=== PATIENT | female | born 1945 | race Caucasian/White ===

== ENCOUNTER → 2022-04-08 10:31 | Outpatient (CLI) | payer OTHER, SELFPAY ==
--- NOTE | 2022-04-08 10:36 | DI.RAD.S_ITS ---
PROCEDURE: XR LUMBAR SPINE MIN 4V INDICATIONS: BACK PAIN TECHNIQUE: 5 views of the lumbar spine were acquired, including bilateral oblique views. COMPARISON: None. FINDINGS: Bones: 5 nonrib-bearing vertebrae are present. There is 6 mm anterolisthesis of L4 on L5 and L5 on S1. Degenerative endplate changes, loss of disc height and bilateral facet arthrosis throughout lumbar spine is seen most notably at L1-2 level.. No vertebral body compression fractures. No suspicious bony lesions. Soft tissues: Overlying bowel gas pattern is normal. No suspicious soft tissue calcifications. Oblique images: No pars defects. IMPRESSION: Degenerative disc disease throughout lumbar spine. No acute compression fracture. Grade 1 anterolisthesis at L4-5 and L5-S1 levels. No gross pars defects. Dictated by: Beto Jaimes M.D. on 04/08/2022 at 11:14 Approved by: Beto Jaimes M.D. on 04/08/2022 at 11:16
== END ==
PROVIDERS: PCP Physician Assistant Medical; Referring Provider Physical Medicine & Rehabilitation; Visit Provider Physical Medicine & Rehabilitation
DX: M51.16 Intervertebral disc disorders with radiculopathy, lumbar region (principal); M51.17 Intervertebral disc disorders with radiculopathy, lumbosacral region; M43.16 Spondylolisthesis, lumbar region; M43.17 Spondylolisthesis, lumbosacral region; M54.9 Dorsalgia, unspecified
CPT/HCPCS: 72110; 99214

== ENCOUNTER 2022-04-28 13:38 | Outpatient (CLI) | payer OTHER, SELFPAY ==
[2022-04-28] VITALS (8 sets, daily range): BP systolic 139–188; BP diastolic 62–87; PULSE 58–66; RESP 14–20; TEMP 36.3; O2SAT 96–99
--- NOTE | 2022-04-28 13:39 | DI.RAD.S_ITS ---
PROCEDURE: PAIN L/S TRANSFORAMINAL INJECT INDICATIONS: SPONDYLOSIS COMPARISON: [facility], CR, XR LUMBAR SPINE MIN 4V, 04/08/2022, 10:42. [facility], RG, MRI L-SPINE W/O CONTRAST, 11/10/2021, 14:56. FINDINGS: Fluoroscopic spot filming was performed to verify placement of a spinal needle at the L3-L4 level, as labeled on the films. Appropriate location of the needle tip was confirmed by injection of iodinated contrast. IMPRESSION: Intraprocedural examination within normal limits. Dictated by: Emil English M.D. on 04/28/2022 at 14:37 Approved by: Emil English M.D. on 04/28/2022 at 14:37
[2022-04-28] MEDS: MIDAZOLAM 2 MG/2 ML VIAL IV (15:04)
[2022-04-28] MEDS: BETAMETHASONE 30 MG/5 ML MDV 6 MG INJ (15:11)
[2022-04-28] MEDS: IOPAMIDOL 15 ML VIAL 3 ML INJ (15:11)
[2022-04-28] MEDS: DEXAMETHASONE 10 MG/ML VIAL 20 MG INJ (15:11)
[2022-04-28] MEDS: BUPIVACAINE 0.5% MDV 5 ML SUBCUT (15:13)
--- NOTE | 2022-04-28 15:25 | PM.PROC.IR.1 ---
Date/Time/Diagnoses Date of procedure: 04/28/22 Time of procedure: 15:25 Pre-procedure diagnosis: 1. FORAMINAL STENOSIS WITH LE SYMPTOMS Post-procedure diagnosis: same Procedure Notes Procedure: 1. FLUOROSCOPICALLY GUIDED CONTRAST CONTROLLED TRANSFORAMINAL EPIDURAL STEROID INJECTION - LEFT L3/4 TFESI Indications: Latasha is referred by RADHA Tan for treatment of Foraminal Stenosis with left LE Symptoms Physician: Fawad Tee Total Fluoroscopy time (seconds): 15 Total sedation minutes: 10 Complications: none Procedure in detail & Post-procedure care: FINDINGS Foraminal Nerve Root Compression secondary to disc disease and facet hypertrophy DESCRIPTION OF PROCEDURE Following review of allergy and review of potential side effects and complications, including, but not necessarily limited to, infection, allergic reaction, local tissue breakdown, stroke, temporary or permanent nerve injury, paralysis, and possible , the patient indicated that the patient understood and agreed to proceed. An informed consent document was signed by the patient, witnessed by a nurse, and placed in the patient's chart. Additionally, other treatment options including medications, modalities, and physical therapy were reviewed with the patient. After review of previous anaesthesic history and IV conscious sedation the patient was deemed safe to proceed with today?s procedure with IV conscious sedation as ASA class II designation. Safety time-out was performed to confirm patient ID, procedure to be performed and site of procedure. IV sedation was accomplished with a combination of 2mg of Versed was administered by the RN after DO order, titrated to patient comfort during the course of the procedure while the patient remained responsive to all verbal commands In the prone position following sterile prep and drape of the lumbar region, the left L3/4 posterior neuroforamen was identified fluoroscopically. The skin was anesthetized via a 25-gauge 1.5-inch needle with 1% lidocaine solution. At this point, a 25-gauge 3.5-inch spinal needle was atraumatically introduced and advanced under fluoroscopic guidance through the posterior left L3/4 neuroforamen to approximately the anterior aspect of the canal. Depth was confirmed on lateral view. Following negative aspiration, injection of approximately 1.5 cc of Isovue 200 under live fluoroscopy in the AP view confirmed excellent flow along the nerve root, into the epidural space without vascular or intrathecal uptake observed Radiological data, including multiple fluoroscopic views of the lumbosacral spine, reveal a spinal needle at the left L3/4 posterior neuroforamen. Subsequent views show flow of contrast material flowing superiorly and inferiorly along the nerve root confirming epidural flow. Subsequently, a test dose of 1.5cc of 1% lidocaine solution was administered and patient was observed for two minutes for signs or symptoms of complications, including abdominal pain, shortness of breath, bilateral upper or lower extremity weakness, nausea and vomiting, prior to steroid injection. At this point, a total of 3cc or 20mg of dexamethasone and 6mg betamethasone was injected without incident. The patient tolerated the procedure well without signs or symptoms of complications prior to transfer to the recovery area continued monitoring without incident. The patient was then transferred to the recovery area where they were observed for an appropriate time after the injection. The patient reported a VAS score of 7 prior to the procedure and a post-procedure VAS of 0. POST OP INSTRUCTIONS The patient was provided a Pain Log to continue to record their response to the target-specific procedure prior to follow-up visit with their referring physician. Additionally, specific post-injection care instructions and a contact number to our office were provided if concerns arise regarding possible complications associated with the procedure are suspected.
== END 2022-04-28 15:50 | disposition home or self-care (01) ==
LOC: RAD 13:38
PROVIDERS: PCP Physician Assistant Medical; Referring Provider Physical Medicine & Rehabilitation; Visit Provider Physical Medicine & Rehabilitation
DX: M48.061 Spinal stenosis, lumbar region without neurogenic claudication (principal); M51.16 Intervertebral disc disorders with radiculopathy, lumbar region
CPT/HCPCS: 64483; 99152; J0702; J1100; J2250; J3490

== ENCOUNTER 2022-08-27 10:04 | Outpatient (CLI) | payer OTHER, SELFPAY ==
[2022-08-27] VITALS (8 sets, daily range): BP systolic 123–183; BP diastolic 56–80; PULSE 52–58; RESP 10–24; TEMP 36.2; O2SAT 1–100
--- NOTE | 2022-08-27 10:06 | DI.RAD.S_ITS ---
PROCEDURE: PAIN L/S TRANSFORAM INJECT SIGRID COMPARISON: None. INDICATIONS: SPONDYLOSIS FINDINGS: Fluoroscopic spot filming was performed to verify placement of spinal needles at the bilateral L4-5 level(s), as labeled on the films. Appropriate location(s) of the needle tip(s) was confirmed by injection of iodinated contrast. IMPRESSION: Fluoroscopic guidance for bilateral L4-5 transforaminal injections. Please see procedural note for further details. Dictated by: Farhad Zepeda M.D. on 08/27/2022 at 13:06 Approved by: Farhad Zepeda M.D. on 08/27/2022 at 13:08
[2022-08-27] MEDS: BUPIVACAINE 0.25% (PF) VIAL 5 ML INJ (11:41)
[2022-08-27] MEDS: MIDAZOLAM 2 MG/2 ML VIAL IV (11:41)
[2022-08-27] MEDS: BETAMETHASONE 30 MG/5 ML MDV 12 MG INJ (11:42)
[2022-08-27] MEDS: IOPAMIDOL 15 ML VIAL 3 ML INJ (11:43)
[2022-08-27] MEDS: DEXAMETHASONE 10 MG/ML VIAL 20 MG INJ (11:44)
--- NOTE | 2022-08-27 11:54 | PM.PROC.IR.1 ---
Date/Time/Diagnoses Date of procedure: 08/27/22 Time of procedure: 11:54 Pre-procedure diagnosis: 1. FORAMINAL STENOSIS WITH LE SYMPTOMS Procedure Notes Procedure: 1. FLUOROSCOPICALLY GUIDED CONTRAST CONTROLLED TRANSFORAMINAL EPIDURAL STEROID INJECTION - BILATERAL L4/5 TFESI Indications: Latasha is referred by PAC Dominick for treatment of Foraminal Stenosis with bilateral LE Symptoms Physician: Fawad Tee Total Fluoroscopy time (seconds): 15 Total sedation minutes: 11 Complications: none Procedure in detail & Post-procedure care: FINDINGS Foraminal Nerve Root Compression secondary to disc disease and facet hypertrophy DESCRIPTION OF PROCEDURE Following review of allergy and review of potential side effects and complications, including, but not necessarily limited to, infection, allergic reaction, local tissue breakdown, stroke, temporary or permanent nerve injury, paralysis, and possible , the patient indicated that the patient understood and agreed to proceed. An informed consent document was signed by the patient, witnessed by a nurse, and placed in the patient's chart. Additionally, other treatment options including medications, modalities, and physical therapy were reviewed with the patient. After review of previous anaesthesic history and IV conscious sedation the patient was deemed safe to proceed with today?s procedure with IV conscious sedation as ASA class II designation. Safety time-out was performed to confirm patient ID, procedure to be performed and site of procedure. IV sedation was accomplished with a combination of 2mg of Versed was administered by the RN after DO order, titrated to patient comfort during the course of the procedure while the patient remained responsive to all verbal commands In the prone position following sterile prep and drape of the lumbar region, the right L4/5 posterior neuroforamen was identified fluoroscopically. The skin was anesthetized via a 25-gauge 1.5-inch needle with 1% lidocaine solution. At this point, a 25-gauge 3.5-inch spinal needle was atraumatically introduced and advanced under fluoroscopic guidance through the posterior right L4/5 neuroforamen to approximately the anterior aspect of the canal. Depth was confirmed on lateral view. Following negative aspiration, injection of approximately 1.5cc of Isovue 200 under live fluoroscopy in the AP view confirmed excellent flow along the nerve root, into the epidural space without vascular or intrathecal uptake observed Radiological data, including multiple fluoroscopic views of the lumbosacral spine, reveal a spinal needle at the right L4/5 posterior neuroforamen. Subsequent views show flow of contrast material flowing superiorly and inferiorly along the nerve root confirming epidural flow. Subsequently, a test dose of 1.5cc of 1% lidocaine solution was administered and patient was observed for two minutes for signs or symptoms of complications, including abdominal pain, shortness of breath, bilateral upper or lower extremity weakness, nausea and vomiting, prior to steroid injection. At this point, a total of 3cc or 20mg of dexamethasone and 6mg betamethasone was injected without incident. Attention was then refocused to the left L4/5 level where the identical procedure was replicated. The procedure tolerated the procedure well without signs or symptoms of complications prior to transfer to the recovery area continued monitoring without incident. The patient was then transferred to the recovery area where they were observed for an appropriate time after the injection. The patient reported a VAS score of 7 prior to the procedure and a post-procedure VAS of 0. POST OP INSTRUCTIONS The patient was provided a Pain Log to continue to record their response to the target-specific procedure prior to follow-up visit with their referring physician. Additionally, specific post-injection care instructions and a contact number to our office were provided if concerns arise regarding possible complications associated with the procedure are suspected.
== END 2022-08-27 12:11 | disposition home or self-care (01) ==
LOC: RAD 10:05
PROVIDERS: PCP Physician Assistant Medical; Referring Provider Physical Medicine & Rehabilitation; Visit Provider Physical Medicine & Rehabilitation
DX: M47.9 Spondylosis, unspecified (principal)
CPT/HCPCS: 64483; 99152; J0702; J1100; J2250; J3490

== ENCOUNTER 2022-11-03 13:16 | Outpatient (CLI) | payer OTHER, SELFPAY ==
--- NOTE | 2022-11-03 13:17 | DI.RAD.S_ITS ---
PROCEDURE: PAIN L/S TRANSFORAMINAL INJECT INDICATIONS: SPONDYLOSIS COMPARISON: [facility], , PAIN L/S TRANSFORAMINAL INJECT, 04/28/2022, 16:08. FINDINGS: Fluoroscopic spot filming was performed to verify placement of a spinal needle at the L5-S1 level, as labeled on the films. Appropriate location of the needle tip was confirmed by injection of iodinated contrast. IMPRESSION: No significant intraprocedural abnormality. Dictated by: Emil English M.D. on 11/03/2022 at 13:52 Approved by: Emil English M.D. on 11/03/2022 at 13:52
[2022-11-03 13:30] VITALS: BP 115/57; PULSE 55; RESP 18; TEMP 36.2; O2SAT 97
[2022-11-03 14:15] VITALS: BP 135/63; PULSE 52; RESP 16; O2SAT 100
[2022-11-03 14:20] VITALS: BP 124/59; PULSE 53; RESP 17; O2SAT 100
[2022-11-03] MEDS: IOPAMIDOL 15 ML VIAL 3 ML INJ (14:20)
[2022-11-03] MEDS: BETAMETHASONE 30 MG/5 ML MDV 6 MG INJ (14:20)
[2022-11-03] MEDS: DEXAMETHASONE 10 MG/ML VIAL 20 MG INJ (14:21)
[2022-11-03] MEDS: BUPIVACAINE 0.25% (PF) VIAL 2 ML INJ (14:22)
[2022-11-03 14:23] VITALS: BP 119/57; PULSE 52; RESP 16; O2SAT 100
[2022-11-03 14:30] VITALS: BP 120/56; PULSE 56; RESP 17; O2SAT 97
--- NOTE | 2022-11-03 14:32 | PM.PROC.IR.1 ---
Date/Time/Diagnoses Date of procedure: 11/03/22 Time of procedure: 14:32 Pre-procedure diagnosis: 1. FORAMINAL STENOSIS WITH LE SYMPTOMS Post-procedure diagnosis: same Procedure Notes Procedure: 1. FLUOROSCOPICALLY GUIDED CONTRAST CONTROLLED TRANSFORAMINAL EPIDURAL STEROID INJECTION - Left L5/S1 Indications: Latasha is referred by RADHA Tan for treatment of Foraminal Stenosis with Left LE Symptoms Physician: Fawad Tee Total Fluoroscopy time (seconds): 10 Total sedation minutes: 0 Complications: none Procedure in detail & Post-procedure care: FINDINGS Foraminal Nerve Root Compression secondary to disc disease and facet hypertrophy DESCRIPTION OF PROCEDURE Following review of allergy and review of potential side effects and complications, including, but not necessarily limited to, infection, allergic reaction, local tissue breakdown, stroke, temporary or permanent nerve injury, paralysis, and possible , the patient indicated that the patient understood and agreed to proceed. An informed consent document was signed by the patient, witnessed by a nurse, and placed in the patient's chart. Additionally, other treatment options including medications, modalities, and physical therapy were reviewed with the patient. After review of previous anaesthesic history and IV conscious sedation the patient was deemed safe to proceed with today?s procedure with IV conscious sedation as ASA class II designation. Safety time-out was performed to confirm patient ID, procedure to be performed and site of procedure. IV sedation was deemed unnecessary and thus not administered by the RN after DO order, titrated to patient comfort during the course of the procedure while the patient remained responsive to all verbal commands In the prone position following sterile prep and drape of the lumbar region, the Left L5/S1 posterior neuroforamen was identified fluoroscopically. The skin was anesthetized via a 25-gauge 1.5-inch needle with 1% lidocaine solution. At this point, a 25-gauge 3.5-inch spinal needle was atraumatically introduced and advanced under fluoroscopic guidance through the posterior Left L5/S1 neuroforamen to approximately the anterior aspect of the canal. Depth was confirmed on lateral view. Following negative aspiration, injection of approximately 1.5cc of Isovue 200 under live fluoroscopy in the AP view confirmed excellent flow along the nerve root, into the epidural space without vascular or intrathecal uptake observed Radiological data, including multiple fluoroscopic views of the lumbosacral spine, reveal a spinal needle at the Left L5/S1 posterior neuroforamen. Subsequent views show flow of contrast material flowing superiorly and inferiorly along the nerve root confirming epidural flow. Subsequently, a test dose of 1.5cc of 1% lidocaine solution was administered and patient was observed for two minutes for signs or symptoms of complications, including abdominal pain, shortness of breath, bilateral upper or lower extremity weakness, nausea and vomiting, prior to steroid injection. At this point, a total of 3cc or 20mg of dexamethasone and 6mg of betamethasone was injected without incident. The procedure tolerated the procedure well without signs or symptoms of complications prior to transfer to the recovery area continued monitoring without incident. The patient was then transferred to the recovery area where they were observed for an appropriate time after the injection. The patient reported a VAS score of 7 prior to the procedure and a post-procedure VAS of 0. POST OP INSTRUCTIONS The patient was provided a Pain Log to continue to record their response to the target-specific procedure prior to follow-up visit with their referring physician. Additionally, specific post-injection care instructions and a contact number to our office were provided if concerns arise regarding possible complications associated with the procedure are suspected.
== END 2022-11-03 14:38 | disposition home or self-care (01) ==
LOC: RAD 13:16
PROVIDERS: PCP Physician Assistant Medical; Referring Provider Physical Medicine & Rehabilitation; Visit Provider Physical Medicine & Rehabilitation
DX: M48.07 Spinal stenosis, lumbosacral region (principal); M51.17 Intervertebral disc disorders with radiculopathy, lumbosacral region; M47.27 Other spondylosis with radiculopathy, lumbosacral region
CPT/HCPCS: 64483; J0702; J1100; J2250; J3490

== ENCOUNTER 2023-02-18 10:08 | Outpatient (CLI) | payer OTHER, SELFPAY ==
[2023-02-18] VITALS (10 sets, daily range): BP systolic 112–147; BP diastolic 51–67; PULSE 49–58; RESP 14–18; TEMP 36.4; O2SAT 95–99
--- NOTE | 2023-02-18 | DI.RAD.S_ITS ---
PROCEDURE: PAIN L/S TRANSFORAM INJECT SIGRID COMPARISON: [facility], XA, PAIN L/S TRANSFORAM INJECT SIGRID, 08/27/2022, 11:41. INDICATIONS: Lumbar radiculopathy FINDINGS: Access needles at the bilateral L4-L5 neural foramen. Injection of small amount of contrast material demonstrates tips of the access needles are extra thecal. IMPRESSION: Access needles at the bilateral L4-L5 neural foramen for transforaminal epidural steroid injection. Dictated by: Janis Sheets MD, PhD on 02/18/2023 at 13:31 Approved by: Janis Sheets MD, PhD on 02/18/2023 at 13:32
[2023-02-18] MEDS: MIDAZOLAM 2 MG/2 ML VIAL IV (11:00)
[2023-02-18] MEDS: BUPIVACAINE 0.25% (PF) VIAL 2 ML INJ (11:06)
[2023-02-18] MEDS: DEXAMETHASONE 10 MG/ML VIAL INJ (11:06)
[2023-02-18] MEDS: iopamidoL 15 ML VIAL 3 ML INJ (11:06)
[2023-02-18] MEDS: BETAMETHASONE 30 MG/5 ML MDV 6 MG INJ (11:06)
--- NOTE | 2023-02-18 11:30 | PM.PROC.IR.1 ---
Date/Time/Diagnoses Date of procedure: 02/18/23 Time of procedure: 11:30 Pre-procedure diagnosis: 1. FORAMINAL STENOSIS WITH LE SYMPTOMS Procedure Notes Procedure: 1. FLUOROSCOPICALLY GUIDED CONTRAST CONTROLLED TRANSFORAMINAL EPIDURAL STEROID INJECTION - BILATERAL L4/5 TFESI Indications: Latasha is referred by OZ Tan for treatment of Foraminal Stenosis with bilateral LE Symptoms Physician: Fawad Tee Total Fluoroscopy time (seconds): 25 Total sedation minutes: 23 Complications: none Procedure in detail & Post-procedure care: FINDINGS Foraminal Nerve Root Compression secondary to disc disease and facet hypertrophy DESCRIPTION OF PROCEDURE Following review of allergy and review of potential side effects and complications, including, but not necessarily limited to, infection, allergic reaction, local tissue breakdown, stroke, temporary or permanent nerve injury, paralysis, and possible , the patient indicated that the patient understood and agreed to proceed. An informed consent document was signed by the patient, witnessed by a nurse, and placed in the patient's chart. Additionally, other treatment options including medications, modalities, and physical therapy were reviewed with the patient. After review of previous anaesthesic history and IV conscious sedation the patient was deemed safe to proceed with today?s procedure with IV conscious sedation as ASA class II designation. Safety time-out was performed to confirm patient ID, procedure to be performed and site of procedure. IV sedation was accomplished with a combination of 2mg of Versed was administered by the RN after DO order, titrated to patient comfort during the course of the procedure while the patient remained responsive to all verbal commands In the prone position following sterile prep and drape of the lumbar region, the right L4/5 posterior neuroforamen was identified fluoroscopically. The skin was anesthetized via a 25-gauge 1.5-inch needle with 1% lidocaine solution. At this point, a 25-gauge 3.5-inch spinal needle was atraumatically introduced and advanced under fluoroscopic guidance through the posterior right L4/5 neuroforamen to approximately the anterior aspect of the canal. Depth was confirmed on lateral view. Following negative aspiration, injection of approximately 1.5cc of Isovue 200 under live fluoroscopy in the AP view confirmed excellent flow along the nerve root, into the epidural space without vascular or intrathecal uptake observed Radiological data, including multiple fluoroscopic views of the lumbosacral spine, reveal a spinal needle at the right L4/5 posterior neuroforamen. Subsequent views show flow of contrast material flowing superiorly and inferiorly along the nerve root confirming epidural flow. Subsequently, a test dose of 1.5cc of 1% lidocaine solution was administered and patient was observed for two minutes for signs or symptoms of complications, including abdominal pain, shortness of breath, bilateral upper or lower extremity weakness, nausea and vomiting, prior to steroid injection. At this point, a total of 2cc or 10mg of dexamethasone and 6mg betamethasone was injected without incident. Attention was then refocused to the left L4/5 level where the identical procedure was replicated. The procedure tolerated the procedure well without signs or symptoms of complications prior to transfer to the recovery area continued monitoring without incident. The patient was then transferred to the recovery area where they were observed for an appropriate time after the injection. The patient reported a VAS score of 7 prior to the procedure and a post-procedure VAS of 0. POST OP INSTRUCTIONS The patient was provided a Pain Log to continue to record their response to the target-specific procedure prior to follow-up visit with their referring physician. Additionally, specific post-injection care instructions and a contact number to our office were provided if concerns arise regarding possible complications associated with the procedure are suspected.
== END 2023-02-18 11:45 | disposition home or self-care (01) ==
LOC: RAD 10:09
PROVIDERS: PCP Physician Assistant Medical; Referring Provider Physical Medicine & Rehabilitation; Visit Provider Physical Medicine & Rehabilitation
DX: M48.061 Spinal stenosis, lumbar region without neurogenic claudication (principal); M51.16 Intervertebral disc disorders with radiculopathy, lumbar region; M47.26 Other spondylosis with radiculopathy, lumbar region
CPT/HCPCS: 64483; 99152; 99153; J0702; J1100; J2250; J3490

== ENCOUNTER 2023-10-19 09:51 | Emergency (ER) | payer OTHER, SELFPAY ==
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
[2023-10-19 10:03] VITALS: BP 142/66; PULSE 50; RESP 16; TEMP 36.6; O2SAT 96; BMI 29.0
[2023-10-19 10:10] VITALS: BP 142/66; BP 153/61; PULSE 50; RESP 16; TEMP 36.6; O2SAT 96; O2SAT 97
[2023-10-19 10:55] LABS: INR 2.3 (0.9-1.3); Prothrombin Time 26.6 SECONDS (9.4-12.5)
[2023-10-19 11:02] VITALS: BP 165/71; PULSE 52; RESP 16; O2SAT 96
[2023-10-19 11:24] VITALS: TEMP 36.4
== END 2023-10-19 11:25 | disposition home or self-care (01) ==
PROVIDERS: Emergency Provider Emergency Medicine; PCP Physician Assistant Medical
DX: T14.90XA Injury, unspecified, initial encounter (principal); V89.2XXA Person injured in unspecified motor-vehicle accident, traffic, initial encounter; Z79.01 Long term (current) use of anticoagulants; Z79.899 Other long term (current) drug therapy
CPT/HCPCS: 36415; 85610; 99283

== ENCOUNTER 2023-10-19 11:25 | Outpatient (CLI) | payer OTHER, SELFPAY ==
[2023-10-19] VITALS (11 sets, daily range): BP systolic 152–181; BP diastolic 66–87; PULSE 45–50; RESP 7–19; TEMP 35.9; O2SAT 94–100
--- NOTE | 2023-10-19 09:45 | DI.RAD.S_ITS ---
PROCEDURE: PAIN L/S FACET INJ/BLK 1ST SIGRID INDICATIONS: Bilateral L3, L4 and L5 MBB LA COMPARISON: None. FINDINGS: Fluoroscopic spot filming was performed to verify placement of spinal needles at the bilateral L3, L4 and L5 level(s), as labeled on the films. Appropriate location(s) of the needle tip(s) was confirmed by injection of iodinated contrast. IMPRESSION: Intra procedural examination demonstrating appropriate positions of the needles. Dictated by: Salvador Orozco M.D. on 10/19/2023 at 14:17 Approved by: Salvador Orozco M.D. on 10/19/2023 at 14:18
[2023-10-19] MEDS: MIDAZOLAM 2 MG/2 ML VIAL 1 MG IV (11:55)
[2023-10-19] MEDS: LIDOCAINE 1% 20 ML 5 ML INJ (11:58)
[2023-10-19] MEDS: BUPIVACAINE 0.5% (PF) 10 ML VIAL 5 ML INJ (11:58)
[2023-10-19] MEDS: iopamidoL 15 ML VIAL 3 ML INJ (11:58)
--- NOTE | 2023-10-19 12:17 | PM.PROC.IR.1 ---
Date/Time/Diagnoses Date of procedure: 10/19/23 Time of procedure: 12:17 Pre-procedure diagnosis: FACET ARTHROPATHY Post-procedure diagnosis: same Procedure Notes Procedure: 1. BILATERAL L3, L4 AND L5 DIAGNOSTIC MB BLOCKS Indications: Latasha is referred by O[facility] aTn for treatment of Bilateral Axial LBP. Physician: Fawad Tee Total Fluoroscopy time (seconds): 8 Total sedation minutes: 13 Complications: none Procedure in detail & Post-procedure care: DESCRIPTION OF PROCEDURE Fluoroscopically guided, contrast-controlled bilateral L3, L4 AND L5 medial branch blocks with 0.5cc of 0.5% Marcaine. Following review of allergy and review of potential side effects and complications, including, but not necessarily limited to, infection, allergic reaction, local tissue breakdown, nerve injury, paralysis, stroke and possible , the patient indicated that the patient understood and agreed to proceed. An informed consent document was signed by the patient, witnessed by a nurse, and placed in the patient's chart. After review of previous anaesthesic history and IV conscious sedation the patient was deemed safe to proceed with today's procedure with IV conscious sedation as ASA class II designation. Safety time-out was performed to confirm patient ID, procedure to be performed and site of procedure. IV sedation was accomplished with a combination of 1mg of Versed was administered by the RN after DO order, titrated to patient comfort during the course of the procedure while the patient remained responsive to all verbal commands In the prone position, following sterile prep and drape of the lumbar region, the right L3, L4 AND L5 anatomical location of the medial branch of the dorsal ramus was identified fluoroscopically. Subsequently an anesthetic skin wheal using 1% lidocaine solution was initiated at each of the anatomical spots. Subsequently then a 22-gauge 3.5-inch spinal needle was atraumatically introduced and advanced under fluoroscopic guidance at each of the corresponding sites at the right L3, L4 and L5 MB. After negative aspiration, 0.2cc of Isovue 200 was injected, confirming placement without vascular or intrathecal uptake. Subsequently then 0.5cc of 0.5% Marcaine solution was injected at each of the corresponding sites at the right L3, L4 and L5 medial branch locations. The identical procedure was replicated on the left. The patient tolerated the procedure well without signs or symptoms of complications. The patient tolerated the procedure well without signs or symptoms of complications prior to transfer to the recovery area continued monitoring without incident. Post-procedure, the patient was monitored initiating provocative activities to measure the amount of relief from block of the facetogenic pain. The patient reported a VAS of 7 prior to the procedure and a post-procedure VAS of 1. It has been a pleasure to assist in the diagnostic and therapeutic care of your patient. POST OP INSTRUCTIONS The patient was provided with a Pain Log to complete over the next several hours and subsequent days prior to the patient's follow up with the ordering physician. 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 The patient is aware, was provided, once again, with a Pain Log and will follow up with the referring physician for review and clinical correlation
--- NOTE | 2023-10-19 16:38 | PC.NURSE ---
Late Entry Pre procedure -Dr Tee came back from ER to pre/post room states ?patient is doing fine and will d/c from the ER and we will proceed with her injection? [facility] transported patient via w/c with spouse the pre/post room. Patient wheeled down to registration to register. Patient A&O x3, drowsy with conversation. Patient SBA with ambulation into bathroom states ?I am slightly dizzy and feel uncoordinated with ambulation?. Patient states ?I took 2 tabs of Diazepam 5mg for a total of 10mg at 0815?. States ?I have taken it one time before and did not have this response but I took 2 this time instead of one?. Please see ER note. Patient rates her pain 4/10 to bilateral lower back, Denies any neck pain, chest pain, SOB, headache, and nausea.
== END 2023-10-19 12:54 | disposition home or self-care (01) ==
PROVIDERS: PCP Physician Assistant Medical; Referring Provider Physical Medicine & Rehabilitation; Visit Provider Physical Medicine & Rehabilitation
DX: M47.816 Spondylosis without myelopathy or radiculopathy, lumbar region (principal); M47.817 Spondylosis without myelopathy or radiculopathy, lumbosacral region
CPT/HCPCS: 64493; 64494; 99152; J2250

== ENCOUNTER 2024-01-20 12:46 | Outpatient (CLI) | payer OTHER, SELFPAY ==
[2024-01-20] VITALS (10 sets, daily range): BP systolic 140–222; BP diastolic 62–96; PULSE 52–60; RESP 13–20; TEMP 37.6; O2SAT 94–100
--- NOTE | 2024-01-20 13:45 | DI.RAD.S_ITS ---
PROCEDURE: PAIN L INTERLAMINAR/CAUDAL INJ INDICATIONS: SPONDYLOSIS COMPARISON: None. FINDINGS: Fluoroscopic spot filming was performed to verify placement of spinal needles at the left L3-4 level(s), as labeled on the films. Appropriate location(s) of the needle tip(s) was confirmed by injection of iodinated contrast. IMPRESSION: Fluoroscopy for L3-4 translaminar ROSALBA Dictated by: Radha Manjarrez M.D. on 01/20/2024 at 17:56 Approved by: Radha Manjarrez M.D. on 01/20/2024 at 17:56
[2024-01-20] MEDS: MIDAZOLAM 2 MG/2 ML VIAL IV (14:06)
[2024-01-20] MEDS: iopamidoL 15 ML VIAL 3 ML INJ (14:11)
[2024-01-20] MEDS: BUPIVACAINE 0.25% (PF) VIAL 2 ML INJ (14:12)
[2024-01-20] MEDS: BETAMETHASONE 30 MG/5 ML MDV 6 MG INJ (14:12)
[2024-01-20] MEDS: DEXAMETHASONE 10 MG/ML VIAL INJ (14:12)
--- NOTE | 2024-01-20 14:31 | P.PCN_ITS ---
Date/Time/Diagnoses Date of procedure: 01/20/24 Time of procedure: 14:31 Pre-procedure diagnosis: 1. HNP WITH RADICULAR FEATURES, 2. MULTILEVEL CENTRAL STENOSIS, Post-procedure diagnosis: same Procedure Notes Procedure: 1. FLUOROSCOPICALLY GUIDED CONTRAST CONTROLLED INTERLAMINAR EPIDURAL STEROID INJECTION - L3/4 Indications: Latasha is referred by PAC Dominick for treatment of Bilateral Foraminal Stenosis L>R LE symptoms. Physician: Fawad Tee Total Fluoroscopy time (seconds): 8 Total sedation minutes: 14 Complications: none Procedure in detail & Post-procedure care: FINDINGS Multilevel Central Spinal Stenosis with Nerve Root Compression DESCRIPTION OF PROCEDURE Fluoroscopically guided, contrast-controlled L3/4 translaminar epidural steroid injection. Following review of allergy and review of potential side effects and complications, including, but not necessarily limited to, infection, allergic reaction, local tissue breakdown, temporary as well as permanent nerve injury, paralysis, stroke and possible , the patient indicated that the patient understood and agreed to proceed. An informed consent document was signed by the patient, witnessed by a nurse, and placed in the patient's chart. Additionally, other treatment options including modalities, medications, and physical therapy were reviewed with the patient. After review of previous anaesthesic history and IV conscious sedation the patient was deemed safe to proceed with today?s procedure with IV conscious sedation as ASA class II designation. Safety time-out was performed to confirm patient ID, procedure to be performed and site of procedure. IV sedation was accomplished with a combination of 2mg of Versed was administered by the RN after DO order, titrated to patient comfort during the course of the procedure while the patient remained responsive to all verbal commands. In the prone position, following sterile prep and drape of the lumbar region, the L3/4 translaminar space was identified fluoroscopically. The skin was anesthetized via a 25-gauge, 1.5-inch needle with 1% lidocaine solution. At this point, a 22-gauge short bevel spinal needle was atraumatically introduced and advanced under fluoroscopic guidance into the region of the L3/4 translaminar space. Depth was confirmed on lateral view. Radiological data, including multiple fluoroscopic views of the lumbar spine, reveal a spinal needle at the L3/4 translaminar space. Lateral views then show placement of the needle in the epidural space. Subsequent views show contrast material flowing superiorly and inferiorly in the epidural space. No vascular or intrathecal uptake is observed. At this point, using loss of resistance technique with saline and air, the epidural space was entered. This was confirmed following negative aspiration with injection of approximately 1.5 cc of Isovue 200, showing excellent epidural flow without vascular or intrathecal uptake. At this point, 1cc of 1% lidocaine solution combined with 2cc or 10mg of dexamethasone and 6mg of betamethasone was injected without incident. The patient tolerated the procedure well without signs or symptoms of complications prior to transfer to the recovery area continued monitoring without incident. The patient was then transferred to the recovery area where they were observed for an appropriate period of time after the injection. The patient reported a VAS score of 6 prior to the procedure and a post- procedure VAS of 0. POST OP INSTRUCTIONS The patient was provided a Pain Log to continue to record their response to the target-specific procedure prior to follow-up visit with their referring physician. Additionally, specific post-injection care instructions and a contact number to our office were provided if concerns arise regarding possible complications associated with the procedure are suspected.
== END 2024-01-20 14:39 | disposition home or self-care (01) ==
PROVIDERS: PCP Physician Assistant Medical; Referring Provider Physical Medicine & Rehabilitation; Visit Provider Physical Medicine & Rehabilitation
DX: M51.16 Intervertebral disc disorders with radiculopathy, lumbar region (principal); M48.061 Spinal stenosis, lumbar region without neurogenic claudication
CPT/HCPCS: 62323; 99152; J0702; J1100; J2250; J3490

== ENCOUNTER → 2024-03-07 10:37 | Outpatient (CLI) | payer OTHER, SELFPAY ==
--- NOTE | 2024-03-07 10:38 | DI.MRI.S_ITS ---
PROCEDURE: MR LUMBAR SPINE WO CON INDICATIONS: progressive stenosis TECHNIQUE: Noncontrast sagittal T1 spin echo and T2 fast echo, sagittal STIR, and T2 fast spin echo through the lumbar spine. In cases with scoliosis, additional coronal T2 fast spin echo may be performed. COMPARISON: [facility], [facility]UC[facility], XR LUMBAR SPINE MIN 4V, 04/08/2022, 10:42. [facility], [place], MRI L-SPINE W/O CONTRAST, 11/10/2021, 14:56. FINDINGS: Image quality: Excellent. Alignment and Curvature: Trace anterolisthesis of L4 on L5. Bone Marrow: Marrow is of normal overall signal. No acute vertebral body compression fractures. Spinal Cord: Conus medullaris terminates at the L1-L2 level. Visualized cord demonstrates normal signal and size. Paraspinous Soft Tissues: No paravertebral masses. T12-L1: Unchanged. Minimal disc bulge. Facet hypertrophy. Epidural lipomatosis. No canal stenosis or foraminal stenosis. L1-L2: Unchanged. Severe disc height loss. Posterior disc post osteophyte. Facet hypertrophy. No significant canal stenosis or foraminal stenosis. L2-L3: Unchanged. Disc bulge. Facet hypertrophy. No canal stenosis or significant foraminal stenosis. L3-L4: Progressive findings. Previous diffuse disc bulge now has increased to a broad-based moderately large posterior disc protrusion. Exuberant facet and ligament hypertrophy. Severe canal stenosis. Reference sagittal image 8 of T2 series 2 and axial image 23 of series 6. No significant right foraminal narrowing. Mild to moderate left foraminal narrowing. L4-L5: Progressive findings. Increased diffuse disc bulge. Exuberant facet and ligament hypertrophy. Severe canal stenosis. Mild bilateral foraminal stenosis. L5-S1: Stable findings. Diffuse disc bulge. Facet and ligament hypertrophy. Epidural lipomatosis. [id number] canal stenosis. Mild right foraminal narrowing. Moderate left foraminal narrowing. IMPRESSION: 1. Underlying multilevel facet arthropathy. 2. Progressive findings at L3-L4 and L4-L5. At both of these levels there is progressive, severe canal stenosis. 3. There is stable [id number] canal stenosis at L5-S1. Dictated by: Anthony Ramirez M.D. on 03/07/2024 at 21:38 Approved by: Anthony Ramirez M.D. on 03/07/2024 at 21:45
== END ==
PROVIDERS: PCP Physician Assistant Medical; Referring Provider Physical Medicine & Rehabilitation; Visit Provider Physical Medicine & Rehabilitation
DX: M48.061 Spinal stenosis, lumbar region without neurogenic claudication (principal); M48.07 Spinal stenosis, lumbosacral region; M51.26 Other intervertebral disc displacement, lumbar region; M47.816 Spondylosis without myelopathy or radiculopathy, lumbar region; M47.817 Spondylosis without myelopathy or radiculopathy, lumbosacral region
CPT/HCPCS: 72148

== ENCOUNTER → 2024-06-07 13:29 | Outpatient (CLI) | payer OTHER, SELFPAY ==
--- NOTE | 2024-06-07 | OV.WND_ITS ---
PROGRESS NOTE DETAILS PATIENT NAME: SANDRITA TELLO PATIENT NUMBER: [id number] CLINICIAN: DEEPA HALL RN PATIENT DATE OF : 1945 PHYSICIAN / CONSTRUCTION HELPER: LIZY SARMIENTO PATIENT SUBJECTIVE CHIEF COMPLAINT THIS INFORMATION WAS OBTAINED FROM THE PATIENT. WOUND INNER LEFT THIGH, WAS SURG[facility]ALLY [facility]ID[facility] BY [facility]. GENERAL NOTES DRESSING ON AND INTACT. PATIENT BREATHING HEAVY WITH REMOVAL OF DRESSING ALLERGIES NO ALLERGIES HAVE BEEN DOCUMENTED FOR THE PATIENT GENERAL NOTES NO KNOW DRUG ALLERGIES HPI THIS INFORMATION WAS OBTAINED FROM THE PATIENT. THE FOLLOWING HPI ELEMENTS WERE DOCUMENTED FOR THE PATIENT'S WOUND: LOCATION: MEDIAL LEFT THIGH CONTEXT: CALCIPHYLAXIS THE PATIENT IS A 79-YEAR-OLD FEMALE WITH HYPERTENSION, CKD 3B, OBESITY, CHF, AND LONG-TERM PREDNISONE AND IMMUNE SUPPRESSION FOR PSORIATIC ARTHRITIS WHO WAS REFERRED FOR EVALUATION OF A PAINFUL NECROTIC ULCER MEDIAL LEFT THIGH. THE PATIENT HAD BEEN RECEIVING WOUND CARE AT [facility] AND WAS RECENTLY HOSPITALIZED AT [facility] BECAUSE THE ULCER WAS WORSENING. SHE UNDERWENT SURGICAL DEBRIDEMENT AND WAS RECENTLY DISCHARGED TO A SNF FACILITY. SHE REPORTEDLY HAS BEEN RECEIVING DRESSING CHANGES WITH HYDROFERA BLUE. THE PATIENT REPORTS THAT THE ULCER IS STILL VERY PAINFUL. SHE IS NOT CURRENTLY ON ANY ANTIBIOTIC THERAPY. THE PATIENT DENIES HAVING ANY FEVER OR CHILLS. SHE REPORTS A GOOD APPETITE AND IS TAKING NUTRITIONAL SUPPLEMENTS. RECORDS FROM RECENT HOSPITALIZATION WERE NOT AVAILABLE FOR REVIEW. REVIEW OF [facility] RECORDS DID NOT REVEAL ANY RECENT LABS, CULTURES, OR IMAGING STUDIES. THE PATIENT HAS A PAST HISTORY OF DVT AND PREVIOUSLY WAS ON WARFARIN BUT IS NOW ON ELIQUIS. SHE IS ABLE TO AMBULATE WITH THE USE OF A WALKER. PREVIOUS CULTURES HAVE GROWN PSEUDOMONAS AND MSSA. PREVIOUS BIOPSY FINDINGS REVEALED ISCHEMIC FAT NECROSIS WITH FOCAL EARLY CALCIFICATION. THE PATIENT IS TAKING OXYCODONE TO HELP CONTROL PAIN. FAMILY HISTORY THIS INFORMATION WAS OBTAINED FROM THE PATIENT. HEART DISEASE- FATHER MENTAL ILLNESS- MOTHER SOCIAL HISTORY THIS INFORMATION WAS OBTAINED FROM THE PATIENT. SANDRITA TELLO [id number] 1945 CHILDREN: YES LONG-TERM CARE FACILITY: [facility] WOULD LIKE TO MOVE HOME MARITAL STATUS GENERAL NOTES HAS A VERY SUPPORTIVE FAMILY MEDICAL HISTORY THIS INFORMATION WAS OBTAINED FROM THE PATIENT. 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 YES? COMPLETE ALL QUESTIONS.: NO SURGICAL HISTORY THIS INFORMATION WAS OBTAINED FROM THE PATIENT. PATIENT HAS A SURGICAL HISTORY OF: SURGICAL DEBRIDEMENT- 05/31/2024 REVIEW OF SYSTEMS (ROS) THIS INFORMATION WAS OBTAINED FROM THE PATIENT. COMPLAINTS AND SYMPTOMS PATIENT COM PLAINS OF: CARDIOVASCULAR (CENTRAL): CHEST PAIN CO-MORBID CONDITIONS: CONGESTIVE HEART FAILURE, HYPERTENSION, OBESITY HEMATOLOGIC/LYMPHATIC: SWELLING MUSCULOSKELETAL: MUSCLE WEAKNESS PRIOR WOUND HISTORY: MALODOR, PAIN PATIENT DENIES COM PLAINTS OR SY M PTOM S RELATED TO: CARDIOVASCULAR (CENTRAL): DYSPNEA ON EXERTION CONSTITUTIONAL SYMPTOMS (GENERAL HEALTH): CHILLS, FEVER, LOSS OF APPETITE PRIOR WOUND HISTORY: BLEEDING, DRAINAGE, ERYTHEMA RESPIRATORY: COUGH, SHORTNESS OF BREATH OBJECTIVE VITALS HEIGHT/LENGTH: 58 IN (147.32 CM), WEIGHT: 127.5 LBS (57.95 KGS), BMI: 26.6, TEMPERATURE: 97.4 ?F (36.33 ?C), PULSE: 64 BPM, RESPIRATORY RATE: 22 BREATHS/MIN, BLOOD PRESSURE: 156/73 MMHG, PULSE OXIMETRY: 95 %. PHYSICAL EXAM SANDRITA TELLO [id number] 1945 CONSTITUTIONAL: VITAL SIGNS REVIEWED AND NOTED. GENERALIZED WEAKNESS. IN NO APPARENT DISTRESS. RESPIRATORY: EVEN RESPIRATIONS WITHOUT USE OF ACCESSORY MUSCLES. NO INTERCOASTAL RETRACTIONS NOTED. EVEN AND NON LABORED RESPIRATION. INTEGUMENTARY (HAIR, SKIN): NO ERYTHEMA. PERIWOUND TENDERNESS, LOWER EXTREMITY EDEMA. SEE WOUND ASSESSMENT. SKIN WARM AND DRY. NO RASHES. NEUROLOGICAL: SENSATION: SYMMETRIC FUNCTION BY INFORMAL OBSERVATION. PSYCHIATRIC: ORIENTATION TO TIME, PLACE AND PERSON: NORMAL AFFECT WITH NORMAL THOUGHT PATTERN. ADDITIONAL INFORMATION THE PATIENT'S POTENTIAL TO HEAL IS: FAIR. LOWER EXTREMITY ASSESSMENT EDEMA ASSESSMENT: LEFT EXTREMITY: EDEMA IS PRESENT FOOT MEASUREMENT 8 CM FROM WITH LEFT MEASUREMENT OF 24 CM RIGHT EXTREMITY: EDEMA IS PRESENT FOOT MEASUREMENT 8 CM FROM WITH RIGHT MEASUREMENT OF 24 CM VASCULAR ASSESSMENT LEFT EXTREMITY PULSES: POSTERIOR: DOPPLER RIGHT EXTREMITY PULSES: POSTERIOR: DOPPLER WOUND ASSESSMENT(S) WOUND #1 LEFT, MEDIAL LEG - THIGH IS AN ACUTE FULL THICKNESS CALCIPHYLAXIS ACQUIRED ON 03/27/2024 AND HAS RECEIVED A STATUS OF NOT HEALED. INITIAL WOUND ENCOUNTER MEASUREMENTS ARE 8CM LENGTH X 7.5CM WIDTH X 0.6 CM DEPTH, WITH AN AREA OF 60 SQ CM AND A VOLUME OF 36 CUBIC CM. ADIPOSE IS EXPOSED. NO TUNNELING HAS BEEN NOTED. NO SINUS TRACT HAS BEEN NOTED. THERE IS A COPIOUS AMOUNT OF PURULENT DRAINAGE NOTED WHICH HAS A STRONG ODOR. THE PATIENT REPORTS A WOUND PAIN OF LEVEL 10/10. THE WOUND MARGIN IS ATTACHED WOUND BED HAS YES, PINK, SPONGY, GRANULATION, YES SLOUGH, YES ESCHAR, NO EPITHELIALIZATION. THE PERIWOUND SKIN TEXTURE IS NORMAL. THE PERIWOUND SKIN MOISTURE IS NORMAL. THE PERIWOUND SKIN COLOR IS NORMAL. 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 EXPOSED (ENCOUNTER DIAGNOSIS) E83.59 - OTHER DISORDERS OF CALCIUM METABOLISM GENERAL NOTES PAINFUL NECROTIC ULCER MEDIAL LEFT THIGH, VERY DRY, NO SIGN OF INFECTION THE FOLLOWING FACTORS HAVE BEEN IDENTIFIED THAT MAY AFFECT WOUND HEALING: DEVITALIZED TISSUE BIOFILM CHRONIC KIDNEY DISEASED SANDRITA TELLO [id number] 1945 EDEMA ADVANCED AGE ANTICOAGULATION IMMUNE SUPPRESSION GOALS: REMOVED DEVITALIZED TISSUE REMOVE AND PREVENT BIOFILM PREVENT INFECTION PREVENT WOUND DETERIORATION DECREASE PAIN PLAN: PARTIAL DEBRIDEMENT WAS PERFORMED, MORE THOROUGH DEBRIDEMENT COULD NOT BE COMPLETED BECAUSE OF PAIN. PLAN TO START DAILY WET TO WET DRESSING CHANGES WITH VASHE SOLUTION. START PROTEIN SUPPLEMENTATION. NEED TO OBTAIN RECORDS, PATHOLOGY REPORT, AND LABS FROM RECENT HOSPITALIZATION. FOLLOW UP IN 1 WEEK FOR A RECHECK. PROCEDURES WOUND #1 WOUND #1 (CALCIPHYLAXIS) IS LOCATED ON THE LEFT, MEDIAL LEG - THIGH. A SKIN/SUBCUTANEOUS TISSUE LEVEL SURGICAL DEBRIDEMENT WITH A TOTAL AREA DEBRIDED OF 3 SQ CM. WAS PERFORMED BY LIZY SARMIENTO MD. SUBCUTANEOUS WAS REMOVED ALONG WITH DEVITALIZED TISSUE: BIOFILM, EXUDATE, NECROTIC/ESCHAR AND SLOUGH. THE FOLLOWING INSTRUMENT(S) WERE USED: CURETTE. PAIN CONTROL WAS ACHIEVED USING EMLA LIDOCAINE/PRILOCAINE 2.5%/2.5%. A TIME OUT WAS CONDUCTED PRIOR TO THE START OF THE PROCEDURE. A MINIMAL AMOUNT OF BLEEDING WAS CONTROLLED WITH PRESSURE. THE PROCEDURE WAS NOT TOLERATED WELL WITH A PAIN LEVEL OF 10 THROUGHOUT AND A PAIN LEVEL OF 7 FOLLOWING THE PROCEDURE. RESPONSE TO TREATMENT COMMENTS: PROCEDURE STOPPED D/T PAIN. POST DEBRIDEMENT MEASUREMENTS: 8CM LENGTH X 7.5CM WIDTH X 0.6CM DEPTH; WITH AN AREA OF 60 SQ CM AND A VOLUME OF 36 CUBIC CM. GENERAL NOTES NO POST PHOTO. ADDITIONAL INFORMATION MUSCLE FASCIA OR BONE REMOVED AND SENT TO PATHOLOGY?: NO PLAN WOUND ORDERS: WOUND #1 LEFT, MEDIAL LEG - THIGH HAND HYGIENE HAND HYGIENE - WASH HANDS BEFORE AND AFTER WOUND CARE. CALL THE WOUND CENTER AT [phone] IF YOU HAVE SIGNS OR SYMPTOMS OF INFECTION, FEVER CHILLS OR SHAKES, INCREASED DRAINAGE, INCREASED ODOR OR UNUSUAL REDNESS. AFTER WOUND CENTER HOURS PLEASE NOTIFY YOUR PCP OR GO TO THE EMERGENCY ROOM. CLEANSER APPLY HYPOCHLOROUS ACID (VASHE OR SIMILAR) SOAKED 4X4 GAUZE TO WOUND BED FOR 5- 10 MINUTES AFTER PROVIDER HAS COMPLETED WOUND EXAM. REMOVE GAUZE AND DRESS WOUND ACCORDING TO DRESSING ORDERS. PROCEDURE / ANESTHETIC 5% TOPICAL LIDOCAINE TO WOUND BED PRIOR TO PROCEDURE, IN CLINIC ONLY. DRESSING ORDERS APPLY DRESSING(S) AND SECURE WITH: - SOAK 4X4 GUAZE WITH VASHE AND FILL THE WOUND THEN COVER THE VASHE SOAKED GAUZE WITH GAUZE THEN COVER WITH A BOARDER FOAM DRESSING. (WET TO WET DRESSING CHANGE). DRESSING CHANGE FREQUENCY SANDRITA TELLO [id number] 1945 CHANGE DRESSING DAILY. FOLLOW-UP APPOINTMENTS RETURN APPOINTMENT 1 WEEK ADDITIONAL ORDERS: PROVIDER REVIEW AND ATTESTATION: REVIEWED HOSPITAL RECORDS. DISCUSSED THE PLAN OF CARE @ BEDSIDE WITH - THE PATIENT, SON, AND GRANDSON I AGREE AND ATTEST TO THE ABOVE INFORMATION PROVIDED FROM OTHER LICENSED PROFESSIONALS. PLAN OF CARE: 01. ENSURE/ESTABLISH OPTIMAL BLOOD FLOW : - COMPLETE LOWER EXTREMITY ASSESSMENT STATUS: INITIATED DATE: 06/07/2024 - PERFORM NON-INVASIVE VASCULAR TESTING (I.E. SANDRA) AND DOCUMENT FINDINGS. CONSIDER REPEATING WHEN WOUND HEALING <40% AFTER 30 DAYS OF WOUND CARE. - TOO PAINFUL TO DO SANDRA, WILL SEE IF VASCULAR STUDIES WERE DONE AT [facility] STATUS: INITIATED DATE: 06/07/2024 02. ASSESS FOR/TREAT INFECTION : - EVALUATE FOR SIGNS AND SYMPTOMS OF INFECTION AND DOCUMENT FINDINGS. STATUS: INITIATED DATE: 06/07/2024 03. DEBRIDE WEEKLY OR MORE OFTEN PRN : - EVALUATE PATIENT IN CENTER WEEKLY TO ASSESS WOUND BED AND MARGINS FOR NEED FOR DEBRIDEMENT. STATUS: INITIATED DATE: 06/07/2024 - MECHANICAL DEBRIDEMENT: STIMULATE AND/OR MAINTAIN ACUTE PHASE OF WOUND HEALING BY REDUCING BACTERIAL BURDEN AND DEVITALIZED/NON-VIABLE TISSUE. STATUS: INITIATED DATE: 06/07/2024 04. OPTIMIZE GLUCOSE CONTROL AND NUTRITION : - ORDER/REVIEW PERTINENT LABS TO EVALUATE RENAL FUNCTION, GLUCOSE CONTROL, AND NUTRITIONAL STATUS. STATUS: INITIATED DATE: 06/07/2024 05. OFFLOADING PLAN : - REVIEWED, NOT APPLICABLE 06. OPTIMIZE HOST FACTORS: - ASSESS AND REVIEW PATIENT HISTORY FOR WOUND ETIOLOGY, CO-MORBID CONDITIONS, MEDICATION REGIME, AND SMOKING HISTORY. STATUS: INITIATED DATE: 06/07/2024 - ASSESS LIFESTYLE FACTORS SUCH SMOKING, ALCOHOL/DRUG ABUSE, EATING HABITS/MALNUTRITION AND ACTIVITY LEVEL. STATUS: INITIATED DATE: 06/07/2024 07. DRESSING SELECTION : - EVALUATE FOR DRESSING-RELATED FACTORS, SUCH AVAILABILITY, WEAR TIME, ADAPTABILITY AND USE TO BETTER OPTIMIZE WOUND HEALING AND PATIENT COMPLIANCE. STATUS: INITIATED DATE: 06/07/2024 - CHOOSE TOPICAL TREATMENTS AND/OR DRESSING BASED ON WOUND TYPE AND APPEARANCE, PERIWOUND SKIN CONDITION, WOUND SIZE AND DEPTH, ANATOMIC LOCATION, VOLUME OF EXUDATE, EDEMA IN THE LOWER EXTREMITIES, AND RISK OR PRESENCE OF INFECTION. STATUS: INITIATED DATE: 06/07/2024 - EDUCATE THE PATIENT/FAMILY/CAREGIVER TO MONITOR DRESSING DAILY. CHANGE DRESSING ONLY NEEDED BUT NEVER LESS FREQUENTLY THAN WEEKLY SO THAT WOUND BED CAN BE REASSESSED. STATUS: INITIATED DATE: 06/07/2024 08. ADVANCED MODALITIES : - SET TREATMENT GOALS ACCORDING TO PATIENT AND/OR CAREGIVER?S ABILITY/ COMPLIANCE. STATUS: INITIATED DATE: 06/07/2024 SANDRITA TELLO [id number] 1945 - RE-EVALUATE PLAN OF CARE IF NO EVIDENCE OF HEALING (40% IN 4 WEEKS). STATUS: INITIATED DATE: 06/07/2024 09. FALL PREVENTION : - COMPLETE FALL ASSESSMENT. STATUS: INITIATED DATE: 06/07/2024 10. PAIN MANAGEMENT : - COMPLETE PAIN ASSESSMENT STATUS: INITIATED DATE: 06/07/2024 - PREPARE PATIENT TO SET REASONABLE EXPECTATIONS PRIOR TO PROCEDURE. STATUS: INITIATED DATE: 06/07/2024 - INSTRUCT THE PATIENT TO CALL ?TIME-OUT? IF PAIN IS TOO INTENSE DURING PROCEDURE. STATUS: INITIATED DATE: 06/07/2024 11. MEASURABLE GOALS FOR WOUND HEALING AND/OR HYPERBARIC OXYGEN THERAPY : - LESS DRAINAGE STATUS: INITIATED DATE: 06/07/2024 - DECREASE INFLAMMATION STATUS: INITIATED DATE: 06/07/2024 - DECREASE PAIN STATUS: INITIATED DATE: 06/07/2024 - IMPROVE QUALITY OF LIFE STATUS: INITIATED DATE: 06/07/2024 - REDUCE RISK FOR INFECTION STATUS: INITIATED DATE: 06/07/2024 12. DURATION/FREQUENCY OF WOUND CARE VISITS : - 1X WEEKLY FOR 30 DAYS STATUS: INITIATED DATE: 06/07/2024 ELECTRONIC SIGNATURE(S) SIGNED BY: DATE: LIZY SARMIENTO MD 06/08/2024 08:26:56 (PT) ENTERED BY: LIZY SARMIENTO MD ON 06/08/2024 08:25:58 (PT) SANDRITA TELLO [id number] 1945
== END ==
PROVIDERS: PCP Physician Assistant Medical; Referring Provider Physician Assistant Medical; Visit Provider Surgery
DX: L97.122 Non-pressure chronic ulcer of left thigh with fat layer exposed (principal); E83.59 Other disorders of calcium metabolism; L40.52 Psoriatic arthritis mutilans; M79.605 Pain in left leg
CPT/HCPCS: 11042; 99203; 99213

== ENCOUNTER 2024-06-13 15:44 | Emergency (ER) | payer OTHER, SELFPAY ==
[2024-06-13] VITALS (17 sets, daily range): BP systolic 94–130; BP diastolic 49–62; PULSE 58–76; RESP 12–35; TEMP 36.6; O2SAT 91–100; BMI 27.9
--- NOTE | 2024-06-13 16:11 | DI.RAD.S_ITS ---
PROCEDURE: XR HAND LT MIN 3V INDICATIONS: trauma 24hrs ago TECHNIQUE: 3 views of the hand(s) acquired. COMPARISON: None. FINDINGS: Bones: No fractures or dislocations. 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 Osteoarthritic changes are noted throughout left hand and wrist joints. No suspicious bony lesions. Soft tissues: No suspicious soft tissue calcifications. 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 No acute fracture or dislocation. 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 Dictated by: Beto Jaimes M.D. on 06/13/2024 at 16:42 Approved by: Beto Jaimes M.D. on 06/13/2024 at 16:43
--- NOTE | 2024-06-13 16:12 | ED_ITS ---
HPI - General Adult <Helen Bartlett MD - Last Filed: 06/14/24 07:19> General Chief complaint: Fall Stated complaint: lt hand injury, AMS Time Seen by Provider: 06/13/24 15:55 History of Present Illness HPI narrative: 79-year-old woman with a history of hypertension, stage 3 kidney disease, congestive heart failure, arthritis, anticoagulated on warfarin, hypothyroidism, hyperlipidemia, history of DVT/PE, peripheral arterial disease, chronic low back pain, seronegative inflammatory arthritis and a non healing ulcer over the medial aspect of the left thigh that has been there for several years recently diagnosed as warfarin induced calciphylaxis. She was hospitalized at [facility] on May 26 with calciphylaxis and intractable pain with the acute metabolic encephalopathy and acute congestive heart failure with complicating anemia. There were specific wound care instructions with [id number] dressing changes, lidocaine at the wound edges prior to removing packing, Hydrofera blue foam to be used and changes every other day. Please see discharge summary from [facility]. Vascular surgery did evaluate this food and was not felt to be secondary to vascular malperfusion. It does appear that there were concerns for sundowning like behavior consistent with hospital delirium with concerns for underlying cognitive impairment. From that stay she was discharged to group home facility, [facility]. Apparently she fell yesterday hurt her left hand fall was unwitnessed. With x-ray attempted at the group home facility today, she became significantly agitated, ran out of the facility and needed to physically be helped back to the facility. She remained quite agitated and is brought into the ER for evaluation. When talking with family friends it sounds like there is a moderate degree of dementia, she lives with her in [place] who does not drive has similar cognitive deficits. Apparently there was an adult son who was trying to help with the social situation appears challenging. Patient is not able to help with review of systems questions Related Data Home Medications Medication Instructions Recorded Confirmed cholecalciferol (vitamin D3) 125 125 mcg PO DAILY 04/08/22 02/16/24 mcg (5,000 unit) capsule colchicine 0.6 mg tablet 0.6 mg PO DAILY 04/08/22 02/16/24 levothyroxine 88 mcg tablet 88 mcg PO DAILY 04/08/22 02/16/24 lovastatin 40 mg tablet 40 mg PO BEDTIME 04/08/22 02/16/24 multivitamin 1 tab PO DAILY 04/08/22 02/16/24 warfarin 3 mg tablet 3 mg PO DAILY 04/08/22 02/16/24 carvedilol 25 mg tablet 25 mg PO DAILY PRN 07/22/22 02/16/24 fluticasone propionate 50 g intranasal 07/22/22 02/16/24 mcg/actuation nasal spray,suspension lisinopril 20 mg tablet 20 mg PO BID 10/19/22 02/16/24 alendronate 70 mg tablet 70 mg PO QWEEK 01/13/23 02/16/24 prednisone 5 mg tablet 5 mg PO DAILY 01/13/23 02/16/24 azelastine 137 mcg (0.1 %) nasal 1 spray intranasal ONCE 06/14/23 02/16/24 spray leflunomide 20 mg tablet 20 mg PO DAILY 06/14/23 02/16/24 amlodipine 5 mg tablet 5 mg PO BID 02/16/24 02/16/24 Previous Rx's Medication Instructions Recorded gabapentin 300 mg capsule 300 mg PO .COMPLEX #90 caps 02/16/24 Allergies Allergy/AdvReac Type Severity Reaction Status Date / Time No Known Drug Allergies Allergy Verified 06/13/24 16:05 Review of Systems <Helen Bartlett MD - Last Filed: 06/14/24 07:19> Review of Systems ROS Unobtainable: Unobtainable due to mental condition Patient History <Helen Bartlett MD - Last Filed: 06/14/24 07:19> Medical History (Updated 06/13/24 @ 18:18 by Bethany Rivera DO) Chronic kidney disease Skin ulceration 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 arthropathy, lumbar Lumbar foraminal stenosis History of DVT (deep vein thrombosis) Herniated nucleus pulposus, L3-4 left Lumbar radiculopathy Surgical History Hx laparoscopic cholecystectomy H/O neck surgery History of ankle surgery Family History Father Hypertension Mother Hypertension Social History Smoking Status: Never smoker Smoking Status: Never smoker Exam <Helen Bartlett MD - Last Filed: 06/14/24 07:19> Initial Vital Signs Initial Vital Signs: Vital Signs Pulse Rate 75 06/13/24 16:03 Respiratory Rate 31 H 06/13/24 16:03 Blood Pressure 107/55 L 06/13/24 16:03 Pulse Oximetry 94 06/13/24 16:03 General: Disheveled, confused, appears to be in pain, minimally redirectable HEENT: Moist mucous membranes, normal sclera with reactive pupils, no obvious trauma or bruising to her head or her neck Respiratory: Lungs are clear to auscultation, no wheezing no rales no rhonchi. Full and symmetrical air movement Cardiac: Regular rate and rhythm no murmurs no bruits Abdomen: Soft, nontender, good bowel tones, no flank pain Skin: Large very painful wound deep into the musculature left thigh with wound care dressing in place. Surrounding erythema but does not appear to be acutely infected. Mild erythema right medial thigh due to rubbing on the opposed wound site Neurologic: She is moving all extremities and was able to physically run out of her care facility earlier today Extremities: Left hand is bruised and swollen throughout with no obvious bony abnormality. Left wrist and shoulder unremarkable Psych: Difficult to redirect, not oriented to person time and place, in obvious pain due to her left hand with a history of chronic pain and chronic narcotic use <Bethany Rivera DO - Last Filed: 06/14/24 02:07> Initial Vital Signs Initial Vital Signs: Vital Signs Pulse Rate 75 06/13/24 16:03 Respiratory Rate 31 H 06/13/24 16:03 Blood Pressure 107/55 L 06/13/24 16:03 Pulse Oximetry 94 06/13/24 16:03 Course <Helen Bartlett MD - Last Filed: 06/14/24 07:19> Orders Ordered: Discontinued Medications Hydromorphone HCl (Hydromorphone 1 Mg Inj) 1 mg IV NOW ONE Stop: 06/13/24 17:49 Last Admin: 06/13/24 17:51 Dose: 1 mg Documented By: Oxycodone/Acetaminophen (Oxycodone/Acetaminophen 5/325 Tablet) 2 tab PO NOW ONE Stop: 06/13/24 16:53 Last Admin: 06/13/24 16:56 Dose: 2 tab Documented By: Vital Signs Vital signs: Vital Signs - 8 hr 06/13/24 18:30 06/13/24 19:00 06/13/24 19:01 Pulse Rate 61 66 Respiratory Rate 35 H 18 Blood Pressure 125/56 L Pulse Oximetry 95 91 Oxygen Delivery Method Oxygen Flow Rate 06/13/24 19:01 06/13/24 19:30 06/13/24 19:31 Pulse Rate 64 61 Respiratory Rate 19 21 Blood Pressure 94/51 L Pulse Oximetry 92 100 Oxygen Delivery Method Nasal Cannula Oxygen Flow Rate 2 06/13/24 19:31 06/13/24 20:00 06/13/24 20:00 Pulse Rate 61 60 Respiratory Rate 17 13 Blood Pressure 103/51 L Pulse Oximetry 91 99 Oxygen Delivery Method Room Air Room Air Oxygen Flow Rate 06/13/24 20:30 06/13/24 20:30 06/13/24 21:00 Pulse Rate 60 58 L Respiratory Rate 12 15 Blood Pressure 100/49 L Pulse Oximetry 94 93 Oxygen Delivery Method Room Air Oxygen Flow Rate 06/13/24 21:01 06/13/24 21:01 06/13/24 21:30 Pulse Rate 72 59 L Respiratory Rate 23 16 Blood Pressure 94/53 L Pulse Oximetry 93 94 Oxygen Delivery Method Room Air Room Air Oxygen Flow Rate 06/13/24 21:30 Pulse Rate Respiratory Rate Blood Pressure 100/62 Pulse Oximetry Oxygen Delivery Method Oxygen Flow Rate <Bethany Rivera, - Last Filed: 06/14/24 02:07> Orders Ordered: Discontinued Medications Hydromorphone HCl (Hydromorphone 1 Mg Inj) 1 mg IV NOW ONE Stop: 06/13/24 17:49 Last Admin: 06/13/24 17:51 Dose: 1 mg Documented By: Oxycodone/Acetaminophen (Oxycodone/Acetaminophen 5/325 Tablet) 2 tab PO NOW ONE Stop: 06/13/24 16:53 Last Admin: 06/13/24 16:56 Dose: 2 tab Documented By: Vital Signs Vital signs: Vital Signs - 8 hr 06/13/24 18:30 06/13/24 19:00 06/13/24 19:01 Pulse Rate 61 66 Respiratory Rate 35 H 18 Blood Pressure 125/56 L Pulse Oximetry 95 91 Oxygen Delivery Method Oxygen Flow Rate 06/13/24 19:01 06/13/24 19:30 06/13/24 19:31 Pulse Rate 64 61 Respiratory Rate 19 21 Blood Pressure 94/51 L Pulse Oximetry 92 100 Oxygen Delivery Method Nasal Cannula Oxygen Flow Rate 2 06/13/24 19:31 06/13/24 20:00 06/13/24 20:00 Pulse Rate 61 60 Respiratory Rate 17 13 Blood Pressure 103/51 L Pulse Oximetry 91 99 Oxygen Delivery Method Room Air Room Air Oxygen Flow Rate 06/13/24 20:30 06/13/24 20:30 06/13/24 21:00 Pulse Rate 60 58 L Respiratory Rate 12 15 Blood Pressure 100/49 L Pulse Oximetry 94 93 Oxygen Delivery Method Room Air Oxygen Flow Rate 06/13/24 21:01 06/13/24 21:01 06/13/24 21:30 Pulse Rate 72 59 L Respiratory Rate 23 16 Blood Pressure 94/53 L Pulse Oximetry 93 94 Oxygen Delivery Method Room Air Room Air Oxygen Flow Rate 06/13/24 21:30 Pulse Rate Respiratory Rate Blood Pressure 100/62 Pulse Oximetry Oxygen Delivery Method Oxygen Flow Rate Medical Decision Making <Helen Bartlett MD - Last Filed: 06/14/24 07:19> Lab Data 06/13/24 17:40 06/13/24 17:40 Labs: Lab Results 06/13/24 06/13/24 Range/Units 17:40 17:45 WBC 8.2 (4.5-11.0) X10^3/uL RBC 3.30 L (4.0-5.2) X10^6/uL Hgb 9.9 L (12.0-16.0) g/dL Hct 30.3 L (36-46) % MCV 91.7 (80-100) fL MCH 29.9 (26-34) PG MCHC 32.6 (30-36) % RDW 15.7 H (11.6-14.8) % Plt Count 212 (150-400) X10^3/uL Neut % (Auto) 76.3 H (50-75) % Lymph % (Auto) 9.1 L (25-40) % [place] % (Auto) 12.2 (3-14) % Eos % (Auto) 1.5 L (2-4) % Baso % (Auto) 0.9 (0-2) % Neut # (Auto) 6200 (3486-7608) /uL Lymph # (Auto) 700 L (4993-0807) /uL Hamilton # (Auto) 1000 H (0-900) /uL Eos # (Auto) 100 (0-450) /uL Baso # (Auto) 100 (0-100) /uL Sodium 134 L (137-145) mmol/L Potassium 4.4 (3.4-5.1) mmol/L Chloride 98 (98-107) mmol/L Carbon Dioxide 28 (22-32) mmol/L BUN 37 H (7-17) mg/dL Creatinine 2.14 H (0.52-1.04) mg/dL Estimated GFR 23 L (>60) mL/min BUN/Creatinine Ratio 17.3 (6-22) Glucose 113 H (80-110) mg/dL Calcium 8.5 (8.4-10.2) mg/dL Total Bilirubin 1.1 (0.2-1.3) mg/dL AST 100 H (14-36) IU/L ALT 41 H (<35) IU/L Alkaline Phosphatase 100 (38-126) U/L Troponin I 0.014 (0.01-0.034) ng/mL Total Protein 5.5 L (6.3-8.2) g/dL Albumin 2.9 L (3.5-5.0) g/dL Globulin 2.6 (1.7-4.1) g/dL Albumin/Globulin Ratio 1.1 (1.0-2.8) Urine Color Yellow Urine Appearance Clear Urine pH 5.5 (4.5-8.0) Ur Specific [place] >=1.030 H (1.000-1.035) Urine Protein 1+ H (Negative) Urine Glucose (UA) Negative (Negative) g/dL Urine Ketones Trace H (NEGATIVE) Urine Occult Blood Negative (Negative) Urine Nitrate Negative (Negative) Urine Bilirubin 1+ H (NEGATIVE) Ur Bilirubin Confirm Negative (Negative) Urine Urobilinogen 0.2 (0.2) E.U./dL Ur Leukocyte Esterase Negative (NEGATIVE) Urine RBC None seen (0-5/HPF) Urine WBC 1-5/hpf (0-5/HPF) Ur Squamous Epith Cells 1-5 /hpf (0-5/HPF) Urine Bacteria Occasional (0-1) (None) Hyaline Casts 1-5/lpf (None) Ur Culture Indicated? Cult not indicated Vol Urine Centrifuged 10ml (spun) MDM Narrative Medical decision making narrative: CC: Left hand pain and agitation Complicating co-morbidities: Recent discharge from [facility] with recent heart failure exacerbation and acute metabolic encephalopathy with the admission to [facility] Data collected from: Medics, family as much as possible, limited chcf notes Social determinants of health that may influence the patients condition: Progressive cognitive issues for the patient and her Medical records reviewed: Copy of a palliative care note from [facility] summarized much of the events medically. Apparently patient wants to be a DNR however aggressive interventions up to that point Differential considered: Altered mental status secondary to acute pain, recurrent metabolic encephalopathy due to congestive heart failure, sepsis, acute mental health crisis, dementia exacerbated by pain Exam documented above, pertinent findings include: Disheveled, left hand is bruised and swollen throughout without obvious abrasion. No obvious bony step-off points. Remainder of exam does not suggest obvious areas of pain trauma. Heart and lungs are benign. Large medial thigh wound on the left wound care dressing in place, exquisitely tender, smaller wound on the right thigh from opposing the dressing on the left for an extended period of time Please see pictures documented by nursing staff Lab Test results independently reviewed as above. Pertinent findings: Imaging studies independently reviewed: X-ray of the left hand does not show any acute fracture Chest x-ray is benign CT scan of the head does not show any intracranial hemorrhage Consultations: Treatments: 2 Percocet for pain control prior to IV 1 mg of Dilaudid once IV established In and out cath for urine sample Lawrence wrap placed for support to the left hand. She is neurovascularly intact pre and post placement. Pain was better controlled with mild stability Re-evaluations: Patient has been reluctant to allow blood draw or IV Discussion: <Bethany Rivera, DO - Last Filed: 06/14/24 02:07> Lab Data Labs: Lab Results 06/13/24 06/13/24 Range/Units 17:40 17:45 WBC 8.2 (4.5-11.0) X10^3/uL RBC 3.30 L (4.0-5.2) X10^6/uL Hgb 9.9 L (12.0-16.0) g/dL Hct 30.3 L (36-46) % MCV 91.7 (80-100) fL MCH 29.9 (26-34) PG MCHC 32.6 (30-36) % RDW 15.7 H (11.6-14.8) % Plt Count 212 (150-400) X10^3/uL Neut % (Auto) 76.3 H (50-75) % Lymph % (Auto) 9.1 L (25-40) % Hamilton % (Auto) 12.2 (3-14) % Eos % (Auto) 1.5 L (2-4) % Baso % (Auto) 0.9 (0-2) % Neut # (Auto) 6200 (7540-8546) /uL Lymph # (Auto) 700 L (9790-8125) /uL Hamilton # (Auto) 1000 H (0-900) /uL Eos # (Auto) 100 (0-450) /uL Baso # (Auto) 100 (0-100) /uL Sodium 134 L (137-145) mmol/L Potassium 4.4 (3.4-5.1) mmol/L Chloride 98 (98-107) mmol/L Carbon Dioxide 28 (22-32) mmol/L BUN 37 H (7-17) mg/dL Creatinine 2.14 H (0.52-1.04) mg/dL Estimated GFR 23 L (>60) mL/min BUN/Creatinine Ratio 17.3 (6-22) Glucose 113 H (80-110) mg/dL Calcium 8.5 (8.4-10.2) mg/dL Total Bilirubin 1.1 (0.2-1.3) mg/dL AST 100 H (14-36) IU/L ALT 41 H (<35) IU/L Alkaline Phosphatase 100 (38-126) U/L Troponin I 0.014 (0.01-0.034) ng/mL Total Protein 5.5 L (6.3-8.2) g/dL Albumin 2.9 L (3.5-5.0) g/dL Globulin 2.6 (1.7-4.1) g/dL Albumin/Globulin Ratio 1.1 (1.0-2.8) Urine Color Yellow Urine Appearance Clear Urine pH 5.5 (4.5-8.0) Ur Specific [place] >=1.030 H (1.000-1.035) Urine Protein 1+ H (Negative) Urine Glucose (UA) Negative (Negative) g/dL Urine Ketones Trace H (NEGATIVE) Urine Occult Blood Negative (Negative) Urine Nitrate Negative (Negative) Urine Bilirubin 1+ H (NEGATIVE) Ur Bilirubin Confirm Negative (Negative) Urine Urobilinogen 0.2 (0.2) E.U./dL Ur Leukocyte Esterase Negative (NEGATIVE) Urine RBC None seen (0-5/HPF) Urine WBC 1-5/hpf (0-5/HPF) Ur Squamous Epith Cells 1-5 /hpf (0-5/HPF) Urine Bacteria Occasional (0-1) (None) Hyaline Casts 1-5/lpf (None) Ur Culture Indicated? Cult not indicated Vol Urine Centrifuged 10ml (spun) MDM Narrative Medical decision making narrative: CC: Left hand pain and agitation Complicating co-morbidities: Recent discharge from [facility] with recent heart failure exacerbation and acute metabolic encephalopathy with the admission to [facility] Data collected from: Medics, family as much as possible, limited chcf notes Social determinants of health that may influence the patients condition: Progressive cognitive issues for the patient and her Medical records reviewed: Copy of a palliative care note from [facility] summarized much of the events medically. Apparently patient wants to be a DNR however aggressive interventions up to that point Differential considered: Altered mental status secondary to acute pain, recurrent metabolic encephalopathy due to congestive heart failure, sepsis, acute mental health crisis, dementia exacerbated by pain Exam documented above, pertinent findings include: Disheveled, left hand is bruised and swollen throughout without obvious abrasion. No obvious bony step-off points. Remainder of exam does not suggest obvious areas of pain trauma. Heart and lungs are benign. Large medial thigh wound on the left wound care dressing in place, exquisitely tender, smaller wound on the right thigh from opposing the dressing on the left for an extended period of time Please see pictures documented by nursing staff Lab Test results independently reviewed as above. Pertinent findings: Imaging studies independently reviewed: X-ray of the left hand does not show any acute fracture Chest x-ray is benign CT scan of the head does not show any intracranial hemorrhage Consultations: Treatments: 2 Percocet for pain control prior to IV 1 mg of Dilaudid once IV established In and out cath for urine sample Lawrence wrap placed for support to the left hand. She is neurovascularly intact pre and post placement. Pain was better controlled with mild stability Re-evaluations: Patient has been reluctant to allow blood draw or IV Discussion: 06/13/2024 Dr. Rivera: Patient signed out to myself patient's records were reviewed patient was seen and evaluated by myself. She was recently seen pain medications her wound has been cleansed did evaluate it before dressing was replaced. Please see pictures documented by nursing staff but does not appear to be acutely infected at time. Imaging was reviewed patient has been sent because of a and swelling of her left hand no acute fracture she was neurovascularly intact chest x-ray was negative CT head shows no acute intracranial bleed. Patient's labs show white count 8.2 hemoglobin of 9.9 patient's note notes a chronic anemia at baseline. Platelets are 212. No priors for comparison. Warfarin is therapeutic at 2.3. Chemistries show sodium of 134, BUN 37 creatinine of 2.14, glucose of 113 AST ALT are 141 bilirubin is 1.1 with a alk- phos of 100. Urine shows specific gravity of 1.030 protein of 1+ ketones trace 1+ bilirubin 1-5 white cells 1-5 squamous occasional bacteria 1-5 hyaline cast. Patient's labs I do not have priors for comparison but discharge summary does note acute on chronic anemia, AKA with CKD, with acute encephalopathy sundowning like behaviors consistent with the hospital delirium patient's wound was felt to be warfarin induced calciphylaxis and it was reportedly now on apixaban. Patient's hospital stay she was seen by Rheumatology, Dermatology, vascular surgery and Nephrology patient had MR which showed large ulcerative lesion presumed necrotic wounds superficial and medial aspect of left thigh no associated deep seated infection or abscess no myositis. Patient's code status was changed to DNR/DNI palliative Care was consulted reportedly has possible fentanyl patch was prescribed but has not yet been started and oxycodone she was had quite a bit of delirium and altered mentation throughout her hospital stay. She did have debridement on 05/31 following with [facility] wound care and discharged to [facility]. Patient did have low O2 sat shortly after receiving narcotic pain medications through the IV. Patient was monitored and patient's O2 recovered she was off oxygen and felt appropriate for discharge back to her facility.? Dressings were changed here in the department. Discharge Plan Departure Patient Disposition: Home Clinical Impression: Injury of hand, left, Chronic wound, Chronic anemia Activity Restrictions/Additional Instructions: Continue with your current dressing changes your dressing was changed today we did not have the Hydrofera Blue foam available for your wound. Please follow up for recheck of your hand in the next 2-3 days. Labs did show anemia with a hemoglobin of 9.9. Creatinine today was 2.14. INR was 2.3 Continue with current medications. Please return for fevers, any signs of new drainage, redness or signs of infection at your wound, new chest pain or shortness of breath, vomiting or other new or concerning changes. Prescriptions: No Action lisinopril 20 mg tablet 20 mg PO BID azelastine 137 mcg (0.1 %) aerosol,spray 1 spray intranasal ONCE leflunomide 20 mg tablet 20 mg PO DAILY gabapentin 300 mg capsule 300 mg PO .COMPLEX Qty: 90 2RF Rx Instructions: 1-2 PO Tid to begin at HS and titrate to pain relief levothyroxine 88 mcg tablet 88 mcg PO DAILY colchicine 0.6 mg tablet 0.6 mg PO DAILY lovastatin 40 mg tablet 40 mg PO BEDTIME warfarin 3 mg tablet 3 mg PO DAILY cholecalciferol (vitamin D3) 125 mcg (5,000 unit) capsule 125 mcg PO DAILY multivitamin Tablet 1 tab PO DAILY carvedilol 25 mg tablet 25 mg PO DAILY PRN fluticasone propionate 50 mcg/actuation spray,suspension intranasal prednisone 5 mg tablet 5 mg PO DAILY alendronate 70 mg tablet 70 mg PO QWEEK amlodipine 5 mg tablet 5 mg PO BID Referrals: Elin Tan PA-C [Primary Care Provider] - Stand Alone Forms: Patient Portal/API/Survey ED Sign-out <Helen Bartlett MD - Last Filed: 06/14/24 07:19> Cosign ED Attending Cosignature Attestation: I was immediately available in the department for consultation throughout this patient's visit. Helen Bartlett MD
--- NOTE | 2024-06-13 16:20 | DI.CT.S_ITS ---
PROCEDURE: CT HEAD/BRAIN WO CON INDICATIONS: altered mental status TECHNIQUE: Noncontrast 4.5 mm thick angled axial sections acquired from the foramen magnum to the vertex, with coronal and sagittal reformats. For radiation dose reduction, the following was used: automated exposure control, adjustment of mA and/or kV according to patient size. COMPARISON: None. FINDINGS: Image quality: Diagnostic. CSF spaces: Basal cisterns are patent. No extra-axial fluid collections. The ventricles are symmetric in size and shape. Brain: No intracranial bleeds or masses. There is cerebral volume loss for age, with resultant ventricular and sulcal prominence. There are periventricular and deep white matter chronic small vessel ischemic changes. There is intracranial internal carotid artery atherosclerosis. Skull and face: Calvarium and visualized facial bones appear intact, without suspicious lesions. Sinuses: Visualized sinuses and mastoids are clear. IMPRESSION: 1. No acute intracranial pathology. 2. Moderate volume loss and [id number] white matter small vessel chronic ischemic changes. Dictated by: Beto Jaimes M.D. on 06/13/2024 at 16:43 Approved by: Beto Jaimes M.D. on 06/13/2024 at 16:44
--- NOTE | 2024-06-13 16:21 | DI.RAD.S_ITS ---
PROCEDURE: XR CHEST 1V INDICATIONS: altered mental status TECHNIQUE: One view of the chest was acquired. COMPARISON: None. FINDINGS: Surgical changes and devices: Postfusion changes in visualized cervical spine are seen. Lungs and pleura: Lungs are clear. No pleural effusions or pneumothorax. Mediastinum: Mediastinal contours appear normal. Heart size is mildly enlarged. Bones and chest wall: No suspicious bony lesions. Overlying soft tissues appear unremarkable. IMPRESSION: No acute cardiopulmonary pathology. Dictated by: Beto Jaimes M.D. on 06/13/2024 at 16:43 Approved by: Beto Jaimes M.D. on 06/13/2024 at 16:43
--- NOTE | 2024-06-13 16:50 | PC.NURSE ---
Pt arrives to room by WC. Pt calm and cooperative with transfer to [facility]. Pt c/o pain to legs, abdomen, and hand. Attempted to start IV. Pt screaming loudly. notified of pt pain level. New orders received.
[2024-06-13] MEDS: OXYCODONE/ACETAMINOPHEN 5/325 TABLET 2 TAB PO (16:56)
[2024-06-13] MEDS: HYDROMORPHONE 1 MG INJ IV (17:51)
--- NOTE | 2024-06-13 17:57 | PC.NURSE ---
records from [facility] have been requested twice. Once from [facility] and once from [employer], both employees at [facility]. Fax number was given each time. No records have been received.
[2024-06-13 18:03] LABS: Add Manual Diff / Slide Review NO; Basophils Absolute Auto 100 /uL (0-100); Basophils Percent Auto 0.9 % (0-2); Eosinophils Absolute Auto 100 /uL (0-450); Eosinophils Percent Auto 1.5 % (2-4); Hematocrit 30.3 % (36-46); Hemoglobin 9.9 g/dL (12.0-16.0); Lymphocytes Absolute Auto 700 /uL (1100-4500); Lymphocytes Percent Auto 9.1 % (25-40); Mean Corpuscular HGB Conc 32.6 % (30-36); Mean Corpuscular Hemoglobin 29.9 PG (26-34); Mean Corpuscular Volume 91.7 fL (80-100); Monocytes Absolute Auto 1000 /uL (0-900); Monocytes Percent Auto 12.2 % (3-14); Neutrophils Absolute Auto 6200 /uL (1500-7000); Neutrophils Percent Auto 76.3 % (50-75); Platelet Count 212 X10^3/uL (150-400); Red Cell Distribution Width 15.7 % (11.6-14.8); White Blood Cell Count 8.2 X10^3/uL (4.5-11.0)
--- NOTE | 2024-06-13 18:10 | PC.WOUNDPHOT ---
Left medial thigh wound
[2024-06-13 18:14] LABS: Appearance Urine UA CLEAR; Bilirubin Urine UA 1+ (NEGATIVE); Color Urine UA YELLOW; Glucose Urine UA NEGATIVE (Negative); Ketones Urine UA TRACE (NEGATIVE); Leukocyte Esterase Urine UA NEGATIVE (NEGATIVE); Nitrite Urine UA NEGATIVE (Negative); Occult Blood Urine UA NEGATIVE (Negative); Protein Urine UA 1+ (Negative); Specific Gravity Urine UA >=1.030 (1.000-1.035); Urobilinogen Urine UA 0.2 E.U./dL (0.2)
--- NOTE | 2024-06-13 18:14 | PC.NURSE ---
In/out cath used to collect urine sample. Pt tolerated fair. Dressing to left inner thigh had significant amount of drainage. Removed dressing and pt very painful when attempting to remove gauze from wound bed. MD in room. Pt screaming loudly during dressing removal. Verbal order received for IV dilaudid 1 mg. Medicated with pain medication and dressing removed completely.
[2024-06-13 18:17] LABS: Alanine Aminotransferase 41 IU/L (<35); Albumin 2.9 g/dL (3.5-5.0); Albumin Globulin Ratio 1.1 (1.0-2.8); Alkaline Phosphatase 100 U/L (38-126); Aspartate Aminotransferase 100 IU/L (14-36); BUN Creatinine Ratio 17.3 (6-22); Bilirubin Total 1.1 mg/dL (0.2-1.3); Blood Urea Nitrogen 37 mg/dL (7-17); Calcium 8.5 mg/dL (8.4-10.2); Carbon Dioxide 28 mmol/L (22-32); Chloride 98 mmol/L (98-107); Estimated Glomerular Filt Rate 23 mL/min (>60); Globulin 2.6 g/dL (1.7-4.1); Glucose 113 mg/dL (80-110); HEMOLYSIS < 15 (0-50); Potassium 4.4 mmol/L (3.4-5.1); Sodium 134 mmol/L (137-145); Total Protein 5.5 g/dL (6.3-8.2)
[2024-06-13 18:27] LABS: Bacteria Urine Occasional (0-1); RBC Urine None Seen (0-5/HPF); Squamous Epithelial Cell Urine 1-5 /HPF (0-5/HPF); Urine Volume 10mL (spun); WBC Urine 1-5/HPF (0-5/HPF); pH Urine UA 5.5 (4.5-8.0)
[2024-06-13 18:28] LABS: Troponin I 0.014 ng/mL (0.01-0.034)
[2024-06-13 18:29] LABS: Culture Indicated Urine Cult Not Indicated; Hyaline Casts Urine 1-5/LPF; Ictotest Urine Negative (Negative)
--- NOTE | 2024-06-13 19:09 | PC.NURSE ---
Dressing applied to left mid thigh. Pt tolerated fair. Desating to 85%, pt placed on 2L per NC. Dr Rivera aware.
--- NOTE | 2024-06-13 21:40 | PC.NURSE ---
report given to [facility] ambulance. Report called to [facility] rehab by Moses GARCIA.
== END 2024-06-13 21:56 | disposition home or self-care (01) ==
PROVIDERS: Emergency Medicine; Emergency Provider Emergency Medicine; PCP Physician Assistant Medical
DX: S69.92XA Unspecified injury of left wrist, hand and finger(s), initial encounter (principal); L89.899 Pressure ulcer of other site, unspecified stage; D64.9 Anemia, unspecified; R41.82 Altered mental status, unspecified; I11.0 Hypertensive heart disease with heart failure; W19.XXXA Unspecified fall, initial encounter; I50.9 Heart failure, unspecified; N18.30 Chronic kidney disease, stage 3 unspecified; Z79.01 Long term (current) use of anticoagulants; E03.9 Hypothyroidism, unspecified; E78.5 Hyperlipidemia, unspecified; F03.90 Unspecified dementia, unspecified severity, without behavioral disturbance, psychotic disturbance, mood disturbance, and anxiety
CPT/HCPCS: 36415; 70450; 71045; 73130; 80053; 81001; 84484; 85025; 96374; 99285; J1171

== ENCOUNTER → 2024-06-14 15:14 | Outpatient (CLI) | payer OTHER, SELFPAY | PROVIDERS: PCP Physician Assistant Medical; Referring Provider Physician Assistant Medical; Visit Provider Surgery | DX: L97.122 Non-pressure chronic ulcer of left thigh with fat layer exposed (principal); E83.59 Other disorders of calcium metabolism; L53.9 Erythematous condition, unspecified; R60.0 Localized edema; M79.652 Pain in left thigh; I13.0 Hypertensive heart and chronic kidney disease with heart failure and stage 1 through stage 4 chronic kidney disease, or unspecified chronic kidney disease; N18.32 Chronic kidney disease, stage 3b; I50.9 Heart failure, unspecified; Z79.01 Long term (current) use of anticoagulants | CPT/HCPCS: 99213 ==

== ENCOUNTER 2024-06-20 11:21 | Inpatient (IN) | payer OTHER, SELFPAY ==
[2024-06-20] VITALS (11 sets, daily range): BP systolic 151–200; BP diastolic 70–74; PULSE 56–70; RESP 20; TEMP 36.6; O2SAT 94–99; BMI 27.8
--- NOTE | 2024-06-20 12:14 | DI.CT.S_ITS ---
PROCEDURE: CT LE LT W CON INDICATIONS: Pain redness swelling TECHNIQUE: After the administration of intravenous contrast, 3 mm axial sections acquired of the left thigh, with coronal and sagittal reformats. COMPARISON: None. FINDINGS: Image quality: Excellent. Bones: Alignment of left femur is anatomic. No fracture or dislocation. Moderate left hip joint osteoarthritic changes are seen. [id number] tricompartmental osteoarthritis in left knee is also seen. No evidence of avascular necrosis of femoral head. No suspicious intraosseous lesion. No bony erosion or abnormal periosteal reaction. Soft tissues: There is no pelvic free fluid or free air. Normal bladder wall thickness is seen. Small left inguinal hernia containing fat only. Open wound in posterior medial aspect of left upper thigh is seen with extensive subcutaneous fat stranding. No discrete drainable peripherally enhancing fluid collection. Open wound is also noted along medial aspect of mid to distal left thigh without discrete drainable abscess collection. No underlying muscle involvement is seen. No intramuscular fluid collection. IMPRESSION: 1. Open wound in posterior medial aspect of left upper thigh and along medial aspect of mid to distal left thigh with underlying cellulitis. No discrete drainable abscess collection is seen. No abnormal soft tissue calcifications. 2. No evidence of myositis or intramuscular abscess collection. 3. No left femoral fracture or dislocation. Left hip and left knee joint osteoarthritis. No evidence of avascular necrosis. No CT evidence of osteomyelitis. Dictated by: Beto Jaimes M.D. on 06/20/2024 at 13:54 Approved by: Beto Jaimes M.D. on 06/20/2024 at 13:56
--- NOTE | 2024-06-20 12:17 | ED_ITS ---
HPI - Wound/Laceration General Chief Complaint: Wound/Laceration Stated Complaint: sent paper work over from nursing Facility to ER Time Seen by Provider: 06/20/24 11:54 History of Present Illness HPI narrative: Patient is sent here from wound care center. and son at bedside and good friend at bedside. Patient sent here from [facility], patient gets weekly wound care on the left upper medial thigh. 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 This is not new. Today they wound care nurse states the wound looks worse and foul odor and deeper looking. Dressing removed for evaluation. It does have foul odor with greenish discharge at the edges. No bony exposure seen. No crepitus. No pain out of portion to exam. Related Data Home Medications Medication Instructions Recorded Confirmed levothyroxine 88 mcg tablet 88 mcg PO DAILY 04/08/22 06/20/24 lovastatin 40 mg tablet 40 mg PO BEDTIME 04/08/22 06/20/24 carvedilol 25 mg tablet 25 mg PO BID 07/22/22 06/20/24 lisinopril 20 mg tablet 20 mg PO QAM 10/19/22 06/20/24 alendronate 70 mg tablet 70 mg PO QWEEK 01/13/23 06/20/24 azelastine 137 mcg (0.1 %) nasal 1 spray intranasal ONCE 06/14/23 06/20/24 spray leflunomide 20 mg tablet 20 mg PO DAILY 06/14/23 06/20/24 acetaminophen 325 mg tablet 650 mg PO Q6H PRN Pain, Mild 06/20/24 06/20/24 apixaban 5 mg tablet (Eliquis) 5 mg PO BID 06/20/24 06/20/24 fentanyl 12 mcg/hr transdermal 1 patch topical Q3D 06/20/24 06/20/24 patch hydroxyzine HCl 10 mg tablet 20 mg PO Q8HR PRN Anxiety 06/20/24 06/20/24 lidocaine-prilocaine 2.5 %-2.5 % 2 g topical DAILY PRN Pain, Mild 06/20/24 06/20/24 topical cream melatonin 3 mg tablet 3 mg PO QPM PRN Insomnia 06/20/24 06/20/24 naloxone 4 mg/actuation nasal spray 4 mg intranasal NOW PRN overdose 06/20/24 06/20/24 nystatin 100,000 unit/gram topical 1 applic topical BID PRN Rash 06/20/24 06/20/24 powder ([facility]) ondansetron 4 mg disintegrating 4 mg PO Q8H PRN Nausea And Vomiting 06/20/24 06/20/24 tablet oxycodone 10 mg tablet 10 mg PO DAILY 06/20/24 06/20/24 oxycodone 5 mg tablet 2.5 mg PO Q2H PRN Pain (Scale 06/20/24 06/20/24 Score 1-3) oxycodone 5 mg tablet 5 mg PO Q2H PRN Pain (Scale Score 06/20/24 06/20/24 4-6) polyethylene glycol 3350 17 gram 17 g PO QAM PRN Constipation 06/20/24 06/20/24 oral powder packet sodium bicarbonate 650 mg tablet 650 mg PO BID PRN Heartburn 06/20/24 06/20/24 Allergies Allergy/AdvReac Type Severity Reaction Status Date / Time latex Allergy Verified 06/20/24 11:29 Review of Systems Review of Systems Narrative: GENERAL: Negative chills, fatigue, malaise, fever, sweats. HEENT: Negative sinus pain, ear pain, sore throat RESPIRATORY: Negative dyspnea, cough CARDIOVASCULAR: Negative chest pain, palpitations GASTROINTESTINAL: Negative vomiting, nausea, abdominal pain : Negative dysuria, frequency, hematuria MUSCULOSKELETAL: Positive muscle or bony pain SKIN: Negative rash, skin lesions NEUROLOGIC: Negative weakness, numbness ROS Unobtainable: All systems reviewed & are unremarkable except as noted in HPI and below Patient History Medical History Chronic kidney disease Skin ulceration 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 arthropathy, lumbar Lumbar foraminal stenosis History of DVT (deep vein thrombosis) Herniated nucleus pulposus, L3-4 left Lumbar radiculopathy Surgical History Hx laparoscopic cholecystectomy H/O neck surgery History of ankle surgery Family History Father Hypertension Mother Hypertension Social History Smoking Status: Never smoker alcohol intake: never Smoking Status: Never smoker Exam Narrative Exam Narrative: GENERAL: in no distress, not toxic not dyspneic HEAD: Normocephalic. EYES: Pupils equal round ENT: Mucous membranes moist. NECK: Trachea midline. CARDIOVASCULAR: Regular rate and rhythm RESPIRATORY: Clear to auscultation. Breath sounds equal bilaterally. No wheezes, rales, or rhonchi. EXTREMITIES: Examination left lower extremity left medial thigh large 15 cm skin defect wound with greenish edges and foul odor. No bony injury or muscle injury seen. Fat tissue is noted. BACK: No flank tenderness. NEURO: AOx3. Clear speech SKIN: Warm and dry PSYCH: Not anxious, is cooperative Initial Vital Signs Initial Vital Signs: Vital Signs Temperature 97.8 F 06/20/24 11:29 Pulse Rate 60 06/20/24 11:29 Respiratory Rate 20 06/20/24 11:29 Blood Pressure 200/70 H 06/20/24 11:29 Pulse Oximetry 98 06/20/24 11:29 Oxygen Delivery Method Room Air 06/20/24 11:29 Course Orders Ordered: Atorvastatin Calcium (Atorvastatin 20 Mg Tablet) 10 mg PO BEDTIME [facility] Last Admin: 06/20/24 21:00 Dose: 10 mg Documented By: Carvedilol (Carvedilol 12.5 Mg Tablet) 25 mg PO BID [facility] Last Admin: 06/20/24 21:00 Dose: 25 mg Documented By: Fentanyl (Fentanyl 12 Mcg/Patch) 1 mcg TOP Q3D [facility] Last Admin: 06/20/24 17:24 Dose: Not Given Documented By: JOSY Hydromorphone HCl (Hydromorphone 0.5 Mg Inj) 0.5 mg IV Q2H PRN PRN Reason: Pain, Severe (7-10) Hydromorphone HCl (Hydromorphone 1 Mg Inj) 1 mg IV Q3H PRN PRN Reason: Pain, Moderate (4-6) Last Admin: 06/20/24 18:21 Dose: 1 mg Documented By: (2) Sodium Chloride (Normal Saline 0.45%) 1,000 mls @ 100 mls/hr IV CONT [facility] Last Admin: 06/20/24 17:14 Dose: 100 mls/hr Documented By: JOSY Vancomycin HCl 1,000 mg/ (Sodium Chloride) 250 mls @ 250 mls/hr IV Q24H [facility] Levothyroxine Sodium (Levothyroxine 88 Mcg Tablet) 88 mcg PO DAILY@0600 [facility] Last Admin: 06/21/24 05:39 Dose: 88 mcg Documented By: Lisinopril (Lisinopril 20 Mg Tablet) 20 mg PO DAILY [facility] Melatonin (Melatonin 3 Mg Tablet) 3 mg PO BEDTIME [facility] Last Admin: 06/20/24 21:00 Dose: 3 mg Documented By: Naloxone HCl (Naloxone 0.4 Mg/Ml Vial) 0.2 mg IV Q2MIN PRN PRN Reason: Opiate Reversal Ondansetron HCl (Ondansetron 4 Mg/2 Ml Inj) 4 mg IV Q8HR PRN PRN Reason: Nausea And Vomiting Oxycodone HCl (Oxycodone Ir 10 Mg Tablet) 10 mg PO Q3H PRN PRN Reason: Pain, Severe (7-10) Oxycodone HCl (Oxycodone Ir 5 Mg Tablet) 5 mg PO Q4HR PRN PRN Reason: Pain, Moderate (4-6) Last Admin: 06/20/24 17:14 Dose: 5 mg Documented By: JOSY Promethazine HCl (Promethazine 12.5 Mg Supp) 12.5 mg UT Q6HR PRN PRN Reason: Nausea And Vomiting Vancomycin HCl (Vancomycin Trough) 1 request MISC NOW ONE Stop: 06/23/24 12:31 Discontinued Medications Hydromorphone HCl (Hydromorphone 1 Mg Inj) 1 mg IV NOW ONE Stop: 06/20/24 12:15 Last Admin: 06/20/24 12:49 Dose: 1 mg Documented By: PRATEEK Vancomycin HCl 1,000 mg/ (Sodium Chloride) 250 mls @ 250 mls/hr IV NOW ONE Stop: 06/20/24 13:29 Last Infusion: 06/20/24 14:39 Dose: Infused Documented By: Admin: 06/20/24 13:30 Dose: 250 mls/hr Documented By: PRATEEK Ceftriaxone Sodium 2,000 mg/ (Sodium Chloride) 100 mls @ 200 mls/hr IV NOW ONE Stop: 06/20/24 14:17 Last Admin: 06/20/24 17:15 Dose: 200 mls/hr Documented By: JOSY Ondansetron HCl (Ondansetron 4 Mg/2 Ml Inj) 4 mg IV NOW ONE Stop: 06/20/24 12:15 Last Admin: 06/20/24 12:48 Dose: 4 mg Documented By: PRATEEK Oxycodone HCl (Oxycodone Ir 5 Mg Tablet) 10 mg PO Q4HR PRN PRN Reason: Pain, Severe (7-10) Vancomycin HCl (Vancomycin Per Pharmacy) 1 request MISC NOW PRN PRN Reason: Wound Healing Vancomycin HCl (Vancomycin Per Pharmacy) 1 request MISC PRN PRN PRN Reason: Wound Healing Vital Signs Vital signs: Vital Signs - 8 hr 06/20/24 11:29 06/20/24 11:48 06/20/24 11:49 Temperature 97.8 F Pulse Rate 60 56 L 58 L Respiratory Rate 20 Blood Pressure 200/70 H Pulse Oximetry 98 98 97 Oxygen Delivery Method Room Air 06/20/24 11:49 06/20/24 12:00 06/20/24 12:01 Temperature Pulse Rate 67 61 Respiratory Rate Blood Pressure 183/74 H Pulse Oximetry 99 99 Oxygen Delivery Method 06/20/24 12:01 06/20/24 12:30 06/20/24 12:31 Temperature Pulse Rate 59 L 59 L Respiratory Rate Blood Pressure 165/74 H Pulse Oximetry 98 98 Oxygen Delivery Method 06/20/24 12:31 06/20/24 13:00 06/20/24 13:01 Temperature Pulse Rate 63 59 L Respiratory Rate Blood Pressure 173/72 H Pulse Oximetry 99 99 Oxygen Delivery Method Room Air 06/20/24 13:01 06/20/24 13:30 Temperature Pulse Rate 57 L Respiratory Rate Blood Pressure 171/72 H Pulse Oximetry 94 Oxygen Delivery Method MDM - Wound/Laceration Lab Data 06/21/24 05:20 06/20/24 12:17 Labs: Lab Results 06/20/24 Range/Units 12:17 WBC 6.7 (4.5-11.0) X10^3/uL RBC 3.36 L (4.0-5.2) X10^6/uL Hgb 10.1 L (12.0-16.0) g/dL Hct 30.6 L (36-46) % MCV 91.2 (80-100) fL MCH 30.2 (26-34) PG MCHC 33.1 (30-36) % RDW 16.4 H (11.6-14.8) % Plt Count 232 (150-400) X10^3/uL Neut % (Auto) 71.2 (50-75) % Lymph % (Auto) 10.7 L (25-40) % [place] % (Auto) 12.9 (3-14) % Eos % (Auto) 3.4 (2-4) % Baso % (Auto) 1.8 (0-2) % Neut # (Auto) 4800 (1884-3721) /uL Lymph # (Auto) 700 L (0465-9251) /uL [place] # (Auto) 900 (0-900) /uL Eos # (Auto) 200 (0-450) /uL Baso # (Auto) 100 (0-100) /uL Sodium 137 (137-145) mmol/L Potassium 4.0 (3.4-5.1) mmol/L Chloride 103 (98-107) mmol/L Carbon Dioxide 28 (22-32) mmol/L BUN 23 H (7-17) mg/dL Creatinine 1.06 H (0.52-1.04) mg/dL Estimated GFR 54 L (>60) mL/min BUN/Creatinine Ratio 21.7 (6-22) Glucose 82 (80-110) mg/dL Lactate 1.5 (0.7-2.1) mmol/L Calcium 8.2 L (8.4-10.2) mg/dL Total Bilirubin 1.0 (0.2-1.3) mg/dL AST 41 H (14-36) IU/L ALT 27 (<35) IU/L Alkaline Phosphatase 118 (38-126) U/L Total Protein 5.3 L (6.3-8.2) g/dL Albumin 2.7 L (3.5-5.0) g/dL Globulin 2.6 (1.7-4.1) g/dL Albumin/Globulin Ratio 1.0 (1.0-2.8) Procalcitonin 1.30 H (<0.5) ng/mL Imaging Data CT left lower extremity: Radiologist's Impression: [address] [address] [address] Scan Report Signed Patient: Latasha Braun MR#: [id number] : 1945 Acct:[id number] Age/Sex: 79 / F Date of Service: 06/20/24 Loc: ED Accession Number: [id number] Procedure: CT LE LT wo con Ordering Provider: Oskar Johnson MD PROCEDURE: CT LE LT W CON INDICATIONS: Pain redness swelling TECHNIQUE: After the administration of intravenous contrast, 3 mm axial sections acquired of the left thigh, with coronal and sagittal reformats. COMPARISON: None. FINDINGS: Image quality: Excellent. Bones: Alignment of left femur is anatomic. No fracture or dislocation. Moderate left hip joint osteoarthritic changes are seen. [id number] tricompartmental osteoarthritis in left knee is also seen. No evidence of avascular necrosis of femoral head. No suspicious intraosseous lesion. No bony erosion or abnormal periosteal reaction. Soft tissues: There is no pelvic free fluid or free air. Normal bladder wall thickness is seen. Small left inguinal hernia containing fat only. Open wound in posterior medial aspect of left upper thigh is seen with extensive subcutaneous fat stranding. No discrete drainable peripherally enhancing fluid collection. Open wound is also noted along medial aspect of mid to distal left thigh without discrete drainable abscess collection. No underlying muscle involvement is seen. No intramuscular fluid collection. IMPRESSION: 1. Open wound in posterior medial aspect of left upper thigh and along medial aspect of mid to distal left thigh with underlying cellulitis. No discrete drainable abscess collection is seen. No abnormal soft tissue calcifications. 2. No evidence of myositis or intramuscular abscess collection. 3. No left femoral fracture or dislocation. Left hip and left knee joint osteoarthritis. No evidence of avascular necrosis. No CT evidence of osteomyelitis. Dictated by: Beto Jaimes M.D. on 06/20/2024 at 13:54 Approved by: Beto Jaimes M.D. on 06/20/2024 at 13:56 [facility] Narrative Medical decision making narrative: Patient is sent here from wound care center. and son at bedside and good friend at bedside. Patient sent here from [facility], patient gets weekly wound care on the left upper medial thigh. 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 This is not new. Today they wound care nurse states the wound looks worse and foul odor and deeper looking. Dressing removed for evaluation. It does have foul odor with greenish discharge at the edges. No bony exposure seen. No crepitus. No pain out of portion to exam. After history and exam, CBC CMP procalcitonin lactic acid blood culture Dilaudid Zofran CT left leg admit vancomycin [facility] Medical records reviewed: Recent visit here for wound evaluation 7 days ago. Differential considered: Includes but not limited to thigh abscess cellulitis infected wound necrotizing fasciitis Lab Test results independently reviewed as above. Pertinent findings: WBC 6.7 hemoglobin 10.1 BUN 23 creatinine 1.06 GFR 54 lactate 1.5 procalcitonin 1.3 Imaging studies independently reviewed: CT left lower extremity shows cellulitis without fluid collection Consultations: 2:14 p.m.. Spoke with General surgery Dr. Cooley, he will follow in consult. Spoke with hospitalist Dr. Peña, will admit Treatments: Dilaudid Zofran Zosyn vancomycin Re-evaluations: 2:20 p.m.. Updated patient and family results and they do agree and understand need for admission Discussion: Appropriate for admission. Patient will require surgical evaluation and IV antibiotics. Pain is controlled. Diagnosis: Chronic wound/cellulitis Discharge Plan Departure Patient Disposition: Admitted As Inpatient Clinical Impression: Chronic wound Admit Date/Time: 06/20/24 14:19 Admit Provider: Caio Peña
[2024-06-20 12:43] LABS: Add Manual Diff / Slide Review NO; Basophils Absolute Auto 100 /uL (0-100); Basophils Percent Auto 1.8 % (0-2); Eosinophils Absolute Auto 200 /uL (0-450); Eosinophils Percent Auto 3.4 % (2-4); Hematocrit 30.6 % (36-46); Hemoglobin 10.1 g/dL (12.0-16.0); Lymphocytes Absolute Auto 700 /uL (1100-4500); Lymphocytes Percent Auto 10.7 % (25-40); Mean Corpuscular HGB Conc 33.1 % (30-36); Mean Corpuscular Hemoglobin 30.2 PG (26-34); Mean Corpuscular Volume 91.2 fL (80-100); Monocytes Absolute Auto 900 /uL (0-900); Monocytes Percent Auto 12.9 % (3-14); Neutrophils Absolute Auto 4800 /uL (1500-7000); Neutrophils Percent Auto 71.2 % (50-75); Platelet Count 232 X10^3/uL (150-400); Red Blood Cell Count 3.36 X10^6/uL (4.0-5.2); Red Cell Distribution Width 16.4 % (11.6-14.8); White Blood Cell Count 6.7 X10^3/uL (4.5-11.0)
[2024-06-20 12:48] LABS: Lactate (Lactic Acid) 1.5 mmol/L (0.7-2.1)
[2024-06-20] MEDS: ONDANSETRON 4 MG/2 ML INJ IV (12:48)
[2024-06-20 12:49] LABS: Alanine Aminotransferase 27 IU/L (<35); Albumin 2.7 g/dL (3.5-5.0); Alkaline Phosphatase 118 U/L (38-126); Aspartate Aminotransferase 41 IU/L (14-36); BUN Creatinine Ratio 21.7 (6-22); Blood Urea Nitrogen 23 mg/dL (7-17); Calcium 8.2 mg/dL (8.4-10.2); Carbon Dioxide 28 mmol/L (22-32); Chloride 103 mmol/L (98-107); Estimated Glomerular Filt Rate 54 mL/min (>60); Globulin 2.6 g/dL (1.7-4.1); Glucose 82 mg/dL (80-110); HEMOLYSIS < 15 (0-50); Sodium 137 mmol/L (137-145); Total Protein 5.3 g/dL (6.3-8.2)
[2024-06-20] MEDS: HYDROMORPHONE 1 MG INJ IV ×2 (12:49→18:21)
[2024-06-20] MEDS: VANCOMYCIN 1,000 MG in SODIUM CHLORIDE 0.9% 250 ML 250 MG IV (13:30)
--- NOTE | 2024-06-20 13:56 | PC.NURSE ---
Placed the patient on 2L to maintain sats above 92%, patient was given dilaudid see MAR
--- NOTE | 2024-06-20 14:39 | PM.CN.IH.1 ---
History of Present Illness Consult details Date Patient Seen: 06/20/24 Time Patient Seen: 14:39 Chief complaint: sent paper work over from nursing Facility to ER Reason for consult: worsening thigh wounds Requesting provider: Oskar Johnson Narrative: 79-year-old white female with progressive wounds on her medial thighs over the past month. There was shows suspicion of calciphylaxis with pathology showing calcification, however there was also concern for worsening infection with previous staph and Pseudomonas colonization. She has significant pain is not able to tolerate dressing changes without significant discomfort. Meds Home Medications and Allergies Home Medications Medication Instructions Recorded Confirmed Type cholecalciferol (vitamin D3) 125 125 mcg PO DAILY 04/08/22 02/16/24 History mcg (5,000 unit) capsule colchicine 0.6 mg tablet 0.6 mg PO DAILY 04/08/22 02/16/24 History levothyroxine 88 mcg tablet 88 mcg PO DAILY 04/08/22 02/16/24 History lovastatin 40 mg tablet 40 mg PO BEDTIME 04/08/22 02/16/24 History multivitamin 1 tab PO DAILY 04/08/22 02/16/24 History warfarin 3 mg tablet 3 mg PO DAILY 04/08/22 02/16/24 History carvedilol 25 mg tablet 25 mg PO DAILY PRN 07/22/22 02/16/24 History fluticasone propionate 50 g intranasal 07/22/22 02/16/24 History mcg/actuation nasal spray,suspension lisinopril 20 mg tablet 20 mg PO BID 10/19/22 02/16/24 History alendronate 70 mg tablet 70 mg PO QWEEK 01/13/23 02/16/24 History prednisone 5 mg tablet 5 mg PO DAILY 01/13/23 02/16/24 History azelastine 137 mcg (0.1 %) nasal 1 spray intranasal ONCE 06/14/23 02/16/24 History spray leflunomide 20 mg tablet 20 mg PO DAILY 06/14/23 02/16/24 History amlodipine 5 mg tablet 5 mg PO BID 02/16/24 02/16/24 History gabapentin 300 mg capsule 300 mg PO .COMPLEX #90 caps 02/16/24 02/16/24 Rx Allergies Allergy/AdvReac Type Severity Reaction Status Date / Time latex Allergy Verified 06/20/24 11:29 Review of Systems Review of Systems Narrative: Patient is hard of hearing and forgetful, family is at bedside but patient has been in the nursing care facility and family is not able to provide all the details ROS: Yes All systems reviewed with the patient and are negative except as otherwise documented Exam Vital Signs (past 8 hours): - 06/20/24 11:29 06/20/24 11:48 06/20/24 11:49 Temperature 97.8 F Pulse Rate 60 56 L 58 L Respiratory Rate 20 Blood Pressure 200/70 H Pulse Oximetry 98 98 97 Oxygen Delivery Method Room Air 06/20/24 11:49 06/20/24 12:00 06/20/24 12:01 Temperature Pulse Rate 67 61 Respiratory Rate Blood Pressure 183/74 H Pulse Oximetry 99 99 Oxygen Delivery Method 06/20/24 12:01 06/20/24 12:30 06/20/24 12:31 Temperature Pulse Rate 59 L 59 L Respiratory Rate Blood Pressure 165/74 H Pulse Oximetry 98 98 Oxygen Delivery Method 06/20/24 12:31 06/20/24 13:00 06/20/24 13:01 Temperature Pulse Rate 63 59 L Respiratory Rate Blood Pressure 173/72 H Pulse Oximetry 99 99 Oxygen Delivery Method Room Air 06/20/24 13:01 06/20/24 13:30 Temperature Pulse Rate 57 L Respiratory Rate Blood Pressure 171/72 H Pulse Oximetry 94 Oxygen Delivery Method Oxygen Delivery Method Room Air Narrative Exam Narrative: Gen: NAD, sitting comfortably in bed, appears chronically ill HEENT: Sclera are anicteric, head is normocephalic and atraumatic, trachea is midline. CV: RRR, no JVD Resp: clear to auscultation bilaterally, equal chest wall movement bilaterally Abd: soft, nontender, normoactive bowel sounds Ext: no edema, full range of motion Neuro: Cranial nerves II-XII grossly intact, no focal deficits Skin: No erythema or ecchymosis. Bilateral thigh wounds consistent with calciphylaxis, left wound dressed with necrotic base. Right wound is open to air Objective Labs 06/20/24 12:17 06/20/24 12:17 Labs: Laboratory Results - last 24 hr 06/20/24 12:17 WBC 6.7 RBC 3.36 L Hgb 10.1 L Hct 30.6 L MCV 91.2 MCH 30.2 MCHC 33.1 RDW 16.4 H Plt Count 232 Neut % (Auto) 71.2 Lymph % (Auto) 10.7 L [place] % (Auto) 12.9 Eos % (Auto) 3.4 Baso % (Auto) 1.8 Neut # (Auto) 4800 Lymph # (Auto) 700 L [place] # (Auto) 900 Eos # (Auto) 200 Baso # (Auto) 100 Sodium 137 Potassium 4.0 Chloride 103 Carbon Dioxide 28 BUN 23 H Creatinine 1.06 H Estimated GFR 54 L BUN/Creatinine Ratio 21.7 Glucose 82 Lactate 1.5 Calcium 8.2 L Total Bilirubin 1.0 AST 41 H ALT 27 Alkaline Phosphatase 118 Total Protein 5.3 L Albumin 2.7 L Globulin 2.6 Albumin/Globulin Ratio 1.0 Procalcitonin 1.30 H PFSH Medical History Chronic kidney disease Skin ulceration 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 arthropathy, lumbar Lumbar foraminal stenosis History of DVT (deep vein thrombosis) Herniated nucleus pulposus, L3-4 left Lumbar radiculopathy Surgical History Hx laparoscopic cholecystectomy H/O neck surgery History of ankle surgery Family History Father Hypertension Mother Hypertension Tobacco & Substance Use Smoking Status: Never smoker Assessment & Plan Assessment and plan (1) Chronic wound: Status: Acute Assessment & Plan narrative: Family is understanding of the calciphylaxis is a chronic condition without much hope for adequate wound healing. Our goals will be pain control and prevention of infection. Patient likely had her Eliquis today, so we would hold Eliquis and likely not be able to do anything until tomorrow or . She does not have a leukocytosis or fever, no urgent need for debridement. Time-Based Coding :: [TOTAL MINUTES] spent with patient and on the chart (including review of chart, obtaining history, exam, reviewing outside data, placing orders, documenting exam and treatment plan, and counseling patient) on [DATE]. PROFEE Charge Codes Inpatient or Observation consultation: [id number]
--- NOTE | 2024-06-20 14:43 | PC.NURSE ---
1300-This RN medicated the patient with dilaudid, see LAURA and removed the old dressing. Wound is 12cm in length with eschar covering wound bed. This RN per Dr Johnson placed a non adherent wet to dry dressing on patient.
[2024-06-20 15:24] LABS: INR 1.7 (0.9-1.3); Prothrombin Time 18.9 SECONDS (9.4-12.5)
--- NOTE | 2024-06-20 16:14 | PM.HP.1 ---
History of Present Illness History of Present Illness Date Patient Seen: 06/20/24 Chief complaint: sent paper work over from nursing Facility to ER Narrative: Chief complaint: Increasing pain and wound of area of debridement and warfarin calciphylaxis History of present illness: 79-year-old female with progressive lose on medial 5s over the past month status post multiple debridements in the past. She has had diagnosis of warfarin calciphylaxis with pathology showing calcification and concern for worsening infection with previous staph and Pseudomonas colonization. She has had significantly escalating pain and has not been able to tolerate dressing changes. Normally she is on fentanyl patch and oxycodone p.o. for pain control. She previously was taking warfarin for pulmonary embolus and has been switched to Eliquis has had a dose of Eliquis on the morning of admission. 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, lumbar Lumbar foraminal stenosis History of DVT (deep vein thrombosis) Herniated nucleus pulposus, L3-4 left Lumbar radiculopathy Surgical History Hx laparoscopic cholecystectomy H/O neck surgery History of ankle surgery Family History Father Hypertension Mother Hypertension Social History Smoking Status: Never smoker alcohol intake: never Meds Home Medications and Allergies Home Medications Medication Instructions Recorded Confirmed Type levothyroxine 88 mcg tablet 88 mcg PO DAILY 04/08/22 06/20/24 History lovastatin 40 mg tablet 40 mg PO BEDTIME 04/08/22 06/20/24 History carvedilol 25 mg tablet 25 mg PO BID 07/22/22 06/20/24 History lisinopril 20 mg tablet 20 mg PO QAM 10/19/22 06/20/24 History alendronate 70 mg tablet 70 mg PO QWEEK 01/13/23 06/20/24 History azelastine 137 mcg (0.1 %) nasal 1 spray intranasal ONCE 06/14/23 06/20/24 History spray leflunomide 20 mg tablet 20 mg PO DAILY 06/14/23 06/20/24 History acetaminophen 325 mg tablet 650 mg PO Q6H PRN Pain, Mild 06/20/24 06/20/24 History apixaban 5 mg tablet (Eliquis) 5 mg PO BID 06/20/24 06/20/24 History fentanyl 12 mcg/hr transdermal 1 patch topical Q3D 06/20/24 06/20/24 History patch hydroxyzine HCl 10 mg tablet 20 mg PO Q8HR PRN Anxiety 06/20/24 06/20/24 History lidocaine-prilocaine 2.5 %-2.5 % 2 g topical DAILY PRN Pain, Mild 06/20/24 06/20/24 History topical cream melatonin 3 mg tablet 3 mg PO QPM PRN Insomnia 06/20/24 06/20/24 History naloxone 4 mg/actuation nasal spray 4 mg intranasal NOW PRN overdose 06/20/24 06/20/24 History nystatin 100,000 unit/gram topical 1 applic topical BID PRN Rash 06/20/24 06/20/24 History powder ([facility]) ondansetron 4 mg disintegrating 4 mg PO Q8H PRN Nausea And Vomiting 06/20/24 06/20/24 History tablet oxycodone 10 mg tablet 10 mg PO DAILY 06/20/24 06/20/24 History oxycodone 5 mg tablet 2.5 mg PO Q2H PRN Pain (Scale 06/20/24 06/20/24 History Score 1-3) oxycodone 5 mg tablet 5 mg PO Q2H PRN Pain (Scale Score 06/20/24 06/20/24 History 4-6) polyethylene glycol 3350 17 gram 17 g PO QAM PRN Constipation 06/20/24 06/20/24 History oral powder packet sodium bicarbonate 650 mg tablet 650 mg PO BID PRN Heartburn 06/20/24 06/20/24 History Allergies Allergy/AdvReac Type Severity Reaction Status Date / Time latex Allergy Verified 06/20/24 11:29 Exam Vital Signs (past 8 hours): - 06/20/24 11:29 06/20/24 11:48 06/20/24 11:49 Temperature 97.8 F Pulse Rate 60 56 L 58 L Respiratory Rate 20 Blood Pressure 200/70 H Pulse Oximetry 98 98 97 Oxygen Delivery Method Room Air 06/20/24 11:49 06/20/24 12:00 06/20/24 12:01 Temperature Pulse Rate 67 61 Respiratory Rate Blood Pressure 183/74 H Pulse Oximetry 99 99 Oxygen Delivery Method 06/20/24 12:01 06/20/24 12:30 06/20/24 12:31 Temperature Pulse Rate 59 L 59 L Respiratory Rate Blood Pressure 165/74 H Pulse Oximetry 98 98 Oxygen Delivery Method 06/20/24 12:31 06/20/24 13:00 06/20/24 13:01 Temperature Pulse Rate 63 59 L Respiratory Rate Blood Pressure 173/72 H Pulse Oximetry 99 99 Oxygen Delivery Method Room Air 06/20/24 13:01 06/20/24 13:30 Temperature Pulse Rate 57 L Respiratory Rate Blood Pressure 171/72 H Pulse Oximetry 94 Oxygen Delivery Method Oxygen Delivery Method Room Air Objective Labs 06/20/24 12:17 06/20/24 12:17 Labs: Laboratory Results - last 24 hr 06/20/24 06/20/24 12:17 15:10 WBC 6.7 RBC 3.36 L Hgb 10.1 L Hct 30.6 L MCV 91.2 MCH 30.2 MCHC 33.1 RDW 16.4 H Plt Count 232 Neut % (Auto) 71.2 Lymph % (Auto) 10.7 L [place] % (Auto) 12.9 Eos % (Auto) 3.4 Baso % (Auto) 1.8 Neut # (Auto) 4800 Lymph # (Auto) 700 L [place] # (Auto) 900 Eos # (Auto) 200 Baso # (Auto) 100 PT 18.9 H INR 1.7 H Sodium 137 Potassium 4.0 Chloride 103 Carbon Dioxide 28 BUN 23 H Creatinine 1.06 H Estimated GFR 54 L BUN/Creatinine Ratio 21.7 Glucose 82 Lactate 1.5 Calcium 8.2 L Total Bilirubin 1.0 AST 41 H ALT 27 Alkaline Phosphatase 118 Total Protein 5.3 L Albumin 2.7 L Globulin 2.6 Albumin/Globulin Ratio 1.0 Procalcitonin 1.30 H Assessment & Plan Assessment & Plan narrative: Calciphylaxis: -case discussed with family and treatment team and consensus is to attempted debridement tomorrow afternoon due to a dose of Eliquis this morning -this is to help reduce the pain associated with this and it is unclear if there is infection. Patient received a dose of vancomycin and ceftriaxone in the ED -decision whether to continue antibiotics will be made after findings of surgery tomorrow History of pulmonary embolus on Eliquis: -we will hold Eliquis for now DVT prophylaxis: -patient is anticoagulated at this time -due to calciphylaxis of both lower extremities mechanical DVT is contraindicated Code status: -DNR Time based coding: I spent 55 minutes with the patient and on the chart including review of chart obtaining history exam reviewing outside data placing orders documenting exam and treatment plan and counseling the patient and family on 06/20/2024 Time-Based Coding :: [TOTAL MINUTES] spent with patient and on the chart (including review of chart, obtaining history, exam, reviewing outside data, placing orders, documenting exam and treatment plan, and counseling patient) on [DATE].
[2024-06-20] MEDS: SODIUM CHLORIDE 0.45% 1,000 ML 100 ML IV (17:14)
[2024-06-20] MEDS: OXYCODONE IR 5 MG TABLET PO (17:14)
[2024-06-20] MEDS: cefTRIAXone 2,000 MG in SODIUM CHLORIDE 0.9% 100 ML 200 MG IV (17:15)
[2024-06-20] MEDS: carvediloL 12.5 MG TABLET 25 MG PO (21:00)
[2024-06-20] MEDS: MELATONIN 3 MG TABLET PO (21:00)
[2024-06-20] MEDS: ATORVASTATIN 20 MG TABLET 10 MG PO (21:00)
[2024-06-21] VITALS (28 sets, daily range): BP systolic 124–202; BP diastolic 40–77; PULSE 49–107; RESP 10–24; TEMP 35.5–36.7; O2SAT 90–100; BMI 27.8
--- NOTE | 2024-06-21 | PATH_ITS ---
[facility] Accession Number: [id number] No. of containers..01 Tissue . 01 Material submitted: . thigh - LEFT THIGH TISSUE . 01 Diagnosis: SOFT TISSUE, LEFT THIGH, WOUND DEBRIDEMENT: Inflamed granulation tissue and necrosis including large areas of fat necrosis. [facility] 06/26/2024 1335 Local . 01 Electronically signed: . Yvette Santos MD, Pathologist NPI- [id number] . 01 Gross description: . Received in formalin with two patient identifiers and left thigh tissue, are two fragments of kim to yellow, partially necrotic tissue aggregating to 11.2 x 8.6 x 3.0 cm. No normal skin is grossly identified. Sectioning reveals kim to yellow cut surface with no lesions identified. Mobile Application Developer sections are submitted in A1-A2. ([id number]) /MRV 06/22/2024 1243 Local . 01 Pathologist provided ICD-10: S71.109A . 01 CPT . 701734 Specimen Comment: A courtesy copy of this report has been sent to [facility] Pathology Performed at: [address] [address], [place], [place] [id number] MD Shayne Nettles MD Phone: [phone]
--- NOTE | 2024-06-21 01:54 | PC.NURSE ---
Addendum entered by Brenda Snell R.N. 06/21/24 06:11: RN spoke with Pt after research technologist fabio labs, and Pt still refused Dressing change. Pt was disorientated when woken up by Lab, RN was able to re-orient to time/place/situation. Pt was able to ambulate to bathroom and urinate. When Patient was assisted back to bed RN attempted to educate and stress importance of dressing change. Pt stated, Let me think about it, when i wake up maybe. Original Note: shift commander, Patient educated on importance of dressing change in A.M. since dressing was changed at change of shift. Patient refuses to have dressing changed in morning due to pain from last dressing change at 1855. RN explained importance of dressing change and educated patient on pre-medicating for pain prior to dressing change. But patient still refused saying i have surgery in the morning to take care of it any-ways, so no thank you it hurts too much to change it again right before surgery. research technologist aware. MD Aware. Will attempt again in morning.
[2024-06-21] MEDS: LEVOTHYROXINE 88 MCG TABLET PO (05:39)
[2024-06-21 06:40] LABS: Add Manual Diff / Slide Review NO; Basophils Absolute Auto 100 /uL (0-100); Eosinophils Absolute Auto 200 /uL (0-450); Eosinophils Percent Auto 3.6 % (2-4); Hematocrit 30.5 % (36-46); Hemoglobin 9.8 g/dL (12.0-16.0); Lymphocytes Absolute Auto 1100 /uL (1100-4500); Lymphocytes Percent Auto 17.1 % (25-40); Mean Corpuscular HGB Conc 32.1 % (30-36); Mean Corpuscular Hemoglobin 29.6 PG (26-34); Monocytes Absolute Auto 700 /uL (0-900); Monocytes Percent Auto 10.6 % (3-14); Neutrophils Absolute Auto 4300 /uL (1500-7000); Neutrophils Percent Auto 67.7 % (50-75); Platelet Count 211 X10^3/uL (150-400); Red Blood Cell Count 3.31 X10^6/uL (4.0-5.2); Red Cell Distribution Width 16.7 % (11.6-14.8); White Blood Cell Count 6.3 X10^3/uL (4.5-11.0)
[2024-06-21] MEDS: carvediloL 12.5 MG TABLET 25 MG PO (08:27)
[2024-06-21] MEDS: SODIUM CHLORIDE 0.45% 1,000 ML 100 ML IV (08:28)
[2024-06-21] MEDS: lisinopriL 20 MG TABLET PO (08:28)
[2024-06-21] MEDS: OXYCODONE IR 5 MG TABLET PO ×2 (08:42→13:12)
[2024-06-21] MEDS: HYDROMORPHONE 0.5 MG INJ IV ×2 (10:23→16:25)
--- NOTE | 2024-06-21 10:59 | CM.DANOTE ---
Initial DCP Assessment Note Pt is a 79 yo male, admits from [facility], typically lives at home w/sp in [place]. Patient presents from wound care for worsening of her chronic thigh wound, PMH includes warfarin induced calciphylaxis. PCP: OZ Jernigan Payer: [facility] Reviewed chart, pt discussed in multidisciplinary rounds this morning. Patient will be taken to the OR by Dr Cooley for I+D and wound culture. Further decisions on treatment plan will depend on culture results. According to Melia at , patient is not a LTC resident. Patient is meant to return home w/sp and family, likely with Palliative Care services. Placed call to patient's son/DPOA Silvio P [phone]. Silvio plans for patient to return to upon discharge and eventually return home w/sp. Spouse can assist with most ADLs, has some functional limitation. Family is looking into outpatient resources ie Palliative Care and in-home care giving. CM team will plan to follow clinical course closely. Plan: Discharge likely back to [facility] via van. Patient may need ongoing IV abx. SNF auth from [facility] needed. CM team will plan to follow closely for coordination efforts. MERT Kenyon Discharge Planning/Care Management CM Discharge Assessment Start: 06/21/24 10:49 Freq: Status: Active Protocol: Document 06/21/24 10:49 IVAN (Rec: 06/21/24 10:59 IVAN [id number]) Discharge Planning Assessment Assigned Band Leader MERT Marrero DPCHRISTI/Assigned Designee Name Roderick Braun (spouse), Silvio Braun (son) Contact Information [phone] Silvio: [phone] Advance Directives? Yes: POLST Advance Directives on File Yes: POLST on file History Provided By Family Member,Medical Record Prior Living Arrangements Skilled Nurse Facility Household Members other Type of transportation used prior to Relies on Others admit Facility Name Admitted From: [facility] Willing to Return to Facility? Yes Independent with ADL's No Is patient alert and oriented? No Needs Assistance With Bathing,Grooming,Meal Prep, Toileting,Managing Medications ,Home Chores / Shopping Patient/Family Preference Shelter Facility Barriers to Discharge No Discharge Plan Shelter Facility Transportation Arrangement Referrals Initiated Shelter Additional Comment LTC resident at [facility]
[2024-06-21] MEDS: VANCOMYCIN 1,000 MG in SODIUM CHLORIDE 0.9% 250 ML 250 MG IV (12:17)
--- NOTE | 2024-06-21 12:26 | PC.NURSE ---
Late entry nurse note for 06/20/24, Charge nurse called to pt room by bedside nurse Simin who was in patient's contact isolation room doing a dressing change, pt c/o 10/10 pain during procedure, primary RN requesting 1mg dilaudid for pain during procedure.
--- NOTE | 2024-06-21 14:04 | PM.PN.1 ---
Subjective Subjective Date Patient Seen: 06/21/24 Time Patient Seen: 14:04 Interval history: Chief complaint: Increasing pain and wound of area of debridement and warfarin calciphylaxis History of present illness: 79-year-old female with progressive necrosis of the tissue of the inner thighs left greater than right over the past month status post multiple debridements in the past. She has had diagnosis of warfarin calciphylaxis with pathology showing calcification and concern for worsening infection with previous staph and Pseudomonas colonization. She has had significantly escalating pain and has not been able to tolerate dressing changes. Normally she is on fentanyl patch and oxycodone p.o. for pain control. She previously was taking warfarin for pulmonary embolus and has been switched to Eliquis has had a dose of Eliquis on the morning of admission. Hospital course: 06/21: Patient having significant pain especially with touching manipulating the area of calciphylaxis No fever or chills overnight no Proceeding with debridement and wound culture of surgical specimen Review of systems: No fever or chills No chest pains No shortness of breath No nausea vomiting neurologic no neurological symptoms Physical exam: Elderly female very hard of hearing and forgetful HEENT unremarkable new line neck no JVD Heart rate and rhythm regular Lungs clear Abdomen benign Extremities small eschar on right medial thigh Left medial thigh is dressed and was evaluated by General surgery Exam Vital Signs (past 8 hours): - 06/21/24 08:27 06/21/24 08:45 06/21/24 10:13 Temperature 97.1 F L Pulse Rate 70 64 57 L Respiratory Rate 16 Blood Pressure 158/56 H 175/64 H 138/50 L Pulse Oximetry 97 Oxygen Flow Rate 0 Oxygen Delivery Method Room Air Oxygen Flow Rate 0 Objective Labs 06/21/24 05:20 06/20/24 12:17 Labs: Laboratory Results - last 24 hr 06/20/24 06/21/24 15:10 05:20 WBC 6.3 RBC 3.31 L Hgb 9.8 L Hct 30.5 L MCV 92.0 MCH 29.6 MCHC 32.1 RDW 16.7 H Plt Count 211 Neut % (Auto) 67.7 Lymph % (Auto) 17.1 L [place] % (Auto) 10.6 Eos % (Auto) 3.6 Baso % (Auto) 1.0 Neut # (Auto) 4300 Lymph # (Auto) 1100 [place] # (Auto) 700 Eos # (Auto) 200 Baso # (Auto) 100 PT 18.9 H INR 1.7 H PFSH Medical History Chronic kidney disease Skin ulceration 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 arthropathy, lumbar Lumbar foraminal stenosis History of DVT (deep vein thrombosis) Herniated nucleus pulposus, L3-4 left Lumbar radiculopathy Surgical History Hx laparoscopic cholecystectomy H/O neck surgery History of ankle surgery Family History Father Hypertension Mother Hypertension Social History household members: other Smoking Status: Never smoker alcohol intake: never Assessment & Plan Assessment & Plan narrative: Calciphylaxis: -case discussed with family and treatment team and consensus is to attempted debridement tomorrow afternoon due to a dose of Eliquis this morning -this is to help reduce the pain associated with this and it is unclear if there is infection. Patient received a dose of vancomycin and ceftriaxone in the ED -decision whether to continue antibiotics will be made after findings of surgery today. History of pulmonary embolus on Eliquis: -we will hold Eliquis for now DVT prophylaxis: -patient is anticoagulated at this time -due to calciphylaxis of both lower extremities mechanical DVT is contraindicated Code status: -DNR Time based coding: I spent 55 minutes with the patient and on the chart including review of chart obtaining history exam reviewing outside data placing orders documenting exam and treatment plan and counseling the patient and family Time-Based Coding :: I spent 55 minutes with the patient and on the chart including review of chart obtaining history exam reviewing outside data placing orders documenting exam and treatment plan and counseling the patient and family
--- NOTE | 2024-06-21 15:50 | CM.DPNOTE ---
DCP Cont According to Melia at [facility]; patient is welcome to return to if family can sit with her during the day (as they have been doing). If patient needs IV abx, it is likely that [facility] will auth and can provide rehab. If no abx are needed, patient would be more palliative care/hospice as she has been refusing therapies at SNF. CM team following closely. IVAN
[2024-06-21] MEDS: LACTATED RINGERS 1,000 ML 42 ML IV (16:55)
--- NOTE | 2024-06-21 16:56 | PM.PREOP ---
Pre-operative Note Interval Note History & Physical reviewed/Exam performed by Physician: Yes Changes to H&P: No H&P completed within 30 days and has changed as indicated here:: Patient agrees to left leg debridement and wound vac placement
--- NOTE | 2024-06-21 17:14 | SUR.OPER ---
Supine on padded OR bed, head on pillow, arms secured on padded arm boards at <90 degrees abduction, legs uncrossed, safety belt at thigh, tape over blanket over lower legs.
--- NOTE | 2024-06-21 17:56 | PM.OP.1 ---
Operative Date/Time/Diagnoses Date of procedure: 06/21/24 Time of procedure: 17:56 Pre-op diagnosis: Necrotic wound of the left thigh Post-op diagnosis: same Procedure & Clinicians Procedure: Sharp excisional debridement of necrotic wound of the left thigh including skin subcutaneous fat and fascia measuring 11 cm x 10 cm x 2-1/2 cm wound vac placement Same procedure as scheduled: Yes Indications: necrotic wound with suspected infection Surgeon: Gabriel Cooley Click Yes if Unassisted: Yes Anesthesia Type: General (LMA) Operative Notes Findings: necrotic skin, fat, fascia Closure Type: not applicable (wound vac) Specimen(s): other (1. left thigh wound tissue for culture. 2. left thigh would (permanent)) Prosthetic devices, grafts, tissues, transplants, or devices: vac Estimated Blood Loss (mL): 25 Procedure in detail: Patient was brought to the operating room suite. LMA anesthesia was induced. The left thigh was prepped and draped in the usual fashion. Sharp dissection with a combination of forceps, scissors and Bovie electrocautery was used to excise necrotic skin, subcutaneous fat and fascia overlying the muscle of the left thigh measuring greater than 11 cm long by 10 cm wide by 2-1/2 cm deep. Bovie electrocautery was used for hemostasis. The fascia overlying the muscle was approximated with 3-0 Vicryl. A wound VAC was applied and a good seal was obtained. Patient was transported to PACU in stable condition for continued hospital stay. Complications: none Post-operative Condition: stable Disposition: PACU Plan for aftercare: Wound VAC change 3 times per week
[2024-06-21] MEDS: fentaNYL 100 MCG/2 ML INJ IV (18:16)
[2024-06-21] MEDS: hydrOXYzine 50 MG/ML INJ 25 MG IM (18:18)
[2024-06-21] MEDS: ATORVASTATIN 20 MG TABLET 10 MG PO (22:06)
[2024-06-21] MEDS: MELATONIN 3 MG TABLET PO (22:07)
[2024-06-21] MEDS: cefTRIAXone 1,000 MG in SODIUM CHLORIDE 0.9% 100 ML 200 MG IV (22:07)
[2024-06-21] MEDS: HYDROMORPHONE 1 MG INJ IV (22:08)
[2024-06-22] MEDS: SODIUM CHLORIDE 0.45% 1,000 ML 100 ML IV (01:51)
[2024-06-22 03:00] VITALS: BP 118/40; PULSE 50; RESP 18; TEMP 35.7; O2SAT 100
[2024-06-22] MEDS: LEVOTHYROXINE 88 MCG TABLET PO (04:54)
[2024-06-22] MEDS: OXYCODONE IR 10 MG TABLET PO ×4 (04:54→18:15)
--- NOTE | 2024-06-22 06:21 | PC.NURSE ---
Late entry 06/21-Pt back from PACU at 20:00.
[2024-06-22 08:00] VITALS: BP 128/45; PULSE 62; RESP 18; TEMP 36.2; O2SAT 96
[2024-06-22 08:35] VITALS: BP 128/45; PULSE 62
[2024-06-22] MEDS: ACETAMINOPHEN 325 MG TABLET 650 MG PO (08:35)
[2024-06-22] MEDS: carvediloL 12.5 MG TABLET 25 MG PO ×2 (08:35→20:20)
--- NOTE | 2024-06-22 10:14 | PM.PN.IH.1 ---
Subjective Subjective Date Patient Seen: 06/22/24 Time Patient Seen: 10:14 Interval history: Patient was comfortable. Eating her breakfast. No wound VAC alarms overnight according to nursing staff. Exam Vital Signs (past 8 hours): - 06/22/24 03:00 06/22/24 08:00 06/22/24 08:35 Temperature 96.3 F L 97.1 F L Pulse Rate 50 L 62 62 Respiratory Rate 18 18 Blood Pressure 118/40 L 128/45 L 128/45 L Pulse Oximetry 100 96 Oxygen Flow Rate 0 0 Oxygen Delivery Method Nasal Cannula Oxygen Flow Rate 0 Narrative Exam Narrative: Wound VAC on the left thigh with minimal output. Good seal. 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 Plan for wound VAC changes Wednesday. Time-Based Coding :: [TOTAL MINUTES] spent with patient and on the chart (including review of chart, obtaining history, exam, reviewing outside data, placing orders, documenting exam and treatment plan, and counseling patient) on [DATE]. PROFEE Nurse Practitioner Physician Assistant Document charge(s): Yes Charge Codes Subsequent inpatient/observation care: [id number]
--- NOTE | 2024-06-22 11:11 | PC.NURSE ---
Day shift: Notified MD Peña that patient's BLE edema is more today (3+) and lungs sound wet this AM. This RN stopped patient's IV fluids and requested MD to d/c order. MD Peña agreed. Patient has adequate PO fluid intake as well. Will continue to monitor.
[2024-06-22] MEDS: fentaNYL 12 MCG/PATCH TOP (13:00)
[2024-06-22] MEDS: VANCOMYCIN 1,000 MG in SODIUM CHLORIDE 0.9% 250 ML 250 MG IV (13:01)
[2024-06-22 14:00] VITALS: BP 126/40; PULSE 61; RESP 16; TEMP 36.3; O2SAT 92
--- NOTE | 2024-06-22 15:38 | CM.DPNOTE ---
DCP Cont Patient now has a wound vac which is ordered to be changed M/W/Wed. Updated Melia at . Clinical emailed. Jaime Wood at [facility] reached out re inpatient wound vac. Emaile clinical to Jaime- Op note and prog note from Dr Cooley. Jaime Wood Patient [facility] - [facility], , [facility] Vac Home Vac [facility] [address] [place] [address], [address] [place] [id number] M: [phone] F: [phone] E: [email or web address] Plan: Discharge to [facility] H+R anticipated. Still needed: -Discussion with family about 's request for one to one bedside monitoring while at [facility] -Wound vac at [facility] -[facility] team following closely for coodination. IVAN
--- NOTE | 2024-06-22 16:36 | PM.PN.1 ---
Subjective Subjective Date Patient Seen: 06/22/24 Time Patient Seen: 16:36 Interval history: Chief complaint: Increasing pain and wound of area of debridement and warfarin calciphylaxis History of present illness: 79-year-old female with progressive necrosis of the tissue of the inner thighs left greater than right over the past month status post multiple debridements in the past. She has had diagnosis of warfarin calciphylaxis with pathology showing calcification and concern for worsening infection with previous staph and Pseudomonas colonization. She has had significantly escalating pain and has not been able to tolerate dressing changes. Normally she is on fentanyl patch and oxycodone p.o. for pain control. She previously was taking warfarin for pulmonary embolus and has been switched to Eliquis has had a dose of Eliquis on the morning of admission. Hospital course: 06/21: Patient having significant pain especially with touching manipulating the area of calciphylaxis No fever or chills overnight no Proceeding with debridement and wound culture of surgical specimen 06/22: Patient had some confusion delirium following surgical procedure yesterday. She slept well last night and is somewhat confused this morning but certainly not in agitation Wound VAC is in place and patient has good pain control now Wound cultures were performed and are awaiting culture and sensitivity to direct antibiotics for now we will continue vancomycin and ceftriaxone Review of systems: No fever or chills No chest pains No shortness of breath No nausea vomiting neurologic no neurological symptoms Physical exam: Elderly female very hard of hearing and forgetful HEENT unremarkable new line neck no JVD Heart rate and rhythm regular Lungs clear Abdomen benign Assessment and plan: Calciphylaxis: -patient underwent debris with with a minimum of postoperative complications -wound VAC in place and await cultures -resume Eliquis this morning -for now continue vancomycin and ceftriaxone in the ED . History of pulmonary embolus on Eliquis: -resumed Eliquis DVT prophylaxis: -patient is anticoagulated at this time -due to calciphylaxis of both lower extremities mechanical DVT is contraindicated Code status: -DNR Time based coding: I spent 55 minutes with the patient and on the chart including review of chart obtaining history exam reviewing outside data placing orders documenting exam and treatment plan and counseling the patient and family Exam Vital Signs (past 8 hours): Oxygen Delivery Method Nasal Cannula Oxygen Flow Rate 0 Objective Labs 06/21/24 05:20 06/20/24 12:17 PFSH Medical History Chronic kidney disease Skin ulceration 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 arthropathy, lumbar Lumbar foraminal stenosis History of DVT (deep vein thrombosis) Herniated nucleus pulposus, L3-4 left Lumbar radiculopathy Surgical History Hx laparoscopic cholecystectomy H/O neck surgery History of ankle surgery Family History Father Hypertension Mother Hypertension Social History household members: other Smoking Status: Never smoker alcohol intake: never Assessment & Plan Time-Based Coding :: [TOTAL MINUTES] spent with patient and on the chart (including review of chart, obtaining history, exam, reviewing outside data, placing orders, documenting exam and treatment plan, and counseling patient) on [DATE].
[2024-06-22 20:20] VITALS: BP 139/85; PULSE 59
[2024-06-22] MEDS: cefTRIAXone 1,000 MG in SODIUM CHLORIDE 0.9% 100 ML 200 MG IV (20:20)
[2024-06-22] MEDS: ATORVASTATIN 20 MG TABLET 10 MG PO (20:20)
[2024-06-22] MEDS: MELATONIN 3 MG TABLET PO (20:21)
[2024-06-22] MEDS: APIXABAN 5 MG TABLET PO (20:21)
[2024-06-22 20:51] VITALS: BP 139/85; PULSE 62; RESP 19; TEMP 36.2; O2SAT 97
[2024-06-23] VITALS (7 sets, daily range): BP systolic 130–160; BP diastolic 40–72; PULSE 64–74; RESP 18–20; TEMP 35.9–36.7; O2SAT 94–96
[2024-06-23] MEDS: OXYCODONE IR 5 MG TABLET PO ×3 (03:33→15:02)
[2024-06-23] MEDS: LEVOTHYROXINE 88 MCG TABLET PO (05:22)
--- NOTE | 2024-06-23 08:47 | PM.PN.1 ---
Subjective Subjective Date Patient Seen: 06/23/24 Time Patient Seen: 08:47 Interval history: Chief complaint: Increasing pain and wound of area of debridement and warfarin calciphylaxis History of present illness: 79-year-old female with progressive necrosis of the tissue of the inner thighs left greater than right over the past month status post multiple debridements in the past. She has had diagnosis of warfarin calciphylaxis with pathology showing calcification and concern for worsening infection with previous staph and Pseudomonas colonization. She has had significantly escalating pain and has not been able to tolerate dressing changes. Normally she is on fentanyl patch and oxycodone p.o. for pain control. She previously was taking warfarin for pulmonary embolus and has been switched to Eliquis has had a dose of Eliquis on the morning of admission. Hospital course: 06/21: Patient having significant pain especially with touching manipulating the area of calciphylaxis No fever or chills overnight no Proceeding with debridement and wound culture of surgical specimen 06/22: Patient had some confusion delirium following surgical procedure yesterday. She slept well last night and is somewhat confused this morning but certainly not in agitation Wound VAC is in place and patient has good pain control now Wound cultures were performed and are awaiting culture and sensitivity to direct antibiotics for now we will continue vancomycin and ceftriaxone 06/23: Patient is confused but not seem acutely delirious happily eating her breakfast Wound culture came back Pseudomonas sensitivity is pending Review of systems: No fever or chills No chest pains No shortness of breath No nausea vomiting neurologic no neurological symptoms Physical exam: Elderly female very hard of hearing and forgetful HEENT unremarkable new line neck no JVD Heart rate and rhythm regular Lungs clear Abdomen benign Wound culture: Procedure/Result Gram Stain - Final Aerobic Culture - Final ???Pseudomonas aeruginosa Anaerobic Culture - Pending Assessment and plan: Calciphylaxis: -patient underwent debris with with a minimum of postoperative complications -wound VAC in place and await cultures preliminary Pseudomonas we will discontinue MRSA coverage -resume Eliquis this morning -we will change to cefepime . History of pulmonary embolus on Eliquis: -resumed Eliquis DVT prophylaxis: -patient is anticoagulated at this time -due to calciphylaxis of both lower extremities mechanical DVT is contraindicated Code status: -DNR Time based coding: I spent 35 minutes with the patient and on the chart including review of chart obtaining history exam reviewing outside data placing orders documenting exam and treatment plan and counseling the patient and family Procedure/Result Gram Stain - Final Aerobic Culture - Final ???Pseudomonas aeruginosa Anaerobic Culture - Pending Exam Vital Signs (past 8 hours): - 06/23/24 02:51 06/23/24 08:00 Temperature 96.7 F L 97.1 F L Pulse Rate 64 72 Respiratory Rate 18 20 Blood Pressure 148/46 H 139/55 L Pulse Oximetry 95 94 Oxygen Flow Rate 0 0 Oxygen Delivery Method Room Air Oxygen Flow Rate 0 Objective Labs 06/21/24 05:20 06/20/24 12:17 PFS Medical History Chronic kidney disease Skin ulceration 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 arthropathy, lumbar Lumbar foraminal stenosis History of DVT (deep vein thrombosis) Herniated nucleus pulposus, L3-4 left Lumbar radiculopathy Surgical History Hx laparoscopic cholecystectomy H/O neck surgery History of ankle surgery Family History Father Hypertension Mother Hypertension Social History household members: other Smoking Status: Never smoker alcohol intake: never Assessment & Plan Time-Based Coding :: [TOTAL MINUTES] spent with patient and on the chart (including review of chart, obtaining history, exam, reviewing outside data, placing orders, documenting exam and treatment plan, and counseling patient) on [DATE].
[2024-06-23] MEDS: APIXABAN 5 MG TABLET PO ×2 (09:39→21:02)
--- NOTE | 2024-06-23 11:07 | PC.NURSE ---
Addendum entered by Jeane Linares R.N. 06/23/24 16:48: Wound care is in room changing wound vac dressing now. Pt was medicated prior to procedure. Addendum entered by Jeane Linares R.N. 06/23/24 15:24: new IV successfully placed in left wrist, IV cefepime completed per order, pt tolerated well. Dr Mackenzie Johns placed new order for Wound care consult. RN called over to wound care and left a message to verify that they received order today. Original Note: the pt's IV infiltrated, RN was not able to give IV Cefepine, other RN attempted IV start was not success, now RN will give second attempt. Blood pressure meds were held until RN could speak with provider about low diastolic bp.
[2024-06-23] MEDS: carvediloL 12.5 MG TABLET 25 MG PO ×2 (11:21→21:02)
[2024-06-23] MEDS: CEFEPIME 1 GM in SODIUM CHLORIDE 0.9% 100 ML IV ×2 (11:21→21:07)
[2024-06-23] MEDS: lisinopriL 20 MG TABLET PO (11:26)
--- NOTE | 2024-06-23 14:07 | P.PN_ITS ---
Subjective Subjective Date Patient Seen: 06/23/24 Time Patient Seen: 14:07 Interval history: Postop day 1 from excision of wound and wound VAC placement for calciphylaxis. Patient doing well, pain improved. Exam Vital Signs (past 8 hours): - 06/23/24 08:00 06/23/24 11:21 06/23/24 11:26 Temperature 97.1 F L Pulse Rate 72 65 65 Respiratory Rate 20 Blood Pressure 139/55 L 160/45 H 160/45 H Pulse Oximetry 94 Oxygen Flow Rate 0 Oxygen Delivery Method Room Air Oxygen Flow Rate 0 Narrative Exam Narrative: Alert and oriented, hard of hearing no acute distress patient overall well, wound VAC functioning the medial left thigh. Normal character of the fluid. 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 arthropathy, lumbar Lumbar foraminal stenosis History of DVT (deep vein thrombosis) Herniated nucleus pulposus, L3-4 left Lumbar radiculopathy Surgical History Hx laparoscopic cholecystectomy H/O neck surgery History of ankle surgery Family History Father Hypertension Mother Hypertension Social History household members: other Smoking Status: Never smoker alcohol intake: never Assessment & Plan Assessment & Plan narrative: Wound VAC placed for wound care after calciphylaxis - consult placed for wound care nurse, we will transition care to wound care team - initial wound VAC change might be painful, would not recommend operative environment for this as it should be tolerated at the bedside - we will follow along Time-Based Coding :: [TOTAL MINUTES] spent with patient and on the chart (including review of chart, obtaining history, exam, reviewing outside data, placing orders, documenting exam and treatment plan, and counseling patient) on [DATE]. 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
[2024-06-23] MEDS: HYDROMORPHONE 0.5 MG INJ IV (16:25)
--- NOTE | 2024-06-23 17:12 | PM.CN.IH.1 ---
History of Present Illness Consult details Date Patient Seen: 06/23/24 Time Patient Seen: 16:30 Chief complaint: wound Reason for consult: wound vacc change Requesting provider: Caio Peña Narrative: Chief complaint: wound vacc change for calciphylaxis History of present illness: The patient is a 79-year-old female with hypertension, CKD 3B, obesity, CHF, and long-term prednisone and immune suppression for psoriatic arthritis currently hospitalized for deep chronic wound from calciphylaxis possibly warfarin induced. She was treated last at the wound clinic on 06/21/24 when she was sent to the ER due to worsening wound. Now hospitalized, she was treated with surgical debridement and wound vac placement on 06/21/24 with plan for dressing changes three times weekly. The patient has had great difficulty with dressing changes due to pain as she can hardly tolerate even light adhesive removal. On today visit she appears to be disoriented and in mild pain. She has a past history of DVT. She is normally able to ambulate with the use of a walker. Previous cultures have grown Pseudomonas and MSSA and she is currently being treated with IV antibiotics. Previous biopsy findings revealed ischemic fat necrosis with focal early calcification. The patient is taking oxycodone to help control pain. Meds Home Medications and Allergies Home Medications Medication Instructions Recorded Confirmed Type levothyroxine 88 mcg tablet 88 mcg PO DAILY 04/08/22 06/20/24 History lovastatin 40 mg tablet 40 mg PO BEDTIME 04/08/22 06/20/24 History carvedilol 25 mg tablet 25 mg PO BID 07/22/22 06/20/24 History lisinopril 20 mg tablet 20 mg PO QAM 10/19/22 06/20/24 History alendronate 70 mg tablet 70 mg PO QWEEK 01/13/23 06/20/24 History azelastine 137 mcg (0.1 %) nasal 1 spray intranasal ONCE 06/14/23 06/20/24 History spray leflunomide 20 mg tablet 20 mg PO DAILY 06/14/23 06/20/24 History acetaminophen 325 mg tablet 650 mg PO Q6H PRN Pain, Mild 06/20/24 06/20/24 History apixaban 5 mg tablet (Eliquis) 5 mg PO BID 06/20/24 06/20/24 History fentanyl 12 mcg/hr transdermal 1 patch topical Q3D 06/20/24 06/20/24 History patch hydroxyzine HCl 10 mg tablet 20 mg PO Q8HR PRN Anxiety 06/20/24 06/20/24 History lidocaine-prilocaine 2.5 %-2.5 % 2 g topical DAILY PRN Pain, Mild 06/20/24 06/20/24 History topical cream melatonin 3 mg tablet 3 mg PO QPM PRN Insomnia 06/20/24 06/20/24 History naloxone 4 mg/actuation nasal spray 4 mg intranasal NOW PRN overdose 06/20/24 06/20/24 History nystatin 100,000 unit/gram topical 1 applic topical BID PRN Rash 06/20/24 06/20/24 History powder ([facility]) ondansetron 4 mg disintegrating 4 mg PO Q8H PRN Nausea And Vomiting 06/20/24 06/20/24 History tablet oxycodone 10 mg tablet 10 mg PO DAILY 06/20/24 06/20/24 History oxycodone 5 mg tablet 2.5 mg PO Q2H PRN Pain (Scale 06/20/24 06/20/24 History Score 1-3) oxycodone 5 mg tablet 5 mg PO Q2H PRN Pain (Scale Score 06/20/24 06/20/24 History 4-6) polyethylene glycol 3350 17 gram 17 g PO QAM PRN Constipation 06/20/24 06/20/24 History oral powder packet sodium bicarbonate 650 mg tablet 650 mg PO BID PRN Heartburn 06/20/24 06/20/24 History Allergies Allergy/AdvReac Type Severity Reaction Status Date / Time latex Allergy Verified 06/20/24 11:29 Exam Vital Signs (past 8 hours): - 06/23/24 11:21 06/23/24 11:26 06/23/24 14:00 Temperature 97.1 F L Pulse Rate 65 65 65 Respiratory Rate 18 Blood Pressure 160/45 H 160/45 H 138/41 L Pulse Oximetry 96 Oxygen Flow Rate 0 Oxygen Delivery Method Room Air Oxygen Flow Rate 0 Narrative Exam Narrative: GENERAL: frail elderly in no acute distress, not toxic not dyspneic HEAD: Normocephalic. EYES: Pupils equal round ENT: Mucous membranes moist. NECK: Trachea midline. RESPIRATORY:Normal respiratory effort EXTREMITIES: Examination left lower extremity left medial thigh large @15 cm skin defect wound with greenish edges and foul odor. No bony injury or muscle injury seen. Fat tissue is noted. 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 arthropathy, lumbar Lumbar foraminal stenosis History of DVT (deep vein thrombosis) Herniated nucleus pulposus, L3-4 left Lumbar radiculopathy Surgical History Hx laparoscopic cholecystectomy H/O neck surgery History of ankle surgery Family History Father Hypertension Mother Hypertension Social History household members: other Tobacco & Substance Use Smoking Status: Never smoker alcohol intake: never Assessment & Plan Assessment and plan (1) Chronic wound: Status: Acute Plan Patient was give IV dilaudid to help wtih wound vacc change Dressing removed with adhesive remover and liquid lidocaine was applied to wound bed Wound was lightly debrided with #3 scalpel, scant amt of slough and subq tissue was removed Wound vacc was removed and patient did have some pain associated with especially the removal of adhesive, but was ultimately able to tolerate procedure Rinsed with saline and new wound vac applied Continue plan for three x weekly wound vac change Monitor skin for irritation/infection Continue IV antibiotics F/u wound center on discharge for continued wound vacc changes Time-Based Coding :: [45 MINUTES] spent with patient and on the chart (including review of chart, obtaining history, exam, reviewing outside data, wound dressing change, documenting exam and treatment plan, and counseling patient/family ) on [06/23/24]. PROFEE Charge Codes Inpatient or Observation consultation: 09629
[2024-06-23] MEDS: MELATONIN 3 MG TABLET PO (21:02)
[2024-06-23] MEDS: ATORVASTATIN 20 MG TABLET 10 MG PO (21:06)
[2024-06-23] MEDS: SODIUM CHLORIDE 0.9% FLUSH 10 ML IV (21:54)
[2024-06-24] VITALS (7 sets, daily range): BP systolic 154–161; BP diastolic 47–59; PULSE 62–71; RESP 16–20; TEMP 36.3–37.1; O2SAT 96–97
[2024-06-24] MEDS: OXYCODONE IR 5 MG TABLET PO (03:08)
[2024-06-24] MEDS: LEVOTHYROXINE 88 MCG TABLET PO (06:27)
--- NOTE | 2024-06-24 08:00 | PC.NURSE ---
Pt alert though confused. Follows commands well though needs reassurance. Pt is conversant and expressive of not knowing what's going on. Asking lots of questions about surgeries etc. Wound vac intact and functional. Dressing CDI.
[2024-06-24] MEDS: CEFEPIME 1 GM in SODIUM CHLORIDE 0.9% 100 ML IV ×2 (09:44→20:04)
[2024-06-24] MEDS: APIXABAN 5 MG TABLET PO ×2 (09:44→20:05)
[2024-06-24] MEDS: SODIUM CHLORIDE 0.9% FLUSH 10 ML IV ×2 (09:44→20:10)
[2024-06-24] MEDS: carvediloL 12.5 MG TABLET 25 MG PO ×2 (09:46→20:08)
[2024-06-24] MEDS: lisinopriL 20 MG TABLET PO (09:47)
--- NOTE | 2024-06-24 11:21 | P.PN_ITS ---
Subjective Subjective Date Patient Seen: 06/24/24 Time Patient Seen: 08:45 Interval history: Chief complaint: Increasing pain and wound of area of debridement and warfarin calciphylaxis History of present illness: 79-year-old female with progressive necrosis of the tissue of the inner thighs left greater than right over the past month status post multiple debridements in the past. She has had diagnosis of warfarin calciphylaxis with pathology showing calcification and concern for worsening infection with previous staph and Pseudomonas colonization. She has had significantly escalating pain and has not been able to tolerate dressing changes. Normally she is on fentanyl patch and oxycodone p.o. for pain control. She previously was taking warfarin for pulmonary embolus and has been switched to Eliquis has had a dose of Eliquis on the morning of admission. Hospital course: 06/21: Patient having significant pain especially with touching manipulating the area of calciphylaxis No fever or chills overnight no Proceeding with debridement and wound culture of surgical specimen 06/22: Patient had some confusion delirium following surgical procedure yesterday. She slept well last night and is somewhat confused this morning but certainly not in agitation Wound VAC is in place and patient has good pain control now Wound cultures were performed and are awaiting culture and sensitivity to direct antibiotics for now we will continue vancomycin and ceftriaxone 06/23: Patient is confused but not seem acutely delirious happily eating her breakfast Wound culture came back Pseudomonas sensitivity is pending 06/24: Wound culture show Pseudomonas sensitive to Cefepime, levofloxacin, cipro, with intermediate resistance to imipenam She has no complaints, awaiting placement at SNF pending insurance authorization Exam Vital Signs (past 8 hours): - 06/24/24 08:00 06/24/24 09:00 06/24/24 09:46 Temperature 97.3 F L 98.3 F Pulse Rate 62 62 Respiratory Rate 20 Blood Pressure 154/59 H 154/59 H Pulse Oximetry 96 Oxygen Flow Rate 0 06/24/24 09:47 Temperature Pulse Rate 62 Respiratory Rate Blood Pressure 154/59 H Pulse Oximetry Oxygen Flow Rate Oxygen Delivery Method Room Air Oxygen Flow Rate 0 Narrative Exam Narrative: Elderly female very hard of hearing and forgetful HEENT unremarkable new line neck no JVD Heart rate and rhythm regular Lungs clear Abdomen benign Extremities with left medial thigh woundvac in place over 15cm cavitary wound, mild induration and erythema along borders; right medial thigh healing eschar Objective Imaging Left lower extremity CT:: Radiologist's impression: 1. Open wound in posterior medial aspect of left upper thigh and along medial aspect of mid to distal left thigh with underlying cellulitis. No discrete drainable abscess collection is seen. No abnormal soft tissue calcifications. 2. No evidence of myositis or intramuscular abscess collection. 3. No left femoral fracture or dislocation. Left hip and left knee joint osteoarthritis. No evidence of avascular necrosis. No CT evidence of osteomyelitis. Labs 06/21/24 05:20 06/20/24 12:17 PFSH Medical History Chronic kidney disease Facet arthropathy, lumbar Hearing loss associated with syndrome of both ears Herniated nucleus pulposus, L3-4 left History of DVT (deep vein thrombosis) Lumbar foraminal stenosis Lumbar radiculopathy Skin ulceration Surgical History H/O neck surgery History of ankle surgery Hx laparoscopic cholecystectomy Family History Father Hypertension Mother Hypertension Social History household members: other Smoking Status: Never smoker alcohol intake: never Assessment & Plan Assessment & Plan narrative: 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
--- NOTE | 2024-06-24 14:04 | CM.DPC ---
I called Stephanie at [facility] today to discuss discharge plan for this patient. [facility] said they are unable to get a wound vac until Monday 06/26 at the soonest. I started a [facility] authorization. I faxed chart notes etc to [facility] and spoke to Cosme by phone. Cosme reviewed the notes and she said she needs to see detailed wound care notes/ instructions. I left a message for Dr Childress at ext [phone] asking for a wound consultation IZZY, this was already ordered by Dr Peña. Cosme also said that PT notes would help this patient qualify for SNF. I asked the patient if she would be willing to try PT. I wrote all of my questions for the patient because she cannot hear. Patient said she is open to PT if it will help make her plan of care safer/ more effective. Dr Baird agreed with this plan. I placed a PT order and notified Dawna in PT that order is placed. I also called [facility] who was listed in a previous DCP note to check and see if there is a way to expedite getting the wound vac to [facility]. Once wound care consult and PT notes are in we can submit them to [facility].
--- NOTE | 2024-06-24 15:35 | PT.IIE ---
Current Diagnoses Other injury of unspecified body region, initial encounter (06/20/24) Surgery Performed Operation Date: 06/21/24 15:15 Actual Procedures p Left thigh Incision and Drainage Wound, wound vac placement(Left) - Gabriel Cooley MD Surgical History (Last Reviewed 06/24/24 @ 11:25 by Sesar Baird MD) H/O neck surgery History of ankle surgery Hx laparoscopic cholecystectomy Medical History (Last Reviewed 06/24/24 @ 11:25 by Sesar Baird MD) Chronic kidney disease Facet arthropathy, lumbar Hearing loss associated with syndrome of both ears Herniated nucleus pulposus, L3-4 left History of DVT (deep vein thrombosis) Lumbar foraminal stenosis Lumbar radiculopathy Skin ulceration Physical Therapy Inpatient Evaluation/Re-Eval M1 PT/OT-IP Prior Functional Status Start: 06/24/24 17:13 Freq: NEEDED Status: Active Protocol: Document 06/24/24 15:35 DLM (Rec: 06/24/24 17:32 DLM [id number]) Medical Review Prior Functional Status Medical History Reviewed Yes Diet/Fluid Consistency Regular Communication very hard of hearing even with aides Mobility and Gait she reports walking with 4WW Prior Functional Level (Other details) pt is not able to give details about baseline function or home situation, attempted writing questions since she is very hard of hearing but she still could not give information Social History Household Members other Living Arrangements Skilled Nurse Facility Home Equipment Four Wheel Walker Additional Social History Comment she was admitted from SNF rehab at [facility]. Chart notes indicate she was home before SNF rehab and she has family involved in her care. Pt is not able to give home information. No family is present today. Pt states she has supportive friends/neighbors. M2 PT-IP Current Condition Start: 06/24/24 17:13 Freq: NEEDED Status: Active Protocol: Document 06/24/24 15:35 DLM (Rec: 06/24/24 17:32 DLM [id number]) Physical Therapy Current Condition Current Condition Evaluation Date 06/24/24 Treatment Diagnosis wound left thigh with wound vac, impaired mobility/gait Onset Date 06/20/24 M3 PT-IP Subjective Start: 06/24/24 17:13 Freq: NEEDED Status: Active Protocol: Document 06/24/24 15:35 DLM (Rec: 06/24/24 17:32 DLM [id number]) Subjective Physical Therapy Visit Type Type Initial Evaluation Visit Start Time 15:10 Visit Stop Time 15:35 Notes 25 minutes Number of CONSUMER MARKETING SPECIALIST Visits 0 Physical Therapy Visit Comments Patient Comments she indicates she is feeling better, she did not complain of pain during this visit Patient Goals unable to state M4 PT-IP Mobility and Gait Start: 06/24/24 17:13 Freq: NEEDED Status: Active Protocol: Document 06/24/24 15:35 DLM (Rec: 06/24/24 17:32 DL [id number]) PT-Transfer Assessment Sit to and From Stand Sit to and from Stand Contact Guard Assistance,Use of Upper Extremities Equipment Transfer Assistive Device Gait Belt,Front Wheeled Walker Transfers Transfer Destination Chair Transfer Technique Stand Step Pivot Transfer Ability Level of Assist Contact Guard Assistance, Minimal Assistance,Use of Upper Extremities Comments Mobility Comments Pt got up to recliner with nursing earlier today and she want to stay up. She agreed to ambulate with the FWW then she want back to the recliner. She needs extra assistance during all mobility and gait to manage the wound vac. The wound vac is very heavey and if it is on the FWW she needs assistance to manage the FWW. Pt has a purple wheelchair in her hospital room which appears to be from her SNF rehab (pt does not believe it is from her home). Gait Assessment Gait Gait Assistance Required: Contact Guard Assist Distance (Feet) 40 Able to Maintain Weight Bearing Status Yes During Gait Assistive Devices Assistive Device Gait Belt,Front Wheeled Walker Gait Deviations General Gait Pattern Decreased Stride Length Factors Limiting Gait Function Factors Limiting Gait Function Decreased Activity Tolerance, Decreased Strength Comments Gait Comments she was able to indicate when she was ready to go sit back down during gait, unclear what limits her distance of gait ( pain vs weakness vs fatigue), she did have some physical signs of fatigue when she took a seated rest after gait PT-Balance Assessment Sitting Balance and Reactions Static Sitting Balance Ability Good Dynamic Sitting Balance Ability Good Standing Balance and Reactions Static Standing Balance Ability Good Dynamic Standing Balance Ability Fair Device Used FWW M5 PT-IP Objective Assessments Start: 06/24/24 17:13 Freq: NEEDED Status: Active Protocol: Document 06/24/24 15:35 DLM (Rec: 06/24/24 17:32 [facility] [id number]) Orientation Orientation/Cognition Level of Alertness Alert Orientation Name Language Function Ability Hard of Hearing Safety Awareness Decreased Safety Awareness Comments challenging communication with pt very hard of hearing, attempted written communication which helped with some items but still limited. She intermittently gives answers to questions that are not related to the question asked. She is cooperative and pleasant with therapy. Gross Range of Motion Upper Extremity ROM Assessment Within Functional Limits Lower Extremity ROM Assessment Within Functional Limits Impairments left thigh wound with wound vac so maximal knee flexion not assessed, it is functional for sitting Strength Upper Extremity Strength Assessment Bilaterally Impaired Lower Extremity Strength Assessment Bilaterally Impaired Comments Strength Comments mild generalized weakness 4/5, left thigh pain did not limit her activity at this time Coordination Assessment Gross Coordination Gross Coordination WNL Sensation Assessment Comments Sensation Comments unable to assess due to limited communication Muscle Tone Muscle Tone WNL Yes M6 PT-IP Treatment Start: 06/24/24 17:13 Freq: NEEDED Status: Active Protocol: Document 06/24/24 15:35 DLM (Rec: 06/24/24 17:32 DLM [id number]) Physical Therapy Treatment Exercises Exercises Ankle Pumps Education Education Provided Safety M7 PT-IP Assessment and Plan Start: 06/24/24 17:13 Freq: NEEDED Status: Active Protocol: Document 06/24/24 15:35 DLM (Rec: 06/24/24 17:32 DLM [id number]) PT Summary Assessment and Plan Potential Rehabilitation Potential Good Status of Condition at Evaluation Evolving Summary Impairments Pain,Strength,Balance,Bed Mobility,Transfers,Gait, Activity Tolerance Assessment Summary Latasha is alert and sitting up in chair at bedside. She has a wound left thigh. She underwent an I&D during this admission and now has a wound vac in place. She is very hard of hearing and communication is very limited. Attempted written communication but is was only partially helpful. She was able to ambulate a short distance with the FWW and one person assist. She needs extra help during all mobility and gait to manage her wound vac and the associated line. Recommend she return to SNF rehab at discharge. Goals Bed Mobility Goal Independent Transfer Goal Standby Assistance,Front Wheeled Walker Gait Goal Standby Assistance,Front Wheel Walker Gait Distance 150 feet Days to Meet Goals 7 Frequency of Treatment Frequency Of Treatment Once a Day Treatment Plan Physical Therapy Treatment Plan Bed Mobility Training,Transfer Training,Gait Training, Therapeutic Exercise,Balance Retraining,Discharge Planning, Neuromuscular Re-ed Precautions Other Precautions very Hard of hearing, confusion Recommendations To Nursing Amount of Assist Needed 1 Person Assist Discharge Recommendations PT Discharge Recommendations SNF Rehab Other Discharge Recommendations return to SNF rehab for wound care and Physical Therapy Transportation Needs at Discharge Private Vehicle,Wheelchair/ Cabulance - PT assist 1P
[2024-06-24] MEDS: MELATONIN 3 MG TABLET PO (20:04)
[2024-06-24] MEDS: ATORVASTATIN 20 MG TABLET 10 MG PO (20:05)
[2024-06-25 03:00] VITALS: BP 177/59; PULSE 68; RESP 20; TEMP 36.8; O2SAT 97
--- NOTE | 2024-06-25 07:27 | P.PN_ITS ---
Subjective Subjective Date Patient Seen: 06/25/24 Interval history: Chief complaint: Increasing pain and wound of area of debridement and warfarin calciphylaxis History of present illness: 79-year-old female with progressive necrosis of the tissue of the inner thighs left greater than right over the past month status post multiple debridements in the past. She has had diagnosis of warfarin calciphylaxis with pathology showing calcification and concern for worsening infection with previous staph and Pseudomonas colonization. She has had significantly escalating pain and has not been able to tolerate dressing changes. Normally she is on fentanyl patch and oxycodone p.o. for pain control. She previously was taking warfarin for pulmonary embolus and has been switched to Eliquis has had a dose of Eliquis on the morning of admission. Hospital course: 06/21: Patient having significant pain especially with touching manipulating the area of calciphylaxis No fever or chills overnight no Proceeding with debridement and wound culture of surgical specimen 06/22: Patient had some confusion delirium following surgical procedure yesterday. She slept well last night and is somewhat confused this morning but certainly not in agitation Wound VAC is in place and patient has good pain control now Wound cultures were performed and are awaiting culture and sensitivity to direct antibiotics for now we will continue vancomycin and ceftriaxone 06/23: Patient is confused but not seem acutely delirious happily eating her breakfast Wound culture came back Pseudomonas sensitivity is pending 06/24: Wound culture show Pseudomonas sensitive to Cefepime, levofloxacin, cipro, with intermediate resistance to imipenam She has no complaints, awaiting placement at SNF pending insurance authorization 06/25: Exam Vital Signs (past 8 hours): - 06/25/24 03:00 Temperature 98.3 F Pulse Rate 68 Respiratory Rate 20 Blood Pressure 177/59 H Pulse Oximetry 97 Oxygen Flow Rate 0 Oxygen Delivery Method Room Air Oxygen Flow Rate 0 Narrative Exam Narrative: Elderly female very hard of hearing and forgetful HEENT unremarkable new line neck no JVD Heart rate and rhythm regular Lungs clear Abdomen benign Extremities with left medial thigh woundvac in place over 15cm cavitary wound, mild induration and erythema along borders; right medial thigh healing eschar Objective Labs 06/21/24 05:20 06/20/24 12:17 [facility] Medical History Chronic kidney disease Facet arthropathy, lumbar Hearing loss associated with syndrome of both ears Herniated nucleus pulposus, L3-4 left History of DVT (deep vein thrombosis) Lumbar foraminal stenosis Lumbar radiculopathy Skin ulceration Surgical History H/O neck surgery History of ankle surgery Hx laparoscopic cholecystectomy Family History Father Hypertension Mother Hypertension Social History household members: other Smoking Status: Never smoker alcohol intake: never Assessment & Plan Assessment & Plan narrative: 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
[2024-06-25] MEDS: LEVOTHYROXINE 88 MCG TABLET PO (07:47)
[2024-06-25 08:00] VITALS: BP 150/54; PULSE 65; RESP 16; TEMP 36.4; O2SAT 96
[2024-06-25 08:26] VITALS: BP 150/54; PULSE 65
[2024-06-25] MEDS: carvediloL 12.5 MG TABLET 25 MG PO ×2 (08:26→20:31)
[2024-06-25] MEDS: CEFEPIME 1 GM in SODIUM CHLORIDE 0.9% 100 ML IV ×2 (08:26→20:34)
[2024-06-25] MEDS: APIXABAN 5 MG TABLET PO ×2 (08:26→20:31)
[2024-06-25] MEDS: lisinopriL 20 MG TABLET PO (08:26)
[2024-06-25] MEDS: SODIUM CHLORIDE 0.9% FLUSH 10 ML IV ×2 (08:27→20:35)
[2024-06-25 08:34] LABS: Add Manual Diff / Slide Review NO; Basophils Absolute Auto 200 /uL (0-100); Basophils Percent Auto 4.1 % (0-2); Eosinophils Absolute Auto 400 /uL (0-450); Eosinophils Percent Auto 6.8 % (2-4); Hematocrit 27.4 % (36-46); Lymphocytes Absolute Auto 600 /uL (1100-4500); Lymphocytes Percent Auto 9.3 % (25-40); Mean Corpuscular HGB Conc 32.9 % (30-36); Mean Corpuscular Hemoglobin 29.9 PG (26-34); Mean Corpuscular Volume 90.8 fL (80-100); Monocytes Absolute Auto 600 /uL (0-900); Monocytes Percent Auto 9.3 % (3-14); Neutrophils Absolute Auto 4200 /uL (1500-7000); Neutrophils Percent Auto 70.5 % (50-75); Platelet Count 184 X10^3/uL (150-400); Red Blood Cell Count 3.02 X10^6/uL (4.0-5.2); Red Cell Distribution Width 16.8 % (11.6-14.8)
[2024-06-25 08:52] LABS: Alanine Aminotransferase 22 IU/L (<35); Albumin 2.1 g/dL (3.5-5.0); Albumin Globulin Ratio 0.9 (1.0-2.8); Alkaline Phosphatase 97 U/L (38-126); Aspartate Aminotransferase 41 IU/L (14-36); BUN Creatinine Ratio 12.6 (6-22); Bilirubin Total 0.7 mg/dL (0.2-1.3); Blood Urea Nitrogen 11 mg/dL (7-17); Calcium 8.2 mg/dL (8.4-10.2); Carbon Dioxide 26 mmol/L (22-32); Chloride 110 mmol/L (98-107); Estimated Glomerular Filt Rate > 60 mL/min (>60); Globulin 2.4 g/dL (1.7-4.1); Glucose 89 mg/dL (80-110); HEMOLYSIS 17 (0-50); Sodium 137 mmol/L (137-145); Total Protein 4.5 g/dL (6.3-8.2)
[2024-06-25 09:22] LABS: Thyroid Stimulating Hormone 2.22 uIU/mL (0.47-4.68)
--- NOTE | 2024-06-25 09:57 | PC.NURSE ---
both hearing aides found in bed with pt. Given to family per family request to take for repairs.
--- NOTE | 2024-06-25 10:50 | PT-IP ANOTE ---
Attempted to see pt at 10:50 AM, pt sleeping upon arrival and upon waking refuses PT due to increased fatigued. Offered that she is even too tired to visit with her .
--- NOTE | 2024-06-25 12:10 | CM.DPC ---
Addendum entered by MERT Obregon 06/25/24 14:48: ADD: Return call from Cosme at [facility] stating review when to Physician and SNF auth was approved auth #[id number] BF Original Note: DCP SNF Planning Cont: JEMAL faxed PT eval note from yesterday Sat later afternoon to [facility] to review for SNF auth to [facility] and called w/c main number and msg was paged to their CM team to determine which [facility] CM reviewing this weekend. Per MD, pt stable for discharge to SNF and will d/c on PO abx and Surgeon agreeable with wet to dry dressing changes if needed at SNF until they get wound vac delivered. SW spoke to admissions at [facility] and they have not been able to get a date from [facility] yet on when wound vac will be delivered. JEMAL called [facility] SNF Specialist, Roxana Ayoub ([phone]) and no answer and no option to leave . JEMAL called main [facility] number [phone] and they confirm that [facility] account is pending and under review and will need their Spinning Bath Person to resolve this account before wound vac can be sent out for delivery and they are not available until tomorrow Wednesday. They urgently paged their Collections team with the information that pt ready for d/c to prioritize review. Pt unable to d/c to SNF today as unclear how long it will take for I/[facility] to resolve the [facility] pending account problem. [facility] admissions confirms that they could do wet to dry but would need more specific wound care on frequency of dressing changes and how many days are ok before wound vac needed. [facility] states potential for purchasing a wound vac if [facility] will take too long to resolve but would need to be approved by their DNS. JEMAL spoke to Cosme at [facility] and updated her on pt status and d/c needs and she will do final review to determine SNF auth. MERT Obregon
--- NOTE | 2024-06-25 12:23 | PM.DS.IH.1 ---
History of Present Illness History of Present Illness Date Patient Seen: 06/25/24 Time Patient Seen: 11:15 Chief complaint: wound Narrative: 79-year-old female with progressive lose on medial 5s over the past month status post multiple debridements in the past. She has had diagnosis of warfarin calciphylaxis with pathology showing calcification and concern for worsening infection with previous staph and Pseudomonas colonization. She has had significantly escalating pain and has not been able to tolerate dressing changes. Normally she is on fentanyl patch and oxycodone p.o. for pain control. She previously was taking warfarin for pulmonary embolus and has been switched to Eliquis has had a dose of Eliquis on the morning of admission. Discharge Providers Provider Date of admission: 06/20/24 14:19 Discharge Date: 06/25/24 Primary care physician: Elin Tan PA-C Consults: 06/21/24 11:44 Consult to General Surgery Routine Comment: Consulting Provider: Gabriel Cooley Reason for consultation: leg wound Has provider been notified: Yes 06/23/24 13:45 Consult to Inpatient Wound Care Nurse Routine Comment: Reason for consultation: wound vac Has provider been notified: Yes 06/23/24 17:09 Consult to Dietitian, Adult Routine Comment: Reason For Exam: reflex order from wound care consult order Consult to Wound Care Routine Comment: Consulting Provider: [facility] 06/24/24 13:49 Consult to Physical Therapy Evaluate & Treat Comment: Physician Instructions: Evaluate and Treat Discharge provider: Sesar Baird MD Summary Hospital Course Discharge Diagnosis: 1. 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 History of pulmonary embolus on Eliquis 3. Hypertension 4. Hyperlipidemia 5. Hypothyroidism 6. Chronic pain syndrome on chronic opioid therapy Hospital Course: The patient was admitted and underwent surgical debridement on 06/21/2024 followed by woundvac placement and ongoing wound care, treated for a complicated pseudomonas infection with IV cefepime, and improving clinically over subsequent days. Arrangements were made for SNF placement with ongoing woundvac, wound care and antibiotic therapy along with PT and OT services given profound weakness. No other issues arose. Status at Discharge Cognitive/behavioral status at discharge: oriented Functional status at discharge: uses cane/walker Overall status at discharge: patient is progressing back to baseline Time Spent with Patient Time spent: Greater than 30 minutes Exam Vital Signs (past 8 hours): - 06/25/24 07:00 06/25/24 08:00 06/25/24 08:26 Temperature 97.6 F Pulse Rate 65 65 Respiratory Rate 16 Blood Pressure 150/54 H 150/54 H Pulse Oximetry 96 Oxygen Delivery Method Room Air Oxygen Flow Rate 0 06/25/24 08:26 Temperature Pulse Rate 65 Respiratory Rate Blood Pressure 150/54 H Pulse Oximetry Oxygen Delivery Method Oxygen Flow Rate Oxygen Delivery Method Room Air Oxygen Flow Rate 0 Narrative Exam Narrative: Elderly female very hard of hearing and forgetful HEENT unremarkable new line neck no JVD Heart rate and rhythm regular Lungs clear Abdomen benign Extremities with left medial thigh woundvac in place over 15cm cavitary wound, mild induration and erythema along borders; right medial thigh healing eschar Objective Imaging Left lower extremity CT:: Radiologist's impression: 1. Open wound in posterior medial aspect of left upper thigh and along medial aspect of mid to distal left thigh with underlying cellulitis. No discrete drainable abscess collection is seen. No abnormal soft tissue calcifications. 2. No evidence of myositis or intramuscular abscess collection. 3. No left femoral fracture or dislocation. Left hip and left knee joint osteoarthritis. No evidence of avascular necrosis. No CT evidence of osteomyelitis. 06/20/2024 Labs 06/25/24 08:20 06/25/24 08:20 Labs: Laboratory Results - last 24 hr 06/25/24 08:20 WBC 6.0 RBC 3.02 L Hgb 9.0 L Hct 27.4 L MCV 90.8 MCH 29.9 MCHC 32.9 RDW 16.8 H Plt Count 184 Neut % (Auto) 70.5 Lymph % (Auto) 9.3 L Harris % (Auto) 9.3 Eos % (Auto) 6.8 H Baso % (Auto) 4.1 H Neut # (Auto) 4200 Lymph # (Auto) 600 L Harris # (Auto) 600 Eos # (Auto) 400 Baso # (Auto) 200 H Sodium 137 Potassium 4.0 Chloride 110 H Carbon Dioxide 26 BUN 11 Creatinine 0.87 Estimated GFR > 60 BUN/Creatinine Ratio 12.6 Glucose 89 Calcium 8.2 L Total Bilirubin 0.7 AST 41 H ALT 22 Alkaline Phosphatase 97 Total Protein 4.5 L Albumin 2.1 L Globulin 2.4 Albumin/Globulin Ratio 0.9 L TSH 2.22 ON LICENSE OF [facility] Medical History Chronic kidney disease Facet arthropathy, lumbar Hearing loss associated with syndrome of both ears Herniated nucleus pulposus, L3-4 left History of DVT (deep vein thrombosis) Lumbar foraminal stenosis Lumbar radiculopathy Skin ulceration Surgical History H/O neck surgery History of ankle surgery Hx laparoscopic cholecystectomy Family History Father Hypertension Mother Hypertension Social History household members: other Smoking Status: Never smoker alcohol intake: never Discharge Plan Discharge Plan Patient Disposition: SNF Transfer to: [facility] Consult as needed: Dental, Hearing, Mental health, Podiatry and Vision Discharge orders & Medications Prescriptions: New acetaminophen 325 mg Tablet 650 mg PO Q6H PRN (Reason: Pain, Mild (1-3)) Qty: 30 0RF levofloxacin 500 mg tablet 500 mg PO DAILY Qty: 9 0RF Continued polyethylene glycol 3350 17 gram Powder In Packet 17 g PO QAM PRN (Reason: Constipation) melatonin 3 mg Tablet 3 mg PO QPM PRN (Reason: Insomnia) lidocaine-prilocaine 2.5-2.5 % cream 2 g topical DAILY PRN (Reason: Pain, Mild) Rx Instructions: Apply to Kaity wound topically as needed for pain. sodium bicarbonate 650 mg tablet 650 mg PO BID PRN (Reason: Heartburn) nystatin [Nyamyc] 100,000 unit/gram powder 1 applic topical BID PRN (Reason: Rash) hydroxyzine HCl 10 mg tablet 20 mg PO Q8HR PRN (Reason: Anxiety) ondansetron 4 mg tablet,disintegrating 4 mg PO Q8H PRN (Reason: Nausea And Vomiting) oxycodone 5 mg tablet 5 mg PO Q2H PRN (Reason: Pain (Scale Score 4-6)) Eliquis 5 mg tablet 5 mg PO BID naloxone 4 mg/actuation Odum,Non-Aerosol 4 mg INTRANASAL NOW PRN (Reason: overdose) acetaminophen 325 mg Tablet 650 mg PO Q6H PRN (Reason: Pain, Mild) Qty: 30 0RF lisinopril 20 mg tablet 20 mg PO QAM azelastine 137 mcg (0.1 %) aerosol,spray 1 spray intranasal ONCE leflunomide 20 mg tablet 20 mg PO DAILY levothyroxine 88 mcg tablet 88 mcg PO DAILY lovastatin 40 mg tablet 40 mg PO BEDTIME carvedilol 25 mg tablet 25 mg PO BID alendronate 70 mg tablet 70 mg PO QWEEK Rx Instructions: give one tablet by mouth every Wednesday. Changed fentanyl 12 mcg/hr patch 72 hour 1 patch transdermal Q72H Qty: 15 0RF Discontinued oxycodone 5 mg tablet 2.5 mg PO Q2H PRN (Reason: Pain (Scale Score 1-3)) oxycodone 10 mg tablet 10 mg PO DAILY Rx Instructions: Give One tablet my mouth daily 45 minutes prior to dressing changes. Follow up/Referrals: Elin Tan PA-C [Primary Care Provider] - Visit Report/Discharge Packet Stand Alone Forms: Patient Portal/API, Stroke Signs & Symptoms Discharge Data Primary Care Provider: Elin Tan Quality MIPS - Admit I confirm the patient?s Advance Care Plan is present, Code status is documented, Surrogate decision maker is in patient?s record [If Yes, STOP here]: Yes MIPS - Meds 'Current medications' to include all prescriptions, [id number] products, herbals, cannabis/cannabidiol products, and vitamin/mineral/dietary (nutritional) supplements. I have utilized all available resources to obtain, update, or review the patient?s current medications. [If Yes, STOP here]: Yes MIPS - DC The patient has a history of heart transplant or Left Ventricular Assist Device (LVAD). If yes, STOP here.: No The patient has current or prior documentation of left ventricular ejection fraction (LVEF) less than or equal to 40%, or moderate or severely depressed left ventricular systolic function.: No A. The patient was prescribed or already taking an Angiotensin-Converting Enzyme (JOSEPH) Inhibitor, or Angiotensin Receptor Alan (ARB).: Yes B. The patient was prescribed or already taking a beta-alan. [If Yes to Both A & B, STOP here]: Yes Patient not prescribed/taking JOSEPH or ARB, no reason given.: No Patient not prescribed/taking beta-alan, no reason given.: No PROFEE Charge Codes Discharge inpatient/observation: [id number]
[2024-06-25 13:00] VITALS: BP 137/59; PULSE 62; RESP 18; TEMP 36.3; O2SAT 99
[2024-06-25] MEDS: fentaNYL 12 MCG/PATCH TOP (13:12)
--- NOTE | 2024-06-25 13:13 | PT.IPTN ---
Current Diagnoses Other injury of unspecified body region, initial encounter (06/20/24) Surgery Performed Operation Date: 06/21/24 15:15 Actual Procedures p Left thigh Incision and Drainage Wound, wound vac placement(Left) - Gabriel Cooley MD Physical Therapy Treatment Note M2 PT-IP Current Condition Start: 06/24/24 17:13 Freq: NEEDED Status: Active Protocol: Document 06/24/24 15:35 DLM (Rec: 06/24/24 17:32 DLM [id number]) Physical Therapy Current Condition Current Condition Evaluation Date 06/24/24 Treatment Diagnosis wound left thigh with wound vac, impaired mobility/gait Onset Date 06/20/24 M3 PT-IP Subjective Start: 06/24/24 17:13 Freq: NEEDED Status: Active Protocol: Document 06/25/24 12:50 AMB (Rec: 06/25/24 13:13 AMB [id number]) Subjective Physical Therapy Visit Type Type Treatment Note Visit Start Time 12:25 Visit Stop Time 12:50 Physical Therapy Visit Comments Patient Comments Pt is very [place] but is willing to get up, when asked if she has pain she points to her wound but does not provide any more information M4 PT-IP Mobility and Gait Start: 06/24/24 17:13 Freq: NEEDED Status: Active Protocol: Document 06/25/24 12:50 AMB (Rec: 06/25/24 13:13 AMB [id number]) PT-Bed Mobility Assessment Sit to Supine Sit to Supine Minimal Assistance,1 Person Assistance,Head of Bed Elevated,Bedrails PT-Transfer Assessment Sit to and From Stand Sit to and from Stand Contact Guard Assistance,Use of Upper Extremities Transfers Transfer Destination Chair Transfer Technique Stand Step Pivot Transfer Ability Level of Assist Contact Guard Assistance,Use of Upper Extremities Comments Mobility Comments Pt was sitting in recliner, willing to stand up and walk briefly and then assisted back to bed with Gem for getting LEs into bed. CGA with sit to stand and gait. Gait Assessment Gait Gait Assistance Required: Contact Guard Assist Distance (Feet) 40 Able to Maintain Weight Bearing Status Yes During Gait Assistive Devices Assistive Device Gait Belt,Front Wheeled Walker Gait Deviations General Gait Pattern Decreased Stride Length Comments Gait Comments Pt states she is fatigued after walk stating she thinks that's the farthest she's walked in 8 weeks (despite walking similar distance per notes yesterday). PT did assist with managing wound vac and tubing as it is quite heavy. M5 PT-IP Objective Assessments Start: 06/24/24 17:13 Freq: NEEDED Status: Active Protocol: Document 06/24/24 15:35 DLM (Rec: 06/24/24 17:32 DLM [id number]) Orientation Orientation/Cognition Level of Alertness Alert Orientation Name Language Function Ability Hard of Hearing Safety Awareness Decreased Safety Awareness Comments challenging communication with pt very hard of hearing, attempted written communication which helped with some items but still limited. She intermittently gives answers to questions that are not related to the question asked. She is cooperative and pleasant with therapy. Gross Range of Motion Upper Extremity ROM Assessment Within Functional Limits Lower Extremity ROM Assessment Within Functional Limits Impairments left thigh wound with wound vac so maximal knee flexion not assessed, it is functional for sitting Strength Upper Extremity Strength Assessment Bilaterally Impaired Lower Extremity Strength Assessment Bilaterally Impaired Comments Strength Comments mild generalized weakness 4/5, left thigh pain did not limit her activity at this time Coordination Assessment Gross Coordination Gross Coordination WNL Sensation Assessment Comments Sensation Comments unable to assess due to limited communication Muscle Tone Muscle Tone WNL Yes M6 PT-IP Treatment Start: 06/24/24 17:13 Freq: NEEDED Status: Active Protocol: Document 06/24/24 15:35 DLM (Rec: 06/24/24 17:32 DL [id number]) Physical Therapy Treatment Exercises Exercises Ankle Pumps Education Education Provided Safety M7 PT-IP Assessment and Plan Start: 06/24/24 17:13 Freq: NEEDED Status: Active Protocol: Document 06/25/24 12:50 AMB (Rec: 06/25/24 13:13 AMB [id number]) PT Summary Assessment and Plan Summary Assessment Summary Latasha was pleasant, but her hearing does make communication difficult. Generally needed CGA for safety with transfers but did require Gem to get legs into bed with sit to supine transfer. Able to walk 40 feet with CGA and FWW before fatiguing and getting back into bed with PT assisting with wound vac transport, would recommend SNF when medically appropriate for d/c. Goals Bed Mobility Goal Independent Transfer Goal Standby Assistance,Front Wheeled Walker Gait Goal Standby Assistance,Front Wheel Walker Gait Distance 150 feet Days to Meet Goals 7 Frequency of Treatment Frequency Of Treatment Once a Day Treatment Plan Physical Therapy Treatment Plan Bed Mobility Training,Transfer Training,Gait Training, Therapeutic Exercise,Balance Retraining,Discharge Planning, Neuromuscular Re-ed Recommendations To Nursing Amount of Assist Needed 1 Person Assist Discharge Recommendations PT Discharge Recommendations SNF Rehab Other Discharge Recommendations return to SNF rehab for wound care and Physical Therapy Transportation Needs at Discharge Private Vehicle,Wheelchair/ Cabulance - PT assist 1P
[2024-06-25 20:31] VITALS: BP 174/46; PULSE 67
[2024-06-25] MEDS: MELATONIN 3 MG TABLET PO (20:31)
[2024-06-25] MEDS: ATORVASTATIN 20 MG TABLET 10 MG PO (20:31)
[2024-06-25 20:35] VITALS: BP 174/46; PULSE 67; RESP 16; TEMP 37.1; O2SAT 95
[2024-06-26] MEDS: OXYCODONE IR 5 MG TABLET PO (02:16)
[2024-06-26 02:20] VITALS: BP 156/53; PULSE 67; RESP 18; TEMP 36.9; O2SAT 100
[2024-06-26] MEDS: LEVOTHYROXINE 88 MCG TABLET PO (06:48)
[2024-06-26] MEDS: lisinopriL 20 MG TABLET PO (10:08)
[2024-06-26] MEDS: CEFEPIME 1 GM in SODIUM CHLORIDE 0.9% 100 ML IV ×2 (10:08→20:44)
[2024-06-26] MEDS: APIXABAN 5 MG TABLET PO ×2 (10:08→21:03)
[2024-06-26] MEDS: carvediloL 12.5 MG TABLET 25 MG PO ×2 (10:08→20:36)
[2024-06-26] MEDS: SODIUM CHLORIDE 0.9% FLUSH 10 ML IV ×2 (10:09→20:44)
[2024-06-26 12:00] VITALS: BP 130/46; PULSE 60; RESP 15; TEMP 36.6; O2SAT 99
--- NOTE | 2024-06-26 13:52 | PM.PN.1 ---
Subjective Subjective Interval history: Summary: 79-year-old female with progressive lose on medial 5s over the past month status post multiple debridements in the past. She has had diagnosis of warfarin calciphylaxis with pathology showing calcification and concern for worsening infection with previous staph and Pseudomonas colonization. She has had significantly escalating pain and has not been able to tolerate dressing changes. Normally she is on fentanyl patch and oxycodone p.o. for pain control. She previously was taking warfarin for pulmonary embolus and has been switched to Eliquis has had a dose of Eliquis on the morning of admission. S: She is doing well, very hard of hearing. She denies pain. She was also breathing without difficulty. Exam Vital Signs (past 8 hours): - 06/26/24 12:00 Temperature 97.8 F Pulse Rate 60 Respiratory Rate 15 Blood Pressure 130/46 L Pulse Oximetry 99 Oxygen Flow Rate 0 Oxygen Delivery Method Room Air Oxygen Flow Rate 0 Narrative Exam Narrative: NAD, alert and oriented. Fluent speech. Lungs are clear, normal rate and effort. Heart is regular, no murmur gallop or rub. Abdomen is soft, non distended. Extremities are free of edema. Wound VAC to wound in medial left thigh. There is a small wound in the right medial thigh which is clean and dry. 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 History of pulmonary embolus on Eliquis 3. Hypertension 4. Hyperlipidemia 5. Hypothyroidism 6. Chronic pain syndrome on chronic opioid therapy PLAN: -continue wound VAC. -anticipate discharge to fdc on June 27 when wound VAC is available. -continue antibiotics with levofloxacin 500 daily for an additional 9 days. SUBHASH: 06/27, [facility]. Time-Based Coding :: [TOTAL MINUTES] spent with patient and on the chart (including review of chart, obtaining history, exam, reviewing outside data, placing orders, documenting exam and treatment plan, and counseling patient) on [DATE].
--- NOTE | 2024-06-26 15:15 | DIET.CONS ---
Dietary Consultation Note Admission Date: 06/20/2024 14:19 Assessment: 79 y F admitted for wound care. Dietitian consulted for wounds. PMH of CKD. Per diet order, pt supposed to be getting Ensure TID. Met with pt and family at bedside. Reports not getting Ensure at meals, only Ensure max at dinner. Preference is vanilla Ensure. Pt reports only able to eat small portions of meals before becoming full. Per EMR, weight is stable. Ht: 147.32 cm Wt: 60.328 kg BMI: 27.8 UBW: 58.513 kg on 06/13/24, 59.874 kg on 02/16/24 Last BM: 06/26/24 (06/26/24 10:00) MNA: 11 Calvin Score: 17 Diet: 06/22/24 Breakfast Regular [General (Regular) Diet] Diet Modifications: protein supplements with each meal, patient prefer Food Texture: Level 7 - Regular Liquid Consistency: Level 0 - Thin Nutrition Percent Meal Consumed 25% 06/26/24 14:00 Percent Meal Consumed 25% 06/26/24 10:00 Percent Meal Consumed 0% 06/25/24 18:00 Labs: RBC 3.02 X10^6/uL (4.0-5.2) L 06/25/24 08:20 Hgb 9.0 g/dL (12.0-16.0) L 06/25/24 08:20 Hct 27.4 % (36-46) L 06/25/24 08:20 Creatinine 0.87 mg/dL (0.52-1.04) 06/25/24 08:20 Lactate 1.5 mmol/L (0.7-2.1) 06/20/24 12:17 Nutrition Diagnosis: Inadequate energy intake r/t increased energy-protein needs and early satiety aeb recorded PO intakes <50%, chronic wounds Interventions: ONS TID EER: 4044-4032 kcals (23-25 kcals/kg per BMI) 60 g protein (1g/kg per CKD and wounds) Monitoring/Evaluations: Will monitor PO intakes and labs and adjust ONS option as needed Electronically Signed by: Adeline Dean 06/26/24 15:15 Clinical Dietitian [address] [id number]
--- NOTE | 2024-06-26 16:21 | PT.IPTN ---
Current Diagnoses Other injury of unspecified body region, initial encounter (06/20/24) Surgery Performed Operation Date: 06/21/24 15:15 Actual Procedures p Left thigh Incision and Drainage Wound, wound vac placement(Left) - Gabriel Cooley MD Physical Therapy Treatment Note M2 PT-IP Current Condition Start: 06/24/24 17:13 Freq: NEEDED Status: Active Protocol: Document 06/24/24 15:35 DLM (Rec: 06/24/24 17:32 DLM [id number]) Physical Therapy Current Condition Current Condition Evaluation Date 06/24/24 Treatment Diagnosis wound left thigh with wound vac, impaired mobility/gait Onset Date 06/20/24 M3 PT-IP Subjective Start: 06/24/24 17:13 Freq: NEEDED Status: Active Protocol: Document 06/26/24 15:51 MB (Rec: 06/26/24 16:21 MB [id number]) Subjective Physical Therapy Visit Type Type Treatment Note Visit Start Time 15:51 Visit Stop Time 16:02 Number of MDM SR Visits 0 Physical Therapy Visit Comments Patient Comments Pt is [place] and has trouble answering questions. M4 PT-IP Mobility and Gait Start: 06/24/24 17:13 Freq: NEEDED Status: Active Protocol: Document 06/26/24 15:51 MB (Rec: 06/26/24 16:21 MB [id number]) PT-Bed Mobility Assessment Rolling Type of Rolling Roll to Left Level of Assist Standby Assistance Supine to Sit Supine to Sit Standby Assistance,Head of Bed Elevated,Bedrails Sit to Supine Sit to Supine Standby Assistance,Bedrails Scooting Scooting to Edge of Bed Standby Assistance PT-Transfer Assessment Sit to and From Stand Sit to and from Stand Contact Guard Assistance,Use of Upper Extremities Equipment Transfer Assistive Device Gait Belt,Front Wheeled Walker Transfers Transfer Destination Bed,Toilet Transfer Technique Ambulation Transfer Ability Level of Assist Contact Guard Assistance,Use of Upper Extremities Comments Mobility Comments Pt asks to get up to the BR and PT manages wound vac and attempts to cue pt for hand placement and pt is very [place]. Gait Assessment Gait Gait Assistance Required: Contact Guard Assist Distance (Feet) 20 Able to Maintain Weight Bearing Status Yes During Gait Assistive Devices Assistive Device Gait Belt,Front Wheeled Walker Gait Deviations General Gait Pattern Decreased Stride Length Factors Limiting Gait Function Factors Limiting Gait Function Difficulty Following Directions,Limited Range of Motion,Poor Balance,Poor Safety Awareness Comments Gait Comments 20'2 and pt declines further activity and gait PT-Balance Assessment Sitting Balance and Reactions Static Sitting Balance Ability Good Dynamic Sitting Balance Ability Good Standing Balance and Reactions Static Standing Balance Ability Good Dynamic Standing Balance Ability Fair Device Used FWW M5 PT-IP Objective Assessments Start: 06/24/24 17:13 Freq: NEEDED Status: Active Protocol: Document 06/24/24 15:35 DLM (Rec: 06/24/24 17:32 DLM [id number]) Orientation Orientation/Cognition Level of Alertness Alert Orientation Name Language Function Ability Hard of Hearing Safety Awareness Decreased Safety Awareness Comments challenging communication with pt very hard of hearing, attempted written communication which helped with some items but still limited. She intermittently gives answers to questions that are not related to the question asked. She is cooperative and pleasant with therapy. Gross Range of Motion Upper Extremity ROM Assessment Within Functional Limits Lower Extremity ROM Assessment Within Functional Limits Impairments left thigh wound with wound vac so maximal knee flexion not assessed, it is functional for sitting Strength Upper Extremity Strength Assessment Bilaterally Impaired Lower Extremity Strength Assessment Bilaterally Impaired Comments Strength Comments mild generalized weakness 4/5, left thigh pain did not limit her activity at this time Coordination Assessment Gross Coordination Gross Coordination WNL Sensation Assessment Comments Sensation Comments unable to assess due to limited communication Muscle Tone Muscle Tone WNL Yes M6 PT-IP Treatment Start: 06/24/24 17:13 Freq: NEEDED Status: Active Protocol: Document 06/24/24 15:35 DLM (Rec: 06/24/24 17:32 DL [id number]) Physical Therapy Treatment Exercises Exercises Ankle Pumps Education Education Provided Safety M7 PT-IP Assessment and Plan Start: 06/24/24 17:13 Freq: NEEDED Status: Active Protocol: Document 06/26/24 15:51 MB (Rec: 06/26/24 16:21 MB [id number]) PT Summary Assessment and Plan Potential Rehabilitation Potential Good Status of Condition at Evaluation Evolving Summary Impairments Pain,Strength,Balance,Bed Mobility,Transfers,Gait, Activity Tolerance Progress Towards Goals Progressing Toward Goals,Slow Progress due to Activity Tolerance Assessment Summary Pt requires less assistance for bed mobility and limits PT this afternoon, wishing to return to bed after toileting. She requires superv assistance fo hygiene with urination in BR. Goals Bed Mobility Goal Independent Transfer Goal Standby Assistance,Front Wheeled Walker Gait Goal Standby Assistance,Front Wheel Walker Gait Distance 150 feet Days to Meet Goals 7 Frequency of Treatment Frequency Of Treatment Once a Day Treatment Plan Physical Therapy Treatment Plan Bed Mobility Training,Transfer Training,Gait Training, Therapeutic Exercise,Balance Retraining,Discharge Planning, Neuromuscular Re-ed Precautions Other Precautions [place] Recommendations To Nursing Amount of Assist Needed 1 Person Assist Discharge Recommendations PT Discharge Recommendations SNF Rehab Other Discharge Recommendations return to SNF rehab for wound care and Physical Therapy Transportation Needs at Discharge Private Vehicle,Wheelchair/ Cabulance - PT assist x1
--- NOTE | 2024-06-26 16:54 | CM.DPNOTE ---
DCP Note SPECIAL EDUCATION ASSOCIATE reviewed EMR Per chart/provider in rounds, stable to dc once wound vac at . Per Melia at , Gregor sent them script, should be delivered around 12pm. SPECIAL EDUCATION ASSOCIATE spoke with son Silvio. updated him on plan. remains in agreement/preference to dc to [facility] , family to sit with pt at . Per Wound care center, already saw pt and put in note. Per Cosme at [place], auth good until tomorrow for pt to dc to [facility]. P: dc to [facility] pending wound vac delivery Wednesday, time pending. no PASRR needed? CM team will continue to follow closely for DCP coordination. MERT Guidry
[2024-06-26 18:00] VITALS: BP 131/45; PULSE 77; RESP 17; TEMP 36.1; O2SAT 95
[2024-06-26 20:00] VITALS: BP 158/51; PULSE 71; RESP 16; TEMP 36.3; O2SAT 95
[2024-06-26 20:36] VITALS: BP 158/51; PULSE 71
[2024-06-26] MEDS: ATORVASTATIN 20 MG TABLET 10 MG PO (20:36)
[2024-06-26] MEDS: MELATONIN 3 MG TABLET PO (20:36)
[2024-06-27 02:00] VITALS: BP 164/47; PULSE 70; RESP 12; TEMP 36.2; O2SAT 96
[2024-06-27 05:13] LABS: Hematocrit 26.8 % (36-46); Hemoglobin 8.7 g/dL (12.0-16.0); Mean Corpuscular HGB Conc 32.5 % (30-36); Mean Corpuscular Hemoglobin 29.4 PG (26-34); Mean Corpuscular Volume 90.6 fL (80-100); Platelet Count 186 X10^3/uL (150-400); Red Blood Cell Count 2.96 X10^6/uL (4.0-5.2); Red Cell Distribution Width 17.1 % (11.6-14.8); White Blood Cell Count 4.7 X10^3/uL (4.5-11.0)
[2024-06-27] MEDS: OXYCODONE IR 5 MG TABLET PO (06:30)
[2024-06-27] MEDS: LEVOTHYROXINE 88 MCG TABLET PO (06:31)
[2024-06-27 09:19] VITALS: BP 185/57
[2024-06-27] MEDS: lisinopriL 20 MG TABLET PO (09:19)
[2024-06-27] MEDS: APIXABAN 5 MG TABLET PO (09:19)
[2024-06-27 09:21] VITALS: BP 185/57
[2024-06-27] MEDS: carvediloL 12.5 MG TABLET 25 MG PO (09:21)
[2024-06-27] MEDS: ONDANSETRON 4 MG/2 ML INJ IV (09:22)
[2024-06-27] MEDS: CEFEPIME 1 GM in SODIUM CHLORIDE 0.9% 100 ML IV (09:31)
[2024-06-27] MEDS: SODIUM CHLORIDE 0.9% FLUSH 10 ML IV (09:32)
--- NOTE | 2024-06-27 10:16 | PM.DS.1 ---
History of Present Illness History of Present Illness Chief complaint: wound Narrative: From H&P: 79-year-old female with progressive lose on medial 5s over the past month status post multiple debridements in the past. She has had diagnosis of warfarin calciphylaxis with pathology showing calcification and concern for worsening infection with previous staph and Pseudomonas colonization. She has had significantly escalating pain and has not been able to tolerate dressing changes. Normally she is on fentanyl patch and oxycodone p.o. for pain control. She previously was taking warfarin for pulmonary embolus and has been switched to Eliquis has had a dose of Eliquis on the morning of admission. Discharge Providers Provider Date of admission: 06/20/24 14:19 Discharge Date: 06/27/24 Primary care physician: Elin Tan PA-C Consults: 06/21/24 11:44 Consult to General Surgery Routine Comment: Consulting Provider: Gabriel Cooley Reason for consultation: leg wound Has provider been notified: Yes 06/23/24 13:45 Consult to Inpatient Wound Care Nurse Routine Comment: Reason for consultation: wound vac Has provider been notified: Yes 06/23/24 17:09 Consult to Dietitian, Adult Routine Comment: Reason For Exam: reflex order from wound care consult order Consult to Wound Care Routine Comment: Consulting Provider: [facility] 06/24/24 13:49 Consult to Physical Therapy Evaluate & Treat Comment: Physician Instructions: Evaluate and Treat Discharge provider: Cristi Bundy MD Summary Hospital Course Discharge Diagnosis: 1. 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 History of pulmonary embolus on Eliquis 3. Hypertension 4. Hyperlipidemia 5. Hypothyroidism 6. Chronic pain syndrome on chronic opioid therapy Hospital Course: he patient was admitted and underwent surgical debridement on 06/21/2024 followed by woundvac placement and ongoing wound care, treated for a complicated pseudomonas infection with IV cefepime, and improving clinically over subsequent days. Arrangements were made for SNF placement with ongoing woundvac, wound care and antibiotic therapy along with PT and OT services given profound weakness. No other issues aros Exam Vital Signs (past 8 hours): - 06/27/24 09:19 06/27/24 09:21 Blood Pressure 185/57 H 185/57 H Oxygen Delivery Method Room Air Oxygen Flow Rate 0 Objective Labs 06/27/24 04:48 06/25/24 08:20 Labs: Laboratory Results - last 24 hr 06/27/24 04:48 WBC 4.7 RBC 2.96 L Hgb 8.7 L Hct 26.8 L MCV 90.6 MCH 29.4 MCHC 32.5 RDW 17.1 H Plt Count 186 PFSH Medical History Chronic kidney disease Skin ulceration 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 arthropathy, lumbar Lumbar foraminal stenosis History of DVT (deep vein thrombosis) Herniated nucleus pulposus, L3-4 left Lumbar radiculopathy Surgical History Hx laparoscopic cholecystectomy H/O neck surgery History of ankle surgery Family History Father Hypertension Mother Hypertension Social History household members: other Smoking Status: Never smoker alcohol intake: never Discharge Assessment & Plan Assessment and Plan Assessment: 1. 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 History of pulmonary embolus on Eliquis 3. Hypertension 4. Hyperlipidemia 5. Hypothyroidism 6. Chronic pain syndrome on chronic opioid therapy Plan of Treatment: Discharge to [facility] with ongoing wound care and wound vac. Discharge Plan Discharge Plan Patient Disposition: SNF Transfer to: [facility] Under care of provider: SNF [facility] Consult as needed: Dental, Hearing, Mental health, Podiatry and Vision Provider Discharge Comment: In stable for discharge to [facility] facility with ongoing wound care, and wound VAC. Discharge orders & Medications Prescriptions: New levofloxacin 500 mg tablet 500 mg PO DAILY Qty: 9 0RF oxycodone 5 mg Tablet 5 mg PO Q4HR PRN (Reason: Pain, Moderate (4-6)) Qty: 15 0RF Continued polyethylene glycol 3350 17 gram Powder In Packet 17 g PO QAM PRN (Reason: Constipation) melatonin 3 mg Tablet 3 mg PO QPM PRN (Reason: Insomnia) lidocaine-prilocaine 2.5-2.5 % cream 2 g topical DAILY PRN (Reason: Pain, Mild) Rx Instructions: Apply to [place] wound topically as needed for pain. sodium bicarbonate 650 mg tablet 650 mg PO BID PRN (Reason: Heartburn) nystatin [Nyamyc] 100,000 unit/gram powder 1 applic topical BID PRN (Reason: Rash) hydroxyzine HCl 10 mg tablet 20 mg PO Q8HR PRN (Reason: Anxiety) ondansetron 4 mg tablet,disintegrating 4 mg PO Q8H PRN (Reason: Nausea And Vomiting) oxycodone 5 mg tablet 5 mg PO Q2H PRN (Reason: Pain (Scale Score 4-6)) Eliquis 5 mg tablet 5 mg PO BID naloxone 4 mg/actuation [place],Non-Aerosol 4 mg INTRANASAL NOW PRN (Reason: overdose) acetaminophen 325 mg Tablet 650 mg PO Q6H PRN (Reason: Pain, Mild) Qty: 30 0RF lisinopril 20 mg tablet 20 mg PO QAM azelastine 137 mcg (0.1 %) aerosol,spray 1 spray intranasal ONCE leflunomide 20 mg tablet 20 mg PO DAILY levothyroxine 88 mcg tablet 88 mcg PO DAILY lovastatin 40 mg tablet 40 mg PO BEDTIME carvedilol 25 mg tablet 25 mg PO BID alendronate 70 mg tablet 70 mg PO QWEEK Rx Instructions: give one tablet by mouth every Wednesday. Changed fentanyl 12 mcg/hr patch 72 hour 1 patch transdermal Q72H Qty: 15 0RF Discontinued oxycodone 5 mg tablet 2.5 mg PO Q2H PRN (Reason: Pain (Scale Score 1-3)) oxycodone 10 mg tablet 10 mg PO DAILY Rx Instructions: Give One tablet my mouth daily 45 minutes prior to dressing changes. Follow up/Referrals: Elin Tan PA-C [Primary Care Provider] - Diet/Activity/Treatments Diet: Regular and Low-protein/Renal Activity: As tolerated. Skin/Wound/Dressing Care Report to your healthcare provider any signs of infection, such as:: chills, fever, increased pain, unusual drainage and unusual redness Visit Report/Discharge Packet Instructions: DI for Incision and Drainage Stand Alone Forms: Patient Portal/API Discharge Data Primary Care Provider: Elin Tan
--- NOTE | 2024-06-27 11:04 | CM.DPNOTE ---
DCP note SKI TOPPER reviewed EMR Per Melia at , got wound vac. transport at 1130 today. confirmed no new PASRR needed. plan is for us to leave our wound vac here and they will put the new one on there. CC Janette emailed orders/dc sum/med list to Melia at . gave RN report number, updated [employer]. SKI TOPPER lvm with son/DPOA Silvio to update on plan. P [phone]. SKI TOPPER met with pt in room, updated on plan. pt [facility], in agreement with plan. P: dc back to today at 1130. CM team will continue to follow as needed MERT Guidry
== END 2024-06-27 11:33 | DRG 623 ==
LOC: ED 13:29 → AC 14:20
PROVIDERS: Hospitalist; Internal Medicine; Surgery; Admitting Provider Internal Medicine; Emergency Provider Emergency Medicine; PCP Physician Assistant Medical; Referring Provider Emergency Medicine; Visit Provider Internal Medicine
PROC: 0JBM0ZZ Excision of Left Upper Leg Subcutaneous Tissue and Fascia, Open Approach (ICD-10-PCS; principal; 2024-06-21 15:15)
DX: E83.59 Other disorders of calcium metabolism (principal); D84.9 Immunodeficiency, unspecified; I96 Gangrene, not elsewhere classified; I13.0 Hypertensive heart and chronic kidney disease with heart failure and stage 1 through stage 4 chronic kidney disease, or unspecified chronic kidney disease; F05 Delirium due to known physiological condition; L40.50 Arthropathic psoriasis, unspecified; G89.29 Other chronic pain; E03.9 Hypothyroidism, unspecified; E78.5 Hyperlipidemia, unspecified; B96.5 Pseudomonas (aeruginosa) (mallei) (pseudomallei) as the cause of diseases classified elsewhere; N18.32 Chronic kidney disease, stage 3b; I50.9 Heart failure, unspecified; Z79.52 Long term (current) use of systemic steroids; Z86.711 Personal history of pulmonary embolism; Z66 Do not resuscitate; Z79.890 Hormone replacement therapy; Z79.01 Long term (current) use of anticoagulants; Z79.891 Long term (current) use of opiate analgesic
CPT/HCPCS: 36415; 73700; 80053; 83605; 84145; 84443; 85025; 85027; 85610; 87040; 87070; 87075; 87077; 87176; 87186; 87205; 94760; 96365; 96375; 97116; 97162; 97530; 99284; J0692; J0696; J1171; J2405; J2704; J3010; J3410; J7050

== ENCOUNTER → 2024-06-29 09:08 | Outpatient (CLI) | payer OTHER, SELFPAY ==
[2024-06-20 15:20] VITALS: BMI 27.8
--- NOTE | 2024-06-29 | OV.WND_ITS ---
PROGRESS NOTE DETAILS PATIENT NAME: SANDRITA TELLO PATIENT NUMBER: [id number] CLINICIAN: TALA PRATER RN PATIENT DATE OF : 1945 PHYSICIAN / NAVAL INSPECTOR: LIZY SARMIENTO PATIENT SUBJECTIVE CHIEF COMPLAINT THIS INFORMATION WAS OBTAINED FROM THE PATIENT. IT STARTED THROBBING 3 NIGHTS AGO. GENERAL NOTES LEFT LEG THIGH CALCPHYLAXIS ALLERGIES NO ALLERGIES HAVE BEEN DOCUMENTED FOR THE PATIENT GENERAL NOTES NO KNOW DRUG ALLERGIES HPI THIS INFORMATION WAS OBTAINED FROM THE PATIENT. THE FOLLOWING HPI ELEMENTS WERE DOCUMENTED FOR THE PATIENT'S WOUND: LOCATION: MEDIAL LEFT THIGH CONTEXT: CALCIPHYLAXIS THE PATIENT IS A 79-YEAR-OLD FEMALE WITH HYPERTENSION, CKD 3B, OBESITY, CHF, AND LONG-TERM PREDNISONE AND IMMUNE SUPPRESSION FOR PSORIATIC ARTHRITIS WHO RETURNS TODAY FOR FOLLOW UP OF A PAINFUL NECROTIC ULCER MEDIAL LEFT THIGH SECONDARY TO CALCIPHYLAXIS. THE PATIENT HAD PREVIOUSLY BEEN RECEIVING WOUND CARE AT [facility]. SHE WAS HOSPITALIZED AT [facility] AND UNDERWENT SURGICAL DEBRIDEMENT ON MAY 31, 2024. THE PATIENT WAS ADMITTED TO [facility] JUNE 20, 2024 WITH WORSENING PAIN AND UNDERWENT SURGICAL DEBRIDEMENT ON June WITH PLACEMENT OF A WOUND VAC. SHE RECEIVED IV CEFAPIMEFOR TREATMENT OF PSEUDOMONAS INFECTION AND WAS DISCHARGED ON LEVAQUIN. THE PATIENT WAS DISCHARGED TO [facility] ON JUNE 27, [address] IN PL[address]. THE PATIENT REPORTS THAT THE ULCER IS STILL VERY PAINFUL. SHE APPEARS MORE COMFORTABLE AND MORE ALERT THAN ON HER PREVIOUS VISITS. SHE HAS A DECREASED APPETITE. THE PATIENT HAS A PAST HISTORY OF DVT AND PREVIOUSLY WAS ON WARFARIN BUT IS NOW ON ELIQUIS. SHE IS ABLE TO AMBULATE WITH THE USE OF A WALKER. PREVIOUS BIOPSY FINDINGS REVEALED ISCHEMIC FAT NECROSIS WITH FOCAL EARLY CALCIFICATION. THE PATIENT IS TAKING OXYCODONE TO HELP CONTROL PAIN. ON EXAM TODAY THE WOUND IS LARGER AND HAS LESS NECROTIC TISSUE AND MORE GRANULATION TISSUE. LABS: 06/27/24: WBC 4.7, HEMOGLOBIN 8.7, HCT 26.8 06/25/24: WBC 6.0, HEMOGLOBIN 9.0, HCT 27.4, ELECTROLYTES UNREMARKABLE, GFR GREATER THAN 60, TOTAL PROTEIN 4.5, ALBUMIN 2.1, CALCIUM 8.2 06/21/24: CULTURE GREW PSEUDOMONAS AERUGINOSA AND BACTEROIDES OVATUS 06/20/24: CT SCAN: OPEN WOUND IN POSTERIOR MEDIAL ASPECT OF LEFT UPPER THIGH AND ALONG MEDIAL ASPECT OF MID TO DISTAL LEFT THIGH WITH UNDERLYING CELLULITIS. NO DISCRETE DRAINABLE ABSCESS COLLECTION IS SEEN. NO ABNORMAL SOFT TISSUE CALCIFICATIONS. NO EVIDENCE OF MYOSITIS OR INTRAMUSCULAR ABSCESS COLLECTION. SANDRITA TELLO [id number] 1945 06/13/24: WBC 8.2, HEMOGLOBIN 9.9, HCT 30.3, SODIUM 134, BUN 37, CREATININE 2.14, GFR 23, A ST 100, ALT 41, TOTAL PROTEIN 5.5, ALBUMIN 2.9 05/05/24: CT SCAN LEFT LEG: LARGE MEDIAL THIGH ULCER WITH ONLY MINIMAL CELLULITIS CHANGE AND NO EVIDENCE OF NECROTIZING FASCIITIS, MYOSITIS, OR OSTEOMYELITIS MEDICAL HISTORY THIS INFORMATION WAS OBTAINED FROM THE PATIENT. 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 YES? COMPLETE ALL QUESTIONS.: NO SURGICAL HISTORY THIS INFORMATION WAS OBTAINED FROM THE PATIENT. PATIENT HAS A SURGICAL HISTORY OF: SURGICAL DEBRIDEMENT- 05/31/2024 OBJECTIVE VITALS HEIGHT/LENGTH: 58 IN (147.32 CM), WEIGHT: 127.5 LBS (57.95 KGS), BMI: 26.6, TEMPERATURE: 97.9 ?F (36.61 ?C), PULSE: 72 BPM, RESPIRATORY RATE: 18 BREATHS/MIN, BLOOD PRESSURE: 159/87 MMHG, PULSE OXIMETRY: 100 %. PHYSICAL EXAM CONSTITUTIONAL: VITAL SIGNS REVIEWED AND NOTED. GENERALIZED WEAKNESS. IN NO APPARENT DISTRESS. RESPIRATORY: EVEN RESPIRATIONS WITHOUT USE OF ACCESSORY MUSCLES. NO INTERCOASTAL RETRACTIONS NOTED. EVEN AND NON LABORED RESPIRATION. INTEGUMENTARY (HAIR, SKIN): MILD PERIWOUND INFLAMMATION. PERIWOUND TENDERNESS, NO SWELLING. SEE WOUND ASSESSMENT. SKIN WARM AND DRY. NO RASHES. NEUROLOGICAL: SENSATION: SYMMETRIC FUNCTION BY INFORMAL OBSERVATION. PSYCHIATRIC: ORIENTATION TO TIME, PLACE AND PERSON: NORMAL AFFECT WITH NORMAL THOUGHT PATTERN. ADDITIONAL INFORMATION THE PATIENT'S POTENTIAL TO HEAL IS: POOR. WOUND ASSESSMENT(S) WOUND #1 LEFT, MEDIAL LEG - THIGH IS AN ACUTE FULL THICKNESS CALCIPHYLAXIS ACQUIRED ON 03/27/2024 AND HAS RECEIVED A STATUS OF NOT HEALED. INITIAL WOUND ENCOUNTER MEASUREMENTS ARE 10.6CM LENGTH X 7.7CM WIDTH X 2 CM DEPTH, WITH AN AREA OF 81.62 SQ CM AND A VOLUME OF 163.24 CUBIC CM.INITIAL WOUND ENCOUNTER PREVIOUS MEASUREMENTS FROM 06/14/2024 ARE 10.7CM LENGTH X 8CM WIDTH X 0.7CM DEPTH, WITH AN AREA OF 85.6 SQ CM AND A VOLUME OF 59.92 CUBIC CM. ADIPOSE IS EXPOSED. NO TUNNELING HAS BEEN NOTED. NO SINUS TRACT HAS BEEN NOTED. NO UNDERMINING HAS BEEN NOTED. THERE IS A COPIOUS AMOUNT OF ELISHA SANDRITA F [id number] 1945 SEROSANGUINEOUS DRAINAGE NOTED WHICH HAS A MILD ODOR. THE PATIENT REPORTS A WOUND PAIN OF LEVEL 10/10. THE WOUND MARGIN IS ATTACHED WOUND BED HAS YES, PINK, SPONGY, GRANULATION, YES SLOUGH, YES ESCHAR, NO EPITHELIALIZATION. THE PERIWOUND SKIN EXHIBITED EDEMA AND ERYTHEMA. THE PERIWOUND SKIN DID NOT EXHIBIT BRAWNY INDURATION, EXCORIATION, INDURATION, CALLUS, CREPITUS, FLUCTUANCE, RASH, MACERATION, ATROPHIE SENIA, CYANOSIS, ECCHYMOSIS, HEMOSIDEROSIS, PALLOR AND RUBOR. THE PERIWOUND SKIN WAS NOT FRIABLE, DRY/SCALY AND MOIST. THE TEMPERATURE OF THE PERIWOUND SKIN IS WARM. PERIWOUND SKIN DOES NOT EXHIBIT SIGNS OR SYMPTOMS OF INFECTION. LOCAL PULSE IS DOPPLER. 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 START PROTEIN SUPPLEMENTATION TWICE A DAY. CONTINUE LEVAQUIN. FOLLOW UP IN 1 WEEK FOR A RECHECK. PROCEDURES WOUND #1 WOUND #1 (CALCIPHYLAXIS) IS LOCATED ON THE LEFT, MEDIAL LEG - THIGH. A SKIN/SUBCUTANEOUS TISSUE LEVEL SURGICAL DEBRIDEMENT WITH A TOTAL AREA DEBRIDED OF 81.62 SQ CM. WAS PERFORMED BY LIZY SARMIENTO MD. SUBCUTANEOUS WAS REMOVED ALONG WITH DEVITALIZED TISSUE: BIOFILM, EXUDATE AND SLOUGH. THE FOLLOWING INSTRUMENT(S) WERE USED: CURETTE. PAIN CONTROL WAS ACHIEVED USING EMLA LIDOCAINE/PRILOCAINE 2.5%/2.5%. A TIME OUT WAS CONDUCTED PRIOR TO THE START OF THE PROCEDURE. A MINIMAL AMOUNT OF BLEEDING WAS CONTROLLED WITH PRESSURE. THE PROCEDURE WAS TOLERATED WELL WITH A PAIN LEVEL OF 0 THROUGHOUT AND A PAIN LEVEL OF 0 FOLLOWING THE PROCEDURE. POST DEBRIDEMENT MEASUREMENTS: 10.6CM LENGTH X 7.7CM WIDTH X 2.1CM DEPTH; WITH AN AREA OF 81.62 SQ CM AND A VOLUME OF 171.402 CUBIC CM. SANDRITA TELLO [id number] 1945 ADDITIONAL INFORMATION MUSCLE FASCIA OR BONE REMOVED AND SENT TO PATHOLOGY?: NO NEGATIVE PRESSURE WOUND THERAPY APPLICATION PERFORMED FOR: WOUND #1 LEFT, MEDIAL LEG - THIGH TYPE: [facility] ? ACTIV.A.C. PERFORMED BY: SHAHIDA WILSON RN COVERAGE SIZE (SQ CM): 81.62 PRESSURE TYPE: CONSTANT PRESSURE SETTIN MMHG SPONGE TYPE: BLACK SPONGE SIZE: MEDIUM TOTAL NUMBER OF SPONGES REMOVED PRIOR TO THE APPLICATION: 1 TOTAL NUMBER OF SPONGES USED FOR THIS APPLICATION: 1 DATE INITIATED: 06/27/2024 DAILY HOURS OF THERAPY: 24 PLAN WOUND ORDERS: WOUND #1 LEFT, MEDIAL LEG - THIGH HAND HYGIENE HAND HYGIENE - WASH HANDS BEFORE AND AFTER WOUND CARE. CALL THE WOUND CENTER AT [phone] IF YOU HAVE SIGNS OR SYMPTOMS OF INFECTION, FEVER CHILLS OR SHAKES, INCREASED DRAINAGE, INCREASED ODOR OR UNUSUAL REDNESS. AFTER WOUND CENTER HOURS PLEASE NOTIFY YOUR PCP OR GO TO THE EMERGENCY ROOM. CLEANSER APPLY HYPOCHLOROUS ACID (VASHE OR SIMILAR) SOAKED 4X4 GAUZE TO WOUND BED FOR 5- 10 MINUTES AFTER PROVIDER HAS COMPLETED WOUND EXAM. REMOVE GAUZE AND DRESS WOUND ACCORDING TO DRESSING ORDERS. PROCEDURE / ANESTHETIC 5% TOPICAL LIDOCAINE TO WOUND BED PRIOR TO PROCEDURE, IN CLINIC ONLY. DRESSING CHANGE FREQUENCY CHANGE DRESSING 3 TIMES PER WEEK. FOLLOW-UP APPOINTMENTS RETURN APPOINTMENT 1 WEEK ADDITIONAL ORDERS: OTHER WOUND DRESSING ORDERS NPWT MAINTENANCE. - BLACK FOAM TO WOUND BASE. [facility] WOUND VAC AT 125MM HG. PLEASE CLEAN WOUND WITH VASHE AT EACH DRESSING CHANGE. COMPRESSION/EDEMA CONTROL OTHER ORDER: - PT MAY WEAR COMPRESSION SOCKS, BUT NOT JOSEPH WRAPS. DO NOT PLACE COMPRESSION OVER WOUNDS. DIETARY TAKE VITAMIN C 1000MG BY MOUTH DAILY. TAKE ZINC 25MG BY MOUTH DAILY. INCREASE THE PROTEIN IN YOUR DIET. HOME HEALTH OTHER ORDER: - SOUND VIEW. PLEASE CHANGE [facility] WOUND VAC AT 125MMHG ON WEDNESDAY AND WEDNESDAY INSTRUCTED ABOVE. SCRIBING ATTESTATION I ATTEST, THE NURSE, THAT I SCRIBED THESE ORDERS FOR THE WOUND CARE PROVIDER. PROVIDER REVIEW AND ATTESTATION: REVIEWED AND EVALUATED LABS. REVIEWED HOSPITAL RECORDS. DISCUSSED THE PLAN OF CARE @ BEDSIDE WITH - THE PATIENT SANDRITA TELLO [id number] 1945 I AGREE AND ATTEST TO THE ABOVE INFORMATION PROVIDED FROM OTHER LICENSED PROFESSIONALS. PLAN OF CARE: 01. ENSURE/ESTABLISH OPTIMAL BLOOD FLOW : - COMPLETE LOWER EXTREMITY ASSESSMENT STATUS: CONTINUED DATE: 06/14/2024 - PERFORM NON-INVASIVE VASCULAR TESTING (I.E. SANDRA) AND DOCUMENT FINDINGS. CONSIDER REPEATING WHEN WOUND HEALING <40% AFTER 30 DAYS OF WOUND CARE. - TOO PAINFUL TO DO SANDRA, WILL SEE IF VASCULAR STUDIES WERE DONE AT [facility] STATUS: CONTINUED DATE: 06/14/2024 02. ASSESS FOR/TREAT INFECTION : - EVALUATE FOR SIGNS AND SYMPTOMS OF INFECTION AND DOCUMENT FINDINGS. STATUS: CONTINUED DATE: 06/14/2024 03. DEBRIDE WEEKLY OR MORE OFTEN PRN : - EVALUATE PATIENT IN CENTER WEEKLY TO ASSESS WOUND BED AND MARGINS FOR NEED FOR DEBRIDEMENT. STATUS: CONTINUED DATE: 06/14/2024 - MECHANICAL DEBRIDEMENT: STIMULATE AND/OR MAINTAIN ACUTE PHASE OF WOUND HEALING BY REDUCING BACTERIAL BURDEN AND DEVITALIZED/NON-VIABLE TISSUE. STATUS: CONTINUED DATE: 06/14/2024 04. OPTIMIZE GLUCOSE CONTROL AND NUTRITION : - ORDER/REVIEW PERTINENT LABS TO EVALUATE RENAL FUNCTION, GLUCOSE CONTROL, AND NUTRITIONAL STATUS. STATUS: CONTINUED DATE: 06/14/2024 05. OFFLOADING PLAN : - REVIEWED, NOT APPLICABLE 06. OPTIMIZE HOST FACTORS: - ASSESS AND REVIEW PATIENT HISTORY FOR WOUND ETIOLOGY, CO-MORBID CONDITIONS, MEDICATION REGIME, AND SMOKING HISTORY. STATUS: CONTINUED DATE: 06/14/2024 - ASSESS LIFESTYLE FACTORS SUCH SMOKING, ALCOHOL/DRUG ABUSE, EATING HABITS/MALNUTRITION AND ACTIVITY LEVEL. STATUS: CONTINUED DATE: 06/14/2024 07. DRESSING SELECTION : - EVALUATE FOR DRESSING-RELATED FACTORS, SUCH AVAILABILITY, WEAR TIME, ADAPTABILITY AND USE TO BETTER OPTIMIZE WOUND HEALING AND PATIENT COMPLIANCE. STATUS: CONTINUED DATE: 06/14/2024 - CHOOSE TOPICAL TREATMENTS AND/OR DRESSING BASED ON WOUND TYPE AND APPEARANCE, PERIWOUND SKIN CONDITION, WOUND SIZE AND DEPTH, ANATOMIC LOCATION, VOLUME OF EXUDATE, EDEMA IN THE LOWER EXTREMITIES, AND RISK OR PRESENCE OF INFECTION. STATUS: CONTINUED DATE: 06/14/2024 - EDUCATE THE PATIENT/FAMILY/CAREGIVER TO MONITOR DRESSING DAILY. CHANGE DRESSING ONLY NEEDED BUT NEVER LESS FREQUENTLY THAN WEEKLY SO THAT WOUND BED CAN BE REASSESSED. STATUS: CONTINUED DATE: 06/14/2024 08. ADVANCED MODALITIES : - SET TREATMENT GOALS ACCORDING TO PATIENT AND/OR CAREGIVER?S ABILITY/ COMPLIANCE. STATUS: CONTINUED DATE: 06/14/2024 - RE-EVALUATE PLAN OF CARE IF NO EVIDENCE OF HEALING (40% IN 4 WEEKS). STATUS: CONTINUED DATE: 06/14/2024 09. FALL PREVENTION : - COMPLETE FALL ASSESSMENT. STATUS: CONTINUED DATE: 06/14/2024 10. PAIN MANAGEMENT : SANDRITA TELLO [id number] 1945 - COMPLETE PAIN ASSESSMENT STATUS: CONTINUED DATE: 06/14/2024 - PREPARE PATIENT TO SET REASONABLE EXPECTATIONS PRIOR TO PROCEDURE. STATUS: CONTINUED DATE: 06/14/2024 - INSTRUCT THE PATIENT TO CALL ?TIME-OUT? IF PAIN IS TOO INTENSE DURING PROCEDURE. STATUS: CONTINUED DATE: 06/14/2024 11. MEASURABLE GOALS FOR WOUND HEALING AND/OR HYPERBARIC OXYGEN THERAPY : - LESS DRAINAGE STATUS: CONTINUED DATE: 06/14/2024 - DECREASE INFLAMMATION STATUS: CONTINUED DATE: 06/14/2024 - DECREASE PAIN STATUS: CONTINUED DATE: 06/14/2024 - IMPROVE QUALITY OF LIFE STATUS: CONTINUED DATE: 06/14/2024 - REDUCE RISK FOR INFECTION STATUS: CONTINUED DATE: 06/14/2024 12. DURATION/FREQUENCY OF WOUND CARE VISITS : - 1X WEEKLY FOR 30 DAYS STATUS: CONTINUED DATE: 06/14/2024 ELECTRONIC SIGNATURE(S) SIGNED BY: DATE: LIZY SARMIENTO MD 06/29/2024 12:55:37 (PT) ENTERED BY: LIZY SARMIENTO MD ON 06/29/2024 12:35:27 (PT) SANDRITA TELLO [id number] 1945
== END ==
PROVIDERS: PCP Physician Assistant Medical; Referring Provider Physician Assistant Medical; Visit Provider Surgery
DX: L97.122 Non-pressure chronic ulcer of left thigh with fat layer exposed (principal); E83.59 Other disorders of calcium metabolism; L53.8 Other specified erythematous conditions; R60.0 Localized edema
CPT/HCPCS: 11042; 11045; 97606

== ENCOUNTER → 2024-07-06 08:45 | Outpatient (CLI) | payer OTHER, SELFPAY ==
[2024-06-20 15:20] VITALS: BMI 27.8
== END ==
PROVIDERS: PCP Physician Assistant Medical; Referring Provider Physician Assistant Medical; Visit Provider Surgery
DX: E83.59 Other disorders of calcium metabolism (principal); L97.122 Non-pressure chronic ulcer of left thigh with fat layer exposed; L97.112 Non-pressure chronic ulcer of right thigh with fat layer exposed; L53.8 Other specified erythematous conditions; R60.0 Localized edema; R23.4 Changes in skin texture; Z79.01 Long term (current) use of anticoagulants
CPT/HCPCS: 97606; 99213

== ENCOUNTER → 2024-07-20 11:14 | Outpatient (CLI) | payer OTHER, SELFPAY ==
[2024-06-20 15:20] VITALS: BMI 27.8
== END ==
PROVIDERS: PCP Physician Assistant Medical; Referring Provider Physician Assistant Medical; Visit Provider Surgery
DX: L97.122 Non-pressure chronic ulcer of left thigh with fat layer exposed (principal); L97.112 Non-pressure chronic ulcer of right thigh with fat layer exposed; E83.59 Other disorders of calcium metabolism; R60.0 Localized edema
CPT/HCPCS: 97606; 99213

== ENCOUNTER 2024-07-23 10:33 | Inpatient (IN) | payer OTHER, SELFPAY ==
[2024-06-20 15:20] VITALS: BMI 27.8
[2024-07-23] VITALS (31 sets, daily range): BP systolic 108–198; BP diastolic 53–80; PULSE 63–87; RESP 10–31; TEMP 36.9–38.1; O2SAT 92–100; BMI 24.6
--- NOTE | 2024-07-23 10:48 | DI.RAD.S_ITS ---
PROCEDURE: XR CHEST 1V INDICATIONS: suspected sepsis TECHNIQUE: One view of the chest was acquired. COMPARISON: [facility], CR, XR CHEST 1V, 06/13/2024, 16:16. FINDINGS: Surgical changes and devices: None. Lungs and pleura: Lungs are clear. No pleural effusions or pneumothorax. Mediastinum: Mediastinal contours appear normal. Heart size is normal. Bones and chest wall: No suspicious bony lesions. Overlying soft tissues appear unremarkable. Cervical fixation hardware is present. IMPRESSION: No acute cardiopulmonary abnormality is seen. Dictated by: Oskar Reed M.D. on 07/23/2024 at 10:31 Approved by: Oskar Reed M.D. on 07/23/2024 at 10:32
--- NOTE | 2024-07-23 10:48 | EKG_ITS ---
[place] [id number] [place] [id number] Test Date: 2024-07-23 Pat Name: Latasha Braun Department: [facility] Room: Gender: Female Advertising Executive: : 1945 Requested By: Order Number: [id number] Reading MD: Jhony Alvarez MD Measurements Intervals Davidson Rate: 65 P: 31 CA: 128 QRS: -36 QRSD: 80 T: 13 QT: 434 QTc: 451 Interpretive Statements Normal sinus rhythm Left axis deviation Nonspecific ST abnormality Electronically Signed On 07-23-2024 13:31:34 PDT by Jhony Alvarez MD
--- NOTE | 2024-07-23 10:52 | ED_ITS ---
HPI - Altered Mental Status General Chief Complaint: Altered Mental Status Stated Complaint: AMS Time Seen by Provider: 07/23/24 10:48 Source: EMS, RN notes reviewed and old records reviewed Mode of arrival: EMS Limitations: altered mental status History of Present Illness HPI narrative: 79-year-old female history of hypertension, CKD stage 3, congestive heart failure, arthritis, hypothyroidism, dyslipidemia, history of DVT and PE, peripheral arterial disease anticoagulated on Eliquis, seronegative inflammatory arthritis and nonhealing ulcer over the medial aspect of the left thigh as well as an 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 Patient has been seen here twice was hospitalized at [facility] in May with calciphylaxis intractable pain was seen by vascular who stated this was not secondary to vascular malperfusion and patient was started with wound care, there was reports of sundowning like behavior and hospital delirium and underlying cognitive impairment during her stay. Is currently staying at the alf facility [facility] was sent today because she woke up very aggressive biting the staff and trying to hit. Per EMS this is not her normal baseline. When she was last here in the department I saw her briefly and she would yell and scream but was not physically aggressive. Patient received midazolam from EMS she was sedate upon arrival and not conversant. No other reports of fevers or other changes were shared. Related Data Home Medications Medication Instructions Recorded Confirmed levothyroxine 88 mcg tablet 88 mcg PO DAILY 04/08/22 06/20/24 lovastatin 40 mg tablet 40 mg PO BEDTIME 04/08/22 06/20/24 carvedilol 25 mg tablet 25 mg PO BID 07/22/22 06/20/24 lisinopril 20 mg tablet 20 mg PO QAM 10/19/22 06/20/24 alendronate 70 mg tablet 70 mg PO QWEEK 01/13/23 06/20/24 azelastine 137 mcg (0.1 %) nasal 1 spray intranasal ONCE 06/14/23 06/20/24 spray leflunomide 20 mg tablet 20 mg PO DAILY 06/14/23 06/20/24 apixaban 5 mg tablet (Eliquis) 5 mg PO BID 06/20/24 06/20/24 hydroxyzine HCl 10 mg tablet 20 mg PO Q8HR PRN Anxiety 06/20/24 06/20/24 lidocaine-prilocaine 2.5 %-2.5 % 2 g topical DAILY PRN Pain, Mild 06/20/24 06/20/24 topical cream melatonin 3 mg tablet 3 mg PO QPM PRN Insomnia 06/20/24 06/20/24 naloxone 4 mg/actuation nasal spray 4 mg intranasal NOW PRN overdose 06/20/24 06/20/24 nystatin 100,000 unit/gram topical 1 applic topical BID PRN Rash 06/20/24 06/20/24 powder ([facility]) ondansetron 4 mg disintegrating 4 mg PO Q8H PRN Nausea And Vomiting 06/20/24 06/20/24 tablet oxycodone 5 mg tablet 5 mg PO Q2H PRN Pain (Scale Score 06/20/24 06/20/24 4-6) polyethylene glycol 3350 17 gram 17 g PO QAM PRN Constipation 06/20/24 06/20/24 oral powder packet sodium bicarbonate 650 mg tablet 650 mg PO BID PRN Heartburn 06/20/24 06/20/24 Previous Rx's Medication Instructions Recorded acetaminophen 325 mg tablet 650 mg (2 x 325 mg) PO Q6H PRN 06/25/24 Pain, Mild #30 tabs fentanyl 12 mcg/hr transdermal 1 patch transdermal Q72H #15 ea 06/25/24 patch levofloxacin 500 mg tablet 500 mg PO DAILY #9 tabs 06/25/24 oxycodone 5 mg tablet 5 mg PO Q4HR PRN Pain, Moderate 06/27/24 (4-6) #15 tabs Allergies Allergy/AdvReac Type Severity Reaction Status Date / Time latex Allergy Verified 06/20/24 11:29 Review of Systems Review of Systems ROS Unobtainable: All systems reviewed & are unremarkable except as noted in HPI and below Patient History Medical History Chronic kidney disease Facet arthropathy, lumbar Hearing loss associated with syndrome of both ears Herniated nucleus pulposus, L3-4 left History of DVT (deep vein thrombosis) Lumbar foraminal stenosis Lumbar radiculopathy Skin ulceration Surgical History H/O neck surgery History of ankle surgery Hx laparoscopic cholecystectomy Family History Father Hypertension Mother Hypertension Social History household members: spouse alcohol intake: never Exam Narrative Exam Narrative: GEN: Thin, chronically ill female, sedate, patient appears to be in mild distress. HEENT: Atraumatic, pupils are equal round reactive to light, extraocular movements are intact, nares are clear, TMs are clear with no fluid, there is no conjunctival pallor. Throat is clear without any exudates, erythema, tonsillar enlargement or uvular deviation HEART: Regular rate and rhythm without murmur, clicks, rubs. Cap refill less than 2 seconds in all 4 extremities. 2+ radial pulses bilaterally. LUNGS:Lungs clear to auscultation, no wheezes, rales, crackles, chest moves symmetrically, no tachypnea or accessory muscle use ABD:bowel sounds normal, soft, non-tender, no guarding, rebound, rigidity, no masses noted, no hepatosplenomegaly :No CVA tenderness MSCL: Non-tender, no edema. Patient has a wound VAC on the left medial thigh there is a little bit of scabbing along the edge but no erythema no foul odors nontender to touch. Does have drainage into the tube. Right medial thigh has a smaller about 3 by 2 your regular area that appears to be scabbed over with no subcutaneous tissue exposed and no erythema warmth or tenderness to that area. Initial Vital Signs Initial Vital Signs: Vital Signs Pulse Rate 70 07/23/24 10:36 Blood Pressure 132/63 07/23/24 10:36 Pulse Oximetry 92 07/23/24 10:36 Course Orders Ordered: ED Orders 07/23/24 10:40 Blood Culture Stat Complete Blood Count AUTO DIFF Stat Comprehensive Metabolic Panel Stat Lactate (Lactic Acid) Stat Lipase Stat PTT Partial Thromboplastin [place] Stat Procalcitonin Stat Prothrombin Time INR Stat 07/23/24 10:48 XR chest 1V Stat EKG-12 Lead Stat RT Consult Eval and Treat NOW 07/23/24 11:04 Ictotest Urine Stat UA Complete [Urinalysis and Microscopic] Stat 07/23/24 12:45 CT kidney ureter bladder (KUB) Stat 07/23/24 15:46 Consult to [facility] [place] [facility]use [facility] Manager Stat Acetaminophen (Acetaminophen 325 Mg Tablet) 650 mg PO Q6H PRN PRN Reason: Fever/Mild Pain (1-3) Apixaban (Apixaban 5 Mg Tablet) 5 mg PO BID [facility] Atorvastatin Calcium (Atorvastatin 20 Mg Tablet) 10 mg PO BEDTIME GENEVIEVE Carvedilol (Carvedilol 12.5 Mg Tablet) 25 mg PO BID [facility] Enoxaparin Sodium (Enoxaparin 40 Mg/0.4 Ml Syringe) 40 mg SUBCUT DAILY [facility] Fentanyl (Fentanyl 12 Mcg/Patch) 12 mcg TOP Q72H GENEVIEVE Dextrose/Sodium Chloride (Dextrose 5%-0.45% Ns) 1,000 mls @ 100 mls/hr IV CONT GENEVIEVE Cefepime HCl 1 gm/ Sodium (Chloride) 100 mls @ 200 mls/hr IV Q12H GENEVIEVE Levothyroxine Sodium (Levothyroxine 88 Mcg Tablet) 88 mcg PO DAILY GENEVIEVE Lisinopril (Lisinopril 20 Mg Tablet) 20 mg PO DAILY GENEVIEVE Melatonin (Melatonin 3 Mg Tablet) 3 mg PO QPM PRN PRN Reason: Insomnia Naloxone HCl (Naloxone 0.4 Mg/Ml Vial) 0.2 mg IV Q2MIN PRN PRN Reason: Opiate Reversal Non-Formulary Medication (Hydroxyzine Hcl) 20 mg PO Q8HR PRN PRN Reason: Anxiety Ondansetron HCl (Ondansetron 4 Mg/2 Ml Inj) 4 mg IV Q8HR PRN PRN Reason: Nausea And Vomiting Oxycodone HCl (Oxycodone Ir 5 Mg Tablet) 5 mg PO Q2H PRN PRN Reason: Pain (Scale Score 4-6) Polyethylene Glycol (Polyethylene Glycol 3350 17 Gm Powd.Pack) 17 gm PO DAILY PRN PRN Reason: Constipation Discontinued Medications Haloperidol (Haloperidol 5 Mg/Ml Vial) 5 mg IV NOW ONE Stop: 07/23/24 12:47 Sodium Chloride (Normal Saline 0.9%) 1,000 mls @ 1,000 mls/hr IV BOLUS ONE Stop: 07/23/24 11:46 Last Infusion: 07/23/24 12:09 Dose: Infused Documented By: Admin: 07/23/24 11:00 Dose: 1,000 mls/hr Documented By: MORRIS Sodium Chloride (Normal Saline 0.9%) 1,000 mls @ 1,000 mls/hr IV BOLUS ONE Stop: 07/23/24 12:25 Last Infusion: 07/23/24 13:05 Dose: Infused Documented By: Admin: 07/23/24 12:10 Dose: 1,000 mls/hr Documented By: AMNA Cefepime HCl 2 gm/ Sodium (Chloride) 100 mls @ 200 mls/hr IV NOW ONE Stop: 07/23/24 12:01 Last Infusion: 07/23/24 13:07 Dose: Infused Documented By: Admin: 07/23/24 12:10 Dose: 200 mls/hr Documented By: AMNA Lactated Ringer's (Lactated Ringers) 1,000 mls @ 1,000 mls/hr IV BOLUS ONE Stop: 07/23/24 15:16 Last Admin: 07/23/24 14:43 Dose: 1,000 mls/hr Documented By: LAURE Ondansetron HCl (Ondansetron 4 Mg/2 Ml Inj) 4 mg IV NOW PRN PRN Reason: Nausea And Vomiting Ondansetron HCl (Ondansetron 4 Mg Odt) 4 mg SL NOW PRN PRN Reason: Nausea And Vomiting Vital Signs Vital signs: Vital Signs - 8 hr 07/23/24 10:36 07/23/24 10:36 07/23/24 10:43 Temperature Pulse Rate 70 66 Respiratory Rate 10 L Blood Pressure 132/63 Pulse Oximetry 92 96 Oxygen Delivery Method Oxygen Flow Rate 07/23/24 10:43 07/23/24 10:45 07/23/24 10:45 Temperature Pulse Rate 66 Respiratory Rate 11 L Blood Pressure 118/59 L 109/55 L Pulse Oximetry 99 Oxygen Delivery Method Oxygen Flow Rate 07/23/24 10:48 07/23/24 11:00 07/23/24 11:00 Temperature 98.4 F 98.4 F Pulse Rate 64 65 Respiratory Rate 20 15 Blood Pressure 109/55 L 133/60 Pulse Oximetry 100 99 Oxygen Delivery Method Room Air Oxygen Flow Rate 07/23/24 11:20 07/23/24 11:20 07/23/24 11:30 Temperature 100.2 F H 100.0 F H Pulse Rate 63 73 Respiratory Rate 19 21 Blood Pressure 112/53 L Pulse Oximetry 100 100 Oxygen Delivery Method Nasal Cannula Oxygen Flow Rate 2 07/23/24 11:30 07/23/24 11:45 07/23/24 11:45 Temperature 99.5 F Pulse Rate 75 Respiratory Rate 23 Blood Pressure 145/66 H 141/53 H Pulse Oximetry 100 Oxygen Delivery Method Oxygen Flow Rate 07/23/24 12:00 07/23/24 12:00 07/23/24 12:15 Temperature 99.3 F Pulse Rate 75 Respiratory Rate 18 Blood Pressure 152/63 H 118/56 L Pulse Oximetry 99 Oxygen Delivery Method Oxygen Flow Rate 07/23/24 12:15 07/23/24 12:30 07/23/24 12:30 Temperature 99.3 F 99.1 F Pulse Rate 71 87 Respiratory Rate 16 Blood Pressure 118/56 L Pulse Oximetry 99 95 Oxygen Delivery Method Room Air Oxygen Flow Rate 07/23/24 12:46 07/23/24 12:46 07/23/24 13:06 Temperature 99.1 F 99.5 F Pulse Rate 85 80 Respiratory Rate 24 22 Blood Pressure 155/67 H Pulse Oximetry 95 97 Oxygen Delivery Method Oxygen Flow Rate 07/23/24 13:24 07/23/24 13:24 07/23/24 13:30 Temperature 99.9 F H 100.0 F H Pulse Rate 75 77 Respiratory Rate 31 H 29 H Blood Pressure 198/77 H Pulse Oximetry 96 98 Oxygen Delivery Method Oxygen Flow Rate 07/23/24 13:30 07/23/24 14:00 07/23/24 14:30 Temperature 100.4 F H 100.6 F H Pulse Rate 77 70 Respiratory Rate 25 H 17 Blood Pressure 187/78 H Pulse Oximetry 97 100 Oxygen Delivery Method Oxygen Flow Rate 07/23/24 14:31 07/23/24 14:31 07/23/24 15:00 Temperature 100.6 F H 99.5 F Pulse Rate 69 71 Respiratory Rate 15 20 Blood Pressure 156/66 H Pulse Oximetry 98 95 Oxygen Delivery Method Oxygen Flow Rate 07/23/24 15:01 07/23/24 15:01 07/23/24 15:30 Temperature 99.5 F 99.5 F Pulse Rate 76 75 Respiratory Rate 15 11 L Blood Pressure 123/59 L Pulse Oximetry 100 100 Oxygen Delivery Method Oxygen Flow Rate 07/23/24 15:30 07/23/24 16:00 07/23/24 16:00 Temperature 99.3 F Pulse Rate 69 Respiratory Rate 14 Blood Pressure 111/53 L 108/53 L Pulse Oximetry Oxygen Delivery Method Oxygen Flow Rate 07/23/24 16:30 07/23/24 16:30 Temperature 99.3 F Pulse Rate 76 Respiratory Rate 20 Blood Pressure 118/68 Pulse Oximetry 98 Oxygen Delivery Method Nasal Cannula Oxygen Flow Rate 2 MDM - Altered Mental Status Lab Data 07/23/24 10:40 07/23/24 10:40 Labs: Lab Results 07/23/24 07/23/24 07/23/24 Range/Units 10:40 11:04 11:10 WBC 7.2 (4.5-11.0) X10^3/uL RBC 3.36 L (4.0-5.2) X10^6/uL Hgb 9.9 L (12.0-16.0) g/dL Hct 29.4 L (36-46) % MCV 87.5 (80-100) fL MCH 29.4 (26-34) PG MCHC 33.6 (30-36) % RDW 17.3 H (11.6-14.8) % Plt Count 184 (150-400) X10^3/uL Neut % (Auto) 69.8 (50-75) % Lymph % (Auto) 7.1 L (25-40) % [place] % (Auto) 9.6 (3-14) % Eos % (Auto) 9.2 H (2-4) % Baso % (Auto) 4.3 H (0-2) % Neut # (Auto) 5000 (1377-0037) /uL Lymph # (Auto) 500 L (7746-1357) /uL [place] # (Auto) 700 (0-900) /uL Eos # (Auto) 700 H (0-450) /uL Baso # (Auto) 300 H (0-100) /uL PT 22.0 H (9.4-12.5) SECONDS INR 2.0 H (0.9-1.3) APTT 34 (25.1-36.5) SECONDS Sodium 137 (137-145) mmol/L Potassium 3.5 (3.4-5.1) mmol/L Chloride 102 (98-107) mmol/L Carbon Dioxide 30 (22-32) mmol/L BUN 26 H (7-17) mg/dL Creatinine 1.70 H (0.52-1.04) mg/dL Estimated GFR 31 L (>60) mL/min BUN/Creatinine Ratio 15.3 (6-22) Glucose 94 (80-110) mg/dL Lactate 2.5 H (0.7-2.1) mmol/L Calcium 7.6 L (8.4-10.2) mg/dL Total Bilirubin 1.0 (0.2-1.3) mg/dL AST 36 (14-36) IU/L ALT 18 (<35) IU/L Alkaline Phosphatase 102 (38-126) U/L Total Protein 5.3 L (6.3-8.2) g/dL Albumin 2.6 L (3.5-5.0) g/dL Globulin 2.7 (1.7-4.1) g/dL Albumin/Globulin Ratio 1.0 (1.0-2.8) Lipase 114 (23-300) U/L Procalcitonin 2.15 H (<0.5) ng/mL Urine Color Yellow Cancelled Urine Appearance Clear Cancelled Urine pH 5.0 Cancelled (4.5-8.0) Ur Specific [place] 1.025 Cancelled (1.000-1.035) Urine Protein Negative Cancelled (Negative) Urine Glucose (UA) Negative Cancelled (Negative) g/dL Urine Ketones Negative Cancelled (NEGATIVE) Urine Occult Blood Negative Cancelled (Negative) Urine Nitrate Negative Cancelled (Negative) Urine Bilirubin 1+ H Cancelled (NEGATIVE) Ur Bilirubin Confirm Negative (Negative) Urine Urobilinogen 0.2 Cancelled (0.2) E.U./dL Ur Leukocyte Esterase Negative Cancelled (NEGATIVE) Urine RBC 0-1/hpf Cancelled (0-5/HPF) Urine WBC 1-5/hpf Cancelled (0-5/HPF) Ur Squamous Epith Cells 1-5 /hpf Cancelled (0-5/HPF) Ur Transition Epith Cell Cancelled Ur Renal Epithelial Cell Cancelled Calcium Oxalate Crystal Cancelled Uric Acid Crystals Cancelled Triple Phos Crystals Cancelled Other Crystals Cancelled Amorphous Sediment Cancelled Urine Bacteria None seen Cancelled (None) Hyaline Casts 0-1/lpf Cancelled (None) Granular Casts Cancelled RBC Casts Cancelled WBC Casts Cancelled Other Casts Cancelled Urine Mucus Cancelled Urine Trichomonas Cancelled Urine Yeast Cancelled Urine Sperm Cancelled Ur Culture Indicated? Cult not indicated Cancelled Micro UA Comment Cancelled Vol Urine Centrifuged 10ml (spun) Cancelled 07/23/24 Range/Units 12:55 WBC (4.5-11.0) X10^3/uL RBC (4.0-5.2) X10^6/uL Hgb (12.0-16.0) g/dL Hct (36-46) % MCV (80-100) fL MCH (26-34) PG MCHC (30-36) % RDW (11.6-14.8) % Plt Count (150-400) X10^3/uL Neut % (Auto) (50-75) % Lymph % (Auto) (25-40) % [place] % (Auto) (3-14) % Eos % (Auto) (2-4) % Baso % (Auto) (0-2) % Neut # (Auto) (7605-6245) /uL Lymph # (Auto) (0857-0070) /uL [place] # (Auto) (0-900) /uL Eos # (Auto) (0-450) /uL Baso # (Auto) (0-100) /uL PT (9.4-12.5) SECONDS INR (0.9-1.3) APTT (25.1-36.5) SECONDS Sodium (137-145) mmol/L Potassium (3.4-5.1) mmol/L Chloride (98-107) mmol/L Carbon Dioxide (22-32) mmol/L BUN (7-17) mg/dL Creatinine (0.52-1.04) mg/dL Estimated GFR (>60) mL/min BUN/Creatinine Ratio (6-22) Glucose (80-110) mg/dL Lactate 1.3 (0.7-2.1) mmol/L Calcium (8.4-10.2) mg/dL Total Bilirubin (0.2-1.3) mg/dL AST (14-36) IU/L ALT (<35) IU/L Alkaline Phosphatase (38-126) U/L Total Protein (6.3-8.2) g/dL Albumin (3.5-5.0) g/dL Globulin (1.7-4.1) g/dL Albumin/Globulin Ratio (1.0-2.8) Lipase (23-300) U/L Procalcitonin (<0.5) ng/mL Urine Color Urine Appearance Urine pH (4.5-8.0) Ur Specific [place] (1.000-1.035) Urine Protein (Negative) Urine Glucose (UA) (Negative) g/dL Urine Ketones (NEGATIVE) Urine Occult Blood (Negative) Urine Nitrate (Negative) Urine Bilirubin (NEGATIVE) Ur Bilirubin Confirm (Negative) Urine Urobilinogen (0.2) E.U./dL Ur Leukocyte Esterase (NEGATIVE) Urine RBC (0-5/HPF) Urine WBC (0-5/HPF) Ur Squamous Epith Cells (0-5/HPF) Ur Transition Epith Cell Ur Renal Epithelial Cell Calcium Oxalate Crystal Uric Acid Crystals Triple Phos Crystals Other Crystals Amorphous Sediment Urine Bacteria (None) Hyaline Casts (None) Granular Casts RBC Casts WBC Casts Other Casts Urine Mucus Urine Trichomonas Urine Yeast Urine Sperm Ur Culture Indicated? Micro UA Comment Vol Urine Centrifuged ECG Data Attestation: I personally reviewed and interpreted this ECG as follows: Prior ECG tracings: not available for review Interpretation: Sinus rhythm rate of 65 NM 128 QRS 80 QTC of 451. No acute ST elevation or depression noted. No priors available. [facility] Narrative Medical decision making narrative: Labs show white count of 7.2 hemoglobin is 9.9 consistent with priors throughout June, platelets are 184. Predominance of basophils and eosinophils. INR is 2, chemistries show normal electrolytes BUN 26 creatinine is 1.70 patient was as high as 2.14 at the beginning of June as low as 0.87 in the interim. Glucose is 94 lactate 2.5 calcium is low at 7.6 LFTs are otherwise appropriate. Procalcitonin is 2.15. Repeat lactate is 1.3 Chest x-ray shows no acute change Blood cultures are pending Urinalysis shows 1 RBC 1-5 WBCs 1-5 squamous 1 cast. 1+ bilirubin CT KUB shows no obstructing stones or hydro small left greater than right pleural effusions with small adjacent consolidations favor compressive atelectasis with a infection excluded. Patient received fluids. Patient had 50 mL out with the initial is receiving her initial L fluid bolus but with the elevation in creatinine we will also obtain CT imaging with a KUB. Patient had fluids, cefepime based on old wound culture. haldol was ordered but patient has not required so far. Spoke with the patient's family, her who states he and her son help her make decisions they are planning to be here about 2:30 p.m. 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 She was DNR/DNI we discussed it sounds like there has been discussion of palliative care in the past but has been states he was okay with the additional testing and even sedation if necessary. He notes she was has a lot of agitation intermittently in the past but he was not familiar if she was had any physical aggression with individuals. Discussed findings thus far we will obtain CT. Patient has somewhat agitated was put in mitts. Workup does not show any clear signs of sepsis but patient's procalcitonin is elevated you feed lactate was initially elevated but patient had also been fighting with EMS. Creatinine is 1.7 which is up from prior unclear if she has been taking much in the way of fluids. Urine output has been low with only 50mL on placement of catheter initially. Imaging does show potential for pneumonia. Patient's wounds actually look quite good. No other clear signs of infection currently but was treated with antibiotics. Patient has continued to be intermittently agitated but not physically aggressive. She has not had much urine output more than 25 mL/hour. She was had 2 L of fluid and is receiving a 3rd. 1445: Spoke with patient's family her , son and additional family at bedside. She was DNR/DNI sounds like there has been discussion of hospice they have been referred but family does not seem to confirm that they are wanting to move towards palliative/comfort measures. Had a elena discussion patient from family's report sounds like she has not really had much improvement. Son notes that patient's insurance is likely going to run out and she will be sent home with home health care versus hospice in the next month. They state that Dr. Childress with wound care has also discussed patient being referred to hospice. Discussed goals of care currently they would like to potentially continue with treatment and are not seeking comfort measures at this time. They are agreeable to potential observation. INCOME TAX PREPARER met with the patient's family. Spoke with Dr. Baird hospitalist accepts for observation for agitation, acute kidney injury with dehydration, decreased urine output. Possible pneumonia on CT imaging with elevated lactate, procalcitonin and fever. Discharge Plan Departure Patient Disposition: Admitted as Observation Clinical Impression: Agitation, NEELIMA (acute kidney injury), Dehydration, Pneumonia, Calciphylaxis Admit Date/Time: 07/23/24 16:36 Admit Provider: Seasr Baird V
[2024-07-23] MEDS: SODIUM CHLORIDE 0.9% 1,000 ML 1000 ML IV ×2 (11:00→12:10)
[2024-07-23 11:01] LABS: Add Manual Diff / Slide Review NO; Basophils Absolute Auto 300 /uL (0-100); Basophils Percent Auto 4.3 % (0-2); Eosinophils Absolute Auto 700 /uL (0-450); Eosinophils Percent Auto 9.2 % (2-4); Hematocrit 29.4 % (36-46); Hemoglobin 9.9 g/dL (12.0-16.0); Lymphocytes Absolute Auto 500 /uL (1100-4500); Lymphocytes Percent Auto 7.1 % (25-40); Mean Corpuscular HGB Conc 33.6 % (30-36); Mean Corpuscular Hemoglobin 29.4 PG (26-34); Mean Corpuscular Volume 87.5 fL (80-100); Monocytes Absolute Auto 700 /uL (0-900); Monocytes Percent Auto 9.6 % (3-14); Neutrophils Absolute Auto 5000 /uL (1500-7000); Neutrophils Percent Auto 69.8 % (50-75); Platelet Count 184 X10^3/uL (150-400); Red Blood Cell Count 3.36 X10^6/uL (4.0-5.2); Red Cell Distribution Width 17.3 % (11.6-14.8); White Blood Cell Count 7.2 X10^3/uL (4.5-11.0)
[2024-07-23 11:05] LABS: Lactate (Lactic Acid) 2.5 mmol/L (0.7-2.1); PTT Partial Thromboplastin Tim 34 SECONDS (25.1-36.5)
[2024-07-23 11:06] LABS: Alanine Aminotransferase 18 IU/L (<35); Albumin 2.6 g/dL (3.5-5.0); Alkaline Phosphatase 102 U/L (38-126); Aspartate Aminotransferase 36 IU/L (14-36); BUN Creatinine Ratio 15.3 (6-22); Blood Urea Nitrogen 26 mg/dL (7-17); Calcium 7.6 mg/dL (8.4-10.2); Carbon Dioxide 30 mmol/L (22-32); Chloride 102 mmol/L (98-107); Estimated Glomerular Filt Rate 31 mL/min (>60); Globulin 2.7 g/dL (1.7-4.1); Glucose 94 mg/dL (80-110); Lipase 114 U/L (23-300); Potassium 3.5 mmol/L (3.4-5.1); Sodium 137 mmol/L (137-145); Total Protein 5.3 g/dL (6.3-8.2)
[2024-07-23 11:12] LABS: HEMOLYSIS 94 (0-50)
[2024-07-23 11:12] LABS: Appearance Urine UA CLEAR; Bilirubin Urine UA 1+ (NEGATIVE); Color Urine UA YELLOW; Glucose Urine UA NEGATIVE (Negative); Ketones Urine UA NEGATIVE (NEGATIVE); Leukocyte Esterase Urine UA NEGATIVE (NEGATIVE); Nitrite Urine UA NEGATIVE (Negative); Occult Blood Urine UA NEGATIVE (Negative); Protein Urine UA NEGATIVE (Negative); Specific Gravity Urine UA 1.025 (1.000-1.035); Urobilinogen Urine UA 0.2 E.U./dL (0.2)
[2024-07-23 11:17] LABS: Ictotest Urine Negative (Negative); Urine Volume 10mL (spun)
[2024-07-23 11:20] LABS: Bacteria Urine None Seen; Culture Indicated Urine Cult Not Indicated; Hyaline Casts Urine 0-1/LPF; RBC Urine 0-1/HPF (0-5/HPF); Squamous Epithelial Cell Urine 1-5 /HPF (0-5/HPF); WBC Urine 1-5/HPF (0-5/HPF)
[2024-07-23 11:23] LABS: Procalcitonin 2.15 ng/mL (<0.5)
[2024-07-23] MEDS: CEFEPIME 2 GM in SODIUM CHLORIDE 0.9% 100 ML IV (12:10)
[2024-07-23 12:27] LABS: Reflexed Lactate in 2 Hours Y
--- NOTE | 2024-07-23 12:45 | DI.CT.S_ITS ---
PROCEDURE: CT KIDNEY URETER BLADDER (KUB) INDICATIONS: bump in creatinine, decreased urine output, increased confus TECHNIQUE: Axial sections were acquired from the lung bases to the pubic symphysis. Coronal and sagittal reformats were performed. For radiation dose reduction, the following was used: automated exposure control, adjustment of mA and/or kV according to patient size. COMPARISON: None. FINDINGS: Image quality: Mild motion artifact with streak artifact from arms down technique.. Lower Chest: Left greater than right small pleural effusions with basilar compressive atelectasis. URINARY: Right Kidney: No stones or hydronephrosis. Subtle wall calcifications of a small interpolar cyst Right Ureter: No hydroureter. Left Kidney: No stones or hydronephrosis. Left Ureter: No hydroureter. Bladder: Decompressed with De La Garza catheter. ABDOMEN: Liver: No contour-deforming solid mass. Gallbladder: The gallbladder surgically absent. Biliary ducts: No biliary dilation. Pancreas: No ductal dilation. Spleen: Size is within normal limits. Adrenal Glands: No adrenal nodules. Stomach and Bowel: Normal colonic caliber, without significant wall thickening. A few colonic diverticula. Peritoneum: No abnormal intraperitoneal fluid. No free air. Ventral Wall: No hernia. Abdominal Nodes: No enlarged retroperitoneal or mesenteric lymph nodes. Vessels: Aorta and inferior vena cava are normal in size. PELVIS: Pelvic Organs: Unremarkable. Pelvic Nodes: Unremarkable. Miscellaneous: No inguinal hernias are seen. Bones: Unremarkable. IMPRESSION: No obstructing stones or hydronephrosis. Small left greater right pleural effusions with small adjacent consolidations favored to represent compressive atelectasis with infection not excluded. Dictated by: Oskar Reed M.D. on 07/23/2024 at 12:32 Approved by: Oskar Reed M.D. on 07/23/2024 at 12:39
[2024-07-23 13:12] LABS: Lactate 2HR (Lactic Acid Rflx) 1.3 mmol/L (0.7-2.1)
--- NOTE | 2024-07-23 14:19 | PC.NURSE ---
Patient has become more responsive over past three hours. Initially very sedated, which occurred after versed by medics. Pt now awakens to verbal stimuli by is not following commands or speaking beyond calling out words not associated with current situations. Pt pulling at cords and attempting to remove IV. Soft mits applied and she tolerated well. CSM intact post application and assessing perfusion with hourly rounding or more often when in room. Pt repositioned with pillows to help alleviate pressure off of back and pillow placed between legs. wound vac dressing is sealed. Pt has signs of pressure wounds on upper right thigh and on right gillis, in addtion to site of wound vac. Pt has fentanly patch with date of 07/22 on left chest. Pt withdrawals from pain and calls out in pain with repositioninng. Vital signs remain stable. Pt has very low urinary output. Provider notified of trends. Pt remains NPO and family now at bedside and updates provided.
[2024-07-23] MEDS: LACTATED RINGERS 1,000 ML 1000 ML IV (14:43)
--- NOTE | 2024-07-23 16:16 | CM.DANOTE ---
ED MANAGER LIBRARY DCP Assessment Note: Pt is a 79yo female, resident of [place] (currently admitted at [facility]), is here for NEELIMA, dehydration and agitation. Pt has a house in [place] with her spouse. Pt's Primary Care Provider is Elin Tan PA-C and insurance is [employer]. Patient sees Dr. Kvng Childress for Wound care. Reviewed chart and discussed with multidisciplinary team pt's medical status and initial discharge needs. ED MANAGER LIBRARY met w/patient at bedside; introduced self and role. Patient was found in bed, sound asleep due to sedative medications. Family at bedside (spouse - Roderick, son - Silvio, friend - Brigida). Pt son reports pt has been admitted at [facility] since 05/26/24 and they have appealed her discharge twice and have won in their favor both times. Pt and family have preference to start home plan with both hospice and home health (possibly add private caregiver if necessary); requesting all of this is in place before patient dc home. Last , pt and family had a meeting with Dr. Childress and hospice services were discussed. Later, [facility] also discussed this and it is reported that initial referrals to [facility] and [facility] were sent. Per family, pt has not been eating much in the last week nor has she been ambulating at all. ED MANAGER LIBRARY calls [facility], [facility] health and [facility] to follow up with initial referrals sent by [facility] (family report). Plan: Anticipating home with home health and hospice services vs. return to SNF. ED staff will follow closely for coordination of discharge plans. PAMELA Victor Discharge Planning/Care Management CM Discharge Assessment Start: 07/23/24 16:11 Freq: Status: Active Protocol: Document 07/23/24 16:12 MW (Rec: 07/23/24 16:16 MW [id number]) Discharge Planning Assessment Assigned Residential Sales MERT Fernandez DPOA/Assigned Designee Name Roderick, Spouse Silvio, Son Contact Information [phone] Advance Directives? Yes: POLST Advance Directives on File Yes: POLST on file History Provided By Family Member,Friend,Medical Record Has Patient been admitted in last 30 Yes days? Comment 06/20/24-06/27/24 Prior Living Arrangements Skilled Nurse Facility Comment -[facility] -Home in [place] with spouse Household Members spouse Type of transporation used prior to Relies on Others admit Independent with ADL's No Is patient alert and oriented? Yes Caregiver for Another No DME Already Rented / Owned FWW / Walker,Other Comment [facility] Comment SNF vs. Home with Hospice and Home health Barriers to Discharge No Discharge Plan Nursing Home Facility Referrals Initiated Nursing Home Review Status In Process Please Provide Date Initial DC 07/23/24 Assessment Was Performed Next Review Type Continued Stay Review
--- NOTE | 2024-07-23 17:26 | PM.HP.IH.1 ---
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 Family are present though they are unaware details of her care recently. She was given IV midazolam by EMS and was sedate upon arrival, remained sedated in the emergency department on interview, and not conversant. In the emergency department there was no clear source of infection, and patient was administered IV hydration without significant improvement in urine output with elevated serum creatinine of 1.7 mg/dL. She is admitted for observation, IV hydration and further monitoring. COUNT INCLUDES THE [facility] Medical History Chronic kidney disease Facet arthropathy, lumbar Hearing loss associated with syndrome of both ears Herniated nucleus pulposus, L3-4 left History of DVT (deep vein thrombosis) Lumbar foraminal stenosis Lumbar radiculopathy Skin ulceration Surgical History H/O neck surgery History of ankle surgery Hx laparoscopic cholecystectomy Family History Father Hypertension Mother Hypertension Social History household members: spouse alcohol intake: never Meds Home Medications and Allergies Home Medications Medication Instructions Recorded Confirmed Type levothyroxine 88 mcg tablet 88 mcg PO DAILY 04/08/22 06/20/24 History lovastatin 40 mg tablet 40 mg PO BEDTIME 04/08/22 06/20/24 History carvedilol 25 mg tablet 25 mg PO BID 07/22/22 06/20/24 History lisinopril 20 mg tablet 20 mg PO QAM 10/19/22 06/20/24 History alendronate 70 mg tablet 70 mg PO QWEEK 01/13/23 06/20/24 History azelastine 137 mcg (0.1 %) nasal 1 spray intranasal ONCE 06/14/23 06/20/24 History spray leflunomide 20 mg tablet 20 mg PO DAILY 06/14/23 06/20/24 History apixaban 5 mg tablet (Eliquis) 5 mg PO BID 06/20/24 06/20/24 History hydroxyzine HCl 10 mg tablet 20 mg PO Q8HR PRN Anxiety 06/20/24 06/20/24 History lidocaine-prilocaine 2.5 %-2.5 % 2 g topical DAILY PRN Pain, Mild 06/20/24 06/20/24 History topical cream melatonin 3 mg tablet 3 mg PO QPM PRN Insomnia 06/20/24 06/20/24 History naloxone 4 mg/actuation nasal spray 4 mg intranasal NOW PRN overdose 06/20/24 06/20/24 History nystatin 100,000 unit/gram topical 1 applic topical BID PRN Rash 06/20/24 06/20/24 History powder ([facility]) ondansetron 4 mg disintegrating 4 mg PO Q8H PRN Nausea And Vomiting 06/20/24 06/20/24 History tablet oxycodone 5 mg tablet 5 mg PO Q2H PRN Pain (Scale Score 06/20/24 06/20/24 History 4-6) polyethylene glycol 3350 17 gram 17 g PO QAM PRN Constipation 06/20/24 06/20/24 History oral powder packet sodium bicarbonate 650 mg tablet 650 mg PO BID PRN Heartburn 06/20/24 06/20/24 History acetaminophen 325 mg tablet 650 mg (2 x 325 mg) PO Q6H PRN 06/25/24 06/20/24 Rx Pain, Mild #30 tabs fentanyl 12 mcg/hr transdermal 1 patch transdermal Q72H #15 ea 06/25/24 06/20/24 Rx patch levofloxacin 500 mg tablet 500 mg PO DAILY #9 tabs 06/25/24 Rx oxycodone 5 mg tablet 5 mg PO Q4HR PRN Pain, Moderate 06/27/24 Rx (4-6) #15 tabs Allergies Allergy/AdvReac Type Severity Reaction Status Date / Time latex Allergy Verified 06/20/24 11:29 Review of Systems Review of Systems ROS: Yes All systems reviewed with the patient and are negative except as otherwise documented Exam Vital Signs (past 8 hours): - 07/23/24 10:36 07/23/24 10:36 07/23/24 10:43 Temperature Pulse Rate 70 66 Respiratory Rate 10 L Blood Pressure 132/63 Pulse Oximetry 92 96 Oxygen Delivery Method Oxygen Flow Rate 07/23/24 10:43 07/23/24 10:45 07/23/24 10:45 Temperature Pulse Rate 66 Respiratory Rate 11 L Blood Pressure 118/59 L 109/55 L Pulse Oximetry 99 Oxygen Delivery Method Oxygen Flow Rate 07/23/24 10:48 07/23/24 11:00 07/23/24 11:00 Temperature 98.4 F 98.4 F Pulse Rate 64 65 Respiratory Rate 20 15 Blood Pressure 109/55 L 133/60 Pulse Oximetry 100 99 Oxygen Delivery Method Room Air Oxygen Flow Rate 07/23/24 11:20 07/23/24 11:20 07/23/24 11:30 Temperature 100.2 F H 100.0 F H Pulse Rate 63 73 Respiratory Rate 19 21 Blood Pressure 112/53 L Pulse Oximetry 100 100 Oxygen Delivery Method Nasal Cannula Oxygen Flow Rate 2 07/23/24 11:30 07/23/24 11:45 07/23/24 11:45 Temperature 99.5 F Pulse Rate 75 Respiratory Rate 23 Blood Pressure 145/66 H 141/53 H Pulse Oximetry 100 Oxygen Delivery Method Oxygen Flow Rate 07/23/24 12:00 07/23/24 12:00 07/23/24 12:15 Temperature 99.3 F Pulse Rate 75 Respiratory Rate 18 Blood Pressure 152/63 H 118/56 L Pulse Oximetry 99 Oxygen Delivery Method Oxygen Flow Rate 07/23/24 12:15 07/23/24 12:30 07/23/24 12:30 Temperature 99.3 F 99.1 F Pulse Rate 71 87 Respiratory Rate 16 Blood Pressure 118/56 L Pulse Oximetry 99 95 Oxygen Delivery Method Room Air Oxygen Flow Rate 07/23/24 12:46 07/23/24 12:46 07/23/24 13:06 Temperature 99.1 F 99.5 F Pulse Rate 85 80 Respiratory Rate 24 22 Blood Pressure 155/67 H Pulse Oximetry 95 97 Oxygen Delivery Method Oxygen Flow Rate 07/23/24 13:24 07/23/24 13:24 07/23/24 13:30 Temperature 99.9 F H 100.0 F H Pulse Rate 75 77 Respiratory Rate 31 H 29 H Blood Pressure 198/77 H Pulse Oximetry 96 98 Oxygen Delivery Method Oxygen Flow Rate 07/23/24 13:30 07/23/24 14:00 07/23/24 14:30 Temperature 100.4 F H 100.6 F H Pulse Rate 77 70 Respiratory Rate 25 H 17 Blood Pressure 187/78 H Pulse Oximetry 97 100 Oxygen Delivery Method Oxygen Flow Rate 07/23/24 14:31 07/23/24 14:31 07/23/24 15:00 Temperature 100.6 F H 99.5 F Pulse Rate 69 71 Respiratory Rate 15 20 Blood Pressure 156/66 H Pulse Oximetry 98 95 Oxygen Delivery Method Oxygen Flow Rate 07/23/24 15:01 07/23/24 15:01 07/23/24 15:30 Temperature 99.5 F 99.5 F Pulse Rate 76 75 Respiratory Rate 15 11 L Blood Pressure 123/59 L Pulse Oximetry 100 100 Oxygen Delivery Method Oxygen Flow Rate 07/23/24 15:30 07/23/24 16:00 07/23/24 16:00 Temperature 99.3 F Pulse Rate 69 Respiratory Rate 14 Blood Pressure 111/53 L 108/53 L Pulse Oximetry Oxygen Delivery Method Oxygen Flow Rate 07/23/24 16:30 07/23/24 16:30 07/23/24 17:00 Temperature 99.3 F 100.0 F H Pulse Rate 76 67 Respiratory Rate 20 16 Blood Pressure 118/68 Pulse Oximetry 98 100 Oxygen Delivery Method Nasal Cannula Oxygen Flow Rate 2 07/23/24 17:01 07/23/24 17:01 Temperature 100.0 F H Pulse Rate 68 Respiratory Rate 21 Blood Pressure 183/71 H Pulse Oximetry 99 Oxygen Delivery Method Oxygen Flow Rate Oxygen Delivery Method Nasal Cannula Oxygen Flow Rate 2 Narrative Exam Narrative: GENERAL: This is a pale, unresponsive female, with unlabored breathing, appearing to squeeze her eyelids to voice but not opening eyes. HEAD: Atraumatic. Normocephalic. No temporal or scalp tenderness. EYES: Pupils equal round and reactive. Extraocular motions intact. No scleral icterus. No injection or drainage. ENT: Mucous membranes pink and moist. NECK: Trachea midline. No JVD, bruits or lymphadenopathy. Supple, nontender, no meningeal signs. CARDIOVASCULAR: Regular rate and rhythm without murmurs, gallops, or rubs. RESPIRATORY: Clear to auscultation. GASTROINTESTINAL: Abdomen soft, non-tender, nondistended. EXTREMITIES: No clubbing, cyanosis, or edema. BACK: Nontender without deformity or crepitance. No flank tenderness. NEUROLOGIC: Weakly responsive to voice, no focal neurologic deficits evident. DERMATOLOGIC: No rashes or skin lesions. Objective ECG Impression: Normal sinus rhythm at 65 beats per minute Left axis deviation Nonspecific ST abnormality Imaging CT KUB 07/23/2024:: Radiologist's impression: No obstructing stones or hydronephrosis. Small left greater right pleural effusions with small adjacent consolidations favored to represent compressive atelectasis with infection not excluded. Chest x-ray 07/23/2024: : Radiologist's impression: No acute cardiopulmonary abnormality is seen. Labs 07/23/24 10:40 07/23/24 10:40 Labs: Laboratory Results - last 24 hr 07/23/24 07/23/24 07/23/24 10:40 11:04 11:10 WBC 7.2 RBC 3.36 L Hgb 9.9 L Hct 29.4 L MCV 87.5 MCH 29.4 MCHC 33.6 RDW 17.3 H Plt Count 184 Neut % (Auto) 69.8 Lymph % (Auto) 7.1 L [place] % (Auto) 9.6 Eos % (Auto) 9.2 H Baso % (Auto) 4.3 H Neut # (Auto) 5000 Lymph # (Auto) 500 L [place] # (Auto) 700 Eos # (Auto) 700 H Baso # (Auto) 300 H PT 22.0 H INR 2.0 H APTT 34 Sodium 137 Potassium 3.5 Chloride 102 Carbon Dioxide 30 BUN 26 H Creatinine 1.70 H Estimated GFR 31 L BUN/Creatinine Ratio 15.3 Glucose 94 Lactate 2.5 H Calcium 7.6 L Total Bilirubin 1.0 AST 36 ALT 18 Alkaline Phosphatase 102 Total Protein 5.3 L Albumin 2.6 L Globulin 2.7 Albumin/Globulin Ratio 1.0 Lipase 114 Procalcitonin 2.15 H Urine Color Yellow Cancelled Urine Appearance Clear Cancelled Urine pH 5.0 Cancelled Ur Specific [place] 1.025 Cancelled Urine Protein Negative Cancelled Urine Glucose (UA) Negative Cancelled Urine Ketones Negative Cancelled Urine Occult Blood Negative Cancelled Urine Nitrate Negative Cancelled Urine Bilirubin 1+ H Cancelled Ur Bilirubin Confirm Negative Urine Urobilinogen 0.2 Cancelled Ur Leukocyte Esterase Negative Cancelled Urine RBC 0-1/hpf Cancelled Urine WBC 1-5/hpf Cancelled Ur Squamous Epith Cells 1-5 /hpf Cancelled Ur Transition Epith Cell Cancelled Ur Renal Epithelial Cell Cancelled Calcium Oxalate Crystal Cancelled Uric Acid Crystals Cancelled Triple Phos Crystals Cancelled Other Crystals Cancelled Amorphous Sediment Cancelled Urine Bacteria None seen Cancelled Hyaline Casts 0-1/lpf Cancelled Granular Casts Cancelled RBC Casts Cancelled WBC Casts Cancelled Other Casts Cancelled Urine Mucus Cancelled Urine Trichomonas Cancelled Urine Yeast Cancelled Urine Sperm Cancelled Ur Culture Indicated? Cult not indicated Cancelled Micro UA Comment Cancelled Vol Urine Centrifuged 10ml (spun) Cancelled 07/23/24 12:55 WBC RBC Hgb Hct MCV MCH MCHC RDW Plt Count Neut % (Auto) Lymph % (Auto) [place] % (Auto) Eos % (Auto) Baso % (Auto) Neut # (Auto) Lymph # (Auto) [place] # (Auto) Eos # (Auto) Baso # (Auto) PT INR APTT Sodium Potassium Chloride Carbon Dioxide BUN Creatinine Estimated GFR BUN/Creatinine Ratio Glucose Lactate 1.3 Calcium Total Bilirubin AST ALT Alkaline Phosphatase Total Protein Albumin Globulin Albumin/Globulin Ratio Lipase Procalcitonin Urine Color Urine Appearance Urine pH Ur Specific [place] Urine Protein Urine Glucose (UA) Urine Ketones Urine Occult Blood Urine Nitrate Urine Bilirubin Ur Bilirubin Confirm Urine Urobilinogen Ur Leukocyte Esterase Urine RBC Urine WBC Ur Squamous Epith Cells Ur Transition Epith Cell Ur Renal Epithelial Cell Calcium Oxalate Crystal Uric Acid Crystals Triple Phos Crystals Other Crystals Amorphous Sediment Urine Bacteria Hyaline Casts Granular Casts RBC Casts WBC Casts Other Casts Urine Mucus Urine Trichomonas Urine Yeast Urine Sperm Ur Culture Indicated? Micro UA Comment Vol Urine Centrifuged Assessment & Plan Assessment & Plan narrative: 1. Acute kidney injury due to volume depletion. Rule out sepsis. 2. Altered mental status with metabolic encephalopathy, possibly due to infection versus volume depletion. 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 History of pulmonary embolus on Eliquis 3. Hypertension 4. Hyperlipidemia 5. Hypothyroidism 6. Chronic pain syndrome on chronic opioid therapy DVT prophylaxis: Eliquis Code status: Do not resuscitate. Her son Silvio is her surrogate decision maker. PLAN: -IV hydration -serial exams -monitor renal function -empiric IV cefepime, continue to monitor cultures -Continue wound VAC. -anticipate discharge to long-term when stable Quality MIPS - Admit I confirm the patient?s Advance Care Plan is present, Code status is documented, Surrogate decision maker is in patient?s record [If Yes, STOP here]: Yes MIPS - Meds 'Current medications' to include all prescriptions, [id number] products, herbals, cannabis/cannabidiol products, and vitamin/mineral/dietary (nutritional) supplements. I have utilized all available resources to obtain, update, or review the patient?s current medications. [If Yes, STOP here]: Yes PROFEE Warehouse Consultant Document charge(s): No Charge Codes Initial inpatient/observation care: [id number]
[2024-07-23] MEDS: DEXTROSE 5%-0.45% NS 1,000 ML 100 ML IV (18:41)
[2024-07-23] MEDS: fentaNYL 12 MCG/PATCH TOP (18:56)
[2024-07-23] MEDS: lisinopriL 20 MG TABLET PO (18:57)
--- NOTE | 2024-07-23 22:02 | PC.WOUNDPHOT ---
For Scale: L lateral calf buttox R Heel, blanchable R inner calf R inner thigh L outer thigh
--- NOTE | 2024-07-23 22:08 | PC.WOUNDPHOT ---
FOR SCALE L outer calf Buttox R heel, blanchable R inner calf R inner thigh L inner thigh L elbow, blanchable
--- NOTE | 2024-07-23 22:13 | PC.WOUNDPHOT ---
^ L thigh ^ R thigh ^ coccyx, non-blanchable ^ underneath R leg ^ side of L leg ^ L elbow
[2024-07-23] MEDS: CEFEPIME 1 GM in SODIUM CHLORIDE 0.9% 100 ML IV (23:55)
[2024-07-24] VITALS (8 sets, daily range): BP systolic 113–161; BP diastolic 42–90; PULSE 69–87; RESP 18–26; TEMP 36.3–37.2; O2SAT 96–98
[2024-07-24] MEDS: LORazepam 2 MG/ML INJ 0.5 MG IV ×3 (01:59→15:24)
[2024-07-24] MEDS: MORPHINE 2 MG/ML INJ IV ×2 (02:09→15:31)
[2024-07-24] MEDS: DEXTROSE 5%-0.45% NS 1,000 ML 100 ML IV ×2 (02:31→13:41)
[2024-07-24 06:05] LABS: Add Manual Diff / Slide Review NO; Basophils Absolute Auto 100 /uL (0-100); Basophils Percent Auto 1.7 % (0-2); Eosinophils Absolute Auto 500 /uL (0-450); Eosinophils Percent Auto 11.6 % (2-4); Hematocrit 30.6 % (36-46); Hemoglobin 10.1 g/dL (12.0-16.0); Lymphocytes Absolute Auto 500 /uL (1100-4500); Lymphocytes Percent Auto 11.7 % (25-40); Mean Corpuscular HGB Conc 33.1 % (30-36); Mean Corpuscular Hemoglobin 29.2 PG (26-34); Mean Corpuscular Volume 88.2 fL (80-100); Monocytes Absolute Auto 700 /uL (0-900); Monocytes Percent Auto 15.4 % (3-14); Neutrophils Absolute Auto 2800 /uL (1500-7000); Neutrophils Percent Auto 59.6 % (50-75); Platelet Count 111 X10^3/uL (150-400); Red Blood Cell Count 3.47 X10^6/uL (4.0-5.2); Red Cell Distribution Width 17.6 % (11.6-14.8); White Blood Cell Count 4.7 X10^3/uL (4.5-11.0)
[2024-07-24 06:17] LABS: BUN Creatinine Ratio 19.1 (6-22); Blood Urea Nitrogen 22 mg/dL (7-17); Calcium 7.1 mg/dL (8.4-10.2); Carbon Dioxide 27 mmol/L (22-32); Chloride 108 mmol/L (98-107); Estimated Glomerular Filt Rate 49 mL/min (>60); Glucose 122 mg/dL (80-110); HEMOLYSIS 47 (0-50); Potassium 3.5 mmol/L (3.4-5.1); Sodium 137 mmol/L (137-145)
--- NOTE | 2024-07-24 10:07 | PC.NURSE ---
pt rambling word salad- pushing and kicking nursing staff when trying to do q2 turns. Unable to follow directions or safely take medication at this time. Provider aware that am meds are being held. Bed alarm on and door open for visibility.
--- NOTE | 2024-07-24 11:37 | DI.CT.S_ITS ---
PROCEDURE: CT HEAD/BRAIN WO CON INDICATIONS: acute confusion TECHNIQUE: Noncontrast 4.5 mm thick angled axial sections acquired from the foramen magnum to the vertex, with coronal and sagittal reformats. For radiation dose reduction, the following was used: automated exposure control, adjustment of mA and/or kV according to patient size. COMPARISON: [facility], CT, CT HEAD/BRAIN WO CON, 06/13/2024, 16:26. FINDINGS: Image quality: There is artifact associated with the metallic hardware. Artifact from the metallic hardware is reduced by metal reconstruction algorithm. CSF spaces: Basal cisterns are patent. No extra-axial fluid collections. The ventricles are symmetric in size and shape. Brain: No intracranial bleeds or mass effect. There is cerebral volume loss, with resultant ventricular and sulcal prominence. There are periventricular and deep white matter chronic small vessel ischemic changes. There is intracranial internal carotid artery atherosclerosis. Symmetric calcification can be seen involving the basal ganglia, which is considered to be normal for age. Skull and face: Calvarium and visualized facial bones appear intact, without suspicious lesions. Sinuses: Visualized sinuses and mastoids are clear. IMPRESSION: No imaging explanation is found for this patient's presenting symptoms. This study similar to the recent prior. Dictated by: Emil English M.D. on 07/24/2024 at 11:36 Approved by: Emil English M.D. on 07/24/2024 at 11:37
--- NOTE | 2024-07-24 13:28 | PM.PN.1 ---
Subjective Subjective Interval history: 79 F who was admitted yesterday with acute confusion and agitated from care home facility with concerns for possible sepsis. Continued to have agitation overnight required doses of benzos and haldol. Exam Vital Signs (past 8 hours): Fraction of Inspired Oxygen 28 SaO2/FiO2 Ratio 357 Oxygen Delivery Method Nasal Cannula Oxygen Flow Rate 0.5 Narrative Exam Narrative: Gen: elderly female, sedated but breathing and appears comfortable after agitation. CV: RRR ABD: S ND Ext: No edema Objective Labs 07/24/24 05:30 07/24/24 05:30 Labs: Laboratory Results - last 24 hr 07/24/24 05:30 WBC 4.7 RBC 3.47 L Hgb 10.1 L Hct 30.6 L MCV 88.2 MCH 29.2 MCHC 33.1 RDW 17.6 H Plt Count 111 L Neut % (Auto) 59.6 Lymph % (Auto) 11.7 L [place] % (Auto) 15.4 H Eos % (Auto) 11.6 H Baso % (Auto) 1.7 Neut # (Auto) 2800 Lymph # (Auto) 500 L [place] # (Auto) 700 Eos # (Auto) 500 H Baso # (Auto) 100 Sodium 137 Potassium 3.5 Chloride 108 H Carbon Dioxide 27 BUN 22 H Creatinine 1.15 H Estimated GFR 49 L BUN/Creatinine Ratio 19.1 Glucose 122 H Calcium 7.1 L PFSH Medical History Chronic kidney disease Facet arthropathy, lumbar Hearing loss associated with syndrome of both ears Herniated nucleus pulposus, L3-4 left History of DVT (deep vein thrombosis) Lumbar foraminal stenosis Lumbar radiculopathy Skin ulceration Surgical History H/O neck surgery History of ankle surgery Hx laparoscopic cholecystectomy Family History Father Hypertension Mother Hypertension Social History household members: spouse alcohol intake: never Assessment & Plan Assessment & Plan narrative: 1. Acute kidney injury due to volume depletion. Rule out sepsis. 2. Acute metabolic encephalopathy, possibly due to infection versus volume depletion. 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 History of pulmonary embolus on Eliquis 3. Hypertension 4. Hyperlipidemia 5. Hypothyroidism 6. Chronic pain syndrome on chronic opioid therapy DVT prophylaxis: Eliquis Code status: Do not resuscitate. Her son Silvio is her surrogate decision maker. PLAN: -Continue IV fluids, renal function is improving today but Cr still elevated. -started on cefepime on admission, UA is negative. CT w/ bilateral pleural effusion unclear if parapneumonic in nature. SOFA score would be >2 if infectious source identified. -no CT head performed on admission, CT non-contrast unremarkable today. Consider MRI if no improvement with antibiotics and fluids. Another possibility is either toxic encephalopathy or ? withdrawal. -empiric IV cefepime, continue to monitor cultures -Continue wound VAC. -anticipate discharge to care home when able, timing unclear -start nightly seroquel at bedtime Time-Based Coding :: [TOTAL MINUTES] spent with patient and on the chart (including review of chart, obtaining history, exam, reviewing outside data, placing orders, documenting exam and treatment plan, and counseling patient) on [DATE].
[2024-07-24] MEDS: CEFEPIME 1 GM in SODIUM CHLORIDE 0.9% 100 ML IV (13:39)
[2024-07-24] MEDS: ALBUTEROL/IPRATROPIUM 3 ML AMPUL INH (21:29)
[2024-07-24] MEDS: QUETIAPINE 25 MG TABLET PO (22:44)
[2024-07-24] MEDS: carvediloL 12.5 MG TABLET 25 MG PO (22:44)
[2024-07-24] MEDS: APIXABAN 5 MG TABLET PO (22:44)
[2024-07-25] VITALS: BP 119/44; PULSE 70; RESP 20; TEMP 36.3; O2SAT 96
[2024-07-25] MEDS: CEFEPIME 1 GM in SODIUM CHLORIDE 0.9% 100 ML IV ×2 (01:30→13:25)
[2024-07-25] MEDS: MORPHINE 2 MG/ML INJ IV (01:31)
[2024-07-25 04:00] VITALS: BP 143/70; PULSE 75; RESP 24; TEMP 36.4; O2SAT 97
--- NOTE | 2024-07-25 04:07 | PC.NURSE ---
shift superintendent: Patient is alert to voice, extremely hard of hearing, using headphones & microphone to communicate. Patient is disoriented, will yell out at times, speech is mostly word-salad. At times patient will ask for water or respond to yes/no questions. Patient was SOB at start of shift; expiratory wheezes heard bilaterally. SpO2 stable in high 90's on 1LNC. Patient's bilateral feet edematous 3+ pitting. Notified MD & called RT for consult; IVF stopped & breathing tx given per RT. Patient's WOB has improved, lungs sound clearer. VSS. Wound vac to L thigh in place, suctioning small amounts of serous fluid. Fall precautions in place, Q2 turning, plan of care ongoing.
[2024-07-25] MEDS: LEVOTHYROXINE 88 MCG TABLET PO (05:18)
[2024-07-25] MEDS: OXYCODONE IR 5 MG TABLET PO (05:19)
[2024-07-25 06:41] LABS: BUN Creatinine Ratio 20.7 (6-22); Blood Urea Nitrogen 19 mg/dL (7-17); Calcium 7.4 mg/dL (8.4-10.2); Carbon Dioxide 26 mmol/L (22-32); Chloride 107 mmol/L (98-107); Estimated Glomerular Filt Rate > 60 mL/min (>60); Glucose 93 mg/dL (80-110); HEMOLYSIS < 15 (0-50); Potassium 3.1 mmol/L (3.4-5.1); Sodium 137 mmol/L (137-145)
[2024-07-25 06:43] LABS: Add Manual Diff / Slide Review NO; Basophils Absolute Auto 0 /uL (0-100); Eosinophils Absolute Auto 100 /uL (0-450); Eosinophils Percent Auto 3.6 % (2-4); Hematocrit 31.6 % (36-46); Hemoglobin 10.2 g/dL (12.0-16.0); Lymphocytes Absolute Auto 700 /uL (1100-4500); Lymphocytes Percent Auto 20.5 % (25-40); Mean Corpuscular HGB Conc 32.3 % (30-36); Mean Corpuscular Hemoglobin 28.5 PG (26-34); Mean Corpuscular Volume 88.4 fL (80-100); Monocytes Absolute Auto 500 /uL (0-900); Monocytes Percent Auto 15.1 % (3-14); Neutrophils Absolute Auto 2100 /uL (1500-7000); Neutrophils Percent Auto 59.8 % (50-75); Platelet Count 133 X10^3/uL (150-400); Red Blood Cell Count 3.58 X10^6/uL (4.0-5.2); Red Cell Distribution Width 17.4 % (11.6-14.8); White Blood Cell Count 3.6 X10^3/uL (4.5-11.0)
[2024-07-25 08:00] VITALS: BP 111/58; PULSE 74; RESP 15; TEMP 36.2; O2SAT 96
--- NOTE | 2024-07-25 10:32 | PC.NURSE ---
Pt alert, decidedly [place]. uses a device that is only minimally helpful. Pt presently up in chair. Restful, eyes closed, RR even and unlaboured. Wound vac patent and intact.
[2024-07-25 12:00] VITALS: BP 130/68; PULSE 72; RESP 15; TEMP 35.9; O2SAT 100
--- NOTE | 2024-07-25 13:20 | CM.DPC ---
DCP Cont. Reviewed EMR and team rounds for status updates. Called and spoke with pt's re: clarification as to what the family is wanting to do in terms of POC, next steps, home with hospice vs. [facility]. They are not sure, and will plan to speak with this MATERIAL PREPARATION WORKER tomorrow after seeing how pt has progressed. After speaking with pt's nurse, Katelyn Esparzae shared that pt is not wanting to be moved, is only taking in a pea size amount of food, and very infrequently. She is also sleeping most of the time. Plan will likely be home with hospice, as she really is not able to work with therapies in such a way to benefit from rehab. Will speak with the family more about this on Wed.
[2024-07-25 16:00] VITALS: BP 154/82; PULSE 83; RESP 15; TEMP 36.9; O2SAT 95
--- NOTE | 2024-07-25 16:09 | PM.PN.1 ---
Subjective Subjective Interval history: 79 F who was admitted yesterday with acute confusion and agitated from nursing home facility with concerns for possible sepsis. Agitation is much improved today, she is hard of hearing so difficult to ascertain adequate exam but is better today. Exam Vital Signs (past 8 hours): - 07/25/24 12:00 Temperature 96.6 F L Pulse Rate 72 Respiratory Rate 15 Blood Pressure 130/68 Pulse Oximetry 100 Oxygen Flow Rate 3 Fraction of Inspired Oxygen 24 SaO2/FiO2 Ratio 395 Oxygen Delivery Method Nasal Cannula Oxygen Flow Rate 3 Narrative Exam Narrative: NAD, alert, hard of hearing, responsive and trying to answer questions. Lungs are clear, normal rate and effort. Heart is regular, no murmur gallop or rub. Abdomen is soft, non distended. Extremities with 1+ pedal edema bilaterally. Wound VAC to wound in medial left thigh. Objective Labs 07/25/24 06:00 07/25/24 06:00 Labs: Laboratory Results - last 24 hr 07/25/24 06:00 WBC 3.6 L RBC 3.58 L Hgb 10.2 L Hct 31.6 L MCV 88.4 MCH 28.5 MCHC 32.3 RDW 17.4 H Plt Count 133 L Neut % (Auto) 59.8 Lymph % (Auto) 20.5 L [place] % (Auto) 15.1 H Eos % (Auto) 3.6 Baso % (Auto) 1.0 Neut # (Auto) 2100 Lymph # (Auto) 700 L [place] # (Auto) 500 Eos # (Auto) 100 Baso # (Auto) 0 Sodium 137 Potassium 3.1 L Chloride 107 Carbon Dioxide 26 BUN 19 H Creatinine 0.92 Estimated GFR > 60 BUN/Creatinine Ratio 20.7 Glucose 93 Calcium 7.4 L [facility] Medical History Chronic kidney disease Facet arthropathy, lumbar Hearing loss associated with syndrome of both ears Herniated nucleus pulposus, L3-4 left History of DVT (deep vein thrombosis) Lumbar foraminal stenosis Lumbar radiculopathy Skin ulceration Surgical History H/O neck surgery History of ankle surgery Hx laparoscopic cholecystectomy Family History Father Hypertension Mother Hypertension Social History household members: spouse alcohol intake: never Assessment & Plan Assessment & Plan narrative: 1. Acute kidney injury due to volume depletion. Rule out sepsis. 2. Acute metabolic encephalopathy, possibly due to infection versus volume depletion. 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 History of pulmonary embolus on Eliquis 3. Hypertension 4. Hyperlipidemia 5. Hypothyroidism 6. Chronic pain syndrome on chronic opioid therapy DVT prophylaxis: Eliquis Code status: Do not resuscitate. Her son Silvio is her surrogate decision maker. PLAN: -Can stop IV fluids with improving encephalopathy and given renal function continues to improve. -started on cefepime on admission, UA is negative. CT w/ bilateral pleural effusion unclear if parapneumonic in nature. SOFA score would be >2 if infectious source identified. -no CT head performed on admission, CT non-contrast unremarkable 07/24. Consider MRI if no additional improvement with antibiotics and fluids. Another possibility is either toxic encephalopathy or ? withdrawal. -empiric IV cefepime, continue to monitor cultures currently with negative blood cultures at 48 hours. -Continue wound VAC. -anticipate discharge to nursing home when able, timing unclear -started nightly seroquel at bedtime on 07/24. Time-Based Coding :: [TOTAL MINUTES] spent with patient and on the chart (including review of chart, obtaining history, exam, reviewing outside data, placing orders, documenting exam and treatment plan, and counseling patient) on [DATE].
[2024-07-25 20:00] VITALS: BP 152/92; PULSE 85; RESP 24; TEMP 36.5; O2SAT 94
[2024-07-25] MEDS: ATORVASTATIN 20 MG TABLET 10 MG PO (20:45)
[2024-07-25] MEDS: APIXABAN 5 MG TABLET PO (20:45)
[2024-07-25] MEDS: carvediloL 12.5 MG TABLET 25 MG PO (20:46)
[2024-07-25] MEDS: QUETIAPINE 25 MG TABLET PO (20:46)
[2024-07-25] MEDS: SODIUM CHLORIDE 0.9% FLUSH 10 ML IV (20:46)
[2024-07-26] VITALS: BP 115/62; PULSE 77; RESP 24; TEMP 36.1; O2SAT 93
[2024-07-26] MEDS: CEFEPIME 1 GM in SODIUM CHLORIDE 0.9% 100 ML IV ×2 (02:32→15:24)
[2024-07-26] MEDS: ACETAMINOPHEN 325 MG TABLET 650 MG PO (03:58)
[2024-07-26 04:00] VITALS: BP 130/72; PULSE 71; RESP 16; TEMP 36.3; O2SAT 93
[2024-07-26 05:17] LABS: Add Manual Diff / Slide Review NO; Basophils Absolute Auto 100 /uL (0-100); Basophils Percent Auto 2.9 % (0-2); Eosinophils Absolute Auto 100 /uL (0-450); Eosinophils Percent Auto 1.9 % (2-4); Hematocrit 30.1 % (36-46); Hemoglobin 10.1 g/dL (12.0-16.0); Lymphocytes Absolute Auto 600 /uL (1100-4500); Lymphocytes Percent Auto 19.7 % (25-40); Mean Corpuscular HGB Conc 33.5 % (30-36); Mean Corpuscular Hemoglobin 28.9 PG (26-34); Mean Corpuscular Volume 86.1 fL (80-100); Monocytes Absolute Auto 400 /uL (0-900); Monocytes Percent Auto 12.6 % (3-14); Neutrophils Absolute Auto 1800 /uL (1500-7000); Neutrophils Percent Auto 62.9 % (50-75); Platelet Count 135 X10^3/uL (150-400); Red Blood Cell Count 3.49 X10^6/uL (4.0-5.2); Red Cell Distribution Width 17.5 % (11.6-14.8); White Blood Cell Count 2.9 X10^3/uL (4.5-11.0)
[2024-07-26 05:25] LABS: BUN Creatinine Ratio 24.5 (6-22); Blood Urea Nitrogen 24 mg/dL (7-17); Calcium 7.8 mg/dL (8.4-10.2); Carbon Dioxide 22 mmol/L (22-32); Chloride 108 mmol/L (98-107); Estimated Glomerular Filt Rate 59 mL/min (>60); Glucose 82 mg/dL (70-99); HEMOLYSIS < 15 (0-50); Potassium 3.2 mmol/L (3.4-5.1); Sodium 136 mmol/L (137-145)
[2024-07-26 08:00] VITALS: BP 120/47; PULSE 68; RESP 16; TEMP 36.1; O2SAT 96
[2024-07-26] MEDS: APIXABAN 5 MG TABLET PO ×2 (08:09→21:25)
--- NOTE | 2024-07-26 08:09 | PM.PN.1 ---
Subjective Subjective Interval history: Summary: 79 F who was admitted yesterday with acute confusion and agitated from long term facility with concerns for possible sepsis. S: She was confused, but in no acute distress. Exam Vital Signs (past 8 hours): - 07/26/24 04:00 Temperature 97.3 F L Pulse Rate 71 Respiratory Rate 16 Blood Pressure 130/72 Pulse Oximetry 93 Fraction of Inspired Oxygen 24 SaO2/FiO2 Ratio 395 Oxygen Delivery Method Room Air Oxygen Flow Rate 0 Narrative Exam Narrative: NAD, alert and oriented to self. Fluent speech. She is clearly cognitively impaired and confused. Lungs are clear, normal rate and effort. Heart is regular, no murmur gallop or rub. Abdomen is soft, non distended. Extremities are free of edema. Objective Imaging CT scan - head: Radiologist's impression: No imaging explanation is found for this patient's presenting symptoms. Labs 07/26/24 05:03 07/26/24 05:03 Labs: Laboratory Results - last 24 hr 07/26/24 05:03 WBC 2.9 L RBC 3.49 L Hgb 10.1 L Hct 30.1 L MCV 86.1 MCH 28.9 MCHC 33.5 RDW 17.5 H Plt Count 135 L Neut % (Auto) 62.9 Lymph % (Auto) 19.7 L [place] % (Auto) 12.6 Eos % (Auto) 1.9 L Baso % (Auto) 2.9 H Neut # (Auto) 1800 Lymph # (Auto) 600 L [place] # (Auto) 400 Eos # (Auto) 100 Baso # (Auto) 100 Sodium 136 L Potassium 3.2 L Chloride 108 H Carbon Dioxide 22 BUN 24 H Creatinine 0.98 Estimated GFR 59 L BUN/Creatinine Ratio 24.5 H Glucose 82 Calcium 7.8 L [facility] Medical History Chronic kidney disease Skin ulceration 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 arthropathy, lumbar Lumbar foraminal stenosis History of DVT (deep vein thrombosis) Herniated nucleus pulposus, L3-4 left Lumbar radiculopathy Surgical History Hx laparoscopic cholecystectomy H/O neck surgery History of ankle surgery Family History Father Hypertension Mother Hypertension Social History household members: spouse alcohol intake: never Assessment & Plan Assessment & Plan narrative: 1. Acute kidney injury due to volume depletion. Present on admission and improved. 2. Acute metabolic encephalopathy, possibly due to infection versus volume depletion. 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 History of pulmonary embolus on Eliquis 3. Hypertension 4. Hyperlipidemia 5. Hypothyroidism 6. Chronic pain syndrome on chronic opioid therapy 7. Presumed chronic cognitive impairment. PLAN: -continue antibiotics and follow mental status. -anticipate return to long term facility when stable. Likely another 1-2 midnights. DVT prophylaxis: Eliquis Code status: Do not resuscitate. Her son Silvio is her surrogate decision maker. Time-Based Coding :: [TOTAL MINUTES] spent with patient and on the chart (including review of chart, obtaining history, exam, reviewing outside data, placing orders, documenting exam and treatment plan, and counseling patient) on [DATE].
[2024-07-26 08:10] VITALS: BP 120/47; PULSE 60
[2024-07-26] MEDS: LEVOTHYROXINE 88 MCG TABLET PO (08:10)
[2024-07-26] MEDS: carvediloL 12.5 MG TABLET 25 MG PO ×2 (08:10→21:24)
[2024-07-26] MEDS: lisinopriL 20 MG TABLET PO (08:10)
[2024-07-26] MEDS: POTASSIUM CHLORIDE IN WATER 10 MEQ/100 ML PIGGYBACK 100 MEQ IV ×4 (08:11→11:28)
[2024-07-26] MEDS: SODIUM CHLORIDE 0.9% FLUSH 10 ML IV (09:18)
[2024-07-26] MEDS: fentaNYL 12 MCG/PATCH TOP (17:58)
[2024-07-26] MEDS: OXYCODONE IR 5 MG TABLET PO (18:00)
[2024-07-26] MEDS: SODIUM CHLORIDE 0.9% 1,000 ML 75 ML IV (18:48)
[2024-07-26 20:00] VITALS: BP 125/58; PULSE 68; RESP 20; TEMP 36.4; O2SAT 94
[2024-07-26 21:24] VITALS: BP 125/58; PULSE 68
[2024-07-26] MEDS: ATORVASTATIN 20 MG TABLET 10 MG PO (21:24)
[2024-07-26] MEDS: MELATONIN 3 MG TABLET PO (21:25)
[2024-07-26] MEDS: QUETIAPINE 25 MG TABLET PO (21:25)
[2024-07-27] MEDS: CEFEPIME 1 GM in SODIUM CHLORIDE 0.9% 100 ML IV ×2 (01:38→16:34)
[2024-07-27 05:20] LABS: Add Manual Diff / Slide Review NO; Basophils Absolute Auto 0 /uL (0-100); Basophils Percent Auto 1.2 % (0-2); Eosinophils Absolute Auto 200 /uL (0-450); Hematocrit 29.6 % (36-46); Hemoglobin 9.9 g/dL (12.0-16.0); Lymphocytes Absolute Auto 900 /uL (1100-4500); Lymphocytes Percent Auto 22.7 % (25-40); Mean Corpuscular HGB Conc 33.5 % (30-36); Mean Corpuscular Hemoglobin 28.8 PG (26-34); Mean Corpuscular Volume 86.2 fL (80-100); Monocytes Absolute Auto 400 /uL (0-900); Monocytes Percent Auto 10.5 % (3-14); Neutrophils Absolute Auto 2300 /uL (1500-7000); Neutrophils Percent Auto 59.6 % (50-75); Platelet Count 129 X10^3/uL (150-400); Red Blood Cell Count 3.43 X10^6/uL (4.0-5.2); Red Cell Distribution Width 17.9 % (11.6-14.8); White Blood Cell Count 3.8 X10^3/uL (4.5-11.0)
[2024-07-27 05:27] LABS: BUN Creatinine Ratio 27.4 (6-22); Blood Urea Nitrogen 26 mg/dL (7-17); Calcium 8.4 mg/dL (8.4-10.2); Carbon Dioxide 22 mmol/L (22-32); Chloride 108 mmol/L (98-107); Estimated Glomerular Filt Rate > 60 mL/min (>60); Glucose 77 mg/dL (70-99); HEMOLYSIS < 15 (0-50); Potassium 3.8 mmol/L (3.4-5.1); Sodium 135 mmol/L (137-145)
[2024-07-27] MEDS: OXYCODONE IR 5 MG TABLET PO (05:30)
[2024-07-27] MEDS: hydrOXYzine HCL 25 MG TABLET PO (05:31)
[2024-07-27] MEDS: LEVOTHYROXINE 88 MCG TABLET PO (05:31)
--- NOTE | 2024-07-27 07:35 | PM.PN.1 ---
Subjective Subjective Interval history: S: She was doing a little bit better today. She does think she was in [place]. Otherwise she was following conversation and appropriate. Exam Vital Signs (past 8 hours): Fraction of Inspired Oxygen 24 SaO2/FiO2 Ratio 395 Oxygen Delivery Method Room Air Oxygen Flow Rate 0 Narrative Exam Narrative: NAD, alert and oriented. Fluent speech. Lungs are clear, normal rate and effort. Heart is regular, no murmur gallop or rub. Abdomen is soft, non distended. Extremities are free of edema. Wound VAC is on her leg wound. Objective Labs 07/27/24 04:37 07/27/24 04:37 Labs: Laboratory Results - last 24 hr 07/27/24 04:37 WBC 3.8 L RBC 3.43 L Hgb 9.9 L Hct 29.6 L MCV 86.2 MCH 28.8 MCHC 33.5 RDW 17.9 H Plt Count 129 L Neut % (Auto) 59.6 Lymph % (Auto) 22.7 L [place] % (Auto) 10.5 Eos % (Auto) 6.0 H Baso % (Auto) 1.2 Neut # (Auto) 2300 Lymph # (Auto) 900 L [place] # (Auto) 400 Eos # (Auto) 200 Baso # (Auto) 0 Sodium 135 L Potassium 3.8 Chloride 108 H Carbon Dioxide 22 BUN 26 H Creatinine 0.95 Estimated GFR > 60 BUN/Creatinine Ratio 27.4 H Glucose 77 Calcium 8.4 PFSH Medical History Chronic kidney disease Skin ulceration 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 arthropathy, lumbar Lumbar foraminal stenosis History of DVT (deep vein thrombosis) Herniated nucleus pulposus, L3-4 left Lumbar radiculopathy Surgical History Hx laparoscopic cholecystectomy H/O neck surgery History of ankle surgery Family History Father Hypertension Mother Hypertension Social History household members: spouse alcohol intake: never Assessment & Plan Assessment & Plan narrative: 1. Acute kidney injury due to volume depletion. Present on admission and improved. 2. Acute septic encephalopathy, possibly due to infection. Present on admission and improving. 3. 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 2. History of pulmonary embolus on Eliquis, present on admission and stable. 3. Hypertension, present on admission and stable. 4. Hyperlipidemia, present on admission and stable. 5. Hypothyroidism, present on admission and stable. 6. Chronic pain syndrome on chronic opioid therapy, present on admission and stable. 7. Presumed chronic cognitive impairment, present on admission and stable. PLAN: -continue antibiotics and follow mental status. -wound care for a wound VAC change today and inspect the wound. -anticipate return to senior care facility when stable. Likely another 1-2 midnights. Time-Based Coding :: [TOTAL MINUTES] spent with patient and on the chart (including review of chart, obtaining history, exam, reviewing outside data, placing orders, documenting exam and treatment plan, and counseling patient) on [DATE].
[2024-07-27 08:00] VITALS: BP 114/73; PULSE 68; RESP 16; TEMP 36.6; O2SAT 98
[2024-07-27 09:02] VITALS: BP 114/73; PULSE 68
[2024-07-27] MEDS: carvediloL 12.5 MG TABLET 25 MG PO ×2 (09:02→21:17)
[2024-07-27 09:03] VITALS: BP 114/73; PULSE 68
[2024-07-27] MEDS: lisinopriL 20 MG TABLET PO (09:03)
[2024-07-27] MEDS: APIXABAN 5 MG TABLET PO ×2 (09:04→21:18)
--- NOTE | 2024-07-27 09:18 | PT.IIE ---
Current Diagnoses Acute kidney failure, unspecified (07/25/24) Surgical History (Last Reviewed 07/26/24 @ 08:10 by Cristi Bundy MD) H/O neck surgery History of ankle surgery Hx laparoscopic cholecystectomy Medical History (Last Reviewed 07/26/24 @ 08:10 by Cristi Bundy MD) Chronic kidney disease Facet arthropathy, lumbar Hearing loss associated with syndrome of both ears Herniated nucleus pulposus, L3-4 left History of DVT (deep vein thrombosis) Lumbar foraminal stenosis Lumbar radiculopathy Skin ulceration Physical Therapy Inpatient Evaluation/Re-Eval M1 PT/OT-IP Prior Functional Status Start: 07/27/24 09:24 Freq: NEEDED Status: Active Protocol: Document 07/27/24 09:18 DLM (Rec: 07/27/24 09:42 DLM Desktop) Medical Review Prior Functional Status Medical History Reviewed Yes Diet/Fluid Consistency Regular Communication very hard of hearing bilaterally impaired cognition Mobility and Gait ambulates with fWW Activities of Daily Living and IADL's has been assisted with wound vac and staying at SNF Social History Household Members spouse Living Arrangements Skilled Nurse Facility Home Equipment Front Wheel Walker Additional Social History Comment she was admitted from SNF rehab where she has been since at least June M2 PT-IP Current Condition Start: 07/27/24 09:24 Freq: NEEDED Status: Active Protocol: Document 07/27/24 09:18 DLM (Rec: 07/27/24 09:42 DLM Desktop) Physical Therapy Current Condition Current Condition Evaluation Date 07/27/24 Treatment Diagnosis AMS, NEELIMA, impaired gait Onset Date 07/25/24 M3 PT-IP Subjective Start: 07/27/24 09:24 Freq: NEEDED Status: Active Protocol: Document 07/27/24 09:18 DLM (Rec: 07/27/24 09:42 DLM Desktop) Subjective Physical Therapy Visit Type Type Initial Evaluation Visit Start Time 08:47 Visit Stop Time 09:18 Notes 31 min Number of NET MANAGER Visits 0 Physical Therapy Visit Comments Patient Comments She reports her left calf is sore today. She is concerned about having a jay catheter. She wants use her Pocket talker to help with her hearing (device from [employer] rehab present in her room). Patient Goals She is not able to state Therapy Pain Assessment Pain When Pain Assessed During Mobility Pain Present Pain Present Pain Reported M4 PT-IP Mobility and Gait Start: 07/27/24 09:24 Freq: NEEDED Status: Active Protocol: Document 07/27/24 09:18 DLM (Rec: 07/27/24 09:42 DLM Desktop) PT-Bed Mobility Assessment Rolling Level of Assist Minimal Assistance Supine to Sit Supine to Sit Moderate Assistance Scooting Scooting to Edge of Bed Minimal Assistance PT-Transfer Assessment Sit to and From Stand Sit to and from Stand Contact Guard Assistance, Minimal Assistance,Use of Upper Extremities Equipment Transfer Assistive Device Gait Belt,Front Wheeled Walker Transfers Transfer Destination Chair Transfer Technique Stand Step Pivot Transfer Ability Level of Assist Minimal Assistance,Use of Upper Extremities Comments Mobility Comments The bed is tall for her, she has difficulty scooting forward with reports of soreness on back of legs from the edge of the bed. She has difficulty getting left foot flat on floor with initial standing with pt weight bearing on toes. She gradually progressed to left foot flat as she took small steps during the transfer to the chair. Pt requested her feet up when in chair. Pt set up for breakfast. Chair alarm in use. She is pleasant and cooperative with care this visit. Pt making her needs known. She is able to participate better in conversation with use of the pocket talker. Gait Assessment Comments Gait Comments pt did not progress beyond transfer to the chair this visit PT-Balance Assessment Sitting Balance and Reactions Static Sitting Balance Ability Good Dynamic Sitting Balance Ability Good Standing Balance and Reactions Static Standing Balance Ability Fair Dynamic Standing Balance Ability Fair Device Used FWW M5 PT-IP Objective Assessments Start: 07/27/24 09:24 Freq: NEEDED Status: Active Protocol: Document 07/27/24 09:18 DLM (Rec: 07/27/24 09:42 DLM Desktop) Orientation Orientation/Cognition Level of Alertness Alert Orientation Name,Birthday Language Function Ability Hard of Hearing Safety Awareness Decreased Safety Awareness Memory Description Short Term Impaired,Operations Officer Afloat Impaired Comments she did not attempt unsafe activity this visit, able to follow verbal instructions. Gross Range of Motion Upper Extremity ROM Assessment Bilaterally Impaired Lower Extremity ROM Assessment Bilaterally Impaired Strength Upper Extremity Strength Assessment Bilaterally Impaired Lower Extremity Strength Assessment Bilaterally Impaired Comments Strength Comments wound vac left thigh area pt reports hx of shoulder impairments, has difficulty pushing with UE's on the bed to assist mobility, has difficulty lifting shoulders to reach items on breakfast tray Coordination Assessment Gross Coordination Gross Coordination WNL Muscle Tone Muscle Tone WNL Yes M6 PT-IP Treatment Start: 07/27/24 09:24 Freq: NEEDED Status: Active Protocol: Document 07/27/24 09:18 DLM (Rec: 07/27/24 09:42 DLM Desktop) Physical Therapy Treatment Education Education Provided Safety M7 PT-IP Assessment and Plan Start: 07/27/24 09:24 Freq: NEEDED Status: Active Protocol: Document 07/27/24 09:18 DLM (Rec: 07/27/24 09:42 DLM Desktop) PT Summary Assessment and Plan Potential Rehabilitation Potential Good Status of Condition at Evaluation Evolving Summary Impairments Pain,ROM,Strength,Balance, Cognition,Bed Mobility, Transfers,Gait,Activity Tolerance Assessment Summary Latasha is alert and pleasant this morning. She is using a pocket talker to assist with her impaired hearing. She reports having LE pain but can not rate it. She requested her morning pain medication. She was able to stand with the FWW and progress to transfer to the recliner for breakfast. She has generalized stiffness in LE's with difficulty getting left foot flat on floor with initial standing. She is cooperative and shows good participation in activity . She has generalized weakness throughout. She was admitted from SNF rehab at [facility]. Recommend she return to SNF rehab at discharge. Pt needs assist to manage her left LE wound vac during all mobility. Goals Bed Mobility Goal Standby Assistance Transfer Goal Standby Assistance,Front Wheeled Walker Gait Goal Independent,Front Wheel Walker Gait Distance 50 feet Days to Meet Goals 5 Frequency of Treatment Frequency Of Treatment Once a Day Treatment Plan Physical Therapy Treatment Plan Bed Mobility Training,Transfer Training,Gait Training, Therapeutic Exercise,Balance Retraining,Discharge Planning, Neuromuscular Re-ed Precautions Other Precautions wound vac, jay catheter Recommendations To Nursing Amount of Assist Needed 1 Person Assist Discharge Recommendations PT Discharge Recommendations SNF Rehab Other Discharge Recommendations back to SNF rehab Transportation Needs at Discharge Wheelchair/Cabulance - PT assist 1
--- NOTE | 2024-07-27 11:13 | OT.IP.EVAL ---
Current Diagnoses Acute kidney failure, unspecified (07/25/24) Past Medical History (Last Reviewed 07/26/24 @ 08:10 by Cristi Bunyd MD) Chronic kidney disease Facet arthropathy, lumbar Hearing loss associated with syndrome of both ears Herniated nucleus pulposus, L3-4 left History of DVT (deep vein thrombosis) Lumbar foraminal stenosis Lumbar radiculopathy Skin ulceration Surgical History (Last Reviewed 07/26/24 @ 08:10 by Cristi Bundy MD) H/O neck surgery History of ankle surgery Hx laparoscopic cholecystectomy Occupational Therapy Inpatient Evaluation/Re-Eval M1 PT/OT-IP Prior Functional Status Start: 07/27/24 09:24 Freq: NEEDED Status: Active Protocol: Document 07/27/24 11:13 CCC (Rec: 07/27/24 11:26 [facility]3] Desktop) Medical Review Prior Functional Status Medical History Reviewed Yes Diet/Fluid Consistency Regular Communication very hard of hearing bilaterally impaired cognition Mobility and Gait ambulates with fWW Activities of Daily Living and IADL's has been assisted with wound vac and staying at SNF. Pt states needing assist for ADL' s as is very stiff and has difficulty to bend over per pt . Social History Household Members spouse Living Arrangements Skilled Nurse Facility Home Equipment Front Wheel Walker Additional Social History Comment she was admitted from SNF rehab where she has been since at least June M2 OT-IP Current Condition Start: 07/27/24 11:13 Freq: Status: Active Protocol: Document 07/27/24 11:13 CCC (Rec: 07/27/24 11:26 [facility]3] Desktop) Occupational Therapy Current Condition Current Condition Evaluation Date 07/27/24 Treatment Diagnosis AMS with metabolic encephalopathy, acute kidney injury M3 OT- IP Subjective and Pain Start: 07/27/24 11:13 Freq: Status: Active Protocol: Document 07/27/24 11:13 CCC (Rec: 07/27/24 11:26 [facility]3] Desktop) OT- Subjective Occupational Therapy Visit Type Type Initial Evaluation Notes Pt has wound wac left inner thigh, which machine states had a leakidentified and nursing notified. Occupational Therapy Visit Comments Patient Comments Pt very hard of hearing and using pocket talker- wanting to get up to use the bathroom. Patient/Caregiver Goals TO get better. OT Pain Assessment Pain When Pain Assessed During Mobility Pain Present Pain Present Pain Reported M4 OT- IP ADL's Start: 07/27/24 11:13 Freq: Status: Active Protocol: Document 07/27/24 11:13 [facility]3] (Rec: 07/27/24 11:26 [facility]3] Desktop) OT [id number] Comments OT Self-Feeding Comments Not at meal time. Pt will need assist for set-up. OT ADL-Grooming General Evaluation Grooming Ability Standby Assistance Areas Needing Assistance Retrieving/Set-up of Grooming Items Comments OT Grooming Comments Assist for set-up of items, able to do while seated. OT ADL-Oral Care General Eval Oral Care Ability Independent Comments Oral Care Comments While seated. OT ADL-Dressing General Eval Lower Body Dressing Ability Maximum Assistance Areas Needing Assistance Socks OT ADL-Toileting General Evaluation Toileting Ability Maximum Assistance Comments OT Toileting Comments MODA x1 to help stand to the FWW and assist from nursing aid for hygiene needs. OT ADL-Bathing Comments OT Bathing Comments Sponge bath more appropriate at this time. M5 OT- IP IADL's Start: 07/27/24 11:13 Freq: Status: Active Protocol: Document 07/27/24 11:13 [facility]3] (Rec: 07/27/24 11:26 [facility]3] Desktop) OT-Instrumental Activities of Daily Living Medication Management Medication Management Caregiver Administers Money Management Money Management Caregiver Provides Assistance Meal Preparation Meal Preparation Caregiver Provides Assist Gas Meter Prover Gas Meter Prover Caregiver Provides Assist M6 OT- IP Functional Cognition Start: 07/27/24 11:13 Freq: Status: Active Protocol: Document 07/27/24 11:13 [facility]3] (Rec: 07/27/24 11:26 [facility]3] Desktop) Cognitive Factors Limiting Selfcare Function Cognitive Ability Level of Alertness Alert Patient Orientation Name,Situation Attention Span Ability Capable of Focused Attention, Capable of Sustained Attention Ability to Follow Commands Able to Follow One Step Commands Memory Description Short Term Impaired Cognitive Comments Cognitive Assessment Comments Pt very hard of hearing but able to follow commands for ADL and mobility needs. Pt having word finding difficulties. OT- Vision and Hearing OT- Vision Assessment Vision Assessment Comments Pt use of pocket talker. Pt able to read the clock but states time of 1173 versus 1138. M7 OT- IP Mobility and Balance Start: 07/27/24 11:13 Freq: Status: Active Protocol: Document 07/27/24 11:13 [facility]3] (Rec: 07/27/24 11:26 [facility]3] Desktop) OT-Transfer Assessment Sit to and From Stand Sit to and from Stand Moderate Assistance Transfers Transfer Ability Moderate Assistance,1 Person Assistance,2 Person Assistance Technique Transfer Destination Bedside Commode,Chair Transfer Technique Stand Step Pivot Devices Transfer Assistive Devices Gait Belt,Front Wheeled Walker Comments Mobility Comments Pt needing MODA to stand from the recliner and MODA to transfer to the [facility] with FWW. Assist for balance and to guide the FWW. On the way back to the recliner, pt needing 2 person assist as tiring very quickly. OT- Balance Assessment Sitting Balance and Reactions Static Sitting Balance Ability Good Dynamic Sitting Balance Ability Fair Standing Balance and Reactions Static Standing Balance Ability Poor Dynamic Standing Balance Ability Poor M8 OT- IP Objective Assessments Start: 07/27/24 11:13 Freq: Status: Active Protocol: Document 07/27/24 11:13 [facility]3] (Rec: 07/27/24 11:26 [facility]3] Desktop) OT Gross Range of Motion Upper Extremity Range of Motion Assessment Bilaterally Impaired OT Strength Upper Extremity Strength Assessment Bilaterally Impaired OT- Coordination Assessment Comments Coordination Comments Arthritic changes in her hands . OT Sensation Assessment Comments Summary Comments Intact for light touch. M9 OT- IP Assessment and Plan Start: 07/27/24 11:13 Freq: Status: Active Protocol: Document 07/27/24 11:13 [facility]3] (Rec: 07/27/24 11:26 [facility]3] Desktop) OT Summary Assessment and Plan Potential Rehabilitation Potential Good Analytic Complexity at Evaluation Moderate Summary OT Impairments Pain,Range of Motion,Strength, Balance,Functional Cognition, Functional Mobility,Self- Feeding,Grooming,Dressing, Toileting,Bathing,Toilet Transfers,Shower Transfers, Activity Tolerance Progress Towards Goals Slow Progress due to Pain,Slow Progress due to Medical Issues,Slow Progress due to Activity Tolerance,Slow Progress due to Cognition Assessment Summary Pt MOD complexity and main barriers are pain, decreased activity tolerance, strength , and now needing 1-2 person assist for ADL and mobility needs. Pt will benefit to return back to SNF for rehab. Goals Self-Feeding Goal Standby Assistance Grooming Goal Standby Assistance Dressing Goal Minimal Assistance Toileting Goal Minimal Assistance Bathing Goal Moderate Assistance Toilet Transfer Goal Standby Assistance Shower Transfer Goal Contact Guard Assistance Days to Meet Goals 15 Frequency of Treatment Other frequency 5x/week Treatment Plan OT Treatment Plan ADL Training,Functional Cognition Training,Functional Mobility,Patient/Family Education,Discharge Planning Other Treatment Recommendations and Next Transfer to [facility] with MODA x1 Treatment Focus with FWW. Discharge Recommendations OT Discharge Recommendations SNF Rehab Transportation Needs at Discharge Wheelchair/Cabulance
--- NOTE | 2024-07-27 11:27 | CM.DPC ---
Addendum entered and electronically signed by MERT Ruiz 07/27/24 13:34: [facility] can accept pt in the am tomorrow, 07/27/24. [facility] Auth#[id number] Original Note: DCP Cont. Reviewed EMR and team rounds for status updates. Sent clinicals to [facility] for SNF auth, pending response. [facility] can accept.
--- NOTE | 2024-07-27 14:13 | CM.DPNOTE ---
Faxed clinicals to [facility] to review for SNF auth and secure emailed clinicals to [facility] to review and upload in their system per [facility] request. MERT Obregon
[2024-07-27] MEDS: MORPHINE 2 MG/ML INJ IV (15:04)
[2024-07-27] MEDS: LIDOCAINE 4% SOLN 50 ML 20 ML TOP (16:33)
--- NOTE | 2024-07-27 17:17 | PC.NURSE ---
Pt sat in chair for meals. Full Wound vac dsg change. Med prior to dsg change Smaller Wound vac that came w/ pt belongs [facility], per pt son Wound vac was replaced w/ an [facility] one due to unavailability for canisters. Pt one placed in bag in pt room Pt resting quietly at this time Call light w/in reach, bed alarm oin for pt safety. Continue w/plan of care
[2024-07-27 20:00] VITALS: BP 160/79; PULSE 74; RESP 18; TEMP 36.4; O2SAT 97
[2024-07-27] MEDS: SODIUM CHLORIDE 0.9% 1,000 ML 75 ML IV (20:35)
[2024-07-27 21:17] VITALS: BP 160/79; PULSE 74
[2024-07-27] MEDS: ATORVASTATIN 20 MG TABLET 10 MG PO (21:17)
[2024-07-27] MEDS: QUETIAPINE 25 MG TABLET PO (21:18)
[2024-07-28] MEDS: CEFEPIME 1 GM in SODIUM CHLORIDE 0.9% 100 ML IV ×2 (01:47→14:57)
[2024-07-28] MEDS: LEVOTHYROXINE 88 MCG TABLET PO (05:35)
[2024-07-28] MEDS: OXYCODONE IR 5 MG TABLET PO (05:39)
--- NOTE | 2024-07-28 07:32 | P.PN_ITS ---
Subjective Subjective Interval history: Summary: The patient came from [facility]. 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 This is colonized with Pseudomonas. She was admitted with possible acute septic encephalopathy and wound infection. The wound VAC was changed on July 27 and does not really appear infected. There is some necrotic tissue in the wound. The patient does have chronic cognitive impairment and is improving. Subjective: She was very hard of hearing, and has no complaints. Exam Vital Signs (past 8 hours): Fraction of Inspired Oxygen 24 SaO2/FiO2 Ratio 395 Oxygen Delivery Method Room Air Oxygen Flow Rate 0 Narrative Exam Narrative: NAD, alert and oriented. Fluent speech. Lungs are clear, normal rate and effort. Heart is regular, no murmur gallop or rub. Abdomen is soft, non distended. Extremities are free of edema. She has a wound VAC on her left inner thigh wound. There is a dressing on her right inner thigh wound. These are both presumed from calciphylaxis. Objective Imaging Multiple studies:: Radiologist's impression: Head CT: No imaging explanation is found for this patient's presenting symptoms. This study similar to the recent prior. Abdomen pelvis CT: No obstructing stones or hydronephrosis. Small left greater right pleural effusions with small adjacent consolidations favored to represent compressive atelectasis with infection not excluded. Chest x-ray: No acute cardiopulmonary abnormality is seen. 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 Acute kidney injury due to volume depletion. Present on admission and improved. 2. Acute septic encephalopathy, possibly due to infection. Present on admission and improving. 3. 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 2. History of pulmonary embolus on Eliquis, present on admission and stable. 3. Hypertension, present on admission and stable. 4. Hyperlipidemia, present on admission and stable. 5. Hypothyroidism, present on admission and stable. 6. Chronic pain syndrome on chronic opioid therapy, present on admission and stable. 7. Presumed chronic cognitive impairment, present on admission and stable. PLAN: -continue antibiotics and follow mental status. -wound care for a wound VAC change today and inspect the wound. -anticipate return to group home facility with a wound vac on 07/29. -can stop antibiotics at discharge. We will be sure that patient was rerouted to the wound care clinic for closer inspection and debridement of these wounds over the next several days. Time-Based Coding :: [TOTAL MINUTES] spent with patient and on the chart (including review of chart, obtaining history, exam, reviewing outside data, placing orders, documenting exam and treatment plan, and counseling patient) on [DATE].
[2024-07-28] MEDS: SODIUM CHLORIDE 0.9% FLUSH 10 ML IV ×2 (09:03→20:55)
[2024-07-28] MEDS: carvediloL 12.5 MG TABLET 25 MG PO ×2 (09:03→20:55)
[2024-07-28] MEDS: lisinopriL 20 MG TABLET PO (09:03)
[2024-07-28] MEDS: APIXABAN 5 MG TABLET PO ×2 (09:04→20:54)
[2024-07-28] MEDS: SODIUM CHLORIDE 0.9% 1,000 ML 75 ML IV (09:05)
--- NOTE | 2024-07-28 10:50 | PT.IPTN ---
Current Diagnoses Acute kidney failure, unspecified (07/25/24) Physical Therapy Treatment Note M2 PT-IP Current Condition Start: 07/27/24 09:24 Freq: NEEDED Status: Active Protocol: Document 07/27/24 09:18 DLM (Rec: 07/27/24 09:42 DLM Desktop) Physical Therapy Current Condition Current Condition Evaluation Date 07/27/24 Treatment Diagnosis AMS, NEELIMA, impaired gait Onset Date 07/25/24 M3 PT-IP Subjective Start: 07/27/24 09:24 Freq: NEEDED Status: Active Protocol: Document 07/28/24 10:50 AB (Rec: 07/28/24 13:33 AB [id number]) Subjective Physical Therapy Visit Type Type Treatment Note Visit Start Time 10:50 Visit Stop Time 11:25 Number of UNDERGROUND DRILL OPERATOR Visits 0 Physical Therapy Visit Comments Patient Comments agreeable to do PT M4 PT-IP Mobility and Gait Start: 07/27/24 09:24 Freq: NEEDED Status: Active Protocol: Document 07/28/24 10:50 AB (Rec: 07/28/24 13:33 AB [id number]) PT-Bed Mobility Assessment Supine to Sit Supine to Sit Maximum Assistance Scooting Scooting to Edge of Bed Maximum Assistance PT-Transfer Assessment Sit to and From Stand Sit to and from Stand Maximum Assistance,1 Person Assistance,Use of Upper Extremities Equipment Transfer Assistive Device Gait Belt,Front Wheeled Walker Orthotic/Prosthetic Devices or Brace: No Transfers Transfer Destination Chair Transfer Technique Stand Step Pivot Transfer Ability Level of Assist Maximum Assistance,1 Person Assistance,Use of Upper Extremities Comments Mobility Comments pt in bed and is very [place]. ear amplifier used. pt agreed to get up. pt with slight confusion and needs cues with all tasks. completes supine to sit max A and max cues. increase posterior trunk lean. repositioned pt requiring max A for scooting to EOB. completed sit to stand max A and max cues and step transfer to chair using fWW max A and max cues. pt requesting to use the toilet. sit to stand from the chair max A and ambulated to the toilet using FWW mod to max A and max cues. needed assist for maneuvering FWW. left pt with OT. Gait Assessment Gait Gait Assistance Required: Moderate Assistance,Maximum Assistance Distance (Feet) 12 Able to Maintain Weight Bearing Status Yes During Gait Assistive Devices Assistive Device Gait Belt,Front Wheeled Walker Orthotic/Prosthetic Devices or Brace: No Gait Deviations General Gait Pattern Decreased Stride Length, Decreased Feet Clearance Factors Limiting Gait Function Factors Limiting Gait Function Decreased Activity Tolerance, Decreased Strength,Difficulty Following Directions,Limited Range of Motion,Poor Balance, Poor Safety Awareness M5 PT-IP Objective Assessments Start: 07/27/24 09:24 Freq: NEEDED Status: Active Protocol: Document 07/27/24 09:18 DLM (Rec: 07/27/24 09:42 DLM Desktop) Orientation Orientation/Cognition Level of Alertness Alert Orientation Name,Birthday Language Function Ability Hard of Hearing Safety Awareness Decreased Safety Awareness Memory Description Short Term Impaired,[place] Helper Impaired Comments she did not attempt unsafe activity this visit, able to follow verbal instructions. Gross Range of Motion Upper Extremity ROM Assessment Bilaterally Impaired Lower Extremity ROM Assessment Bilaterally Impaired Strength Upper Extremity Strength Assessment Bilaterally Impaired Lower Extremity Strength Assessment Bilaterally Impaired Comments Strength Comments wound vac left thigh area pt reports hx of shoulder impairments, has difficulty pushing with UE's on the bed to assist mobility, has difficulty lifting shoulders to reach items on breakfast tray Coordination Assessment Gross Coordination Gross Coordination WNL Muscle Tone Muscle Tone WNL Yes M6 PT-IP Treatment Start: 07/27/24 09:24 Freq: NEEDED Status: Active Protocol: Document 07/28/24 10:50 AB (Rec: 07/28/24 13:33 AB [id number]) Physical Therapy Treatment Education Education Provided Safety M7 PT-IP Assessment and Plan Start: 07/27/24 09:24 Freq: NEEDED Status: Active Protocol: Document 07/28/24 10:50 AB (Rec: 07/28/24 13:33 AB [id number]) PT Summary Assessment and Plan Potential Rehabilitation Potential Fair Summary Impairments Pain,ROM,Strength,Balance, Coordination,Sensation,Tone, Cognition,Bed Mobility, Transfers,Gait,Activity Tolerance Progress Towards Goals Slow Progress due to Medical Issues,Slow Progress due to Activity Tolerance,Slow Progress - Other Assessment Summary pt requiring max A with sit to stand and transfers using FWW max A. pt able to ambulate to day using FWW ~ 12 ft mod to max A and max cues. pt has been staying at [facility] . Goals Bed Mobility Goal Standby Assistance Transfer Goal Standby Assistance,Front Wheeled Walker Gait Goal Independent,Front Wheel Walker Gait Distance 50 feet Days to Meet Goals 5 Frequency of Treatment Frequency Of Treatment Once a Day Treatment Plan Physical Therapy Treatment Plan Bed Mobility Training,Transfer Training,Gait Training, Therapeutic Exercise,Balance Retraining,Discharge Planning, Neuromuscular Re-ed Precautions Other Precautions wound vac, jay catheter Recommendations To Nursing Amount of Assist Needed 1 Person Assist Discharge Recommendations PT Discharge Recommendations SNF Rehab Transportation Needs at Discharge Wheelchair/Cabulance - PT assist 1
--- NOTE | 2024-07-28 10:58 | OT.IP.TRT ---
Current Diagnoses Acute kidney failure, unspecified (07/25/24) Occupational Therapy Treatment Note M2 OT-IP Current Condition Start: 07/27/24 11:13 Freq: Status: Active Protocol: Document 07/27/24 11:13 [facility] (Rec: 07/27/24 11:26 [facility] Desktop) Occupational Therapy Current Condition Current Condition Evaluation Date 07/27/24 Treatment Diagnosis AMS with metabolic encephalopathy, acute kidney injury M3 OT- IP Subjective and Pain Start: 07/27/24 11:13 Freq: Status: Active Protocol: Document 07/28/24 12:37 [facility] (Rec: 07/28/24 12:45 [facility] Desktop) OT- Subjective Occupational Therapy Visit Type Type Treatment Note Visit Start Time 11:19 Visit Stop Time 11:57 Occupational Therapy Visit Comments Patient Comments Pt heading to the toilet with PT when OT take over after assisted PT to get to the toilet. Patient/Caregiver Goals TO get better. OT Pain Assessment Pain When Pain Assessed During Mobility Pain Present Pain Present Pain Reported M4 OT- IP ADL's Start: 07/27/24 11:13 Freq: Status: Active Protocol: Document 07/28/24 12:37 [facility] (Rec: 07/28/24 12:45 [facility] Desktop) OT [id number] Comments OT Self-Feeding Comments Not at meal time. Pt will need assist for set-up. OT ADL-Toileting General Evaluation Toileting Ability Maximum Assistance Comments OT Toileting Comments MODA x1 to help stand to the FWW while nursing assist for completeness for hygiene needs . Pt able to attempt to wipe. OT ADL-Bathing Comments OT Bathing Comments Sponge bath more appropriate at this time. M5 OT- IP IADL's Start: 07/27/24 11:13 Freq: Status: Active Protocol: Document 07/27/24 11:13 [facility] (Rec: 07/27/24 11:26 [facility] Desktop) OT-Instrumental Activities of Daily Living Medication Management Medication Management Caregiver Administers Money Management Money Management Caregiver Provides Assistance Meal Preparation Meal Preparation Caregiver Provides Assist Docking Pilot Docking Pilot Caregiver Provides Assist M6 OT- IP Functional Cognition Start: 07/27/24 11:13 Freq: Status: Active Protocol: Document 07/28/24 12:37 [facility] (Rec: 07/28/24 12:45 [facility] Desktop) Cognitive Factors Limiting Selfcare Function Cognitive Ability Level of Alertness Alert,Confusional State Attention Span Ability Capable of Focused Attention, Capable of Sustained Attention Ability to Follow Commands Able to Follow One Step Commands with Increased Time, Able to Follow One Step Commands with Repetition Memory Description Short Term Impaired Cognitive Comments Cognitive Assessment Comments Pt more confused today and able to talk but at times not making sense or staying on topic. Nursing aware and chair alarm placed on the pt. Re- reminded pt use of call light and placed it in front of her. M7 OT- IP Mobility and Balance Start: 07/27/24 11:13 Freq: Status: Active Protocol: Document 07/28/24 12:37 [facility] (Rec: 07/28/24 12:45 [facility] Desktop) OT-Transfer Assessment Sit to and From Stand Sit to and from Stand Moderate Assistance,Maximum Assistance,1 Person Assistance Transfers Transfer Ability Minimal Assistance,Moderate Assistance,1 Person Assistance ,2 Person Assistance Technique Transfer Destination Bed,Chair Devices Transfer Assistive Devices Gait Belt,Front Wheeled Walker Comments Mobility Comments Pt needing from MODA to MAX X 1 to stand to the FWW. Assist for hand placement on the FWW. MIN/MODA x2 with FWW to walk out of the bathroom to the recliner placed next to the door as pt fatiguing. Pt's O2 initially reading 88% and after several seconds increased to 96%, BP 96/58. OT- Balance Assessment Sitting Balance and Reactions Static Sitting Balance Ability Good Dynamic Sitting Balance Ability Fair Standing Balance and Reactions Static Standing Balance Ability Poor Dynamic Standing Balance Ability Poor M8 OT- IP Objective Assessments Start: 07/27/24 11:13 Freq: Status: Active Protocol: Document 07/27/24 11:13 [facility] (Rec: 07/27/24 11:26 [facility] Desktop) OT Gross Range of Motion Upper Extremity Range of Motion Assessment Bilaterally Impaired OT Strength Upper Extremity Strength Assessment Bilaterally Impaired OT- Coordination Assessment Comments Coordination Comments Arthritic changes in her hands . OT Sensation Assessment Comments Summary Comments Intact for light touch. M9 OT- IP Assessment and Plan Start: 07/27/24 11:13 Freq: Status: Active Protocol: Document 07/28/24 12:37 [facility] (Rec: 07/28/24 12:45 [facility] Desktop) OT Summary Assessment and Plan Potential Rehabilitation Potential Good Analytic Complexity at Evaluation Moderate Summary OT Impairments Pain,Range of Motion,Strength, Balance,Functional Cognition, Functional Mobility,Self- Feeding,Grooming,Dressing, Toileting,Bathing,Toilet Transfers,Shower Transfers, Activity Tolerance Progress Towards Goals Slow Progress due to Pain,Slow Progress due to Medical Issues,Slow Progress due to Activity Tolerance,Slow Progress due to Cognition Assessment Summary Pt a bit more confused today and having difficulty to stay on topic. Pt needing more vc for safety with hand placement on the FWW. Pt to return to skilled rehab when medically stable. Goals Self-Feeding Goal Standby Assistance Grooming Goal Standby Assistance Dressing Goal Minimal Assistance Toileting Goal Minimal Assistance Bathing Goal Moderate Assistance Toilet Transfer Goal Standby Assistance Shower Transfer Goal Contact Guard Assistance Days to Meet Goals 15 Frequency of Treatment Other frequency 5x/week Treatment Plan OT Treatment Plan ADL Training,Functional Cognition Training,Functional Mobility,Patient/Family Education,Discharge Planning Other Treatment Recommendations and Next Transfer to [facility] [place] with MODA x1 Treatment Focus with FWW. Discharge Recommendations OT Discharge Recommendations SNF Rehab Transportation Needs at Discharge Wheelchair/Cabulance
--- NOTE | 2024-07-28 11:57 | OT.IP.TRT ---
Current Diagnoses Acute kidney failure, unspecified (07/25/24) Occupational Therapy Treatment Note M2 OT-IP Current Condition Start: 07/27/24 11:13 Freq: Status: Active Protocol: Document 07/27/24 11:13 [facility] (Rec: 07/27/24 11:26 [facility] Desktop) Occupational Therapy Current Condition Current Condition Evaluation Date 07/27/24 Treatment Diagnosis AMS with metabolic encephalopathy, acute kidney injury M3 OT- IP Subjective and Pain Start: 07/27/24 11:13 Freq: Status: Active Protocol: Document 07/28/24 12:37 [facility] (Rec: 07/28/24 12:45 [facility] Desktop) OT- Subjective Occupational Therapy Visit Type Type Treatment Note Visit Start Time 11:19 Visit Stop Time 11:57 Occupational Therapy Visit Comments Patient Comments Pt heading to the toilet with PT when OT take over after assisted pt on the toilet. Patient/Caregiver Goals TO get better. OT Pain Assessment Pain When Pain Assessed During Mobility Pain Present Pain Present Pain Reported M4 OT- IP ADL's Start: 07/27/24 11:13 Freq: Status: Active Protocol: Document 07/28/24 12:37 [facility] (Rec: 07/28/24 12:45 [facility] Desktop) OT [id number] Comments OT Self-Feeding Comments Not at meal time. Pt will need assist for set-up. OT ADL-Toileting General Evaluation Toileting Ability Maximum Assistance Comments OT Toileting Comments MODA x1 to help stand to the FWW while nursing assist for completeness for hygiene needs . Pt able to attempt to wipe. OT ADL-Bathing Comments OT Bathing Comments Sponge bath more appropriate at this time. M5 OT- IP IADL's Start: 07/27/24 11:13 Freq: Status: Active Protocol: Document 07/27/24 11:13 [facility] (Rec: 07/27/24 11:26 [facility] Desktop) OT-Instrumental Activities of Daily Living Medication Management Medication Management Caregiver Administers Money Management Money Management Caregiver Provides Assistance Meal Preparation Meal Preparation Caregiver Provides Assist Bill Collector Bill Collector Caregiver Provides Assist M6 OT- IP Functional Cognition Start: 07/27/24 11:13 Freq: Status: Active Protocol: Document 07/28/24 12:37 [facility] (Rec: 07/28/24 12:45 [facility] Desktop) Cognitive Factors Limiting Selfcare Function Cognitive Ability Level of Alertness Alert,Confusional State Attention Span Ability Capable of Focused Attention, Capable of Sustained Attention Ability to Follow Commands Able to Follow One Step Commands with Increased Time, Able to Follow One Step Commands with Repetition Memory Description Short Term Impaired Cognitive Comments Cognitive Assessment Comments Pt more confused today and able to talk but at times not making sense or staying on topic. Nursing aware and chair alarm placed on the pt. Re- reminded pt use of call light and placed it in front of her. M7 OT- IP Mobility and Balance Start: 07/27/24 11:13 Freq: Status: Active Protocol: Document 07/28/24 12:37 [facility] (Rec: 07/28/24 12:45 [facility] Desktop) OT-Transfer Assessment Sit to and From Stand Sit to and from Stand Moderate Assistance,Maximum Assistance,1 Person Assistance Transfers Transfer Ability Minimal Assistance,Moderate Assistance,1 Person Assistance ,2 Person Assistance Technique Transfer Destination Bed,Chair Devices Transfer Assistive Devices Gait Belt,Front Wheeled Walker Comments Mobility Comments Pt needing from MODA to MAX X 1 to stand to the FWW. Assist for hand placement on the FWW. MIN/MODA x2 with FWW to walk out of the bathroom to the recliner placed next to the door as pt fatiguing. Pt's O2 initially reading 88% and after several seconds increased to 96%, BP 96/58. OT- Balance Assessment Sitting Balance and Reactions Static Sitting Balance Ability Good Dynamic Sitting Balance Ability Fair Standing Balance and Reactions Static Standing Balance Ability Poor Dynamic Standing Balance Ability Poor M8 OT- IP Objective Assessments Start: 07/27/24 11:13 Freq: Status: Active Protocol: Document 07/27/24 11:13 [facility] (Rec: 07/27/24 11:26 [facility] Desktop) OT Gross Range of Motion Upper Extremity Range of Motion Assessment Bilaterally Impaired OT Strength Upper Extremity Strength Assessment Bilaterally Impaired OT- Coordination Assessment Comments Coordination Comments Arthritic changes in her hands . OT Sensation Assessment Comments Summary Comments Intact for light touch. M9 OT- IP Assessment and Plan Start: 07/27/24 11:13 Freq: Status: Active Protocol: Document 07/28/24 12:37 [facility] (Rec: 07/28/24 12:45 [facility] Desktop) OT Summary Assessment and Plan Potential Rehabilitation Potential Good Analytic Complexity at Evaluation Moderate Summary OT Impairments Pain,Range of Motion,Strength, Balance,Functional Cognition, Functional Mobility,Self- Feeding,Grooming,Dressing, Toileting,Bathing,Toilet Transfers,Shower Transfers, Activity Tolerance Progress Towards Goals Slow Progress due to Pain,Slow Progress due to Medical Issues,Slow Progress due to Activity Tolerance,Slow Progress due to Cognition Assessment Summary Pt a bit more confused today and having difficulty to stay on topic. Pt needing more vc for safety with hand placement on the FWW. Pt to return to skilled rehab when medically stable. Goals Self-Feeding Goal Standby Assistance Grooming Goal Standby Assistance Dressing Goal Minimal Assistance Toileting Goal Minimal Assistance Bathing Goal Moderate Assistance Toilet Transfer Goal Standby Assistance Shower Transfer Goal Contact Guard Assistance Days to Meet Goals 15 Frequency of Treatment Other frequency 5x/week Treatment Plan OT Treatment Plan ADL Training,Functional Cognition Training,Functional Mobility,Patient/Family Education,Discharge Planning Other Treatment Recommendations and Next Transfer to [facility] [place] with MODA x1 Treatment Focus with FWW. Discharge Recommendations OT Discharge Recommendations SNF Rehab Transportation Needs at Discharge Wheelchair/Cabulance
[2024-07-28 14:53] VITALS: BP 96/58; PULSE 60; RESP 16; TEMP 36.4; O2SAT 94
--- NOTE | 2024-07-28 16:37 | CM.DPNOTE ---
DCP Continued: Reviewed EMR and team rounds for pt?s medical status. Per hospitalist, pt cleared to discharge when SNF accepts on 07/29. Hospitalist requesting coordination with [facility] for follow up and orders at SNF. DCP spoke to [facility] Admissions, it is reported pt is slotted for transport on 07/29 at 11:00am. No PASRR required at this time, just DC summary, signed med list and any controlled Rx. DCP spoke with [facility] RN, it is reported that patient has an appointment on 08/03 at 10:45am in clinic. supervisor baking discussed that pt should have another dressing change before she leaves and all other instructions will be send directly to the SNF. DCP relayed above to hospitalist who verbalized understanding. Notified Acute Spot Worker and pt RN. NOTE FOR RN FROM [facility]: Please return entire wound vac to [facility] upon discharge, including electrical cord for charging Plan: Anticipating dc to [facility] on 07/29 at 11:00am. CM Team will continue to follow for coordination of discharge plans. ORI VictorSW
--- NOTE | 2024-07-28 19:29 | PM.PN.1 ---
Subjective Subjective Interval history: 79-year-old female w/prior DVT/PE, warfarin caciphylaxis w/persistent L thigh wound followed by wound care, prior hospitalization for pseudomonal infection of the wound, who is now hospitalized related to agitated delirum w/combative and aggressive behavior towards staff at her SNF (biting, hitting). She was found to have NEELIMA on admission. Exam Vital Signs (past 8 hours): - 07/28/24 14:53 Temperature 97.6 F Pulse Rate 60 Respiratory Rate 16 Blood Pressure 96/58 L Pulse Oximetry 94 Oxygen Flow Rate 0 Fraction of Inspired Oxygen 24 SaO2/FiO2 Ratio 395 Oxygen Delivery Method Room Air Oxygen Flow Rate 0 Objective Labs 07/27/24 04:37 07/27/24 04:37 PFSH Medical History Chronic kidney disease Skin ulceration 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 arthropathy, lumbar Lumbar foraminal stenosis History of DVT (deep vein thrombosis) Herniated nucleus pulposus, L3-4 left Lumbar radiculopathy Surgical History Hx laparoscopic cholecystectomy H/O neck surgery History of ankle surgery Family History Father Hypertension Mother Hypertension Social History household members: spouse alcohol intake: never Assessment & Plan Assessment & Plan narrative: 1. Acute kidney injury due to volume depletion. Cr improved from 1.7 down to 0.95. 2. Agitated delirium vs acute septic encephalopathy. 3. 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 History of pulmonary embolus on Eliquis, 3. Hypertension, 4. Hyperlipidemia, 5. Hypothyroidism, 6. Chronic pain syndrome on chronic opioid therapy, 7. Presumed chronic cognitive impairment, Time-Based Coding :: [TOTAL MINUTES] spent with patient and on the chart (including review of chart, obtaining history, exam, reviewing outside data, placing orders, documenting exam and treatment plan, and counseling patient) on [DATE].
[2024-07-28 20:00] VITALS: BP 118/54; PULSE 64; RESP 16; TEMP 36.3; O2SAT 95
[2024-07-28] MEDS: QUETIAPINE 25 MG TABLET PO (20:53)
[2024-07-28] MEDS: ATORVASTATIN 20 MG TABLET 10 MG PO (20:55)
[2024-07-29 05:27] LABS: Hemoglobin 9.4 g/dL (12.0-16.0); Mean Corpuscular HGB Conc 33.4 % (30-36); Mean Corpuscular Hemoglobin 28.8 PG (26-34); Platelet Count 95 X10^3/uL (150-400); Red Blood Cell Count 3.25 X10^6/uL (4.0-5.2); Red Cell Distribution Width 17.6 % (11.6-14.8); White Blood Cell Count 3.9 X10^3/uL (4.5-11.0)
[2024-07-29 06:02] LABS: Blood Urea Nitrogen 23 mg/dL (7-17); Calcium 8.2 mg/dL (8.4-10.2); Carbon Dioxide 21 mmol/L (22-32); Chloride 114 mmol/L (98-107); Estimated Glomerular Filt Rate > 60 mL/min (>60); Glucose 84 mg/dL (70-99); HEMOLYSIS < 15 (0-50); Sodium 138 mmol/L (137-145)
[2024-07-29] MEDS: LEVOTHYROXINE 88 MCG TABLET PO (06:16)
[2024-07-29] MEDS: hydrOXYzine HCL 25 MG TABLET PO (06:16)
[2024-07-29] MEDS: carvediloL 12.5 MG TABLET 25 MG PO (09:13)
[2024-07-29] MEDS: OXYCODONE IR 5 MG TABLET PO (09:13)
[2024-07-29] MEDS: lisinopriL 20 MG TABLET PO (09:13)
[2024-07-29] MEDS: APIXABAN 5 MG TABLET PO (09:13)
[2024-07-29] MEDS: SODIUM CHLORIDE 0.9% FLUSH 10 ML IV (09:14)
--- NOTE | 2024-07-29 09:30 | PT.IPTN ---
Current Diagnoses Acute kidney failure, unspecified (07/25/24) Physical Therapy Treatment Note M2 PT-IP Current Condition Start: 07/27/24 09:24 Freq: NEEDED Status: Active Protocol: Document 07/27/24 09:18 [facility] (Rec: 07/27/24 09:42 [facility] Desktop) Physical Therapy Current Condition Current Condition Evaluation Date 07/27/24 Treatment Diagnosis AMS, NEELIMA, impaired gait Onset Date 07/25/24 M3 PT-IP Subjective Start: 07/27/24 09:24 Freq: NEEDED Status: Active Protocol: Document 07/29/24 09:30 [facility] (Rec: 07/29/24 11:48 [facility] Desktop) Subjective Physical Therapy Visit Type Type Treatment Note Visit Start Time 09:30 Visit Stop Time 09:55 Number of SILK SCREENER Visits 0 Physical Therapy Visit Comments Patient Comments agreeable to do PT Therapy Pain Assessment Pain When Pain Assessed During Mobility Pain Present Pain Present Pain Reported Location Left Thigh Scale Used pain scale not stated Pain Behaviors Facial Grimacing,Guarding, Holding Area,Wincing M4 PT-IP Mobility and Gait Start: 07/27/24 09:24 Freq: NEEDED Status: Active Protocol: Document 07/29/24 09:30 [facility] (Rec: 07/29/24 11:48 [facility] Desktop) PT-Bed Mobility Assessment Supine to Sit Supine to Sit Maximum Assistance,Head of Bed Elevated,Bedrails Sit to Supine Sit to Supine Maximum Assistance,Head of Bed Elevated,Bedrails PT-Transfer Assessment Comments Mobility Comments pt in bed and agreeable to do PT. pt seems to have increase confusion today but cooperative and willing to do PT. pt requiring max A and max cues for supine to sit with HOB elevated. pt also used bed rail to assist. pt needed increase time to complete task. pt laid back midway with getting up and stated that she has to rest first. c/o RLE pain. attempted sit sit again max A and cues but pt only tolerated ~ 10 sec of sitting and stated that she needs to lay back in bed and wants to rest. max A for sit to supine. positioned pt back on bed. call light and table placed within reach. M5 PT-IP Objective Assessments Start: 07/27/24 09:24 Freq: NEEDED Status: Active Protocol: Document 07/27/24 09:18 [facility] (Rec: 07/27/24 09:42 [facility] Desktop) Orientation Orientation/Cognition Level of Alertness Alert Orientation Name,Birthday Language Function Ability Hard of Hearing Safety Awareness Decreased Safety Awareness Memory Description Short Term Impaired,Street Cleaner Impaired Comments she did not attempt unsafe activity this visit, able to follow verbal instructions. Gross Range of Motion Upper Extremity ROM Assessment Bilaterally Impaired Lower Extremity ROM Assessment Bilaterally Impaired Strength Upper Extremity Strength Assessment Bilaterally Impaired Lower Extremity Strength Assessment Bilaterally Impaired Comments Strength Comments wound vac left thigh area pt reports hx of shoulder impairments, has difficulty pushing with UE's on the bed to assist mobility, has difficulty lifting shoulders to reach items on breakfast tray Coordination Assessment Gross Coordination Gross Coordination WNL Muscle Tone Muscle Tone WNL Yes M6 PT-IP Treatment Start: 07/27/24 09:24 Freq: NEEDED Status: Active Protocol: Document 07/29/24 09:30 [facility] (Rec: 07/29/24 11:48 [facility] Desktop) Physical Therapy Treatment Education Education Provided Safety M7 PT-IP Assessment and Plan Start: 07/27/24 09:24 Freq: NEEDED Status: Active Protocol: Document 07/29/24 09:30 [facility] (Rec: 07/29/24 11:48 [facility] Desktop) PT Summary Assessment and Plan Potential Rehabilitation Potential Fair Summary Impairments Pain,ROM,Strength,Balance, Coordination,Sensation, Cognition,Bed Mobility, Transfers,Gait,Activity Tolerance Progress Towards Goals Slow Progress due to Medical Issues,Slow Progress due to Activity Tolerance,Slow Progress - Other Assessment Summary pt seems to have more confusion today affecting following directions and assistance needed. pt requiring max A for bed mobility sit<>supine with rest breaks in between requiring 2 attempts to sit on EOB. pt was not able to tolerate much activity with c/o needing to rest. pt plans to dc to SNF today. Goals Bed Mobility Goal Standby Assistance Transfer Goal Standby Assistance,Front Wheeled Walker Gait Goal Independent,Front Wheel Walker Gait Distance 50 feet Days to Meet Goals 5 Frequency of Treatment Frequency Of Treatment Once a Day Treatment Plan Physical Therapy Treatment Plan Bed Mobility Training,Transfer Training,Gait Training, Therapeutic Exercise,Balance Retraining,Discharge Planning, Neuromuscular Re-ed Precautions Other Precautions wound vac, jay catheter Recommendations To Nursing Amount of Assist Needed 1 Person Assist Discharge Recommendations PT Discharge Recommendations SNF Rehab Transportation Needs at Discharge Wheelchair/Cabulance - PT assist 1
[2024-07-29 10:00] VITALS: BP 130/64; PULSE 62; RESP 17; TEMP 36.1; O2SAT 96
[2024-07-29] MEDS: fentaNYL 12 MCG/PATCH TOP (10:12)
[2024-07-29] MEDS: ALBUTEROL/IPRATROPIUM 3 ML AMPUL INH (10:57)
[2024-07-29 11:00] VITALS: PULSE 63; RESP 20; O2SAT 94
--- NOTE | 2024-07-29 12:44 | CM.DPNOTE ---
Addendum entered by MERT Guidry 07/29/24 13:22: PRESCRIPTIONIST faxed/emailed signed dc summary to [facility]/September Original Note: DCP note PRESCRIPTIONIST reviewed EMR cleared to dc today, plan for SV at 11am. [place] auth previously secured. Per provider, continue on current wound vac settings, dressing changed yesterday, change dressing every 3 days, f/u in OP wound care for more wound care directions. PRESCRIPTIONIST emailed and faxed PASRR, meds, scripts, and order to Stephanie at . Updated RN/gave report number, updated CERTIFIED PEER SPECIALIST. placed PASRR and meds in chart. PRESCRIPTIONIST attempted to update spouse Roderick ([phone]), attempted to leave , call disconnected? PRESCRIPTIONIST updated son Jarred [phone]. in agreement with plan, answered questions to best of ability. P: dc today to at 11am. f/u in OP setting for further wound care instructions. MERT will send dc summary to when complete MERT Guidry
--- NOTE | 2024-07-29 13:01 | P.DS_ITS ---
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 Family are present though they are unaware details of her care recently. She was given IV midazolam by EMS and was sedate upon arrival, remained sedated in the emergency department on interview, and not conversant. In the emergency department there was no clear source of infection, and patient was administered IV hydration without significant improvement in urine output with elevated serum creatinine of 1.7 mg/dL. She is admitted for observation, IV hydration and further monitoring. Discharge Providers Provider Date of admission: 07/25/24 10:22 Discharge Date: 07/29/24 Primary care physician: Elin Tan PA-C Consults: 07/23/24 15:46 Consult to [facility] [place] - Assembler Bicycle Stat Comment: As[employer] Consult needed for:: Other reason (Comment) Comment: hospice, goals for care 07/24/24 00:18 Consult to Wound Care Routine Comment: Consulting Provider: [facility] 07/27/24 08:06 Consult to Occupational Therapy Evaluate & Treat Comment: Physician Instructions: Evaluate and treat Consult to Physical Therapy Evaluate & Treat Comment: Physician Instructions: Evaluate and Treat Discharge provider: Shayy Lainez MD Summary Hospital Course Discharge Diagnosis: 1. Acute kidney injury due to volume depletion, resolved with creatinine down from 1.7 down to 0.94. 2. Agitated delirium vs acute septic encephalopathy. 3. 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 History of pulmonary embolus on Eliquis4 5. Hypertension 6. Hyperlipidemia 7. Hypothyroidism 8. Chronic pain syndrome on chronic opioid therapy 9. Presumed chronic cognitive impairment Hospital Course: Patient was admitted from [facility] with agitation and combative behavior. 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 This has been treated with a wound VAC. There is Pseudomonas growth which may have been colonization versus acute infection. This was treated. Her behavior was possibly agitated delirium related to her cognitive decline versus septic encephalopathy. She was placed on Seroquel with good effect. She had NEELIMA on admission that was treated and subsequently resolved. Additionally she has been on fentanyl patch and oxycodone for pain management. Her uncontrolled behaviors improved and at the time of discharge, she was pleasant, cooperative, but did have tangential and confused conversation. She is discharged in stable condition. Status at Discharge Cognitive/behavioral status at discharge: at baseline, confused Functional status at discharge: bed bound Overall status at discharge: patient is progressing back to baseline Time Spent with Patient Time spent: Greater than 30 minutes Exam Vital Signs (past 8 hours): - 07/29/24 07:30 07/29/24 10:00 07/29/24 11:00 Temperature 96.9 F L Pulse Rate 62 63 Respiratory Rate 17 20 Blood Pressure 130/64 Pulse Oximetry 96 94 Oxygen Delivery Method Room Air Room Air Oxygen Flow Rate 0 0 Fraction of Inspired Oxygen 24 SaO2/FiO2 Ratio 395 Oxygen Delivery Method Room Air Oxygen Flow Rate 0 Narrative Exam Narrative: GEN: Pleasant elderly female who is alert, tangential with conversation and confused, NAD HEENT:NC, Face symmetric CHEST: Respiratory excursions symmetric, CTAB CV: RRR, no M/R/G ABD: Soft, NT/ND, BT present in all 4 quadrants, no organomegaly or masses EXTR: warm, well perfused, no C/C/E, left thigh wound VAC is in place and is tender to palpation SKIN: warm and dry, no rash NEURO: Alert and oriented x 1, nonfocal Objective Labs 07/29/24 05:05 07/29/24 05:05 Labs: Laboratory Results - last 24 hr 07/29/24 05:05 WBC 3.9 L RBC 3.25 L Hgb 9.4 L Hct 28.0 L MCV 86.0 MCH 28.8 MCHC 33.4 RDW 17.6 H Plt Count 95 L Sodium 138 Potassium 4.0 Chloride 114 H Carbon Dioxide 21 L BUN 23 H Creatinine 0.96 Estimated GFR > 60 BUN/Creatinine Ratio 24.0 H Glucose 84 Calcium 8.2 L PFSH Medical History Chronic kidney disease Skin ulceration 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 arthropathy, lumbar Lumbar foraminal stenosis History of DVT (deep vein thrombosis) Herniated nucleus pulposus, L3-4 left Lumbar radiculopathy Surgical History Hx laparoscopic cholecystectomy H/O neck surgery History of ankle surgery Family History Father Hypertension Mother Hypertension Social History household members: spouse alcohol intake: never Discharge Plan Discharge Plan Patient Disposition: SNF Transfer to: [facility] Under care of provider: Facility MD Provider Discharge Comment: You were admitted with Dehydration and kidney injury. These have resolved. You are now returning to [facility]. Please follow up with the Wound Care clinic for your thigh wound as per your prior schedule. Wound VAC settings are per prior settings as established by the wound care clinic. Discharge orders & Medications Prescriptions: New quetiapine 25 mg Tablet 25 mg PO BEDTIME Qty: 30 0RF hydroxyzine HCl 25 mg Tablet 25 mg PO Q8H PRN (Reason: Anxiety) Qty: 30 0RF oxycodone 5 mg Tablet 5 mg PO Q2H PRN (Reason: Pain (Scale Score 4-6)) Qty: 30 0RF fentanyl 12 mcg/hr Patch 72 Hour 12 mcg topical Q72H Qty: 2 0RF Continued polyethylene glycol 3350 17 gram Powder In Packet 17 g PO QAM PRN (Reason: Constipation) melatonin 3 mg Tablet 3 mg PO QPM PRN (Reason: Insomnia) lidocaine-prilocaine 2.5-2.5 % cream 2 g topical DAILY PRN (Reason: Pain, Mild) Rx Instructions: Apply to Kaity wound topically as needed for pain. sodium bicarbonate 650 mg tablet 650 mg PO BID PRN (Reason: Heartburn) nystatin [Nyamyc] 100,000 unit/gram powder 1 applic topical BID PRN (Reason: Rash) ondansetron 4 mg tablet,disintegrating 4 mg PO Q8H PRN (Reason: Nausea And Vomiting) Eliquis 5 mg tablet 5 mg PO BID acetaminophen 325 mg Tablet 650 mg PO Q6H PRN (Reason: Pain, Mild) Qty: 30 0RF oxycodone 5 mg Tablet 5 mg PO Q4HR PRN (Reason: Pain, Moderate (4-6)) Qty: 15 0RF furosemide 20 mg tablet 20 mg PO DAILY lisinopril 20 mg tablet 20 mg PO QAM Rx Instructions: Hold for SBP less than 100 and HR less than 60 azelastine 137 mcg (0.1 %) aerosol,spray 1 spray intranasal ONCE leflunomide 20 mg tablet 20 mg PO DAILY levothyroxine 88 mcg tablet 88 mcg PO DAILY lovastatin 40 mg tablet 40 mg PO BEDTIME carvedilol 25 mg tablet 25 mg PO BID Rx Instructions: Hold if SBP less than 100 or HR less than 60 alendronate 70 mg tablet 70 mg PO QWEEK Rx Instructions: give one tablet by mouth every Wednesday. Discontinued fentanyl 12 mcg/hr patch 72 hour 1 patch transdermal Q72H Qty: 15 0RF Follow up/Referrals: Elin Tan PA-C [Primary Care Provider] - Discharge Health Status Multidrug resistant organism: No MDRO Precautions: [place] Diet/Activity/Treatments Diet: Diet as Tolerated Liquid consistency: Normal/Thin Food texture: Regular Activity: As tolerated Catheter: 2-way [place] Oxygen: N/A Special Rehabilitation Services Rehab type: Physical therapy and Occupational therapy Visit Report/Discharge Packet Instructions: How to Prevent Falls, DI for Prescription Opioid Use, DI for Acute Kidney Injury, Calciphylaxis Stand Alone Forms: Patient Portal/API Discharge Data Primary Care Provider: Elin Tan
--- NOTE | 2024-07-29 13:10 | P.DS_ITS ---
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 with biting behavior towards staff members and trying to hit. 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 Family are present though they are unaware details of her care recently. She was given IV midazolam by EMS and was sedate upon arrival, remained sedated in the emergency department on interview, and not conversant. In the emergency department there was no clear source of infection, and patient was administered IV hydration without significant improvement in urine output with elevated serum creatinine of 1.7 mg/dL. She is admitted for observation, IV hydration and further monitoring. Discharge Providers Provider Date of admission: 07/25/24 10:22 Discharge Date: 07/29/24 Primary care physician: Elin Tan PA-C Consults: 07/23/24 15:46 [place] [facility] [place]itation Associate Stat Comment: Sanitation Associate Consult needed for:: Other reason (Comment) Comment: hospice, goals for care 07/24/24 00:18 Consult to Wound Care Routine Comment: Consulting Provider: [facility] 07/27/24 08:06 Consult to Occupational Therapy Evaluate & Treat Comment: Physician Instructions: Evaluate and treat Consult to Physical Therapy Evaluate & Treat Comment: Physician Instructions: Evaluate and Treat Discharge provider: Shayy Lainez MD Exam Vital Signs (past 8 hours): - 07/29/24 07:30 07/29/24 10:00 07/29/24 11:00 Temperature 96.9 F L Pulse Rate 62 63 Respiratory Rate 17 20 Blood Pressure 130/64 Pulse Oximetry 96 94 Oxygen Delivery Method Room Air Room Air Oxygen Flow Rate 0 0 Fraction of Inspired Oxygen 24 SaO2/FiO2 Ratio 395 Oxygen Delivery Method Room Air Oxygen Flow Rate 0 Objective Labs 07/29/24 05:05 07/29/24 05:05 Labs: Laboratory Results - last 24 hr 07/29/24 05:05 WBC 3.9 L RBC 3.25 L Hgb 9.4 L Hct 28.0 L MCV 86.0 MCH 28.8 MCHC 33.4 RDW 17.6 H Plt Count 95 L Sodium 138 Potassium 4.0 Chloride 114 H Carbon Dioxide 21 L BUN 23 H Creatinine 0.96 Estimated GFR > 60 BUN/Creatinine Ratio 24.0 H Glucose 84 Calcium 8.2 L PFSH Medical History Chronic kidney disease Skin ulceration 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 arthropathy, lumbar Lumbar foraminal stenosis History of DVT (deep vein thrombosis) Herniated nucleus pulposus, L3-4 left Lumbar radiculopathy Surgical History Hx laparoscopic cholecystectomy H/O neck surgery History of ankle surgery Family History Father Hypertension Mother Hypertension Social History household members: spouse alcohol intake: never Discharge Plan Discharge Plan Patient Disposition: SNF Transfer to: [facility] Under care of provider: Facility MD Provider Discharge Comment: You were admitted with Dehydration and kidney injury. These have resolved. You are now returning to [facility]. Please follow up with the Wound Care clinic for your thigh wound as per your prior schedule. Wound VAC settings are per prior settings as established by the wound care clinic. Discharge orders & Medications Prescriptions: New quetiapine 25 mg Tablet 25 mg PO BEDTIME Qty: 30 0RF hydroxyzine HCl 25 mg Tablet 25 mg PO Q8H PRN (Reason: Anxiety) Qty: 30 0RF oxycodone 5 mg Tablet 5 mg PO Q2H PRN (Reason: Pain (Scale Score 4-6)) Qty: 30 0RF fentanyl 12 mcg/hr Patch 72 Hour 12 mcg topical Q72H Qty: 2 0RF Continued polyethylene glycol 3350 17 gram Powder In Packet 17 g PO QAM PRN (Reason: Constipation) melatonin 3 mg Tablet 3 mg PO QPM PRN (Reason: Insomnia) lidocaine-prilocaine 2.5-2.5 % cream 2 g topical DAILY PRN (Reason: Pain, Mild) Rx Instructions: Apply to Kaity wound topically as needed for pain. sodium bicarbonate 650 mg tablet 650 mg PO BID PRN (Reason: Heartburn) nystatin [Nyamyc] 100,000 unit/gram powder 1 applic topical BID PRN (Reason: Rash) ondansetron 4 mg tablet,disintegrating 4 mg PO Q8H PRN (Reason: Nausea And Vomiting) Eliquis 5 mg tablet 5 mg PO BID acetaminophen 325 mg Tablet 650 mg PO Q6H PRN (Reason: Pain, Mild) Qty: 30 0RF oxycodone 5 mg Tablet 5 mg PO Q4HR PRN (Reason: Pain, Moderate (4-6)) Qty: 15 0RF furosemide 20 mg tablet 20 mg PO DAILY lisinopril 20 mg tablet 20 mg PO QAM Rx Instructions: Hold for SBP less than 100 and HR less than 60 azelastine 137 mcg (0.1 %) aerosol,spray 1 spray intranasal ONCE leflunomide 20 mg tablet 20 mg PO DAILY levothyroxine 88 mcg tablet 88 mcg PO DAILY lovastatin 40 mg tablet 40 mg PO BEDTIME carvedilol 25 mg tablet 25 mg PO BID Rx Instructions: Hold if SBP less than 100 or HR less than 60 alendronate 70 mg tablet 70 mg PO QWEEK Rx Instructions: give one tablet by mouth every Wednesday. Discontinued fentanyl 12 mcg/hr patch 72 hour 1 patch transdermal Q72H Qty: 15 0RF Follow up/Referrals: Elin Tan PA-C [Primary Care Provider] - Discharge Health Status Multidrug resistant organism: No MDRO Precautions: [place] Diet/Activity/Treatments Diet: Diet as Tolerated Liquid consistency: Normal/Thin Food texture: Regular Activity: As tolerated Catheter: 2-way [place] Oxygen: N/A Special Rehabilitation Services Rehab type: Physical therapy and Occupational therapy Visit Report/Discharge Packet Instructions: How to Prevent Falls, DI for Prescription Opioid Use, DI for Acute Kidney Injury, Calciphylaxis Stand Alone Forms: Patient Portal/API Discharge Data Primary Care Provider: Elin Tan
--- NOTE | 2024-07-29 13:20 | PC.NURSE ---
Transfer: Report called to Marian at [facility]. They have had pt before. Reviewed hospital couse. Pt has felt sl sob this am. IV stopped, Given some pain med medication, fentynal patch given early. RT here to eval and treat. They gave pt a neb treatment. Pt felt her sob was much improved. However when transfered to the chair pt was sob and had some wheezes. She has not been on her lasix and the admitting nurse was told she should eval and see if pt should get a dose. has resumed all her meds. did come and see pt when she was very confused. Okay to d/c to facility. Pt took her wound vac machine from [facility] with her as well as the pocket talker. Questions answered.
== END 2024-07-29 11:35 | DRG 682 ==
LOC: ED 16:26 → AC 16:37
PROVIDERS: Hospitalist; Internal Medicine; Admitting Provider Internal Medicine; Emergency Provider Emergency Medicine; PCP Physician Assistant Medical; Referring Provider Emergency Medicine; Visit Provider Internal Medicine
DX: N17.9 Acute kidney failure, unspecified (principal); G93.41 Metabolic encephalopathy; L97.129 Non-pressure chronic ulcer of left thigh with unspecified severity; I13.0 Hypertensive heart and chronic kidney disease with heart failure and stage 1 through stage 4 chronic kidney disease, or unspecified chronic kidney disease; Z66 Do not resuscitate; E86.9 Volume depletion, unspecified; E83.59 Other disorders of calcium metabolism; I50.9 Heart failure, unspecified; N18.30 Chronic kidney disease, stage 3 unspecified; B96.5 Pseudomonas (aeruginosa) (mallei) (pseudomallei) as the cause of diseases classified elsewhere; Z22.39 Carrier of other specified bacterial diseases; Z86.711 Personal history of pulmonary embolism; Z79.01 Long term (current) use of anticoagulants; E78.5 Hyperlipidemia, unspecified; E03.9 Hypothyroidism, unspecified; G89.4 Chronic pain syndrome; Z79.891 Long term (current) use of opiate analgesic; G31.9 Degenerative disease of nervous system, unspecified; H91.93 Unspecified hearing loss, bilateral; Z86.718 Personal history of other venous thrombosis and embolism; Z82.49 Family history of ischemic heart disease and other diseases of the circulatory system; L08.9 Local infection of the skin and subcutaneous tissue, unspecified; Z79.890 Hormone replacement therapy; Z79.83 Long term (current) use of bisphosphonates; Z79.620 Long term (current) use of immunosuppressive biologic
CPT/HCPCS: 36415; 70450; 71045; 74176; 80048; 80053; 81001; 83605; 83690; 84145; 85025; 85027; 85610; 85730; 87040; 93005; 93010; 94640; 96361; 96365; 97162; 97166; 97530; 97535; 99285; G0378; A9270; J0692; J2060; J2270

== ENCOUNTER 2024-07-31 12:24 | Inpatient (IN) | payer OTHER, SELFPAY ==
[2024-07-23 20:57] VITALS: BMI 24.6
[2024-07-31] VITALS (21 sets, daily range): BP systolic 95–145; BP diastolic 50–92; PULSE 57–109; RESP 18–32; TEMP 36.1–37.9; O2SAT 6–100; BMI 24.1
--- NOTE | 2024-07-31 12:31 | EKG_ITS ---
[address] [id number] Test Date: 2024-07-31 Pat Name: Latasha Braun Department: Room: Gender: Female Hand Mica Plate Layer: RONAK : 1945 Requested By: Order Number: [id number] Reading MD: Florentin Lux Measurements Intervals [place] Rate: 62 P: 2 MI: 138 QRS: -38 QRSD: 70 T: 12 QT: 424 QTc: 430 Interpretive Statements Normal sinus rhythm Left axis deviation Low voltage QRS Inferior infarct , age undetermined Cannot rule out Anteroseptal infarct , age undetermined Electronically Signed On 08-02-2024 17:38:19 PDT by Florentin Lux
--- NOTE | 2024-07-31 12:33 | ED_ITS ---
HPI - Altered Mental Status General Chief Complaint: Trauma Stated Complaint: GLF/unknown down time Time Seen by Provider: 07/31/24 12:30 History of Present Illness HPI narrative: Patient is a 79-year-old female extremely hard of hearing history of PE DVT on Eliquis with warfarin calciphyalxis, persistent left thigh wound with current wound VAC on previous Pseudomonas infection presents to day with a roll out of bed and altered mental status. She was admitted July 23 through the here and discharged to [facility]. Today she was overall an extremely poor historian found to be hypoxic with EMS. Look slightly pale. No evidence of trauma. Wound VAC in place in left thigh. She was ultimately discharged 07/29/2024 with NEELIMA volume depletion agitated delirium active Pseudomonas infection versus colonization Related Data Home Medications Medication Instructions Recorded Confirmed levothyroxine 88 mcg tablet 88 mcg PO DAILY 04/08/22 07/31/24 lovastatin 40 mg tablet 40 mg PO BEDTIME 04/08/22 07/31/24 carvedilol 25 mg tablet 25 mg PO BID 07/22/22 07/31/24 lisinopril 20 mg tablet 20 mg PO QAM 10/19/22 07/31/24 alendronate 70 mg tablet 70 mg PO QWEEK 01/13/23 07/31/24 azelastine 137 mcg (0.1 %) nasal 1 spray intranasal DAILY 06/14/23 07/31/24 spray leflunomide 20 mg tablet 20 mg PO DAILY 06/14/23 07/31/24 apixaban 5 mg tablet (Eliquis) 5 mg PO BID 06/20/24 07/31/24 lidocaine-prilocaine 2.5 %-2.5 % 2 g topical DAILY PRN Pain, Mild 06/20/24 07/31/24 topical cream melatonin 3 mg tablet 3 mg PO QPM PRN Insomnia 06/20/24 07/31/24 nystatin 100,000 unit/gram topical 1 applic topical BID PRN Rash 06/20/24 07/31/24 powder ([facility]) ondansetron 4 mg disintegrating 4 mg PO Q8H PRN Nausea And Vomiting 06/20/24 07/31/24 tablet polyethylene glycol 3350 17 gram 17 g PO QAM PRN Constipation 06/20/24 07/31/24 oral powder packet sodium bicarbonate 650 mg tablet 650 mg PO BID PRN Heartburn 06/20/24 07/31/24 furosemide 20 mg tablet 20 mg PO DAILY 07/23/24 07/31/24 hydroxyzine HCl 25 mg tablet 25 mg PO 3XD PRN Anxiety 07/31/24 07/31/24 Previous Rx's Medication Instructions Recorded acetaminophen 325 mg tablet 650 mg (2 x 325 mg) PO Q6H PRN 06/25/24 Pain, Mild #30 tabs oxycodone 5 mg tablet 5 mg PO Q4HR PRN Pain, Moderate 06/27/24 (4-6) #15 tabs fentanyl 12 mcg/hr transdermal 12 mcg topical Q72H #2 ea 07/29/24 patch oxycodone 5 mg tablet 5 mg PO Q2H PRN Pain (Scale Score 07/29/24 4-6) #30 tabs quetiapine 25 mg tablet 25 mg PO BEDTIME #30 tabs 07/29/24 Allergies Allergy/AdvReac Type Severity Reaction Status Date / Time latex Allergy Verified 06/20/24 11:29 Patient History Medical History Chronic kidney disease Skin ulceration 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 HEENT: Head atraumatic,EOMI, pupils reactive, face symmetric,drymucous membranes CARDIOVASCULAR: Regular rate and rhythm without murmurs, rubs or gallops. RESPIRATORY: Breath sounds equal bilaterally, no wheezes rales or rhonchi. ABDOMEN: Soft, nontender. Normoactive bowel sounds all 4 quadrants. No guarding or rebound. EXTREMITIES: Normal range of motion, no clubbing or edema. Neurovascularly intact NEUROLOGICAL: Alert moving all remedies no facial droop SKIN: Left medial thigh wound VAC in place she has a pink dressing in her right thigh Course Orders Ordered: ED Orders 07/31/24 12:31 CT cervical spine wo con Stat CT head/brain wo con Stat XR chest 1V Stat Complete Blood Count AUTO DIFF Stat Comprehensive Metabolic Panel Stat Lactate (Lactic Acid) Stat NT-proBNP (BNP-Adult 18+) Stat Procalcitonin Stat Troponin & CK Cardiac Panel Stat EKG-12 Lead Stat 07/31/24 12:58 Urinalysis and Microscopic Stat 07/31/24 13:09 CT angio chest abdomen pelvis Stat 07/31/24 13:23 Covid-19 + FLU A/B + RSV - PCR Stat 07/31/24 13:41 Blood Culture Stat 07/31/24 14:25 EKG-12 Lead Stat 07/31/24 14:31 Troponin I Stat Acetaminophen (Acetaminophen 325 Mg Tablet) 650 mg PO Q6H PRN PRN Reason: Fever/Mild Pain (1-3) Aspirin (Aspirin Ec 81 Mg Tablet) 81 mg PO DAILY GENEVIEVE Enoxaparin Sodium (Enoxaparin 40 Mg/0.4 Ml Syringe) 60 mg 1 mg/kg (60 mg) SUBCUT BID GENEVIEVE Furosemide (Furosemide 40 Mg/4 Ml Vial) 40 mg IV 0800,1700 GENEVIEVE Hydromorphone HCl (Hydromorphone 0.5 Mg Inj) 0.5 mg IV Q2H PRN PRN Reason: Pain, Severe (7-10) Hydroxyzine HCl (Hydroxyzine Hcl 25 Mg Tablet) 25 mg PO TID PRN PRN Reason: Anxiety Levothyroxine Sodium (Levothyroxine 88 Mcg Tablet) 88 mcg PO 0600 GENEVIEVE Lidocaine/Prilocaine (Lidocaine/Prilocaine 5 Gm) 2 gm TOP DAILY PRN PRN Reason: Pain, Mild Melatonin (Melatonin 3 Mg Tablet) 3 mg PO QPM PRN PRN Reason: Insomnia Naloxone HCl (Naloxone 0.4 Mg/Ml Vial) 0.2 mg IV Q2MIN PRN PRN Reason: Opiate Reversal Nystatin (Nystatin Powder 15gm) 1 applic TOP BID PRN PRN Reason: Rash Ondansetron HCl (Ondansetron 4 Mg/2 Ml Inj) 4 mg IV Q8HR PRN PRN Reason: Nausea And Vomiting Oxycodone HCl (Oxycodone Ir 5 Mg Tablet) 5 mg PO Q3H PRN PRN Reason: Pain, Moderate (4-6) Oxycodone HCl (Oxycodone Ir 5 Mg Tablet) 5 mg PO Q4HR PRN PRN Reason: Pain, Moderate (4-6) Polyethylene Glycol (Polyethylene Glycol 3350 17 Gm Powd.Pack) 17 gm PO DAILY PRN PRN Reason: Constipation Quetiapine Fumarate (Quetiapine 25 Mg Tablet) 25 mg PO BEDTIME GENEVIEVE Discontinued Medications Aspirin (Aspirin 81 Mg Chew Tab) 324 mg PO NOW ONE Stop: 07/31/24 18:51 Furosemide (Furosemide 40 Mg/4 Ml Vial) 40 mg IV NOW ONE Stop: 07/31/24 14:04 Last Admin: 07/31/24 14:19 Dose: 40 mg Documented By: PRATEEK Sodium Chloride (Normal Saline 0.9%) 1,000 mls @ 1,000 mls/hr IV BOLUS ONE Stop: 07/31/24 14:01 Last Infusion: 07/31/24 14:21 Dose: Infused Documented By: Admin: 07/31/24 13:24 Dose: 1,000 mls/hr Documented By: PRATEEK Piperacillin Sod/Tazobactam (Sod 4.5 gm/ Sodium Chloride) 100 mls @ 200 mls/hr IV NOW ONE Stop: 07/31/24 13:03 Last Infusion: 07/31/24 14:20 Dose: Infused Documented By: Admin: 07/31/24 13:46 Dose: 200 mls/hr Documented By: PRATEEK Vital Signs Vital signs: Vital Signs - 8 hr 07/31/24 12:27 07/31/24 12:28 07/31/24 12:30 Temperature 97.0 F L Pulse Rate 71 109 H 64 Respiratory Rate 18 32 H Blood Pressure 145/65 H Pulse Oximetry 96 89 L 82 L Oxygen Delivery Method Room Air Oxygen Flow Rate 07/31/24 12:34 07/31/24 12:34 07/31/24 13:00 Temperature 98.1 F Pulse Rate 66 60 Respiratory Rate 28 H Blood Pressure 145/65 H Pulse Oximetry 89 L 98 Oxygen Delivery Method Oxygen Flow Rate 07/31/24 13:01 07/31/24 13:01 07/31/24 13:30 Temperature 98.1 F 99.1 F Pulse Rate 59 L 59 L Respiratory Rate 23 Blood Pressure 123/58 L Pulse Oximetry 99 97 Oxygen Delivery Method Oxygen Flow Rate 07/31/24 13:44 07/31/24 13:44 07/31/24 14:00 Temperature 99.0 F 98.8 F Pulse Rate 58 L 57 L Respiratory Rate 22 24 Blood Pressure 109/91 H Pulse Oximetry 97 98 Oxygen Delivery Method Nasal Cannula Oxygen Flow Rate 2 07/31/24 14:23 07/31/24 14:23 07/31/24 14:30 Temperature 98.8 F 98.6 F Pulse Rate 59 L 59 L Respiratory Rate 21 25 H Blood Pressure 97/65 Pulse Oximetry 99 97 Oxygen Delivery Method Room Air Oxygen Flow Rate 07/31/24 14:30 07/31/24 15:00 07/31/24 15:11 Temperature 98.8 F 98.8 F Pulse Rate 64 66 Respiratory Rate Blood Pressure 103/50 L Pulse Oximetry 95 95 Oxygen Delivery Method Oxygen Flow Rate 07/31/24 15:11 07/31/24 15:30 07/31/24 16:00 Temperature 99.1 F 99.9 F H Pulse Rate 66 73 Respiratory Rate Blood Pressure 129/92 H Pulse Oximetry 94 99 Oxygen Delivery Method Oxygen Flow Rate 07/31/24 16:01 07/31/24 16:01 07/31/24 16:30 Temperature 99.9 F H 100.2 F H Pulse Rate 63 62 Respiratory Rate Blood Pressure 119/89 Pulse Oximetry 100 100 Oxygen Delivery Method Nasal Cannula Oxygen Flow Rate 2 07/31/24 16:31 07/31/24 16:31 Temperature 100.2 F H Pulse Rate 59 L Respiratory Rate Blood Pressure 95/50 L Pulse Oximetry 100 Oxygen Delivery Method Nasal Cannula Oxygen Flow Rate 2 MDM - Altered Mental Status Lab Data 07/31/24 12:31 07/31/24 12:31 Labs: Lab Results 07/31/24 07/31/24 07/31/24 Range/Units 12:31 12:58 13:23 WBC 6.1 (4.5-11.0) X10^3/uL RBC 4.00 (4.0-5.2) X10^6/uL Hgb 11.2 L (12.0-16.0) g/dL Hct 34.7 L (36-46) % MCV 86.8 (80-100) fL MCH 28.0 (26-34) PG MCHC 32.3 (30-36) % RDW 18.0 H (11.6-14.8) % Plt Count 143 L (150-400) X10^3/uL Neut % (Auto) 69.6 (50-75) % Lymph % (Auto) 13.9 L (25-40) % [place] % (Auto) 8.5 (3-14) % Eos % (Auto) 6.7 H (2-4) % Baso % (Auto) 1.3 (0-2) % Neut # (Auto) 4300 (9499-9413) /uL Lymph # (Auto) 900 L (0102-3250) /uL [place] # (Auto) 500 (0-900) /uL Eos # (Auto) 400 (0-450) /uL Baso # (Auto) 100 (0-100) /uL Sodium 138 (137-145) mmol/L Potassium 4.1 (3.4-5.1) mmol/L Chloride 112 H (98-107) mmol/L Carbon Dioxide 20 L (22-32) mmol/L BUN 21 H (7-17) mg/dL Creatinine 0.98 (0.52-1.04) mg/dL Estimated GFR 59 L (>60) mL/min BUN/Creatinine Ratio 21.4 (6-22) Glucose 96 (70-99) mg/dL Lactate 3.6 H (0.7-2.1) mmol/L Calcium 8.6 (8.4-10.2) mg/dL Total Bilirubin 0.9 (0.2-1.3) mg/dL AST 64 H (14-36) IU/L ALT 28 (<35) IU/L Alkaline Phosphatase 114 (38-126) U/L Total Creatine Kinase 82 (30-135) U/L Troponin I 1.280 H* (0.01-0.034) ng/mL NT-Pro-B Natriuret Pep 00725 H (<450) pg/mL Total Protein 5.2 L (6.3-8.2) g/dL Albumin 2.6 L (3.5-5.0) g/dL Globulin 2.6 (1.7-4.1) g/dL Albumin/Globulin Ratio 1.0 (1.0-2.8) Procalcitonin 0.317 (<0.5) ng/mL Urine Color Yellow Urine Appearance Clear Urine pH 5.5 (4.5-8.0) Ur Specific [place] 1.015 (1.000-1.035) Urine Protein Negative (Negative) Urine Glucose (UA) Negative (Negative) g/dL Urine Ketones Negative (NEGATIVE) Urine Occult Blood 3+ H (Negative) Urine Nitrate Negative (Negative) Urine Bilirubin Negative (NEGATIVE) Urine Urobilinogen 0.2 (0.2) E.U./dL Ur Leukocyte Esterase Negative (NEGATIVE) Urine RBC 1-5/hpf (0-5/HPF) Urine WBC None seen (0-5/HPF) Ur Squamous Epith Cells None seen (0-5/HPF) Urine Bacteria None seen (None) Ur Culture Indicated? Cult not indicated Vol Urine Centrifuged 10ml (spun) SARS-CoV-2 (PCR) Positive H (Negative) Influenza A (RT-PCR) Flu a negative (NEGATIVE) Influenza B (RT-PCR) Flu b negative (NEGATIVE) RSV (PCR) Negative (Negative) 07/31/24 Range/Units 14:31 WBC (4.5-11.0) X10^3/uL RBC (4.0-5.2) X10^6/uL Hgb (12.0-16.0) g/dL Hct (36-46) % MCV (80-100) fL MCH (26-34) PG MCHC (30-36) % RDW (11.6-14.8) % Plt Count (150-400) X10^3/uL Neut % (Auto) (50-75) % Lymph % (Auto) (25-40) % [place] % (Auto) (3-14) % Eos % (Auto) (2-4) % Baso % (Auto) (0-2) % Neut # (Auto) (7986-7732) /uL Lymph # (Auto) (4094-1028) /uL [place] # (Auto) (0-900) /uL Eos # (Auto) (0-450) /uL Baso # (Auto) (0-100) /uL Sodium (137-145) mmol/L Potassium (3.4-5.1) mmol/L Chloride (98-107) mmol/L Carbon Dioxide (22-32) mmol/L BUN (7-17) mg/dL Creatinine (0.52-1.04) mg/dL Estimated GFR (>60) mL/min BUN/Creatinine Ratio (6-22) Glucose (70-99) mg/dL Lactate 2.4 H (0.7-2.1) mmol/L Calcium (8.4-10.2) mg/dL Total Bilirubin (0.2-1.3) mg/dL AST (14-36) IU/L ALT (<35) IU/L Alkaline Phosphatase (38-126) U/L Total Creatine Kinase (30-135) U/L Troponin I 1.080 H* (0.01-0.034) ng/mL NT-Pro-B Natriuret Pep (<450) pg/mL Total Protein (6.3-8.2) g/dL Albumin (3.5-5.0) g/dL Globulin (1.7-4.1) g/dL Albumin/Globulin Ratio (1.0-2.8) Procalcitonin (<0.5) ng/mL Urine Color Urine Appearance Urine pH (4.5-8.0) Ur Specific [place] (1.000-1.035) Urine Protein (Negative) Urine Glucose (UA) (Negative) g/dL Urine Ketones (NEGATIVE) Urine Occult Blood (Negative) Urine Nitrate (Negative) Urine Bilirubin (NEGATIVE) Urine Urobilinogen (0.2) E.U./dL Ur Leukocyte Esterase (NEGATIVE) Urine RBC (0-5/HPF) Urine WBC (0-5/HPF) Ur Squamous Epith Cells (0-5/HPF) Urine Bacteria (None) Ur Culture Indicated? Vol Urine Centrifuged SARS-CoV-2 (PCR) (Negative) Influenza A (RT-PCR) (NEGATIVE) Influenza B (RT-PCR) (NEGATIVE) RSV (PCR) (Negative) Imaging Data CT scan - head: Radiologist's Impression: PROCEDURE: CT HEAD/BRAIN WO CON INDICATIONS: found down TECHNIQUE: Noncontrast 4.5 mm thick angled axial sections acquired from the foramen magnum to the vertex, with coronal and sagittal reformats. For radiation dose reduction, the following was used: automated exposure control, adjustment of mA and/or kV according to patient size. COMPARISON: [facility], CT, CT HEAD/BRAIN WO CON, 07/24/2024, 11:48. [facility], CT, CT HEAD/BRAIN WO CON, 06/13/2024, 16:26. FINDINGS: Image quality: Diagnostic. CSF spaces: Basal cisterns are patent. No extra-axial fluid collections. The ventricles are symmetric in size and shape. Brain: No acute intracranial hemorrhage or mass effect. There is cerebral volume loss, with resultant ventricular and sulcal prominence. There are periventricular and deep white matter chronic small vessel ischemic changes. There is intracranial internal carotid artery atherosclerosis. Skull and face: Calvarium and visualized facial bones appear intact, without suspicious lesions. Sinuses: Visualized sinuses and mastoids are clear. IMPRESSION: No acute intracranial pathology. Approved by: Stanford Li M.D. on 07/31/2024 at 13:30 CT - cervical spine: Radiologist's Impression: PROCEDURE: CT CERVICAL SPINE WO CON INDICATIONS: found down TECHNIQUE: Noncontrast 3 mm thick sections acquired from the skull base to the T4 level. Sagittal and coronal reformats were then constructed. For radiation dose reduction, the following was used: automated exposure control, adjustment of mA and/or kV according to patient size. COMPARISON: None. FINDINGS: Image quality: Excellent. Bones: Extensive laminectomies and posterior fixation hardware extending from the C2 through T2 levels. No acute fractures or dislocations. Visualized superior ribs are intact. Soft tissues: Prevertebral soft tissues are normal in thickness. No paravertebral hematomas. No apical pneumothoraces. Bilateral pleural effusions are partially imaged. IMPRESSION: 1. No acute displaced fracture or traumatic subluxation. 2. Postsurgical changes extending from C2 through T2. 3. Bilateral pleural effusions. Approved by: Stanford Li M.D. on 07/31/2024 at 13:33 Chest x-ray: Radiologist's Impression: PROCEDURE: XR CHEST 1V INDICATIONS: short of breath TECHNIQUE: One view of the chest was acquired. COMPARISON: [facility], CR, XR CHEST 1V, 07/23/2024, 10:49. [facility], CR, XR CHEST 1V, 06/13/2024, 16:16. FINDINGS: Surgical changes and devices: Cervical spinal fusion hardware is present. Right upper quadrant surgical clips. Lungs and pleura: Small left pleural effusion and left basilar atelectasis or consolidation. Bilateral interstitial prominence. Low lung volumes bilaterally. No pneumothorax. Mediastinum: Mediastinal contours appear normal. Heart size is normal. Bones and chest wall: No suspicious bony lesions. Overlying soft tissues appear unremarkable. IMPRESSION: Bilateral interstitial prominence and small left pleural effusion with left basilar atelectasis or consolidation. Findings are most suspicious for pulmonary edema. Approved by: Stanford Li M.D. on 07/31/2024 at 12:56 CT scan - abdomen/pelvis: Radiologist's Impression: PROCEDURE: CT ANGIO CHEST ABDOMEN PELVIS INDICATIONS: found down hypoxic TECHNIQUE: Precontrast 5 mm thick sections acquired from the lung apices to the iliac crests. After the administration of intravenous contrast, 2.5 mm thick sections again acquired from the lung apices to the iliac crests. Maximum intensity projection (MIP) oblique sagittal and coronal reformats were then acquired. For radiation dose reduction, the following was used: automated exposure control. COMPARISON: [facility], CT, CT KIDNEY URETER BLADDER (KUB), 07/23/2024, 12:51. [facility], CR, XR CHEST 1V, 07/31/2024, 12:33. FINDINGS: Image quality: Diagnostic. AORTA: No aortic aneurysm. No acute aortic syndrome. 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 The origin of the celiac trunk is non-opacified. A large inferior mesenteric artery is seen with collateral vessels in the left abdomen that appear to be supplying the estimate territory in retrograde fashion. Smaller collateral vessels are seen between the SMA and celiac trunk. However there appears to be flow within the more distal arterial branches. Bilateral renal arteries are patent, although the right renal artery is somewhat diminutive. The common, external, and internal iliac arteries and the included femoral arteries are patent. CHEST: Lower Neck: No enlarged lymph nodes. Thyroid: No thyroid nodules which require sonographic evaluation. Axillae: No enlarged lymph nodes. Chest Wall: Unremarkable. Lungs and Pleura: Moderate bilateral pleural effusions with atelectasis of the posterior lungs. No pneumothorax or pleural effusions. No consolidation or suspicious nodules. Heart: Heart size is mildly enlarged. No pericardial effusion. Thoracic Vessels: Pulmonary arteries demonstrate normal size. No central pulmonary embolus. Mediastinum and Margo: No enlarged lymph nodes. Esophagus: No wall thickening. No hiatal hernia. ABDOMEN: Liver: No solid mass. Mild reflux of arterial contrast material into the hepatic veins. Gallbladder: Status post cholecystectomy. Biliary ducts: No biliary dilation. Pancreas: No ductal dilation. Spleen: Size is within normal limits. Adrenal Glands: No adrenal nodules. Kidneys and Ureters: No hydronephrosis. No solid mass. No complex renal cystic lesion which requires follow up. Right kidney is mildly atrophic and contains multiple cysts. Stomach and Bowel: Mild bowel wall thickening throughout segments of the colon. Small bowel loops are nondilated. Stomach is underdistended. Peritoneum: Small volume of ascites. No pneumoperitoneum. Nonspecific presacral edema. Ventral Wall: Mild soft tissue anasarca. Edema is slightly greater in the included left lower extremity than the right. Abdominal Nodes: No retroperitoneal or mesenteric adenopathy by size criteria. Vessels: Inferior vena cava is normal in size. PELVIS: Pelvic Organs: Unremarkable. Bladder: A De La Garza catheter is present in the bladder, which contains air. Pelvic Nodes: No enlarged lymph nodes. Miscellaneous: No inguinal hernias are seen. Bones: Cervical spinal fusion hardware is partially imaged. No aggressive osseous abnormality. No acute fracture is seen. IMPRESSION: 1. No aortic aneurysm or acute aortic syndrome. 2. 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 Etiology of the stenosis is unclear and may be related to SMA syndrome versus vasculitis or other etiology. No significant atherosclerotic disease. 3. Right renal artery appears diminutive with mild chronic right renal atrophy. 4. Segments of bowel wall thickening in the colon could indicate a nonspecific colitis, and ischemic colitis is not excluded. 5. Signs of volume overload including moderate bilateral pleural effusions, small volume of ascites, and mild soft tissue anasarca. ECG Data Attestation: I personally reviewed and interpreted this ECG as follows: Prior ECG tracings: available for review Interpretation: Low voltage sinus rhythm rate 62 MO interval 138 QRS 70 QTC 430 new Q-waves in lead 3 and AVF from previous EKGs in 07/23/2024 EKGs for to persistently low voltage with persistent Q-waves in lead 3 and AVF some artifact noted no acute ST changes MDM Narrative Medical decision making narrative: SANTO CC: Roll out of bed Complicating co-morbidities: Leg wound with wound VAC recent admission Data collected from: Son and EMS Medical records reviewed: Recent admission July 23 through July 29 Differential considered: Intracranial hemorrhage pulmonary embolism pulmonary edema acute [place] sepsis Exam documented above, pertinent findings include: Alert extremely hard of hearing 71-year-old female dry mucous membranes slightly pale, moving all extremities Lab Test results independently reviewed as above. Pertinent findings: Troponin 1.28-->1.08 CPK 82 [id number] Lactate 3.6-->2.4 CBC shows no leukocytosis WBC is 6.1 hemoglobin 11.2 hematocrit 34.7 platelets 143 CMP sodium 138 potassium 4.1 chloride 112 carbon dioxide 20 BUN 21 creatinine 0.98 Bilirubin 0.9 AST 64 ALT 28 alk-phos 114 Viral panel positive for COVID Independently reviewed EKG as above Q-waves in inferior leads with low voltage which is new from prior Imaging studies independently reviewed: Head CT no intracranial process CT angio chest abdomen pelvis no pulmonary embolism, does show short-segment occlusion of celiac trunk and high-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 Cochran, cardiology updated on patient's symptoms test results including elevated troponin EKGs changes reports medical management only. May start heparin after consulting pharmacy 1528 Dr. 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 This is likely not significant if patient was not having significant abdominal pain there is no leukocytosis or pneumonitis on CT. Treatments: Zosyn, Lasix aspirin Re-evaluations: Patient remained stable abdomen is reexamined nontender Discussion: Patient is 79-year-old female presenting today after rule out of bed. She was multiple comorbidities including a chronic wound VAC Pseudomonas infection recent admission. She was found to be hypoxic with elevated troponin. She does have some EKGs changes she has new bilateral [place] [address]. She was also found COVID positive. No other source of infection is found. No real evidence of sepsis. Hard to tell if troponin is related to COVID infection. I did talk with jose eduardo Stern multiple times. At this time reports it patient is to be a DNR DNI they will discuss vasopressor need if she should need it. But understands that no aggressive measures will be taken for NSTEMI. They were discussing hospice which might still be an option. Critical Care Time Critical Care Time Critical Care Time: Yes Total Critical Care Time: 31 Attestation: The high probability of a clinically significant, sudden or life threatening deterioration of the [cardiovascular] system(s) required my full and direct attention, intervention and personal management. The aggregate critical care time was 31 minutes. This time is in addition to time spent performing reported procedures but includes the following: [x] Data Review and interpretation [x] Patient assessment and monitoring of vital signs [x] Documentation [x] Medication orders and management Discharge Plan Departure Patient Disposition: Admitted As Inpatient Clinical Impression: Acute non-ST elevation myocardial infarction (NSTEMI), CHF (congestive heart failure), COVID-19 Admit Date/Time: 07/31/24 16:39 Admit Provider: Florentin Lux
[2024-07-31 12:47] LABS: Add Manual Diff / Slide Review NO; Basophils Absolute Auto 100 /uL (0-100); Basophils Percent Auto 1.3 % (0-2); Eosinophils Absolute Auto 400 /uL (0-450); Eosinophils Percent Auto 6.7 % (2-4); Hematocrit 34.7 % (36-46); Hemoglobin 11.2 g/dL (12.0-16.0); Lymphocytes Absolute Auto 900 /uL (1100-4500); Lymphocytes Percent Auto 13.9 % (25-40); Mean Corpuscular HGB Conc 32.3 % (30-36); Mean Corpuscular Volume 86.8 fL (80-100); Monocytes Absolute Auto 500 /uL (0-900); Monocytes Percent Auto 8.5 % (3-14); Neutrophils Absolute Auto 4300 /uL (1500-7000); Neutrophils Percent Auto 69.6 % (50-75); Platelet Count 143 X10^3/uL (150-400); White Blood Cell Count 6.1 X10^3/uL (4.5-11.0)
[2024-07-31 12:58] LABS: Alanine Aminotransferase 28 IU/L (<35); Albumin 2.6 g/dL (3.5-5.0); Alkaline Phosphatase 114 U/L (38-126); Aspartate Aminotransferase 64 IU/L (14-36); BUN Creatinine Ratio 21.4 (6-22); Bilirubin Total 0.9 mg/dL (0.2-1.3); Blood Urea Nitrogen 21 mg/dL (7-17); Calcium 8.6 mg/dL (8.4-10.2); Carbon Dioxide 20 mmol/L (22-32); Chloride 112 mmol/L (98-107); Creatine Kinase 82 U/L (30-135); Estimated Glomerular Filt Rate 59 mL/min (>60); Globulin 2.6 g/dL (1.7-4.1); Glucose 96 mg/dL (70-99); HEMOLYSIS < 15 (0-50); Lactate (Lactic Acid) 3.6 mmol/L (0.7-2.1); Potassium 4.1 mmol/L (3.4-5.1); Sodium 138 mmol/L (137-145); Total Protein 5.2 g/dL (6.3-8.2)
--- NOTE | 2024-07-31 13:09 | DI.CT.S_ITS ---
PROCEDURE: CT ANGIO CHEST ABDOMEN PELVIS INDICATIONS: found down hypoxic TECHNIQUE: Precontrast 5 mm thick sections acquired from the lung apices to the iliac crests. After the administration of intravenous contrast, 2.5 mm thick sections again acquired from the lung apices to the iliac crests. Maximum intensity projection (MIP) oblique sagittal and coronal reformats were then acquired. For radiation dose reduction, the following was used: automated exposure control. COMPARISON: [facility], CT, CT KIDNEY URETER BLADDER (KUB), 07/23/2024, 12:51. [facility], CR, XR CHEST 1V, 07/31/2024, 12:33. FINDINGS: Image quality: Diagnostic. AORTA: No aortic aneurysm. No acute aortic syndrome. 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 The origin of the celiac trunk is non-opacified. A large inferior mesenteric artery is seen with collateral vessels in the left abdomen that appear to be supplying the estimate territory in retrograde fashion. Smaller collateral vessels are seen between the SMA and celiac trunk. However there appears to be flow within the more distal arterial branches. Bilateral renal arteries are patent, although the right renal artery is somewhat diminutive. The common, external, and internal iliac arteries and the included femoral arteries are patent. CHEST: Lower Neck: No enlarged lymph nodes. Thyroid: No thyroid nodules which require sonographic evaluation. Axillae: No enlarged lymph nodes. Chest Wall: Unremarkable. Lungs and Pleura: Moderate bilateral pleural effusions with atelectasis of the posterior lungs. No pneumothorax or pleural effusions. No consolidation or suspicious nodules. Heart: Heart size is mildly enlarged. No pericardial effusion. Thoracic Vessels: Pulmonary arteries demonstrate normal size. No central pulmonary embolus. Mediastinum and Margo: No enlarged lymph nodes. Esophagus: No wall thickening. No hiatal hernia. ABDOMEN: Liver: No solid mass. Mild reflux of arterial contrast material into the hepatic veins. Gallbladder: Status post cholecystectomy. Biliary ducts: No biliary dilation. Pancreas: No ductal dilation. Spleen: Size is within normal limits. Adrenal Glands: No adrenal nodules. Kidneys and Ureters: No hydronephrosis. No solid mass. No complex renal cystic lesion which requires follow up. Right kidney is mildly atrophic and contains multiple cysts. Stomach and Bowel: Mild bowel wall thickening throughout segments of the colon. Small bowel loops are nondilated. Stomach is underdistended. Peritoneum: Small volume of ascites. No pneumoperitoneum. Nonspecific presacral edema. Ventral Wall: Mild soft tissue anasarca. Edema is slightly greater in the included left lower extremity than the right. Abdominal Nodes: No retroperitoneal or mesenteric adenopathy by size criteria. Vessels: Inferior vena cava is normal in size. PELVIS: Pelvic Organs: Unremarkable. Bladder: A De La Garza catheter is present in the bladder, which contains air. Pelvic Nodes: No enlarged lymph nodes. Miscellaneous: No inguinal hernias are seen. Bones: Cervical spinal fusion hardware is partially imaged. No aggressive osseous abnormality. No acute fracture is seen. IMPRESSION: 1. No aortic aneurysm or acute aortic syndrome. 2. Suspected short segment occlusion of the celiac trunk at the origin and high-grade stenosis of the proximal superior mesenteric artery, with the distal portions of the arteries being fed via collateral flow from a large inferior mesenteric artery. Etiology of the stenosis is unclear and may be related to SMA syndrome versus vasculitis or other etiology. No significant atherosclerotic disease. 3. Right renal artery appears diminutive with mild chronic right renal atrophy. 4. Segments of bowel wall thickening in the colon could indicate a nonspecific colitis, and ischemic colitis is not excluded. 5. Signs of volume overload including moderate bilateral pleural effusions, small volume of ascites, and mild soft tissue anasarca. Approved by: Stanford Li M.D. on 07/31/2024 at 14:13
[2024-07-31 13:15] LABS: Appearance Urine UA CLEAR; Bilirubin Urine UA NEGATIVE (NEGATIVE); Color Urine UA YELLOW; Glucose Urine UA NEGATIVE (Negative); Ketones Urine UA NEGATIVE (NEGATIVE); Leukocyte Esterase Urine UA NEGATIVE (NEGATIVE); Nitrite Urine UA NEGATIVE (Negative); Occult Blood Urine UA 3+ (Negative); Protein Urine UA NEGATIVE (Negative); Specific Gravity Urine UA 1.015 (1.000-1.035); Urobilinogen Urine UA 0.2 E.U./dL (0.2)
[2024-07-31 13:16] LABS: Procalcitonin 0.317 ng/mL (<0.5)
[2024-07-31 13:16] LABS: Urine Volume 10mL (spun); pH Urine UA 5.5 (4.5-8.0)
[2024-07-31 13:18] LABS: Bacteria Urine None Seen; Culture Indicated Urine Cult Not Indicated; RBC Urine 1-5/HPF (0-5/HPF); Squamous Epithelial Cell Urine None Seen (0-5/HPF); WBC Urine None Seen (0-5/HPF)
[2024-07-31] MEDS: SODIUM CHLORIDE 0.9% 1,000 ML 1000 ML IV (13:24)
[2024-07-31 13:32] LABS: NT-proBNP (BNP-Adult 18+) 32300 pg/mL (<450)
[2024-07-31] MEDS: PIPERACILLIN/TAZO 4.5 GM in SODIUM CHLORIDE 0.9% 100 ML IV (13:46)
[2024-07-31 14:16] LABS: COVID-19 CEPHEID 4-PLEX PCR POSITIVE (Negative); Influenza A - CEPHEID Flu A NEGATIVE (NEGATIVE); Influenza B - CEPHEID Flu B NEGATIVE (NEGATIVE); Respiratory Syncytial Virus Negative (Negative)
[2024-07-31 14:19] LABS: Reflexed Lactate in 2 Hours Y
[2024-07-31] MEDS: FUROSEMIDE 40 MG/4 ML VIAL IV (14:19)
--- NOTE | 2024-07-31 14:46 | EKG_ITS ---
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
[2024-07-31 15:00] LABS: Lactate 2HR (Lactic Acid Rflx) 2.4 mmol/L (0.7-2.1)
--- NOTE | 2024-07-31 16:11 | PC.NURSE ---
Patient here in department from [facility] rehab for fall on thinners, unknown down time, unknown if she hit her head. Patient appears in department looking pale, eyes closed but responded to voice, breathing was even and unlabored and in a c-collar. Patient is very hard of hearing and appears altered, most of her speech is nonsensical. Wound wac on left thigh, foam bandage of right thigh, foam bandage to right elbow as well as some bruising to right forearm. Peripheral pulses are weak, central are normal, Patients lungs sound coarse, heart is regular. Patient given 500 bolus NS, Patient placed on 2L for comfort
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
--- NOTE | 2024-07-31 17:47 | DI.ECHO.S_ITS ---
[place] +---------+ [facility] : : [address] : : [place] : : [id number] : : Phone: [phone] Echocardiogram Report + + :Name: SANDRITA TELLO Study Date: 08/01/2024 Height: 61 in : :Hospital ReadingLocation: Weight: 127 lb: : Gender: Female BSA: 1.6 m2 : :: 1945 Age: 79 yrs : :Reason For Study: NSTEMI, SHORTNESS OF BREATH : :Ordering Physician: DANIEL, : :LAISHA PLASENCIA Performed By: Simin Gonzalez : :Referring: LAISHA SANCHEZ : + + Interpretation Summary \ The left ventricle is normal in size. The ejection fraction is estimated to be 30-35%. Except basal LV segments which has preserved contractility, rest of the LV severely hypokinetic to akinetic. This finding suggests stress-induced cardiomyopathy versus multivessel coronary disease. The right ventricle is normal in size and function. There is mild to moderate aortic regurgitation. There is mild tricuspid regurgitation. The right ventricular systolic pressure is estimated to be at least 27 mmHg based on an estimated right atrial pressure of 3 mm Hg. There is aortic root sclerosis/calcification. Moderate predominantly anterior to right ventricle pericardial effusion with fibrinous material. No obvious echocardiographic finding of tamponade. IVC is not dilated. Right atrial pressure about 3 mmHg. No obvious diastolic RV or RA collapse. There is a large left-sided pleural effusion. There is a small right-sided pleural effusion. Procedure: A two-dimensional transthoracic echocardiogram with color flow and Doppler was performed. The study quality was technically adequate. There is no prior echocardiogram noted for this patient. The patient was in sinus bradycardia with heart rates between 54-58 bpm during the exam. Left Ventricle: The left ventricle is normal in size. Proximal septal thickening is noted. There is no thrombus. The ejection fraction is estimated to be 30-35%. Except basal LV segments which has preserved contractility, rest of the LV severely hypokinetic to akinetic. This finding suggests stress- induced cardiomyopathy versus multivessel coronary disease. MV E/A: 0.63 Med Peak E' Danial: 3.2 cm/sec E/E' med: 16.6. Right Ventricle: The right ventricle is normal in size and function. Atria: The left atrial size is normal. Right atrial size is normal. There is no Doppler evidence for an interatrial shunt. Mitral Valve: The mitral valve leaflets appear moderately thickened, but open well. There is mild to moderate mitral annular calcification. The mitral valve chordae are thickened and/or calcified. There is mild mitral regurgitation. Aortic Valve: The aortic valve is moderately calcified. The aortic valve is trileaflet. There is no aortic valve stenosis. There is mild to moderate aortic regurgitation. Tricuspid Valve: The tricuspid valve leaflets are thin and pliable. There is mild tricuspid regurgitation. The right ventricular systolic pressure is estimated to be at least 27 mmHg based on an estimated right atrial pressure of 3 mm Hg. Pulmonic Valve: The pulmonic valve is not well visualized. There is no pulmonic valvular regurgitation. Great Vessels: The aortic root is normal size. There is aortic root sclerosis/calcification. The dimensions of the ascending aorta are normal. The IVC is of normal diameter and collapses greater than 50% with a sniff. This suggests a low right atrial pressure of 3 mm Hg. Pericardium/ Pleura There is a moderate pericardial effusion noted. Moderate predominantly anterior to right ventricle pericardial effusion with fibrinous material. No obvious echocardiographic finding of tamponade. IVC is not dilated. Right atrial pressure about 3 mmHg. No obvious diastolic RV or RA collapse. There is a large left-sided pleural effusion. There is a small right-sided pleural effusion. MMode/2D Measurements & Calculations LVIDd: 4.6 cm LVOT diam: 1.8 cm LVIDs: 3.6 cm Ao root diam: 2.5 cm FS: 22.0 % asc Aorta Diam: 3.0 cm IVSd: 1.1 cm Ao Arch Diam (Prox Trans): 2.4 cm LVPWd: 0.92 cm LV mcneal. diameter/BSA (cm/m^2): 2.9 LV sys. diameter/BSA (cm/m^2): 2.3 LA A2 area: 10.6 cm2 RA long axis: 3.9 cm LA A4 area: 15.3 cm2 RA area: 7.6 cm2 LA length (vol): 5.3 cm RA vol: 12.9 ml LA vol: 26.0 ml RA : 8.3 ml/m2 LA vol index: 16.7 ml/m2 IVC diam: 1.1 cm RVD1 (basal): 3.1 cm RVD2 (mid): 2.2 cm TAPSE: 2.0 cm Doppler Measurements & Calculations Ao V2 max: 178.8 cm/sec LVOT Max Danial: 127.6 cm/sec Ao V2 mean: 111.1 cm/sec LV V1 max P.5 mmHg Ao max P.8 mmHg LV V1 VTI: 24.2 cm Ao mean P.9 mmHg TATYANA(I,D): 1.8 cm2 Ao V2 VTI: 34.0 cm TATYANA(V,D): 1.8 cm2 sev ratio: 0.71 TATYANA indexed to BSA (cm^2/m^2): 1.1 AI P1/2t: 824.9 msec AI dec slope: 125.5 cm/sec2 MV E max danial: 53.1 cm/sec TR max danial: 244.8 cm/sec MV A max danial: 84.5 cm/sec TR max P.0 mmHg MV E/A: 0.63 PA V2 max: 133.0 cm/sec Med Peak E' Danial: 3.2 cm/sec PA V2 mean: 88.0 cm/sec E/E' med: 16.6 PA mean P.5 mmHg Lat Peak E' Danail: 4.2 cm/sec PA pr(Accel): 19.9 mmHg E/E' lat: 12.8 E/e' average: 14.7 MV dec time: 0.24 sec SV(LVOT): 60.5 ml Reading Physician:09:28 AM
--- NOTE | 2024-07-31 17:55 | PC.NURSE ---
Patient admitted for covid, she has some chf per and multiple skin ulcers and other skin issues that can be see under wound photos and skin assessment in chart. She is totally confused and oriented x1. She knows her name only and does not recognize faces. Patients lung sounds are decreased. She is sleeping now, she will be on tele and denies chest pain.
[2024-07-31] MEDS: ENOXAPARIN 40 MG/0.4 ML SYRINGE 60 MG SUBCUT (21:03)
[2024-08-01] VITALS (13 sets, daily range): BP systolic 92–146; BP diastolic 39–64; PULSE 58–65; RESP 15–18; TEMP 35.9–36.5; O2SAT 95–99
[2024-08-01] MEDS: HYDROMORPHONE 0.5 MG INJ IV (05:05)
[2024-08-01] MEDS: LEVOTHYROXINE 88 MCG TABLET PO (05:05)
[2024-08-01 06:51] LABS: Basophils Absolute Auto 100 /uL (0-100); Basophils Percent Auto 1.1 % (0-2); Eosinophils Absolute Auto 200 /uL (0-450); Eosinophils Percent Auto 4.9 % (2-4); Hematocrit 29.1 % (36-46); Hemoglobin 9.7 g/dL (12.0-16.0); Lymphocytes Absolute Auto 500 /uL (1100-4500); Lymphocytes Percent Auto 9.6 % (25-40); Mean Corpuscular HGB Conc 33.2 % (30-36); Mean Corpuscular Hemoglobin 28.3 PG (26-34); Mean Corpuscular Volume 85.1 fL (80-100); Monocytes Absolute Auto 400 /uL (0-900); Monocytes Percent Auto 8.8 % (3-14); Neutrophils Absolute Auto 3700 /uL (1500-7000); Neutrophils Percent Auto 75.6 % (50-75); Platelet Count 122 X10^3/uL (150-400); Red Blood Cell Count 3.42 X10^6/uL (4.0-5.2); Red Cell Distribution Width 17.8 % (11.6-14.8)
[2024-08-01 06:57] LABS: Hemoglobin A1C% w Est Avg Glu 4.6 % (4.0-6.0)
[2024-08-01 07:00] LABS: Alanine Aminotransferase 19 IU/L (<35); Albumin Globulin Ratio 0.8 (1.0-2.8); Alkaline Phosphatase 88 U/L (38-126); Aspartate Aminotransferase 44 IU/L (14-36); BUN Creatinine Ratio 21.4 (6-22); Bilirubin Total 0.7 mg/dL (0.2-1.3); Blood Urea Nitrogen 21 mg/dL (7-17); Carbon Dioxide 22 mmol/L (22-32); Chloride 112 mmol/L (98-107); Cholesterol 86 mg/dL (140-199); Estimated Glomerular Filt Rate 59 mL/min (>60); Globulin 2.4 g/dL (1.7-4.1); Glucose 67 mg/dL (70-99); HDL Cholesterol 15 mg/dL (40-60); HEMOLYSIS < 15 (0-50); LDL Cholesterol Calculated 51 mg/dL (<100); Magnesium 1.5 mg/dL (1.6-2.3); Phosphorous 3.7 mg/dL (2.8-4.1); Potassium 3.7 mmol/L (3.4-5.1); Sodium 139 mmol/L (137-145); Total Protein 4.4 g/dL (6.3-8.2); Triglycerides 101 mg/dL (35-150)
[2024-08-01 07:04] LABS: Add Manual Diff / Slide Review SLIDE REVIEW
[2024-08-01 07:05] LABS: Hypochromasia 1+; Ovalocytes 2+; Schistocytes 1+; Tear Drop Cells 1+
[2024-08-01 07:06] LABS: Anisocytosis 1+
[2024-08-01] MEDS: ENOXAPARIN 40 MG/0.4 ML SYRINGE 60 MG SUBCUT ×2 (08:22→21:59)
[2024-08-01] MEDS: MAGNESIUM SULFATE 2 GM/50 ML PIGGYBACK IV (10:33)
--- NOTE | 2024-08-01 12:16 | CM.DANOTE ---
Initial DCP Assessment Visit Note Reviewed EMR and team rounds for status updates. LIFE CYCLE ASSESSMENT ANALYST did not meet with pt in the room due to new covid+ diagnosis. Pt was recently discharged, this is a readmit-last hospitalization was from 07/23-07/29/24 for similiar issues. Pt came from [facility], had lived with her spouse in their own home in [place] previously. Pt anticipated to pass away in the hospital. Payor: [facility] Adv PCP: Elin Dominick Pt is a 79 year-old F who presented to the ED via EMS from [facility] last evening after she rolled out of bed and onto the floor. She was observed to have the wound vac intact on her L-thigh, which was also in place during her previous hospitalization. Pt presented with AMS, hypoxia, and elevated troponins. Labs showed she was also covid+, pneumonia, and NSTEMI. She was started on IV ABO's and 2LO2, then admitted to the floor for cont. tx. Pt remains confused this am, is sleeping most of the time. Plan is to return to [facility] once medically stable for d/c. DCP will continue to monitor for final d/c coordination needs. Discharge Planning/Care Management CM Discharge Assessment Start: 08/01/24 12:10 Freq: Status: Active Protocol: Document 08/01/24 12:11 DPL (Rec: 08/01/24 12:13 DPL [id number]) Discharge Planning Assessment Assigned Technology Lab Teacher MERT [place]olla Advance Directives? Yes: POLST Advance Directives on File Yes: POLST on file History Provided By Medical Record Expected Length of Stay 3 Has Patient been admitted in last 30 Yes days? Comment This is a readmit. Last hospitalization was from 07/23- 07/29/24 for same issues. Prior Living Arrangements Skilled Nurse Facility Household Members spouse Type of transporation used prior to Relies on Others admit Willing to Return to Facility? No Independent with ADL's No: mod independent with a walker/wheelchair Is patient alert and oriented? No: Pt is mostly non- responsive. Community Services used prior to Physical Therapy,Occupational admission: Therapy,Wound Care DME Already Rented / Owned Bath Bench,Wheelchair,Elevated Toilet Seat,FWW / Walker Comment Woundvac Patient/Family Preference [facility] Facility Comment Pt is on comfort care, anticipated to pass away in the hospital. Barriers to Discharge No Discharge Plan [facility] Facility Transportation Arrangement wc Referrals Initiated [facility] Additional Comment LTC resident at [facility] H+R Review Status In Process Please Provide Date Initial DC 08/01/24 Assessment Was Performed
--- NOTE | 2024-08-01 14:20 | PM.PN.1 ---
Subjective Subjective Interval history: 79 F admitted with NSTEMI. Less alert today, very lethargic this morning. TTE showed likely stress induced cardiomyopathy, large pleural effusion. Exam Vital Signs (past 8 hours): - 08/01/24 07:00 08/01/24 07:56 08/01/24 08:00 Temperature 97.7 F Pulse Rate 58 L Respiratory Rate 18 Blood Pressure 98/48 L Pulse Oximetry 98 98 Oxygen Delivery Method Nasal Cannula Nasal Cannula Oxygen Flow Rate 1.5 08/01/24 09:00 08/01/24 12:00 Temperature 96.8 F L Pulse Rate 65 Respiratory Rate 18 Blood Pressure 142/57 H Pulse Oximetry 95 98 Oxygen Delivery Method Nasal Cannula Oxygen Flow Rate 2 2 Fraction of Inspired Oxygen 28 SaO2/FiO2 Ratio 346 Oxygen Delivery Method Nasal Cannula Oxygen Flow Rate 2 Narrative Exam Narrative: NAD, alert, hard of hearing, responsive and trying to answer questions. Lungs have diminished breath sounds bilateral lung bases, bibasilar rales. No wheezing. Heart is regular, no murmur gallop or rub. Abdomen is soft, non distended. Extremities with 1+ pedal edema bilaterally. Wound VAC to wound in medial left thigh. Wound vac with current air leak. R medial thigh with another wound without surrounding erythema or induration Objective Labs 08/01/24 06:15 08/01/24 06:15 Labs: Laboratory Results - last 24 hr 07/31/24 08/01/24 14:31 06:15 WBC 5.0 RBC 3.42 L Hgb 9.7 L Hct 29.1 L MCV 85.1 MCH 28.3 MCHC 33.2 RDW 17.8 H Plt Count 122 L Neut % (Auto) 75.6 H Lymph % (Auto) 9.6 L Upson % (Auto) 8.8 Eos % (Auto) 4.9 H Baso % (Auto) 1.1 Neut # (Auto) 3700 Lymph # (Auto) 500 L Upson # (Auto) 400 Eos # (Auto) 200 Baso # (Auto) 100 RBC Morphology See below Hypochromasia 1+ H Anisocytosis 1+ H Tear Drop Cells 1+ H Ovalocytes 2+ H Schistocytes 1+ H Sodium 139 Potassium 3.7 Chloride 112 H Carbon Dioxide 22 BUN 21 H Creatinine 0.98 Estimated GFR 59 L BUN/Creatinine Ratio 21.4 Glucose 67 L Hemoglobin A1c 4.6 Lactate 2.4 H Calcium 8.0 L Phosphorus 3.7 Magnesium 1.5 L Total Bilirubin 0.7 AST 44 H ALT 19 Alkaline Phosphatase 88 Troponin I 1.080 H* Total Protein 4.4 L Albumin 2.0 L Globulin 2.4 Albumin/Globulin Ratio 0.8 L Triglycerides 101 Cholesterol 86 L LDL Cholesterol, Calc 51 HDL Cholesterol 15 L PFSH Medical History Chronic kidney disease Skin ulceration 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 arthropathy, lumbar Lumbar foraminal stenosis History of DVT (deep vein thrombosis) Herniated nucleus pulposus, L3-4 left Lumbar radiculopathy Surgical History Hx laparoscopic cholecystectomy H/O neck surgery History of ankle surgery Family History Father Hypertension Mother Hypertension Social History household members: spouse Smoking Status: Never smoker alcohol intake: never Assessment & Plan Assessment & Plan narrative: 1. NSTEMI, POA - Lovenox 1mg/kg BID for 48 hours before return to apixaban BID. - asa 324 given. Continue asa 81 mg daily. Change to atorvastatin 80. - LDL 51, A1c 4.6%. - TTE as noted below - ER discussed with business applications developer cardiology, recommended medical management as above and no plan for urgent invasive procedure given COVID infection, other chronic comorbidities. - start beta naldo after diuresis (on home coreg 25 mg BID), will hold home lisinopril for now given low normal BP and need for diuresis. 2. Acute systolic heart failure, unspecified type, POA - needing to hold diuresis today due to hypotension - diuresis as soon as possible - TTE with EF 30-35%, likely stress induced per core winder machine operator reading. - resume home coreg and lisinopril once able given BP and need for diuresis. 3. COVID 19 infection, POA, acute - if hypoxia persists after diuresis consider dexamethasone but respiratory symptoms presumed secondary to fluid overload based on presenting CT and CXR findings. 4. Acute respiratory failure with hypoxia, POA - diuresis as noted above. 5. 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 # Hypertension - hold home lisinopril, furosemide, and coreg in favor of IV diuresis. Restart lisinopril first if BP increase. #Hyperlipidemia - increase lovastatin to high intensity atorvastatin. # Hypothyroidism - continue home 88 mcg levothyroxine. #Chronic pain syndrome on chronic opioid therapy - holding home fentanyl patch. Can continue hydroxyzine, lidocaine cream, oxycodone #chronic cognitive impairment - continue home seroquel. DVT prophylaxis: Lovenox Code status: Do not resuscitate. Her son Silvio is her surrogate decision maker. I have utilized all available immediate resources to obtain, update, or review the patient's current medications. Dispo: patient admitted under inpatient status. Unclear if will be able to discharge home or possible SNF, will have PT/OT evaluations. Consider hospice as well depending on above course. Additional history obtained via discussions with the bedside nurse today and caseworker. These discussions contributed to the creation of the above assessment and plan. I have reviewed patient's presenting documentation, labs, and imaging personally. Time-Based Coding :: [TOTAL MINUTES] spent with patient and on the chart (including review of chart, obtaining history, exam, reviewing outside data, placing orders, documenting exam and treatment plan, and counseling patient) on [DATE]. Quality VTE Deep Vein Thrombosis/Pulmonary Embolism Present on Admission: No
[2024-08-01] MEDS: MORPHINE 4 MG/ML INJ IV (15:04)
[2024-08-01] MEDS: FUROSEMIDE 40 MG/4 ML VIAL IV (15:04)
--- NOTE | 2024-08-01 15:40 | PC.NURSE ---
1500 Wound vac and dressing changed today by Theodora GARCIA from Wound care clinic. Will probably need to be changed again in 4 days if pt is still IP. No further pt needs at this time. Care on going
[2024-08-02] VITALS (7 sets, daily range): BP systolic 134–157; BP diastolic 53–107; PULSE 77–87; RESP 16–19; TEMP 36.3–36.6; O2SAT 95–97
[2024-08-02] MEDS: MORPHINE 4 MG/ML INJ IV ×4 (00:50→21:25)
--- NOTE | 2024-08-02 09:38 | DIET.CONS ---
Dietary Consultation Note Admission Date: 07/31/2024 16:39 Assessment: 79 y F admitted for NSTEMI. Dietitian consulted for wound. Pt covid+ and per rounds this morning still confused, hospitalist to have GOC with son. EMR reviewed. In previous RD note, reports early satiety and tolerating Ensures to help meet EER. No recent significant weight loss. Ht: 154.94 cm Wt: 58 kg BMI: 24.1 UBW: 02/16/24 59.874 kg, 06/13/24 58.513 kg Last BM: () MNA: Calvin Score: 15 Diet: 07/31/24 Dinner Heart Healthy Diet Diet Modifications: Labs: RBC 3.42 X10^6/uL (4.0-5.2) L 08/01/24 06:15 Hgb 9.7 g/dL (12.0-16.0) L 08/01/24 06:15 Hct 29.1 % (36-46) L 08/01/24 06:15 Creatinine 0.98 mg/dL (0.52-1.04) 08/01/24 06:15 Hemoglobin A1c 4.6 % (4.0-6.0) 08/01/24 06:15 Lactate 2.4 mmol/L (0.7-2.1) H 07/31/24 14:31 NT-Pro-B Natriuret Pep 49787 pg/mL (<450) H 07/31/24 12:31 Nutrition Diagnosis: Inadequate energy intake r/t increased protein needs and confusion aeb chronic wounds, reduced PO intakes Interventions: ONS TID EER: 1500 kcals (25 kcals/kg per BMI) 60 g protein (1g/kg per CKD and wounds) Monitoring/Evaluations: PO intakes, GOC Electronically Signed by: Adeline Dean 08/02/24 09:38 Clinical Dietitian [address] [address]
[2024-08-02] MEDS: ASPIRIN EC 81 MG TABLET PO (10:46)
[2024-08-02] MEDS: LEVOTHYROXINE 88 MCG TABLET PO (10:46)
[2024-08-02] MEDS: ENOXAPARIN 60 MG/0.6 ML SYRINGE SUBCUT (10:46)
--- NOTE | 2024-08-02 15:05 | P.PN_ITS ---
Subjective Subjective Interval history: 79 F admitted with NSTEMI. Patient remains alert, hard to tell confusion vs hard of hearing but when she does speak there is more word salad. Discussed with son, there has been a slow progression of decline since her calciphylaxis and wounds, especially with need for opiates and pain control. Given her continued decline, son would like to ultimately try and persue home hospice option if feasible. Exam Vital Signs (past 8 hours): - 08/02/24 09:00 08/02/24 13:00 08/02/24 15:01 Temperature 97.4 F L Pulse Rate 87 Respiratory Rate 16 Blood Pressure 141/107 H Pulse Oximetry 95 95 95 Oxygen Delivery Method Nasal Cannula Nasal Cannula Oxygen Flow Rate 2 1 1 Fraction of Inspired Oxygen 28 SaO2/FiO2 Ratio 346 Oxygen Delivery Method Nasal Cannula Oxygen Flow Rate 1 Narrative Exam Narrative: NAD, alert, hard of hearing, responsive and trying to answer questions. Lungs have diminished breath sounds bilateral lung bases, bibasilar rales. No wheezing. Heart is regular, no murmur gallop or rub. Abdomen is soft, non distended. Extremities with 1+ pedal edema bilaterally. Wound VAC to wound in medial left thigh. R medial thigh with another wound without surrounding erythema or induration Objective Labs 08/01/24 06:15 08/01/24 06:15 [facility] Medical History Chronic kidney disease Skin ulceration 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 arthropathy, lumbar Lumbar foraminal stenosis History of DVT (deep vein thrombosis) Herniated nucleus pulposus, L3-4 left Lumbar radiculopathy Surgical History Hx laparoscopic cholecystectomy H/O neck surgery History of ankle surgery Family History Father Hypertension Mother Hypertension Social History household members: spouse Smoking Status: Never smoker alcohol intake: never Assessment & Plan Assessment & Plan narrative: 1. NSTEMI, POA - Lovenox 1mg/kg BID for 48 hours, transitioning back to home apixaban this evening. - asa 324 given. Continue asa 81 mg daily. Change to atorvastatin 80. - LDL 51, A1c 4.6%. - TTE as noted below - ER discussed with operations general agent cardiology, recommended medical management as above and no plan for urgent invasive procedure given COVID infection, other chronic comorbidities. - BP improved today, will resume home coreg today. hold home lisinopril for now to watch BP, and need for diuresis. 2. Acute systolic heart failure, unspecified type, POA - needing to hold diuresis 08/01 due to hypotension. Now off supplemental O2 today at rest, no complaints of dyspnea. - will resume home furosemide 20 mg PO tomorrow. - TTE with EF 30-35%, likely stress induced per manager visual reading. No recommendation for transfer for [facility], patient is not a candidate for cardiac interventions at [facility] time. - resume home coreg and lisinopril as discussed above. 3. COVID 19 infection, POA, acute - if hypoxia persists after diuresis consider dexamethasone but respiratory symptoms presumed secondary to fluid overload based on presenting CT and CXR findings. 4. Acute respiratory failure with hypoxia, POA, improved - diuresis as noted above. 5. 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 # Hypertension - hold home lisinopril, furosemide, and coreg in favor of IV diuresis. Restart lisinopril first if BP increase. #Hyperlipidemia - increase lovastatin to high intensity atorvastatin. # Hypothyroidism - continue home 88 mcg levothyroxine. #Chronic pain syndrome on chronic opioid therapy - holding home fentanyl patch. Can continue hydroxyzine, lidocaine cream, oxycodone #chronic cognitive impairment - continue home seroquel. DVT prophylaxis: on apixaban Code status: Do not resuscitate. Her son Silvio is her surrogate decision maker. Dispo: patient admitted under inpatient status. Goal for discharge to be hopefully home with hospice, not full comfort care at this time. Will need to try to see about logistics of possible home with hospice in her specific circumstance with regards to wound vac, etc. Additional history obtained via discussions with the bedside nurse today, patient's son, and caser shoe parts. These discussions contributed to the creation of the above assessment and plan. I have reviewed patient's presenting documentation, labs, and imaging personally. Time-Based Coding :: [TOTAL MINUTES] spent with patient and on the chart (including review of chart, obtaining history, exam, reviewing outside data, placing orders, documenting exam and treatment plan, and counseling patient) on [DATE]. Quality VTE Deep Vein Thrombosis/Pulmonary Embolism Present on Admission: No
[2024-08-02 17:27] LABS: TSH w/ Reflex to FT4 3.71 uIU/mL (0.47-4.68)
--- NOTE | 2024-08-02 23:05 | PC.NURSE ---
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 Communication was effective using pen and paper vs Verbal shouting. RN spent 20minutes orienting patient to place and situation. Pt agreed to take oral medication 2100 with apple sauce; when RN gave spoon full of crushed medication in apple sauce patient immediately spit out the medication in the RN's masked face. RN used pen and paper asking if patient wanted to continue with medication administration. Patient refused. assistant vice president aware. RN went to [facility] To change 2100 medications to refused.
[2024-08-03] VITALS (9 sets, daily range): BP systolic 136–141; BP diastolic 72–88; PULSE 74–84; RESP 16–19; TEMP 36.3–37.1; O2SAT 91–95
[2024-08-03] MEDS: MORPHINE 4 MG/ML INJ IV ×2 (07:44→14:08)
--- NOTE | 2024-08-03 08:00 | PM.PN.1 ---
Subjective Subjective Interval history: S: She is somnolent and comfortable. Exam Vital Signs (past 8 hours): - 08/03/24 01:00 08/03/24 05:00 Pulse Oximetry 93 95 Oxygen Delivery Method Nasal Cannula Nasal Cannula Oxygen Flow Rate 1 1 Fraction of Inspired Oxygen 28 SaO2/FiO2 Ratio 346 Oxygen Delivery Method Nasal Cannula Oxygen Flow Rate 1 Narrative Exam Narrative: Somnolent. Lungs are clear, normal rate and effort. Heart is regular, no murmur gallop or rub. Abdomen is soft, non distended. Extremities are free of edema. Wound vac on left medial thigh. Objective Labs 08/01/24 06:15 08/01/24 06:15 Labs: Laboratory Results - last 24 hr 08/01/24 16:16 TSH 3.71 PFSH Medical History Chronic kidney disease Skin ulceration 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 arthropathy, lumbar Lumbar foraminal stenosis History of DVT (deep vein thrombosis) Herniated nucleus pulposus, L3-4 left Lumbar radiculopathy Surgical History Hx laparoscopic cholecystectomy H/O neck surgery History of ankle surgery Family History Father Hypertension Mother Hypertension Social History household members: spouse Smoking Status: Never smoker alcohol intake: never Assessment & Plan Assessment & Plan narrative: 1. NSTEMI, POA 2. Acute systolic heart failure, unspecified type, POA 3. COVID 19 infection, POA, acute - if hypoxia persists after diuresis consider dexamethasone but respiratory symptoms presumed secondary to fluid overload based on presenting CT and CXR findings. 4. Acute respiratory failure with hypoxia, POA, improved - diuresis as noted above. 5. 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 # Hypertension - hold home lisinopril, furosemide, and coreg in favor of IV diuresis. Restart lisinopril first if BP increase. #Hyperlipidemia - increase lovastatin to high intensity atorvastatin. # Hypothyroidism - continue home 88 mcg levothyroxine. #Chronic pain syndrome on chronic opioid therapy - holding home fentanyl patch. Can continue hydroxyzine, lidocaine cream, oxycodone #chronic cognitive impairment - continue home seroquel. DVT prophylaxis: on apixaban Code status: Do not resuscitate. Her son Silvio is her surrogate decision maker. PLAN: -continue current medical therapy. -initiate a hospice referral. -situation was discussed with son, Silvio. Time-Based Coding :: [TOTAL MINUTES] spent with patient and on the chart (including review of chart, obtaining history, exam, reviewing outside data, placing orders, documenting exam and treatment plan, and counseling patient) on [DATE]. Quality VTE Deep Vein Thrombosis/Pulmonary Embolism Present on Admission: No
[2024-08-03] MEDS: ASPIRIN EC 81 MG TABLET PO (08:36)
[2024-08-03] MEDS: FUROSEMIDE 20 MG TABLET PO (08:36)
[2024-08-03] MEDS: carvediloL 12.5 MG TABLET 25 MG PO (08:36)
[2024-08-03] MEDS: APIXABAN 5 MG TABLET PO (08:36)
--- NOTE | 2024-08-03 11:36 | CM.DPC ---
DCP Cont. Reviewed EMR and team rounds for status updates. Called pt's spouse, Roderick, and discussed pt's current status as continuing to decline, her wound not healing even with several weeks on the wound vac. He seemed ambivalent to discuss end of life/comfort focused care, and stated that he had a doctor consulting out of [place] who is reviewing her IH Portal daily, and he feels that she can actually improve. He expressed that what he was hearing from this doctor finance consultant is very different than starting to focus on comfort care only, and then stated that he thought that pt's wound was a success story. He did also share that he has been sick, and more conversation about this would be best had with his son, Silvio, who is also very involved. Discussed a plan Dr. Bundy to call her son, Silvio, later this afternoon, after Dr. De Anda has been able to evaluate her wound and discuss prognosis. Monitoring for final decision and coordination needs. RENEWABLE ENERGY DIVISION MANAGER did explain to spouse that hospice services would be able to be provided in the home, however he would need to hire in-home caregivers to assist him. Or, that she could alternatively be on hospice in a facility, such as [facility] or [facility], with hospice in place, but that the family would need to pay for room/board.
[2024-08-03] MEDS: hydrOXYzine HCL 25 MG TABLET PO (15:01)
[2024-08-03] MEDS: HYDROMORPHONE 0.5 MG INJ IV (15:01)
[2024-08-04] VITALS (7 sets, daily range): BP systolic 109–139; BP diastolic 51–62; PULSE 69–71; RESP 16–19; TEMP 36.2–36.6; O2SAT 92–100
[2024-08-04] MEDS: MORPHINE 4 MG/ML INJ IV (01:51)
[2024-08-04] MEDS: HYDROMORPHONE 0.5 MG INJ IV (04:12)
--- NOTE | 2024-08-04 08:34 | PM.PN.1 ---
Subjective Subjective Interval history: S: She denies pain or other complaints. Care management indicates that the family will take home with hospice, hospice can open on Wednesday. Exam Vital Signs (past 8 hours): - 08/04/24 01:00 08/04/24 05:00 08/04/24 08:25 Temperature 97.1 F L Pulse Rate 69 Respiratory Rate 16 Blood Pressure 139/51 L Pulse Oximetry 92 95 100 Oxygen Delivery Method Room Air Nasal Cannula Oxygen Flow Rate 1 1 Fraction of Inspired Oxygen 28 SaO2/FiO2 Ratio 346 Oxygen Delivery Method Nasal Cannula Oxygen Flow Rate 1 Narrative Exam Narrative: Very hard of hearing, no distress today. Lungs are clear, heart is regular. Abdomen is nontender. Extremities are free of edema, wound VAC is in place. Objective Labs 08/01/24 06:15 08/01/24 06:15 [facility] Medical History Chronic kidney disease Skin ulceration 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 arthropathy, lumbar Lumbar foraminal stenosis History of DVT (deep vein thrombosis) Herniated nucleus pulposus, L3-4 left Lumbar radiculopathy Surgical History Hx laparoscopic cholecystectomy H/O neck surgery History of ankle surgery Family History Father Hypertension Mother Hypertension Social History household members: spouse Smoking Status: Never smoker alcohol intake: never Assessment & Plan Assessment & Plan narrative: 1. Acute stress-induced cardiomyopathy, present on admission and active. 2. Acute systolic heart failure, unspecified type, POA 3. COVID 19 infection, POA, improving. -not hypoxic. 4. Acute respiratory failure with hypoxia, present on admission and resolved. 5. 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 Her wound will not heal and the current care is palliative in nature. 7. History of pulmonary embolus on Eliquis - will resume home apixaban after 48 hours of therapy. 8. Hypertension - hold home lisinopril, furosemide, and coreg in favor of IV diuresis. Restart lisinopril first if BP increase. 9. Hyperlipidemia - increase lovastatin to high intensity atorvastatin. 10. Hypothyroidism - continue home 88 mcg levothyroxine. 11. Chronic pain syndrome on chronic opioid therapy - holding home fentanyl patch. Can continue hydroxyzine, lidocaine cream, oxycodone 12. chronic cognitive impairment - continue home seroquel. PLAN: -anticipate discharge on Wednesday with home hospice. -resume Eliquis. -droplet isolation. Time-Based Coding :: [TOTAL MINUTES] spent with patient and on the chart (including review of chart, obtaining history, exam, reviewing outside data, placing orders, documenting exam and treatment plan, and counseling patient) on [DATE]. Quality VTE Deep Vein Thrombosis/Pulmonary Embolism Present on Admission: No
[2024-08-04] MEDS: carvediloL 12.5 MG TABLET 25 MG PO ×2 (08:51→20:54)
[2024-08-04] MEDS: ASPIRIN 81 MG CHEW TAB PO (08:51)
[2024-08-04] MEDS: APIXABAN 5 MG TABLET PO ×2 (08:51→20:54)
[2024-08-04] MEDS: FUROSEMIDE 20 MG TABLET PO (08:52)
[2024-08-04] MEDS: hydrOXYzine HCL 25 MG TABLET PO (08:54)
[2024-08-04] MEDS: OXYCODONE IR 5 MG TABLET PO ×2 (08:55→17:02)
--- NOTE | 2024-08-04 10:08 | DIET.PN1 ---
Dietary Progress Note Assessment: Per hospitalist in rounds this morning, pt moving towards hospice. Ht: 154.94 cm Wt: 61 kg BMI: 24.1 Last BM: () MNA: Calvin Score: 15 Diet: 07/31/24 Dinner Heart Healthy Diet Diet Modifications: Nutrition Percent Meal Consumed 50% 08/03/24 18:00 Percent Meal Consumed 50% 08/02/24 18:00 Percent Meal Consumed 15 percent 08/02/24 13:00 Labs: RBC 3.42 X10^6/uL (4.0-5.2) L 08/01/24 06:15 Hgb 9.7 g/dL (12.0-16.0) L 08/01/24 06:15 Hct 29.1 % (36-46) L 08/01/24 06:15 Creatinine 0.98 mg/dL (0.52-1.04) 08/01/24 06:15 Hemoglobin A1c 4.6 % (4.0-6.0) 08/01/24 06:15 Lactate 2.4 mmol/L (0.7-2.1) H 07/31/24 14:31 NT-Pro-B Natriuret Pep 84203 pg/mL (<450) H 07/31/24 12:31 Electronically Signed by: Adeline Dean 08/04/24 10:08 Clinical Diet[address] [id number]
--- NOTE | 2024-08-04 13:07 | CM.DPNOTE ---
DCP Continued: Reviewed EMR and team rounds for pt?s medical status. Per rounds, pt hoping for a Hospice plan; trying to determine where pt will transfer to upon discharge. DCP spoke with pt son, Silvio, who confirms that the preference is hospice services in the home in [place]. DCP educated on hospice discharge process. DCP spoke with [facility], confirmed that they have a referral for patient. DCP confirmed that the plan is for Hospice services at pt's home in [place]. It is reported that the soonest hospice start of care date is on 08/08 at [phone]. [facility] to follow up with son today or first thing on Wednesday to discuss medical equipment. DCP notified pt Provider and RN of evolving plans. Anticipating BLS transport on 08/08. Plan: Anticipating Hospice plan at home on 08/08, transport time pending. CM Team will continue to follow for coordination of discharge plans. PAMELA Victor
[2024-08-04] MEDS: ACETAMINOPHEN 325 MG TABLET 650 MG PO (17:02)
[2024-08-04] MEDS: QUETIAPINE 25 MG TABLET PO (20:53)
[2024-08-04] MEDS: ATORVASTATIN 20 MG TABLET 80 MG PO (20:54)
[2024-08-04] MEDS: SENNOSIDES 8.6 MG TABLET 17.2 MG PO (20:54)
[2024-08-05] VITALS (10 sets, daily range): BP systolic 98–147; BP diastolic 42–71; PULSE 62–69; RESP 14–16; TEMP 36.1–36.4; O2SAT 93–97
[2024-08-05] MEDS: ACETAMINOPHEN 325 MG TABLET 650 MG PO (03:03)
[2024-08-05] MEDS: HYDROMORPHONE 0.5 MG INJ IV (04:21)
[2024-08-05] MEDS: LEVOTHYROXINE 88 MCG TABLET PO (05:26)
--- NOTE | 2024-08-05 07:24 | P.PN_ITS ---
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 The patient has had multiple admissions for possible infection and confusion. She was brought [facility] from the [facility] facility on July 31 for confusion, lactic acidosis, elevated troponin. CTA was performed because she was hypoxic and showed an SMA occlusion but no PE. Her COVID was positive. Cardiology felt that she was not really appropriate for invasive management and she was treated medically for NSTEMI. The patient remains confused, but does have a severe cognitive impairment and a very severe hearing loss. I did discuss her wound with Dr. Laboy of wound care who feels, like I do, that this wound will never heal. We did suggest consideration of hospice to the family and ultimately they agreed to bring her home with hospice. This will happen on Wednesday, August 08 when hospice can open. Echo was more consistent with a stress cardiomyopathy. S: No acute complaints, she was severe cognitive impairment. Exam Vital Signs (past 8 hours): - 08/05/24 01:00 08/05/24 05:00 Pulse Oximetry 96 93 Oxygen Delivery Method Room Air Room Air Fraction of Inspired Oxygen 28 SaO2/FiO2 Ratio 346 Oxygen Delivery Method Room Air Oxygen Flow Rate 0 Narrative Exam Narrative: NAD, alert and oriented to self. Fluent speech. Lungs are clear, normal rate and effort. Heart is regular, no murmur gallop or rub. Abdomen is soft, non distended. Extremities are free of edema. Objective Labs 08/01/24 06:15 08/01/24 06:15 [facility] Medical History Chronic kidney disease Skin ulceration 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 arthropathy, lumbar Lumbar foraminal stenosis History of DVT (deep vein thrombosis) Herniated nucleus pulposus, L3-4 left Lumbar radiculopathy Surgical History Hx laparoscopic cholecystectomy H/O neck surgery History of ankle surgery Family History Father Hypertension Mother Hypertension Social History household members: spouse Smoking Status: Never smoker alcohol intake: never Assessment & Plan Assessment & Plan narrative: 1. Acute stress-induced cardiomyopathy, present on admission and active. 2. Acute systolic heart failure, present on admission and improved. 3. COVID 19 infection, present on admission and active. -not hypoxic. 4. Acute respiratory failure with hypoxia, present on admission and resolved. 5. 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 - monitor for abdominal discomfort with eating, continue management medically as noted above 6. 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 - continue wound vac, discussed with wound care. Her wound will not heal and the current care is palliative in nature. 7. History of pulmonary embolus on Eliquis, present on admission and stable. - will resume home apixaban after 48 hours of therapy. 8. Hypertension, present on admission and not active. - hold home lisinopril, furosemide, and coreg in favor of IV diuresis. Restart lisinopril first if BP increase. 9. Hyperlipidemia, stable. - increase lovastatin to high intensity atorvastatin. 10. Hypothyroidism, stable. - continue home 88 mcg levothyroxine. 11. Chronic pain syndrome on chronic opioid therapy, stable. - holding home fentanyl patch. Can continue hydroxyzine, lidocaine cream, oxycodone 12. Chronic cognitive impairment, present on admission and active. - continue home seroquel. PLAN: -anticipate discharge on Wednesday with home hospice. -resume Eliquis. -droplet isolation (Covid). SUBHASH: 5/6 home with hospice. Time-Based Coding :: [TOTAL MINUTES] spent with patient and on the chart (including review of chart, obtaining history, exam, reviewing outside data, placing orders, documenting exam and treatment plan, and counseling patient) on [DATE]. Quality VTE Deep Vein Thrombosis/Pulmonary Embolism Present on Admission: No
[2024-08-05] MEDS: ASPIRIN 81 MG CHEW TAB PO (09:41)
[2024-08-05] MEDS: FUROSEMIDE 20 MG TABLET PO (09:41)
[2024-08-05] MEDS: carvediloL 12.5 MG TABLET 25 MG PO ×2 (09:42→20:42)
[2024-08-05] MEDS: OXYCODONE IR 5 MG TABLET PO (09:42)
[2024-08-05] MEDS: APIXABAN 5 MG TABLET PO ×2 (09:45→20:42)
[2024-08-05] MEDS: MORPHINE 4 MG/ML INJ IV ×2 (12:15→17:52)
--- NOTE | 2024-08-05 13:45 | CM.DPC ---
DCP Comfort Cont: Per MD, pt remains on comfort measures and making some progress and stable for d/c when safe hospice plan set up. JEMAL called [facility] and confirm they have pt on their schedule for SOC 08/08 between [id number] in the home in [place]. JEMAL checked on pt and spoke to RN and pt up sleeping in the bedside chair and per nursing staff pt actually able to mobilize alright with some assist and anticipate d/c via POV vs cabulance home pending her progress next couple days. Should not need BLS transport. Should be off COVID precautions by time of discharge so cabulance might be an option. Current POLST shows [facility]. Plan: SW to check in with family tomorrow Sun to confirm plan of home with Hospice Mon evening vs early AM to be home before 1000 for Hospice and transport POV vs cabulance at d/c and cabulance would need to be private pay by family. MERT Obregon
[2024-08-05] MEDS: SENNOSIDES 8.6 MG TABLET 17.2 MG PO (20:42)
[2024-08-05] MEDS: QUETIAPINE 25 MG TABLET PO (20:42)
[2024-08-05] MEDS: ATORVASTATIN 20 MG TABLET 80 MG PO (20:42)
[2024-08-06] VITALS (8 sets, daily range): BP systolic 135–148; BP diastolic 54–61; PULSE 73–74; RESP 19–20; TEMP 36.1–36.4; O2SAT 92–96
[2024-08-06] MEDS: HYDROMORPHONE 0.5 MG INJ IV (04:12)
[2024-08-06] MEDS: LEVOTHYROXINE 88 MCG TABLET PO (05:55)
[2024-08-06] MEDS: carvediloL 12.5 MG TABLET 25 MG PO ×2 (08:28→21:00)
[2024-08-06] MEDS: ASPIRIN 81 MG CHEW TAB PO (08:28)
[2024-08-06] MEDS: ACETAMINOPHEN 325 MG TABLET 650 MG PO (08:28)
[2024-08-06] MEDS: APIXABAN 5 MG TABLET PO ×2 (08:28→21:00)
[2024-08-06] MEDS: FUROSEMIDE 20 MG TABLET PO (08:28)
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
--- NOTE | 2024-08-06 13:30 | CM.DPC ---
DCP [facility] Cont: Per MD, pt appears comfortable and stable for d/c home when Hospice arranged. SW met bedside with pt and her two local visiting friends (Karely and Mateo) and briefly discussed plan of home with Hospice and friends discussed their concerns with pt discharging home without formal CG in place as spouse not as capable of caring for pt at home and their live in [facility] (who helps with the Bed and Breakfast part of pt and spouse's house) also not capable of being primary CG to patient. Encouraged them to recommend family hiring CG agency at d/c. SW called son Silvio and discussed recommendation of hiring a PP CG agency for discharge home for his mom and emailed him the [employer] with earmarked CG agency list to email: [email or web address] Pt sitting up in bedside chair and talking with her visitors. SW discussed with son Silvio the options for transport at d/c. Private vehicle vs private pay cabulance (would get a quote but anticipate around $200) vs stretcher that might not be covered by insurance. Son states he already has a friend that offered to transport patient at d/c if needed and he will call that person today to see if they could do a 0900 transport 08/08/24 to be home in time for [facility] at 1000. Son also states he would be agreeable to private pay cabulance if friend cannot transport. Will have to call cabulance in the AM to get a quote as they do not answer today Sundays. Son Silvio confirms he has not spoken to [facility] and does not think his dad has either. Discussed the process of Info Visit and then need to order DME tomorrow Mon AM for delivery before pt discharges home . He remains agreeable. SW attempted to call [facility] and went right to after hours voicemail. Plan: SW to follow up with son in the AM to determine if cabulance needed to be scheduled vs POV for transport and calling [facility] in the AM to confirm DME ordered for delivery before . MERT Obregon
[2024-08-06] MEDS: OXYCODONE IR 5 MG TABLET PO (18:03)
[2024-08-06] MEDS: SENNOSIDES 8.6 MG TABLET 17.2 MG PO (21:00)
[2024-08-06] MEDS: QUETIAPINE 25 MG TABLET PO (21:00)
[2024-08-06] MEDS: ATORVASTATIN 20 MG TABLET 80 MG PO (21:01)
[2024-08-07] MEDS: OXYCODONE IR 5 MG TABLET PO ×3 (01:50→16:49)
[2024-08-07] MEDS: LEVOTHYROXINE 88 MCG TABLET PO (05:42)
[2024-08-07] MEDS: ACETAMINOPHEN 325 MG TABLET 650 MG PO (08:48)
[2024-08-07] MEDS: ASPIRIN 81 MG CHEW TAB PO (08:48)
[2024-08-07] MEDS: carvediloL 12.5 MG TABLET 25 MG PO ×2 (08:49→20:35)
[2024-08-07] MEDS: APIXABAN 5 MG TABLET PO ×2 (08:49→20:36)
[2024-08-07] MEDS: FUROSEMIDE 20 MG TABLET PO (08:49)
[2024-08-07 09:00] VITALS: BP 141/59; PULSE 70; RESP 16; TEMP 36.5; O2SAT 93
[2024-08-07 10:00] VITALS: O2SAT 93
--- NOTE | 2024-08-07 11:51 | CM.DPC ---
Addendum entered by MERT Obregon 08/07/24 14:51: ADD: Duyen from [facility] came by and confirmed she will request Dr. Childress to make recommendation of wound care/dressing changes for pt to have wound vac removed and dressings put in place for plan of wound vac removal today before she discharges in the morning. BF Original Note: DCP Hospice Cont: SW called [facility] transport and received quote for $240 for w/c van transport from [facility] to home. JEMAL called son Silvio and updated on private cost of cabulance and he confirms he spoke to family friend who confirms they will transport patient in the morning Tues 5/ at 0900 and they do not need cabulance at discharge. Silvio confirms he spoke to [facility] and confirms plan for pt d/c home tomorrow and hospice to start. JEMAL spoke to [facility] at [facility] and she confirms she spoke to son Silvio and ordered DME and their RN will do SOC with pt still tomorrow Tu 5/ around 1000. JEMAL updated MD and team in MDR this morning. Plan: Patient to d/c tomorrow /6 via friend POV to home with [facility] to start at 1000 same day. SW to fax d/c summary and med list to [facility] at discharge. MERT Obregon
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
[2024-08-07 14:00] VITALS: O2SAT 95
[2024-08-07] MEDS: hydrOXYzine HCL 25 MG TABLET PO (16:49)
[2024-08-07] MEDS: LIDOCAINE/PRILOCAINE 5 GM 2 GM TOP (17:21)
[2024-08-07 19:30] VITALS: O2SAT 92
[2024-08-07 19:36] VITALS: BP 140/60; PULSE 70; RESP 16; TEMP 36.3; O2SAT 92
[2024-08-07 20:35] VITALS: BP 140/60; PULSE 70
[2024-08-07] MEDS: SENNOSIDES 8.6 MG TABLET 17.2 MG PO (20:35)
[2024-08-07] MEDS: ATORVASTATIN 20 MG TABLET 80 MG PO (20:35)
[2024-08-07] MEDS: QUETIAPINE 25 MG TABLET PO (20:36)
[2024-08-08] MEDS: OXYCODONE IR 5 MG TABLET PO ×2 (01:50→09:39)
[2024-08-08] MEDS: ACETAMINOPHEN 325 MG TABLET 650 MG PO (01:51)
[2024-08-08] MEDS: LEVOTHYROXINE 88 MCG TABLET PO (05:44)
--- NOTE | 2024-08-08 08:29 | CM.DPC ---
DCP Cont. Reviewed EMR and team rounds for status updates. Pt has been medically cleared for home d/c. [facility] later this morning. No further CM d/c assistance/resource needs are indicated at this time. Family friend will arrive at 9:00am to transport her home.
[2024-08-08 09:00] VITALS: BP 125/53; PULSE 65; RESP 16
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
[2024-08-08] MEDS: APIXABAN 5 MG TABLET PO (09:15)
[2024-08-08] MEDS: ASPIRIN 81 MG CHEW TAB PO (09:15)
[2024-08-08] MEDS: FUROSEMIDE 20 MG TABLET PO (09:15)
[2024-08-08 09:19] VITALS: BP 127/53; PULSE 65
[2024-08-08] MEDS: carvediloL 12.5 MG TABLET 25 MG PO (09:19)
--- NOTE | 2024-08-08 10:29 | PC.NURSE ---
Patient was picked up by her son and 2 family friends for help transporting home to meet with hospice in home. Patient ate breakfast in chair, then assisted to bathroom to have BM prior to drive home. [place] maintained in place, per Dr. Lux maintain for patient's comfort/request and hospice will follow. Patient has dressings in place to her bilateral legs, CDI. Patient's son Silvio has no further questions or concerns at this time. Patient escorted out via wheelchair with her belongings.
== END 2024-08-08 09:45 | disposition hospice, home (50) | DRG 280 ==
LOC: ED 16:38 → AC 16:40
PROVIDERS: Admitting Provider Internal Medicine; Emergency Provider Emergency Medicine; PCP Physician Assistant Medical; Referring Provider Emergency Medicine; Visit Provider Internal Medicine
DX: I21.4 Non-ST elevation (NSTEMI) myocardial infarction (principal); G93.41 Metabolic encephalopathy; I50.21 Acute systolic (congestive) heart failure; J96.01 Acute respiratory failure with hypoxia; U07.1 COVID-19; K55.069 Acute infarction of intestine, part and extent unspecified; I51.81 Takotsubo syndrome; K55.1 Chronic vascular disorders of intestine; I11.0 Hypertensive heart disease with heart failure; L94.2 Calcinosis cutis; B96.5 Pseudomonas (aeruginosa) (mallei) (pseudomallei) as the cause of diseases classified elsewhere; E78.5 Hyperlipidemia, unspecified; E03.9 Hypothyroidism, unspecified; G89.4 Chronic pain syndrome; G31.84 Mild cognitive impairment of uncertain or unknown etiology; H91.93 Unspecified hearing loss, bilateral; Z86.711 Personal history of pulmonary embolism; Z86.718 Personal history of other venous thrombosis and embolism; Z79.01 Long term (current) use of anticoagulants; Z79.891 Long term (current) use of opiate analgesic; Z79.890 Hormone replacement therapy; Z79.83 Long term (current) use of bisphosphonates; Z82.49 Family history of ischemic heart disease and other diseases of the circulatory system
CPT/HCPCS: 0241U; 36415; 70450; 71045; 71275; 72125; 74174; 80053; 80061; 81001; 82550; 82962; 83036; 83605; 83735; 83880; 84100; 84145; 84443; 84484; 85025; 87040; 93005; 93306; 94760; 94762; 96365; 96375; 99285; 99291; A9270; J1171; J1650; J1938; J2270; J2543; J3475; Q9967